=== PATIENT | female | born 1960 | race Caucasian/White ===

== ENCOUNTER 2020-06-13 15:07 | Emergency (ER) | payer OTHER, SELFPAY ==
[2020-06-13 15:11] VITALS: BP 158/88; PULSE 77; RESP 18; TEMP 36; O2SAT 100
--- NOTE | 2020-06-13 16:10 | ED.GENADULT ---
HPI - General Adult General Chief complaint: Wound/Laceration Stated complaint: L 4TH DIGIT LACERATION Time Seen by Provider: 06/13/20 15:16 Source: patient and family Mode of arrival: ambulatory Limitations: no limitations History of Present Illness HPI narrative: Patient is a 60-year-old female who presents with skin avulsion secondary to using a new knife sliced a piece of skin out of the distal phalanx of the left ring finger notes her tetanus is not up-to-date notes constant aching pain worse with touch and activity denies other injuries or complaints presents in no distress has not taken anything for her symptoms Related Data Allergies Allergy/AdvReac Type Severity Reaction Status Date / Time No Known Allergies Allergy Verified 06/13/20 15:20 Review of Systems Review of Systems: All systems reviewed & are unremarkable except as noted in HPI and below PMFSH Social History Social History (Updated 06/13/20 @ 16:14 by Kong Brock PA-C) Smoking status: Never smoker Gender identity (if verbalized by the patient): Female Exam Narrative: Exam Narrative: GENERAL: Well-appearing, well-nourished, and in no acute distress. HEAD: Normocephalic, atraumatic. EYES: PERRLA and EOMI. ENT: Nares clear, no rhinorrhea or epistaxis. Mucous membranes moist. EXTREMITIES: Normal range of motion. No edema. Half centimeter superficial skin avulsion distal phalanx left ring finger SKIN: Warm, dry, no rash. NEURO: No focal deficits. Alert and oriented x3. Neurovascularly intact PSYCH: Normal mood and affect. Course Course Emergency Course: Patient had wound closed in the emergency department hemostasis achieved Vital Signs Vital signs: Vital Signs Temperature 96.8 F L 06/13/20 15:11 Pulse Rate 77 06/13/20 15:11 Respiratory Rate 18 06/13/20 15:11 Blood Pressure 158/88 H 06/13/20 15:11 Pulse Oximetry 100 06/13/20 15:11 Temperature 96.8 F L 06/13/20 15:11 Pulse Rate 77 06/13/20 15:11 Respiratory Rate 18 06/13/20 15:11 Blood Pressure 158/88 H 06/13/20 15:11 Pulse Oximetry 100 06/13/20 15:11 Procedures Other Procedure Procedure 1: Other Procedure: Let and Surgicel placed on the wound with hemostasis achieved pressure dressing placed on top Medical Decision Making MDM Narrative Medical decision making narrative: Patients injury or pain is consistent with musculoskeletal etiology. No signs of neurological or vascular compromise on exam. Compartments and tisues are soft without signs of compartment syndrome. Pain is felt appropriate for further evaluation on an outpatient basis. Hemostasis achieved with pressure dressing Vital Signs Vital Signs: Vital Signs Temperature 96.8 F L 06/13/20 15:11 Pulse Rate 77 06/13/20 15:11 Respiratory Rate 18 06/13/20 15:11 Blood Pressure 158/88 H 06/13/20 15:11 Pulse Oximetry 100 06/13/20 15:11 Temperature 96.8 F L 06/13/20 15:11 Pulse Rate 77 06/13/20 15:11 Respiratory Rate 18 06/13/20 15:11 Blood Pressure 158/88 H 06/13/20 15:11 Pulse Oximetry 100 06/13/20 15:11 Discharge Plan Discharge Clinical Impression: Avulsion of skin Patient Disposition: Home, Self-Care Condition: Stable Instructions: Antibiotic Form, Skin Avulsion (ED) Additional Instructions: Follow up with primary care in the next 7 days for re-evaluation return if symptoms worsen or concerns, any increase in redness swelling pain or fever over 100.5 Clean wound with mild soapy water. Apply antibiotic ointment and clean dressing at least 2 times daily Follow-up/Referrals: Umesh,Neptali Diehl MD [Primary Care Provider] -
[2020-06-13 16:27] VITALS: RESP 16
== END 2020-06-13 16:27 | disposition home or self-care (01) ==
PROVIDERS: Emergency Provider Emergency Medicine; PCP Internal Medicine
DX: S61.205A Unspecified open wound of left ring finger without damage to nail, initial encounter (principal); W26.0XXA Contact with knife, initial encounter
CPT/HCPCS: 12001; 99282

== ENCOUNTER 2022-01-26 04:50 | Emergency (ER) | payer OTHER, SELFPAY ==
[2022-01-26 04:49] VITALS: BP 137/67; PULSE 64; RESP 16; TEMP 36.7; O2SAT 96
--- NOTE | 2022-01-26 05:16 | ED.BACK ---
HPI - Back Pain/Injury General Chief Complaint: Back Pain/Injury Stated Complaint: BACK PAIN RADIATING RT LEG Time Seen by Provider: 01/26/22 04:53 Source: patient History of Present Illness HPI Narrative: Patient presents with right-sided back pain. Patient reports a longstanding history of chronic back pain and sciatica on the right. She has previously seen pain management she has seen spine she has seen physical therapy but discontinued as it was not helping. She is seeing her primary care doctor she has seen a chiropractor. She has previously taken hydrocodone she takes NSAIDs and muscle relaxers and is also currently on Lyrica for her sciatica pain. She was getting rosebushes yesterday standing up and bending over multiple times and frequently. She had increasing back pain on her right which is usual for her. She took her normal medicines. And was getting initially some relief initially Last night and this morning her pain was worse and she attempted and muscle relaxers reports she is in excruciating pain so she came to the ER for further evaluation. EMS gave her morphine in route and she continues to have pain but it is less intense. Her pain is achy shoots down her right leg worse with moving her back or hip. She denies any bowel or bladder incontinence denies any focal numbness or weakness. Related Data Allergies Allergy/AdvReac Type Severity Reaction Status Date / Time No Known Allergies Allergy Verified 01/26/22 05:00 Review of Systems Review of Systems: CONSTITUTIONAL: Denies fever, chills, or sweats. EYES: Denies visual changes, redness, or discharge. ENT: Denies rhinorrhea, congestion, sore throat, or otalgia. CARDIOVASCULAR: Denies chest pain, palpitations, or edema. RESPIRATORY: Denies cough or dyspnea. GASTROINTESTINAL: Denies abdominal pain, nausea, vomiting, or diarrhea. GENITOURINARY: Denies dysuria or hematuria. SKIN: Denies rash or itching. MUSCULOSKELETAL: Denies joint pain, or myalgia. NEUROLOGIC: Denies headache, numbness, dizziness, or weakness. PSYCHIATRIC: Denies anxiety or depression. All systems reviewed & are unremarkable except as noted in HPI and below [facility] Social History Social History Smoking status: Never smoker Gender identity (if verbalized by the patient): Female Exam Narrative: GENERAL: Well-appearing, well-nourished, and in no acute distress. HEAD: Normocephalic, atraumatic. EYES: PERRLA and EOMI. ENT: Nares clear, no rhinorrhea or epistaxis. Mucous membranes moist. NECK: Supple. No masses. No JVD BACK: Mild diffuse right-sided paraspinal pain no step-offs or deformities on the midline. No focal bony tenderness on the head EXTREMITIES: Normal range of motion. No edema. SKIN: Warm, dry, no rash. NEURO: No focal deficits. Alert and oriented x3. PSYCH: Normal mood and affect. Course Vital Signs Vital signs: Vital Signs Temperature 36.7 C 01/26/22 04:49 Pulse Rate 64 01/26/22 04:49 Respiratory Rate 16 01/26/22 04:49 Blood Pressure 137/67 01/26/22 04:49 Pulse Oximetry 96 01/26/22 04:49 Oxygen Delivery Room Air 01/26/22 04:49 Temperature 36.7 C 01/26/22 04:49 Pulse Rate 63 01/26/22 05:57 Respiratory Rate 16 01/26/22 05:57 Blood Pressure 130/75 01/26/22 05:57 Pulse Oximetry 97 01/26/22 05:57 Oxygen Delivery Room Air 01/26/22 04:49 MDM - Back Pain/Injury MDM Narrative Medical decision making narrative: H&P as above, vss, pt looks clinically well, exam without focal neurological deficits or focal bony tenderness, additional labs/img considered. symptomatic relief available as needed, she given Toradol and steroids acute exacerbation of chronic pain with sciatica, dns cauda equina, fracture, major neurovascular compromise. plan to tx/monitor as op w/ pcm f/u findings/plan discussed with pt, pt agree/comfortable with plan, return precautions given. Patient was offered refer
[2022-01-26] MEDS: KETOROLAC 15 MG/ML VIAL (*BKC) IV PUSH (05:21)
[2022-01-26] MEDS: methylPREDNISolone SOD SUCC 125 MG VIAL IV PUSH (05:21)
[2022-01-26 05:57] VITALS: BP 130/75; PULSE 63; RESP 16; O2SAT 97
== END 2022-01-26 05:58 | disposition home or self-care (01) ==
LOC: ANHED 05:32
PROVIDERS: Emergency Provider Emergency Medicine; PCP Internal Medicine
DX: M54.41 Lumbago with sciatica, right side (principal)
CPT/HCPCS: 96374; 96375; 99284; J1885; J2930

== ENCOUNTER 2022-08-03 12:38 | Emergency (ER) | payer OTHER, SELFPAY ==
[2022-08-03 12:44] VITALS: BP 154/91; PULSE 92; RESP 20; TEMP 37.6; O2SAT 97
--- NOTE | 2022-08-03 13:34 | ED.GENADULT ---
HPI - General Adult General Chief complaint: Upper Respiratory Infection Stated complaint: SANTA, cough, fatigued, diarrhea x4 days Time Seen by Provider: 08/03/22 13:02 History of Present Illness HPI narrative: Patient is a 62-year-old female who presents to the ER with nausea/diarrhea. Starting over the last 4 days. Reports she has diarrhea anytime she eats something. She has had 4 loose stools today. No blood in stool. She is without vomiting. Patient reports over the last 2 weeks she is also having cough with runny nose and sore throat. Does associate with fever. That seem to be resolving prior to the GI bug beginning. She reports has been around her granddaughter who has been sick. Patient did not go get tested for flu or COVID during her respiratory illness. Related Data Home Medications Medication Instructions Recorded Confirmed citalopram 10 mg tablet 10 mg PO DAILY 02/09/22 Allergies Allergy/AdvReac Type Severity Reaction Status Date / Time No Known Allergies Allergy Verified 08/03/22 12:39 Review of Systems Review of Systems: All systems reviewed & are unremarkable except as noted in HPI and below Constitutional: Constitutional: Denies chills, Reports fatigue and Denies fever(s) ENT: Denies nasal congestion and Denies sore throat Cardiovascular: Cardiovascular: Denies chest pain Respiratory: Respiratory: Denies cough and Denies dyspnea Gastrointestinal: Gastrointestinal: Denies abdominal pain, Reports diarrhea, Reports nausea and Denies vomiting Genitourinary: Genitourinary: Denies nocturia, Denies dysuria and Denies flank pain PMFSH Past Medical History Medical History (Updated 08/03/22 @ 15:19 by Harinder Toussaint MD) Anxiety Hyperlipidemia Surgical History Surgical History (Updated 02/09/22 @ 09:41 by Isabelle [facility]ru[facility]) History of 1987 History of 1985 History of partial hysterectomy 1993 Status post cervical disc replacement Family History Family History (Updated 02/09/22 @ 09:27 by Isabelle Pruitt CMA) Sibling Alcohol abuse Other Anxiety Asthma Depression Hypertension Social History Social History (Updated 02/09/22 @ 09:32 by Isabelle Pruitt CMA) Smoking status: Former smoker Smoking end date: 01/20/98 Alcohol intake: never Substance use: never Substance use type: does not use Gender identity (if verbalized by the patient): Female Sexual Orientation (if Verbalized by the Patient): Straight or Heterosexual Spiritual care concerns: No Agree to blood products: Yes Exam Narrative: GENERAL: Well-appearing, well-nourished, and in no acute distress. HEAD: Normocephalic, atraumatic. ENT: Mucous membranes moist. CHEST: Clear to auscultation.? No respiratory distress. HEART: Regular rate and rhythm.? Normal peripheral pulses. ABDOMEN: Soft, nontender, nondistended. EXTREMITIES: Normal range of motion.? No edema. SKIN: Warm, dry, no rash. NEURO: Alert and oriented x3. PSYCH: Normal mood and affect. Course Course Emergency Course: Patient mildly anxious and pacing the room. Will be given Ativan. Discussed results and discharge home. Vital Signs Vital signs: Vital Signs Temperature 99.6 F 08/03/22 12:44 Pulse Rate 92 08/03/22 12:44 Respiratory Rate 20 08/03/22 12:44 Blood Pressure 154/91 H 08/03/22 12:44 Pulse Oximetry 97 08/03/22 12:44 Oxygen Delivery Room Air 08/03/22 12:44 Temperature 99.6 F 08/03/22 12:44 Pulse Rate 92 08/03/22 12:44 Respiratory Rate 20 08/03/22 12:44 Blood Pressure 154/91 H 08/03/22 12:44 Pulse Oximetry 97 08/03/22 12:44 Oxygen Delivery Room Air 08/03/22 12:44 Medical Decision Making Vital Signs Vital Signs: Vital Signs Temperature 99.6 F 08/03/22 12:44 Pulse Rate 92 08/03/22 12:44 Respiratory Rate 20 08/03/22 12:44 Blood Pressure 154/91 H 08/03/22 12:44 Pulse Oximetry 97 08/03/22 12:44 Oxygen Delivery Room A
[2022-08-03 13:36] LABS: Influenza A QL RT-PCR Negative (Negative); Influenza B QL RT-PCR Negative (Negative); SARS-CoV-2 RNA PCR Negative
[2022-08-03] MEDS: SODIUM CHLORIDE 0.9% IV 1,000 ML 999 ML IV CONT (13:49)
[2022-08-03] MEDS: ONDANSETRON INJ 4 MG/2 ML VIAL IV PUSH (13:49)
[2022-08-03] MEDS: KETOROLAC 30 MG/ML VIAL (*BKC) IV PUSH (13:59)
[2022-08-03] MEDS: LORazepam INJ (*CRX) 2 MG/ML VIAL 0.5 MG IV PUSH (15:14)
== END 2022-08-03 16:00 | disposition home or self-care (01) ==
PROVIDERS: Emergency Medicine; Emergency Provider Emergency Medicine; PCP Family Medicine
DX: K52.9 Noninfective gastroenteritis and colitis, unspecified (principal); F41.9 Anxiety disorder, unspecified; Z20.822 Contact with and (suspected) exposure to COVID-19
CPT/HCPCS: 87636; 96361; 96374; 96375; 99284; J1885; J2060; J2405; J7030

== ENCOUNTER 2023-05-10 14:17 | Inpatient (IN) | payer MEDICARE, SELFPAY ==
[2023-05-10] VITALS (8 sets, daily range): BP systolic 106–178; BP diastolic 40–76; PULSE 79–88; RESP 12–19; TEMP 37.2–37.3; O2SAT 97–100; BMI 22.8
--- NOTE | ~2023-05-10 | CT_ITS ---
EXAMINATION: CT abdomen pelvis wo con DATE: 05/10/2023 20:32 INDICATION: Abdominal pain TECHNIQUE: Computed tomography (CT) of the abdomen and pelvis was performed without intravenous contr ast (history of contrast allergy). Automated exposure control and iterative reconstruction technique were employed. Exam dose: 220.99 mGy-cm total exam DLP. 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 No pericardial or pleural effusion. The lung bases are clear of infiltrate or consolidation. The liver, gallbladder, bile ducts, spleen, pancreas, pancreatic duct, and adrenal glands and kidneys appear unremarkable on this limited noncontrast examination. No urinary tract calculus or hydrourete ronephrosis is detected. The urinary bladder appears unremarkable. Status post hysterectomy. Normal appendix. There is prominent thickening of the wall of much of the sigmoid colon. There is pericolic fat strand ing along the distal descending and proximal, suggesting diverticulitis; differential diagnosis inclu valdez colon cancer. There are multiple diverticula of the descending colon in particular. There are small bowel air-fluid levels without abnormal dilatation, likely due to mild adynamic ileus . There is no evidence of bowel obstruction, pneumatosis or intraperitoneal free air. There is atherosclerotic calcification of the abdominal aorta but no aneurysm. No intraperitoneal or retroperitoneal or pelvic mass lesion or adenopathy or ascites is detected. There is osteopenia. No suspicious osteolytic or osteoblastic lesions are noted. IMPRESSION: Pericolic fat stranding in the region of the junction of the distal descending and proxi mal sigmoid colon, with adjacent diverticula, suggesting diverticulitis, without evidence of abscess. There is prominent thickening of the wall of much of the sigmoid colon. Consider large bowel workup by colonoscopy or barium enema when practical to exclude sigmoid colon malignancy Status post hysterectomy Normal appendix Reviewed, dictated and finalized at [facility]. Reviewed, dictated and finalized at [facility]. IMPRESSION: Pericolic fat stranding in the region of the junction of the dista l descending and proximal sigmoid colon, with adjacent diverticula, suggesting diverticulitis, without evidence of abscess. There is prominent thickening of t he wall of much of the sigmoid colon. Consider large bowel workup by colonoscop y or barium enema when practical to exclude sigmoid colon malignancy Status post hysterectomy Normal appendix
[2023-05-10 16:34] LABS: Basophils Percent Auto 0.3 % (0.2-1.2); Eosinophils Absolute Auto 0.3 K/mm3 (0-0.3); Eosinophils Percent Auto 2.2 % (0-4.4); Hematocrit 40.2 % (37.0-47.0); Hemoglobin 13.3 g/dL (12.0-15.0); Immature Granulocyte Absolute 0.07 K/mm3 (0.00-0.031); Immature Granulocyte Percent A 0.5 % (0-0.5); Lymphocytes Absolute Auto 1.05 K/mm3 (0.9-3.2); Lymphocytes Percent Auto 7.1 % (18.3-44.2); Mean Corpuscular HGB Conc 33.1 g/dl (32-36); Mean Corpuscular Hemoglobin 30.2 pg (26-34); Mean Corpuscular Volume 91.2 fl (80-100); Mean Platelet Volume 9.7 fl (7.4-10.4); Monocytes Absolute Auto 0.8 K/mm3 (0.1-0.6); Monocytes Percent Auto 5.2 % (2.6-8.5); Neutrophils Absolute Auto 12.6 K/mm3 (1.3-6.7); Neutrophils Percent Auto 84.7 % (45.5-73.1); Platelet Count Result 309 k/mm3 (150-375); Red Blood Count 4.41 M/mm3 (4.2-5.4); Red Cell Distribution Width 12.8 % (11.5-14.5); White Blood Count 14.9 K/mm3 (4.5-10.0)
[2023-05-10 16:44] LABS: Alanine Aminotransferase 22 U/L (6-35); Albumin Level 4.3 g/dL (3.5-5.1); Alkaline Phosphatase 59 U/L (38-126); Anion Gap 10 mmol/L (8-16); Aspartate Amino Transferase 26 U/L (14-36); Bilirubin,Total 1.4 mg/dL (0.2-1.3); Blood Urea Nitrogen 13 mg/dL (7-17); Calcium 8.9 mg/dL (8.4-10.2); Carbon Dioxide 28 mmol/L (22-30); Chloride 99 mmol/L (98-107); Estimated CRCL calculation 55 ml/min; Estimated Glomerular Filt Rate > 60; Glucose 108 mg/dL (65-110); Potassium 3.6 mmol/L (3.4-5.0); Sodium 137 mmol/L (137-145)
[2023-05-10 17:22] LABS: Appearance Urine Cloudy (Clear); Bacteria Urine None Seen /hpf; Bilirubin Urine 2+ (Negative); Blood Urine 3+ (Negative); Color Urine Dark Yellow (Yellow); Glucose Urine UA Negative (Negative); Ketones Urine 3+ mg/dL (Negative); Leukocyte Esterase Ur Negative LEU/UL (Negative); Nitrate Urine Negative (Negative); Protein Urine 2+ mg/dL (Negative); RBC Urine 21-50 /hpf (0-2); Specific Grav Ur 1.027 (1.001-1.035); Squamous Epithelial Cell Urine None seen /hpf (Few); WBC Urine 0-5 /hpf; pH Urine 5.5 (5.0-9.0)
[2023-05-10 17:23] LABS: Add Urine Microscopic? YES
--- NOTE | 2023-05-10 20:02 | ED.GENADULT ---
HPI - General Adult General Chief complaint: Nausea/Vomiting/Diarrhea Stated complaint: DIARRHEA,ABD CRAMPING X3 DAYS Time Seen by Provider: 05/10/23 19:44 History of Present Illness HPI narrative: Patient presents to the emergency department with persistent and worsening lower abdominal pain. She has had diarrhea for the past 3 days that has been excessive. Today started with nausea and vomiting. Denies fevers chills. Denies past surgical abdominal history. She has not been able to eat much since the diarrhea started a couple days ago. She is concerned she is dehydrated. She is also very uncomfortable. She is accompanied by her who contributes details to the history Related Data Home Medications Medication Instructions Recorded Confirmed citalopram 10 mg tablet 20 mg PO DAILY 01/25/23 01/25/23 Allergies Allergy/AdvReac Type Severity Reaction Status Date / Time No Known Allergies Allergy Verified 01/25/23 09:22 Review of Systems Review of Systems: Negative except what is documented in HPI [facility] Past Medical History Medical History Anxiety Hyperlipidemia Insomnia Surgical History Surgical History History of 1987 History of 1985 History of partial hysterectomy 1993 Status post cervical disc replacement Family History Family History Sibling Alcohol abuse Other Anxiety Asthma Depression Hypertension Social History Social History Smoking status: Former smoker Smoking end date: 01/20/98 Alcohol intake: never Substance use: never Substance use type: does not use Lack of Transportation: No Lack of Food: Never True Current Housing: I Have Housing Concerned About Future Housing: No Difficulty Paying Gas/Electric Bills: No Difficulty Paying for Meds: No Currently Unemployed: No Education: Associate Degree Difficulty w/ Childcare or Family Care: No Living arrangements: with family Gender identity (if verbalized by the patient): Female Sexual Orientation (if Verbalized by the Patient): Straight or Heterosexual Spiritual care concerns: No Agree to blood products: Yes Exam Narrative: GENERAL: Well-appearing, well-nourished, and in no acute distress. Appears uncomfortable HEAD: Normocephalic, atraumatic. EYES: PERRLA and EOMI. ENT: Nares clear, no rhinorrhea or epistaxis. Mucous membranes moist. NECK: Supple. CHEST: Clear to auscultation. No respiratory distress. HEART: Regular rate and rhythm. ABDOMEN: Soft, nondistended. Suprapubic tenderness EXTREMITIES: Normal range of motion. No edema. SKIN: Warm, dry, no rash. NEURO: No focal deficits. Alert and oriented x3. PSYCH: Normal mood and affect. Course Course Emergency Course: Differential diagnosis includes but not limited to colitis, urinary tract infection, appendicitis, pancreatitis, small bowel obstruction Telemetry ordered due to getting narcotic pain medication to evaluate for dysrhythmias. Evaluated by myself. Rhythm nsr Rate 90 Vital Signs Vital signs: Vital Signs Temperature 37.3 C 05/10/23 15:05 Pulse Rate 88 05/10/23 15:05 Respiratory Rate 18 05/10/23 15:05 Blood Pressure 121/61 05/10/23 15:05 Pulse Oximetry 99 05/10/23 15:05 Oxygen Delivery Room Air 05/10/23 15:05 Temperature 37.3 C 05/10/23 15:05 Pulse Rate 80 05/10/23 20:16 Respiratory Rate 19 05/10/23 20:16 Blood Pressure 173/64 H 05/10/23 20:16 Pulse Oximetry 100 05/10/23 20:16 Oxygen Delivery Room Air 05/10/23 15:05 Medical Decision Making Vital Signs Vital Signs: Vital Signs Temperature 37.3 C 05/10/23 15:05 Pulse Rate 88 05/10/23 15:05 Respiratory Rate 18 05/10/23 15:05 Blood Pressu
[2023-05-10] MEDS: SODIUM CHLORIDE 0.9% IV 1,000 ML 999 ML IV CONT (20:12)
[2023-05-10] MEDS: MORPHINE SULFATE (*CRX) 2 MG/ML INJ IV PUSH (20:13)
[2023-05-10] MEDS: ONDANSETRON INJ 4 MG/2 ML VIAL IV PUSH (20:13)
[2023-05-10] MEDS: HYDROmorphone HCL INJ (*CRX) 1 MG/ML SYR 0.5 MG IV PUSH (22:05)
[2023-05-10] MEDS: PIPERACILLIN/TAZ 4.5G/NS 100ML 4.5 GM/100 ML BAG IVPB (22:06)
--- NOTE | 2023-05-10 22:44 | PM.IMHP ---
H&P: HPI History of Present Illness Date/Time: 05/10/23 22:44 Chief Complaint: Patient came to the ER for evaluation with complaints of diarrhea and abdominal cramping for 3 days Narrative: She is a very pleasant lady who is complaining of persistent nausea, vomiting, diarrhea, abdominal pain and cramping for the last 3 days which is getting worse. She came to the ER for evaluation and workup was done which showed acute diverticulitis. She was started on IV antibiotics. She has been unable to eat much since her diarrhea started and concerned she might be dehydrated and do not feel safe going home. She was placed in observation for medical management optimization Review of Systems Review of Systems: patient complains of nausea, vomiting, diarrhea, abdominal cramping. She denies any chest pain, palpitations, fever rigor chills. All systems reviewed & are unremarkable except as noted in HPI and below PMFSH Past Medical History Medical History Anxiety Hyperlipidemia Insomnia Surgical History Surgical History History of 1987 History of 1985 History of partial hysterectomy 1993 Status post cervical disc replacement Family History Family History Sibling Alcohol abuse Other Anxiety Asthma Depression Hypertension Social History Social History Smoking status: Never smoker Second hand tobacco smoke exposure: No Smoking end date: 01/20/98 Alcohol intake: never Substance use: current Substance use type: marijuana Lack of Transportation: No Lack of Food: Never True Current Housing: I Have Housing Concerned About Future Housing: No Difficulty Paying Gas/Electric Bills: No Difficulty Paying for Meds: No Currently Unemployed: No Education: Associate Degree Difficulty w/ Childcare or Family Care: No Living arrangements: with family Gender identity (if verbalized by the patient): Female Sexual Orientation (if Verbalized by the Patient): Straight or Heterosexual Spiritual care concerns: No Agree to blood products: Yes Meds Home Medications and Allergies Home Medications Medication Instructions Recorded Confirmed Type rosuvastatin 20 mg tablet 20 mg PO DAILY #90 tabs 03/09/22 05/10/23 Rx citalopram 10 mg tablet 20 mg PO DAILY 01/25/23 05/10/23 History Allergies Allergy/AdvReac Type Severity Reaction Status Date / Time iohexol AdvReac Mild Rash Verified 05/10/23 23:33 [From contrast - CT, X-RAY] Vital Signs Vital Signs - 24 hr 05/10/23 15:05 05/10/23 20:04 05/10/23 20:05 Temperature 37.3 C Pulse Rate 88 84 84 Respiratory Rate 18 17 Blood Pressure 121/61 178/76 H Pulse Oximetry 99 Oxygen Delivery Room Air 05/10/23 20:15 05/10/23 20:16 05/10/23 22:16 Temperature Pulse Rate 83 80 84 Respiratory Rate 12 19 17 Blood Pressure 173/64 H 163/71 H Pulse Oximetry 100 100 Oxygen Delivery Exam Narrative: PHYSICAL EXAMINATION: Vital signs: Please see the chart General physical exam: Patient feels weak and tired, lying in bed in the ER, no acute distress Head/eyes: Atraumatic, EOMI, PERRLA ENT: Moist mucous membranes, nasal passages clear Neck: Supple, full range of motion, trachea midline CVS: S1 + S2 + 0, regular rate and rhythm, no murmurs Respiratory: Bilaterally fair air entry in both lung batres, mild B/L crackles, symmetric chest expansion, no distress Abdomen: Soft, + mild left lower quadrant abdominal tenderness on palpation, bowel sounds +ve, no organomegaly Extremities: No clubbing, no cyanosis, no edema, no calf tenderness Musculoskeletal: Moves all, adequate range of motion, no muscle spasms Skin: Warm, dry, no jaundice, no cyanosis Neurological: Awake, alert, oriented x 3, cranial nerv
--- NOTE | 2023-05-10 23:40 | ADMGEN ---
This patient, Kaylah Villalpando, was admitted to Medical Room 343-01. Patient/family oriented to hospital policies and general routines including ID bracelet, bed and alarms, visiting hours, pain management, procedures, bathroom and other care routines, personal items, smoking policy, room service/diet, and visiting hours. Information on how to activate the Rapid Response Team has been discussed. Patient/Family are encouraged to report perceived risks to care and to ask questions if they do not understand what they are told or what they should do.
[2023-05-11] MEDS: MAG HYDROX/AL HYDROX/SIMETH 30 ML UDC PO (01:06)
[2023-05-11] MEDS: SODIUM CHLORIDE 0.9% IV 1,000 ML 100 ML IV CONT ×2 (01:06→17:16)
[2023-05-11 04:00] VITALS: BP 118/49; PULSE 78; RESP 16; TEMP 36.9; O2SAT 97
[2023-05-11] MEDS: MORPHINE SULFATE (*CRX) 2 MG/ML INJ IV PUSH ×4 (04:15→22:34)
[2023-05-11 05:52] LABS: Basophils Percent Auto 0.2 % (0.2-1.2); Eosinophils Absolute Auto 0.1 K/mm3 (0-0.3); Eosinophils Percent Auto 0.6 % (0-4.4); Hematocrit 35.5 % (37.0-47.0); Hemoglobin 11.8 g/dL (12.0-15.0); Immature Granulocyte Absolute 0.05 K/mm3 (0.00-0.031); Immature Granulocyte Percent A 0.4 % (0-0.5); Lymphocytes Absolute Auto 1.44 K/mm3 (0.9-3.2); Lymphocytes Percent Auto 11.8 % (18.3-44.2); Mean Corpuscular HGB Conc 33.2 g/dl (32-36); Mean Corpuscular Hemoglobin 30.2 pg (26-34); Mean Corpuscular Volume 90.8 fl (80-100); Mean Platelet Volume 10.1 fl (7.4-10.4); Monocytes Absolute Auto 1.2 K/mm3 (0.1-0.6); Monocytes Percent Auto 10.1 % (2.6-8.5); Neutrophils Absolute Auto 9.4 K/mm3 (1.3-6.7); Neutrophils Percent Auto 76.9 % (45.5-73.1); Platelet Count Result 268 k/mm3 (150-375); Red Blood Count 3.91 M/mm3 (4.2-5.4); Red Cell Distribution Width 12.8 % (11.5-14.5); White Blood Count 12.2 K/mm3 (4.5-10.0)
[2023-05-11 06:25] LABS: Anion Gap 5 mmol/L (8-16); Blood Urea Nitrogen 10 mg/dL (7-17); Calcium 7.6 mg/dL (8.4-10.2); Carbon Dioxide 26 mmol/L (22-30); Chloride 105 mmol/L (98-107); Estimated CRCL calculation 63 ml/min; Estimated Glomerular Filt Rate > 60; Glucose 100 mg/dL (65-110); Phosphorus 2.8 mg/dL (2.5-4.5); Potassium 3.4 mmol/L (3.4-5.0); Sodium 136 mmol/L (137-145)
[2023-05-11 08:00] VITALS: PULSE 81; RESP 16; O2SAT 98
[2023-05-11] MEDS: ROSUVASTATIN 10 MG TABLET 20 MG PO (08:25)
[2023-05-11] MEDS: CITALOPRAM HYDROBROMIDE 20 MG TABLET PO (08:25)
[2023-05-11] MEDS: ONDANSETRON INJ 4 MG/2 ML VIAL IV PUSH (09:27)
--- NOTE | 2023-05-11 10:29 | PM.IMPN ---
Progress Note: A&P Assessment and Plan (1) Diverticulitis: Code(s): K57.92 - Diverticulitis of intestine, part unspecified, without perforation or abscess without bleeding Status: Acute Assessment and Plan: CT abdomen shows diverticulitis without abscess. Also prominent thickening of the bowel wall of the sigmoid colon. Recommended colonoscopy in the next 3-4 weeks after resolution of diverticulitis. Concerns for malignancy. -clear liquid diet, advance as tolerated -IVF -Leukocytosis on admission 14.9-->12.2 today -Afebrile thus far. Should she fever obtain blood cultures. -IV antibiotics with cefepime and Flagyl (2) Leukocytosis: Code(s): D72.829 - Elevated white blood cell count, unspecified Status: Acute Assessment and Plan: see above Subjective Date/time seen: 05/11/23 10:29 Interval history: HPI obtained from chart, Chief Complaint: Patient came to the ER for evaluation with complaints of? diarrhea and abdominal cramping for 3 days Narrative: She is a very pleasant lady who is complaining of persistent nausea, vomiting, diarrhea, abdominal pain and cramping for the last 3 days which is getting worse.? She came to the ER for evaluation and workup was done which showed acute diverticulitis.? She was started on IV antibiotics. ? She has been unable to eat much since? her diarrhea started and concerned she might be dehydrated and do not feel safe going home.? She was placed in observation for medical management optimization. Interval history: 05/11-patient appears weak and ill lying in bed. She has been sipping on clear liquids but continues to have severe abdominal pain to her right lower quadrant and right mid quadrant. She winces in pain when I place my stethoscope to listen. She is having nausea but she says that the Zofran is helping control this. Currently receiving IV fluids along with cefepime and Flagyl for diverticulitis. Review of Systems Review of Systems: All systems reviewed & are unremarkable except as noted in HPI and below Exam Narrative: General: ill and weak appearing, well developed, well nourished, appears stated age. HEENT: normocephalic, atraumatic. Mucous membranes moist. EOMI, PERRLA, bilateral sclera anicteric, no conjunctival injection. Neck supple without JVD, lymphadenopathy, or bruit. Respiratory: clear to auscultation bilaterally. No rales/rhonic/wheezes. Cardiovascular: Regular rate and rhythm, normal S1-S2 upon auscultation. No murmurs, rubs, or clicks. PMI is nondisplaced, capillary re-fill less than 3 second. Abdomen: Soft, flat, no pulsatile masses, non-distended and severely tender. No rebound, no guarding. No CVA tenderness, no hepatosplenomegaly. Bowel sounds present to all four quadrants, resonant to percussion. Extremities: No cyanosis, clubbing, or edema present. Pulses are palpable 2/2. Active ROM to all four extremities. Neuro: Alert and orientated x 4. PERRLA. Cranial nerves 2-12 intact without focal deficit. Skin: Warm, dry, and intact, without rash, erythema, or lesion. Lines: PIV Incisions: N/A Psych: pleasant, cooperative, normal speech, normal affect, no hallucinations, no dysarthria Objective Data Vital Signs Vital Signs: Vital Signs - 24 hr 05/10/23 15:05 05/10/23 20:04 05/10/23 20:05 Temperature 99.2 F Pulse Rate 88 84 84 Respiratory Rate 18 17 Blood Pressure 121/61 178/76 H Pulse Oximetry 99 Oxygen Delivery Room Air 05/10/23 20:15 05/10/23 20:16 05/10/23 22:16 Temperature Pulse Rate 83 80 84 Respiratory Rate 12 19 17 Blood Pressure 173/64 H 163/71 H Pulse Oximetry 100 100 Oxygen Delivery 05/10/23 23:05 05/10/23 23:55 05/11/23 04:00 Temperature 99 F 98.4 F Pulse Rate 83 79 78 Respiratory Rate 19 14 16 Blood Pressure 123/51 L 106/40 L 118/49 L Pulse Oximetry 97 99 97 Oxygen Delivery Intake/Output Intake/Output: Intake & Output 05/08/23 05/09/23 05/10/23
--- NOTE | 2023-05-11 10:35 | ECG_ITS ---
Measurements Intervals [place] Rate: 78 P: 83 ID: [id number] QRS: 47 QRSD: 102 T: 72 QT: 382 QTc: 437 Interpretive Statements SINUS RHYTHM NORMAL ECG NO PREVIOUS ECG AVAILABLE FOR COMPARISON Electronically Signed On 05-11-2023 13:46:07 CDT by Dorian Munoz D.O.
[2023-05-11] MEDS: CEFEPIME 2 GM/NS 50 ML 2 GM/50 ML BAG IVPB ×2 (11:22→20:18)
[2023-05-11 12:00] VITALS: BP 121/50; PULSE 81; RESP 16; TEMP 37; O2SAT 98
[2023-05-11] MEDS: metroNIDAZOLE 500 MG/ISO 100ML 500 MG/100 ML BAG 100 MG IVPB ×2 (13:14→18:01)
[2023-05-11] MEDS: ACETAMINOPHEN 325 MG TABLET 650 MG PO (17:21)
[2023-05-11 17:38] LABS: Free T4 Free Thyroxine Reflex 1.24 ng/dL (0.78-2.19)
[2023-05-11 20:02] LABS: Total Triiodothyronine (T3) 1.01 NG/ML (0.97-1.69)
[2023-05-11 21:05] VITALS: BP 129/57; PULSE 74; RESP 14; TEMP 36.1; O2SAT 99
[2023-05-12] MEDS: SODIUM CHLORIDE 0.9% IV 1,000 ML 100 ML IV CONT (03:41)
[2023-05-12] MEDS: metroNIDAZOLE 500 MG/ISO 100ML 500 MG/100 ML BAG 100 MG IVPB ×3 (03:41→17:57)
[2023-05-12 05:54] LABS: Basophils Percent Auto 0.4 % (0.2-1.2); Eosinophils Absolute Auto 0.2 K/mm3 (0-0.3); Eosinophils Percent Auto 1.9 % (0-4.4); Hemoglobin 10.9 g/dL (12.0-15.0); Immature Granulocyte Absolute 0.03 K/mm3 (0.00-0.031); Immature Granulocyte Percent A 0.3 % (0-0.5); Lymphocytes Absolute Auto 1.27 K/mm3 (0.9-3.2); Lymphocytes Percent Auto 14.1 % (18.3-44.2); Mean Corpuscular Volume 90.9 fl (80-100); Mean Platelet Volume 9.7 fl (7.4-10.4); Monocytes Absolute Auto 0.8 K/mm3 (0.1-0.6); Monocytes Percent Auto 8.9 % (2.6-8.5); Neutrophils Absolute Auto 6.7 K/mm3 (1.3-6.7); Neutrophils Percent Auto 74.4 % (45.5-73.1); Platelet Count Result 240 k/mm3 (150-375); Red Blood Count 3.63 M/mm3 (4.2-5.4); Red Cell Distribution Width 12.7 % (11.5-14.5)
[2023-05-12 06:00] VITALS: BP 129/52; PULSE 74; RESP 16; TEMP 36.2; O2SAT 99
[2023-05-12 06:18] LABS: Anion Gap 4 mmol/L (8-16); Blood Urea Nitrogen 4 mg/dL (7-17); Calcium 7.6 mg/dL (8.4-10.2); Carbon Dioxide 26 mmol/L (22-30); Chloride 106 mmol/L (98-107); Estimated CRCL calculation 63 ml/min; Estimated Glomerular Filt Rate > 60; Glucose 92 mg/dL (65-110); Potassium 2.9 mmol/L (3.4-5.0); Sodium 136 mmol/L (137-145)
[2023-05-12 07:44] VITALS: O2SAT 98
[2023-05-12 08:00] VITALS: PULSE 74; RESP 16; O2SAT 98
[2023-05-12] MEDS: CEFEPIME 2 GM/NS 50 ML 2 GM/50 ML BAG IVPB ×2 (08:53→21:52)
[2023-05-12] MEDS: ROSUVASTATIN 10 MG TABLET 20 MG PO (08:54)
[2023-05-12] MEDS: CITALOPRAM HYDROBROMIDE 20 MG TABLET PO (08:54)
[2023-05-12] MEDS: MORPHINE SULFATE (*CRX) 2 MG/ML INJ IV PUSH ×3 (08:57→21:00)
[2023-05-12] MEDS: LOPERAMIDE HCL 2 MG CAPSULE PO (08:57)
--- NOTE | 2023-05-12 09:19 | PM.IMPN ---
Progress Note: A&P Assessment and Plan (1) Diverticulitis: Code(s): K57.92 - Diverticulitis of intestine, part unspecified, without perforation or abscess without bleeding Status: Acute Assessment and Plan: CT abdomen shows diverticulitis without abscess. Also prominent thickening of the bowel wall of the sigmoid colon. Recommended colonoscopy in the next 3-4 weeks after resolution of diverticulitis. Concerns for malignancy. -clear liquid diet, advance as tolerated -IVF -replace electrolytes -Leukocytosis on admission 14.9-->12.2-->9.0 today -Afebrile thus far. Should she fever obtain blood cultures. -IV antibiotics with cefepime and Flagyl (2) Leukocytosis: Code(s): D72.829 - Elevated white blood cell count, unspecified Status: Acute Assessment and Plan: see above (3) TSH elevation: Code(s): R79.89 - Other specified abnormal findings of blood chemistry Status: Acute Assessment and Plan: Subclinical hypothyroidism TSH 8.460, Free T4 1.24, Total T3 1.01. I spoke with the patient about symptoms surrounding hypothyroidism. She does say she has fatigue, weakness, dry skin, and cold intolerance. I discussed starting her on low dose Synthroid but she prefers to wait and discuss with her PCP. Since her T4 and T3 are normal she does not wish to add another medication to her regimen if she can help it. (4) Colon wall thickening: Code(s): K63.9 - Disease of intestine, unspecified Status: Acute Assessment and Plan: See on CT abdomen and pelvis I spoke with Dr Ruelas who recommends colonoscopy in the next 3-4 weeks after infection has cleared. I spoke with the patient regarding this and the need for further investigation. She is agreeable. It has been greater than 10 years since her last colonoscopy. She does say that she had been experiencing unintentional weight loss. Subjective Date/time seen: 05/12/23 09:19 Interval history: HPI obtained from chart, Chief Complaint: Patient came to the ER for evaluation with complaints of? diarrhea and abdominal cramping for 3 days Narrative: She is a very pleasant lady who is complaining of persistent nausea, vomiting, diarrhea, abdominal pain and cramping for the last 3 days which is getting worse.? She came to the ER for evaluation and workup was done which showed acute diverticulitis.? She was started on IV antibiotics. ? She has been unable to eat much since? her diarrhea started and concerned she might be dehydrated and do not feel safe going home.? She was placed in observation for medical management optimization. Interval history: 05/11-patient appears weak and ill lying in bed. She has been sipping on clear liquids but continues to have severe abdominal pain to her right lower quadrant and right mid quadrant. She winces in pain when I place my stethoscope to listen. She is having nausea but she says that the Zofran is helping control this. Currently receiving IV fluids along with cefepime and Flagyl for diverticulitis. 05/12: Symptoms mildly improved. She is having high volume diarrhea. Her white count is improving and she has been afebrile so I am okay to start with TID Imodium. Her K+ was low at 2.9 mmol/L. Replacing with IV K. Complains of abdominal cramping with her diarrhea, will add bentyl as well. Continue with IV antibiotics. Review of Systems Review of Systems: All systems reviewed & are unremarkable except as noted in HPI and below Exam Narrative: General: ill and weak appearing, well developed, well nourished, appears stated age. HEENT: normocephalic, atraumatic. Mucous membranes moist. EOMI, PERRLA, bilateral sclera anicteric, no conjunctival injection. Neck supple without JVD, lymphadenopathy, or bruit. Respiratory: clear to auscultation bilaterally. No rales/rhonic/wheezes. Cardiovascular: Regular rate and rhythm, normal S1-S2 upon auscultation. No murmurs, rubs, or clicks. PMI
[2023-05-12] MEDS: POTASSIUM CHLORIDE INJ 40 MEQ in SODIUM CHLORIDE 0.9% IV 500 ML 130 MEQ IVPB ×2 (11:35→16:15)
[2023-05-12 14:00] VITALS: BP 143/64; PULSE 74; RESP 18; TEMP 36.4; O2SAT 99
[2023-05-12] MEDS: DICYCLOMINE HCL 10 MG CAPSULE 20 MG PO (18:07)
[2023-05-12 20:00] VITALS: PULSE 75; RESP 18; O2SAT 100
[2023-05-12 20:07] VITALS: BP 155/80; PULSE 75; RESP 18; TEMP 37.2; O2SAT 100
[2023-05-12] MEDS: LOPERAMIDE HCL 2 MG CAPSULE 4 MG PO ×2 (20:15→21:56)
[2023-05-12 21:04] LABS: Anion Gap 0 mmol/L (8-16); Blood Urea Nitrogen 3 mg/dL (7-17); Calcium 7.7 mg/dL (8.4-10.2); Carbon Dioxide 31 mmol/L (22-30); Chloride 106 mmol/L (98-107); Estimated CRCL calculation 63 ml/min; Estimated Glomerular Filt Rate > 60; Glucose 121 mg/dL (65-110); Potassium 3.5 mmol/L (3.4-5.0); Sodium 137 mmol/L (137-145)
[2023-05-13] MEDS: MORPHINE SULFATE (*CRX) 2 MG/ML INJ IV PUSH (01:12)
[2023-05-13] MEDS: SODIUM CHLORIDE 0.9% IV 1,000 ML 100 ML IV CONT (02:42)
[2023-05-13] MEDS: metroNIDAZOLE 500 MG/ISO 100ML 500 MG/100 ML BAG 100 MG IVPB ×3 (02:42→18:14)
[2023-05-13 04:47] VITALS: BP 144/63; PULSE 69; RESP 16; TEMP 37.1; O2SAT 98
[2023-05-13 06:14] LABS: Basophils Percent Auto 0.4 % (0.2-1.2); Eosinophils Absolute Auto 0.2 K/mm3 (0-0.3); Eosinophils Percent Auto 2.8 % (0-4.4); Hematocrit 32.3 % (37.0-47.0); Hemoglobin 10.6 g/dL (12.0-15.0); Immature Granulocyte Absolute 0.03 K/mm3 (0.00-0.031); Immature Granulocyte Percent A 0.4 % (0-0.5); Lymphocytes Percent Auto 22.8 % (18.3-44.2); Mean Corpuscular HGB Conc 32.8 g/dl (32-36); Mean Corpuscular Hemoglobin 29.9 pg (26-34); Mean Corpuscular Volume 91.2 fl (80-100); Mean Platelet Volume 9.3 fl (7.4-10.4); Monocytes Absolute Auto 0.6 K/mm3 (0.1-0.6); Monocytes Percent Auto 8.1 % (2.6-8.5); Neutrophils Absolute Auto 4.9 K/mm3 (1.3-6.7); Neutrophils Percent Auto 65.5 % (45.5-73.1); Platelet Count Result 252 k/mm3 (150-375); Red Blood Count 3.54 M/mm3 (4.2-5.4); Red Cell Distribution Width 12.6 % (11.5-14.5); White Blood Count 7.4 K/mm3 (4.5-10.0)
[2023-05-13 06:30] LABS: Anion Gap 2 mmol/L (8-16); Calcium 7.6 mg/dL (8.4-10.2); Carbon Dioxide 30 mmol/L (22-30); Chloride 106 mmol/L (98-107); Estimated CRCL calculation 63 ml/min; Estimated Glomerular Filt Rate > 60; Glucose 103 mg/dL (65-110); Magnesium 1.8 mg/dL (1.6-2.3); Potassium 3.4 mmol/L (3.4-5.0); Sodium 138 mmol/L (137-145)
[2023-05-13 06:32] LABS: Blood Urea Nitrogen < 2 mg/dL (7-17)
[2023-05-13] MEDS: CITALOPRAM HYDROBROMIDE 20 MG TABLET PO (08:32)
[2023-05-13] MEDS: CEFEPIME 2 GM/NS 50 ML 2 GM/50 ML BAG IVPB ×2 (08:32→20:54)
[2023-05-13] MEDS: ROSUVASTATIN 10 MG TABLET 20 MG PO (08:33)
[2023-05-13] MEDS: ONDANSETRON INJ 4 MG/2 ML VIAL IV PUSH (08:33)
[2023-05-13] MEDS: DICYCLOMINE HCL 10 MG CAPSULE 20 MG PO ×3 (08:39→18:22)
--- NOTE | 2023-05-13 09:42 | P.PNIM_ITS ---
Progress Note: A&P Assessment and Plan (1) Diverticulitis: Code(s): K57.92 - Diverticulitis of intestine, part unspecified, without perforation or abscess without bleeding Status: Acute Assessment and Plan: CT abdomen shows diverticulitis without abscess. Also prominent thickening of the bowel wall of the sigmoid colon. Recommended colonoscopy in the next 3-4 weeks after resolution of diverticulitis. Concerns for malignancy. -clear liquid diet, will try advance diet to low fiber for lunch -immodium prn, bentyl prn for cramping -IVF stopped -replace electrolytes -Leukocytosis on admission 14.9-->12.2-->9->7.4 today -Afebrile thus far. Should she fever obtain blood cultures. -IV antibiotics with cefepime and Flagyl (2) Leukocytosis: Code(s): D72.829 - Elevated white blood cell count, unspecified Status: Acute Assessment and Plan: see above (3) TSH elevation: Code(s): R79.89 - Other specified abnormal findings of blood chemistry Status: Acute Assessment and Plan: Subclinical hypothyroidism TSH 8.460, Free T4 1.24, Total T3 1.01. I spoke with the patient about symptoms surrounding hypothyroidism. She does say she has fatigue, weakness, dry skin, and cold intolerance. I discussed starting her on low dose Synthroid but she prefers to wait and discuss with her PCP. Since her T4 and T3 are normal she does not wish to add another medication to her regimen if she can help it. (4) Colon wall thickening: Code(s): K63.9 - Disease of intestine, unspecified Status: Acute Assessment and Plan: See on CT abdomen and pelvis I spoke with Dr Ruelas who recommends colonoscopy in the next 3-4 weeks after infection has cleared. I spoke with the patient regarding this and the need for further investigation. She is agreeable. It has been greater than 10 years since her last colonoscopy. She does say that she had been experiencing unintentional weight loss. Subjective Date/time seen: 05/13/23 09:42 Interval history: HPI obtained from chart, Chief Complaint: Patient came to the ER for evaluation with complaints of? diarrhea and abdominal cramping for 3 days Narrative: She is a very pleasant lady who is complaining of persistent nausea, vomiting, diarrhea, abdominal pain and cramping for the last 3 days which is getting worse.? She came to the ER for evaluation and workup was done which showed acute diverticulitis.? She was started on IV antibiotics. ? She has been unable to eat much since? her diarrhea started and concerned she might be dehydrated and do not feel safe going home.? She was placed in observation for medical management optimization. Interval history: 05/11-patient appears weak and ill lying in bed. She has been sipping on clear liquids but continues to have severe abdominal pain to her right lower quadrant and right mid quadrant. She winces in pain when I place my stethoscope to listen. She is having nausea but she says that the Zofran is helping control this. Currently receiving IV fluids along with cefepime and Flagyl for diverticulitis. 05/12: Symptoms mildly improved. She is having high volume diarrhea. Her white count is improving and she has been afebrile so I am okay to start with TID Imodium. Her K+ was low at 2.9 mmol/L. Replacing with IV K. Complains of abdominal cramping with her diarrhea, will add bentyl as well. Continue with IV antibiotics. 05/13: Kaylah is looking better today. When around she is up sitting on the couch next to the window. She says that her back is hurting some but she thinks it is from the bed.
[2023-05-13] MEDS: LOPERAMIDE HCL 2 MG CAPSULE 4 MG PO (14:27)
[2023-05-13 14:29] VITALS: BP 134/58; PULSE 81; RESP 18; TEMP 36.7; O2SAT 100
[2023-05-13 20:00] VITALS: PULSE 68; RESP 16; O2SAT 98
[2023-05-13 20:12] VITALS: BP 149/63; PULSE 68; RESP 16; TEMP 36.8; O2SAT 98
[2023-05-13] MEDS: ZOLPIDEM TARTRATE (*CRX) 5 MG TABLET PO (20:53)
[2023-05-13 21:30] VITALS: O2SAT 98
[2023-05-14] MEDS: metroNIDAZOLE 500 MG/ISO 100ML 500 MG/100 ML BAG 100 MG IVPB ×2 (03:15→10:57)
[2023-05-14 04:43] VITALS: BP 149/65; PULSE 70; RESP 16; TEMP 37.2; O2SAT 98
[2023-05-14] MEDS: ACETAMINOPHEN 325 MG TABLET 650 MG PO (04:47)
[2023-05-14 05:16] LABS: Anion Gap 3 mmol/L (8-16); Blood Urea Nitrogen 2 mg/dL (7-17); Calcium 8.1 mg/dL (8.4-10.2); Carbon Dioxide 34 mmol/L (22-30); Chloride 101 mmol/L (98-107); Estimated CRCL calculation 74 ml/min; Estimated Glomerular Filt Rate > 60; Glucose 106 mg/dL (65-110); Magnesium 1.8 mg/dL (1.6-2.3); Potassium 3.1 mmol/L (3.4-5.0); Sodium 138 mmol/L (137-145)
[2023-05-14 05:19] LABS: Basophils Percent Auto 0.6 % (0.2-1.2); Eosinophils Absolute Auto 0.2 K/mm3 (0-0.3); Eosinophils Percent Auto 2.4 % (0-4.4); Hematocrit 32.9 % (37.0-47.0); Immature Granulocyte Absolute 0.02 K/mm3 (0.00-0.031); Immature Granulocyte Percent A 0.3 % (0-0.5); Lymphocytes Absolute Auto 1.79 K/mm3 (0.9-3.2); Lymphocytes Percent Auto 26.6 % (18.3-44.2); Mean Corpuscular HGB Conc 33.4 g/dl (32-36); Mean Corpuscular Hemoglobin 29.9 pg (26-34); Mean Corpuscular Volume 89.4 fl (80-100); Mean Platelet Volume 9.8 fl (7.4-10.4); Monocytes Absolute Auto 0.7 K/mm3 (0.1-0.6); Monocytes Percent Auto 9.8 % (2.6-8.5); Neutrophils Absolute Auto 4.1 K/mm3 (1.3-6.7); Neutrophils Percent Auto 60.3 % (45.5-73.1); Platelet Count Result 287 k/mm3 (150-375); Red Blood Count 3.68 M/mm3 (4.2-5.4); Red Cell Distribution Width 12.4 % (11.5-14.5); White Blood Count 6.7 K/mm3 (4.5-10.0)
[2023-05-14] MEDS: CEFEPIME 2 GM/NS 50 ML 2 GM/50 ML BAG IVPB (08:29)
[2023-05-14] MEDS: ROSUVASTATIN 10 MG TABLET 20 MG PO (08:29)
[2023-05-14] MEDS: CITALOPRAM HYDROBROMIDE 20 MG TABLET PO (08:29)
--- NOTE | 2023-05-14 08:36 | PM.IMPN ---
Progress Note: A&P Assessment and Plan (1) Diverticulitis: Code(s): K57.92 - Diverticulitis of intestine, part unspecified, without perforation or abscess without bleeding Status: Acute Assessment and Plan: CT abdomen shows diverticulitis without abscess. Also prominent thickening of the bowel wall of the sigmoid colon. Recommended colonoscopy in the next 3-4 weeks after resolution of diverticulitis. Concerns for malignancy. -clear liquid diet, will try advance diet to low fiber for lunch -immodium prn, bentyl prn for cramping -IVF stopped -replace electrolytes -Leukocytosis on admission 14.9-->12.2-->9->7.4-->6.7 today -Afebrile thus far. Should she fever obtain blood cultures. -IV antibiotics with cefepime and Flagyl (2) Leukocytosis: Code(s): D72.829 - Elevated white blood cell count, unspecified Status: Acute Assessment and Plan: see above (3) TSH elevation: Code(s): R79.89 - Other specified abnormal findings of blood chemistry Status: Acute Assessment and Plan: Subclinical hypothyroidism TSH 8.460, Free T4 1.24, Total T3 1.01. I spoke with the patient about symptoms surrounding hypothyroidism. She does say she has fatigue, weakness, dry skin, and cold intolerance. I discussed starting her on low dose Synthroid but she prefers to wait and discuss with her PCP. Since her T4 and T3 are normal she does not wish to add another medication to her regimen if she can help it. (4) Colon wall thickening: Code(s): K63.9 - Disease of intestine, unspecified Status: Acute Assessment and Plan: See on CT abdomen and pelvis I spoke with Dr Ruelas who recommends colonoscopy in the next 3-4 weeks after infection has cleared. I spoke with the patient regarding this and the need for further investigation. She is agreeable. It has been greater than 10 years since her last colonoscopy. She does say that she had been experiencing unintentional weight loss. Subjective Date/time seen: 05/14/23 08:36 Interval history: HPI obtained from chart, Chief Complaint: Patient came to the ER for evaluation with complaints of? diarrhea and abdominal cramping for 3 days Narrative: She is a very pleasant lady who is complaining of persistent nausea, vomiting, diarrhea, abdominal pain and cramping for the last 3 days which is getting worse.? She came to the ER for evaluation and workup was done which showed acute diverticulitis.? She was started on IV antibiotics. ? She has been unable to eat much since? her diarrhea started and concerned she might be dehydrated and do not feel safe going home.? She was placed in observation for medical management optimization. Interval history: 05/11-patient appears weak and ill lying in bed. She has been sipping on clear liquids but continues to have severe abdominal pain to her right lower quadrant and right mid quadrant. She winces in pain when I place my stethoscope to listen. She is having nausea but she says that the Zofran is helping control this. Currently receiving IV fluids along with cefepime and Flagyl for diverticulitis. 05/12: Symptoms mildly improved. She is having high volume diarrhea. Her white count is improving and she has been afebrile so I am okay to start with TID Imodium. Her K+ was low at 2.9 mmol/L. Replacing with IV K. Complains of abdominal cramping with her diarrhea, will add bentyl as well. Continue with IV antibiotics. 05/13: Kaylah is looking better today. When around she is up sitting on the couch next to the window. She says that her back is hurting some but she thinks it is from the bed. She feels less abdominal cramping today and less abdominal tenderness. She is able to push on her belly without eliciting pain. She still is having loose stools but has improved. Will trial a low-fiber diet today. If she continues to feel better tomorrow and is tolerating a diet then I anticipate transitioning her to
[2023-05-14] MEDS: POTASSIUM CHLORIDE 20 MEQ PACKET (FOR LIQUID) 80 MEQ PO (10:56)
[2023-05-14] MEDS: ONDANSETRON INJ 4 MG/2 ML VIAL IV PUSH (12:18)
--- NOTE | 2023-05-14 12:42 | PM.DS ---
DS: Admitting Diagnosis Discharge Date 05-14 Admitting Diagnosis Abdominal pain, diverticulitis DS: Discharge Diagnosis Discharge Diagnosis (1) Diverticulitis: Code(s): K57.92 - Diverticulitis of intestine, part unspecified, without perforation or abscess without bleeding Status: Acute Assessment and Plan: CT abdomen shows diverticulitis without abscess. Also prominent thickening of the bowel wall of the sigmoid colon. Recommended colonoscopy in the next 3-4 weeks after resolution of diverticulitis. Concerns for malignancy. -clear liquid diet, will try advance diet to low fiber for lunch -immodium prn, bentyl prn for cramping -IVF stopped -replace electrolytes -Leukocytosis on admission 14.9-->12.2-->9->7.4-->6.7 today -Afebrile thus far. Should she fever obtain blood cultures. -IV antibiotics with cefepime and Flagyl (2) Leukocytosis: Code(s): D72.829 - Elevated white blood cell count, unspecified Status: Acute Assessment and Plan: see above (3) TSH elevation: Code(s): R79.89 - Other specified abnormal findings of blood chemistry Status: Acute Assessment and Plan: Subclinical hypothyroidism TSH 8.460, Free T4 1.24, Total T3 1.01. I spoke with the patient about symptoms surrounding hypothyroidism. She does say she has fatigue, weakness, dry skin, and cold intolerance. I discussed starting her on low dose Synthroid but she prefers to wait and discuss with her PCP. Since her T4 and T3 are normal she does not wish to add another medication to her regimen if she can help it. (4) Colon wall thickening: Code(s): K63.9 - Disease of intestine, unspecified Status: Acute Assessment and Plan: See on CT abdomen and pelvis I spoke with Dr Ruelas who recommends colonoscopy in the next 3-4 weeks after infection has cleared. I spoke with the patient regarding this and the need for further investigation. She is agreeable. It has been greater than 10 years since her last colonoscopy. She does say that she had been experiencing unintentional weight loss. DS: Summary Hospital Course Hospital Course: HPI obtained from chart, Chief Complaint: Patient came to the ER for evaluation with complaints of? diarrhea and abdominal cramping for 3 days Narrative: She is a very pleasant lady who is complaining of persistent nausea, vomiting, diarrhea, abdominal pain and cramping for the last 3 days which is getting worse.? She came to the ER for evaluation and workup was done which showed acute diverticulitis.? She was started on IV antibiotics. ? She has been unable to eat much since? her diarrhea started and concerned she might be dehydrated and do not feel safe going home.? She was placed in observation for medical management optimization. Interval history: 05/11-patient appears weak and ill lying in bed.? She has been sipping on clear liquids but continues to have severe abdominal pain to her right lower quadrant and right mid quadrant.? She winces in pain when I place my stethoscope to listen.? She is having nausea but she says that the Zofran is helping control this.? Currently receiving IV fluids along with cefepime and Flagyl for diverticulitis. 05/12: Symptoms mildly improved. She is having high volume diarrhea. Her white count is improving and she has been afebrile so I am okay to start with TID Imodium. Her K+ was low at 2.9 mmol/L. Replacing with IV K. Complains of abdominal cramping with her diarrhea, will add bentyl as well. Continue with IV antibiotics. 05/13:? Kaylah is looking better today.? When around she is up sitting on the couch next to the window.? She says that her back is hurting some but she thinks it is from the bed.? She feels less abdominal cramping today and less abdominal tenderness.? She is able to push on her belly without eliciting pain.? She still is having loose stools but has improved.? Will trial a low-fiber diet today.? If she continues to fee
== END 2023-05-14 14:19 | disposition home or self-care (01) | DRG 392 ==
LOC: ANHED 21:54 → ANH3MED 23:30
PROVIDERS: Emergency Medicine; Admitting Provider Family Medicine; Emergency Provider Emergency Medicine; PCP Physician Assistant Medical; Visit Provider Nurse Practitioner Acute Care
DX: K57.92 Diverticulitis of intestine, part unspecified, without perforation or abscess without bleeding (principal); E03.8 Other specified hypothyroidism; K63.9 Disease of intestine, unspecified; E78.5 Hyperlipidemia, unspecified; F41.9 Anxiety disorder, unspecified; G47.00 Insomnia, unspecified; Z90.710 Acquired absence of both cervix and uterus; Z87.891 Personal history of nicotine dependence
CPT/HCPCS: 36415; 74176; 80048; 80053; 81001; 83735; 84100; 84439; 84443; 84480; 85025; 93005; 96361; 96365; 96366; 96367; 96375; 96376; 99285; A9270; G0378; J0692; J0696; J1170; J1836; J2270; J2405; J2543; J3480; J7030; J7040

== ENCOUNTER 2023-06-08 01:22 | Day surgery (SDC) | payer MEDICARE, SELFPAY ==
[2023-05-27 09:50] VITALS: BMI 21.7
--- NOTE | 2023-06-07 16:40 | PM.HPGS ---
History of Present Illness History of Present Illness Consent: Risks, benefits, and alternatives have been discussed and questions answered. Patient agrees to proceed with procedure. Chief complaint: other specified diseases of anus/rectum, Narrative: Kaylah Villalpando is a 63 year old female Referred for colon cancer screening. Her last colonoscopy which was 11 years ago was unremarkable except for the finding of hemorrhoids. Recent CT scan showed thickening of the wall of most of the sigmoid colon. [facility] Past Medical History Medical History Anxiety Hyperlipidemia Insomnia Surgical History Surgical History History of 1987 History of 1985 History of partial hysterectomy 1993 Status post cervical disc replacement Family History Family History Sibling Alcohol abuse Other Anxiety Asthma Depression Hypertension Social History Social History Smoking status: Current some day smoker Tobacco type: e-cigarettes/vaping Second hand tobacco smoke exposure: No Smoking end date: 01/20/98 Additional smoking assessment comments: uses a vape pen with marijuana for sleep, stopped smoking cigarettes in ' Alcohol intake: never Substance use: current Substance use type: marijuana Last use: 05/26/23 Lack of Transportation: No Lack of Food: Never True Current Housing: I Have Housing Concerned About Future Housing: No Difficulty Paying Gas/Electric Bills: No Difficulty Paying for Meds: No Currently Unemployed: No Education: Associate Degree Difficulty w/ Childcare or Family Care: No Living arrangements: other Additional living arrangements comments: with sp Gender identity (if verbalized by the patient): Female Sexual Orientation (if Verbalized by the Patient): Straight or Heterosexual Spiritual care concerns: No Agree to blood products: Yes Meds Home Medications and Allergies Home Medications Medication Instructions Recorded Confirmed Type rosuvastatin 20 mg tablet 20 mg PO DAILY #90 tabs 03/09/22 05/27/23 Rx citalopram 10 mg tablet 20 mg PO DAILY 01/25/23 05/27/23 History levothyroxine 25 mcg tablet 25 mcg PO DAILY #30 tabs 05/17/23 05/27/23 Rx amitriptyline 10 mg tablet 10 mg PO PRN PRN Insomnia 05/27/23 05/27/23 History Allergies Allergy/AdvReac Type Severity Reaction Status Date / Time iohexol AdvReac Mild Rash Verified 05/27/23 09:48 [From contrast - CT, X-RAY] Assessment and Plan Assessment and plan (1) Colon cancer screening: Code(s): Z12.11 - Encounter for screening for malignant neoplasm of colon Status: Acute Assessment and Plan: Colonoscopy with possible biopsy or polypectomy or cautery or injection of substances.
[2023-06-08 09:09] VITALS: BP 133/79; PULSE 81; RESP 18; TEMP 36.8; O2SAT 100
--- NOTE | 2023-06-08 09:11 | SUR.PREOP ---
0908: DR BRAVO NOTIFIED PT ATE BREAKFAST SAUSAGE 06/07/23 FOR BREAKFAST AND TWO TACOS AROUND 1400 06/07/23. PT THEN BEGAN CLEAR LIQUID DIET AND BOWEL PREP. DR BRAVO TO SEE PT. 0913: DR BRAVO SEEING PT. ORDER RECEIVED TO CANCEL PT PROCEDURE TODAY AND RESCHEDULE, PT AWARE.
== END 2023-06-08 09:21 | disposition home or self-care (01) ==
PROVIDERS: PCP Physician Assistant Medical; Visit Provider Internal Medicine Gastroenterology
PROC: 0DJD8ZZ Inspection of Lower Intestinal Tract, Via Natural or Artificial Opening Endoscopic (ICD-10-PCS; CPT 45378; principal; 2023-06-08 10:30)
DX: Z12.11 Encounter for screening for malignant neoplasm of colon (principal); Z53.09 Procedure and treatment not carried out because of other contraindication
CPT/HCPCS: 99211; G0463

== ENCOUNTER 2023-06-10 00:45 | Day surgery (SDC) | payer MEDICARE, SELFPAY ==
[2023-06-08 10:27] VITALS: BMI 21.7
--- NOTE | 2023-06-09 12:21 | PM.HPGS ---
History of Present Illness History of Present Illness Consent: Risks, benefits, and alternatives have been discussed and questions answered. Patient agrees to proceed with procedure. Chief complaint: other specified diseases of the anus/rectum Narrative: Kaylah Villalpando is a 63 year old female referred for colon cancer screening. Review of Systems Review of Systems: All systems reviewed & are unremarkable except as noted in HPI and below PMFSH Past Medical History Medical History Anxiety Hyperlipidemia Insomnia Surgical History Surgical History History of 1987 History of 1985 History of partial hysterectomy 1993 Status post cervical disc replacement Family History Family History Sibling Alcohol abuse Other Anxiety Asthma Depression Hypertension Social History Social History Smoking status: Current some day smoker Tobacco type: e-cigarettes/vaping Second hand tobacco smoke exposure: No Smoking end date: 01/20/98 Additional smoking assessment comments: uses a vape pen with marijuana for sleep, stopped smoking cigarettes in ' Alcohol intake: never Substance use: current Substance use type: marijuana Last use: 05/26/23 Lack of Transportation: No Lack of Food: Never True Current Housing: I Have Housing Concerned About Future Housing: No Difficulty Paying Gas/Electric Bills: No Difficulty Paying for Meds: No Currently Unemployed: No Education: Associate Degree Difficulty w/ Childcare or Family Care: No Living arrangements: with family Additional living arrangements comments: with sp Gender identity (if verbalized by the patient): Female Sexual Orientation (if Verbalized by the Patient): Straight or Heterosexual Spiritual care concerns: No Agree to blood products: Yes Meds Home Medications and Allergies Home Medications Medication Instructions Recorded Confirmed Type rosuvastatin 20 mg tablet 20 mg PO DAILY #90 tabs 03/09/22 06/08/23 Rx citalopram 10 mg tablet 20 mg PO DAILY 01/25/23 06/08/23 History levothyroxine 25 mcg tablet 25 mcg PO DAILY #30 tabs 05/17/23 06/08/23 Rx amitriptyline 10 mg tablet 10 mg PO PRN PRN Insomnia 05/27/23 06/08/23 History Allergies Allergy/AdvReac Type Severity Reaction Status Date / Time iohexol AdvReac Mild Rash Verified 06/08/23 10:26 [From contrast - CT, X-RAY] Exam Const: General: alert Orientation/consciousness: patient oriented x3 Resp: Auscultation: clear to auscultation bilaterally Cardio: Rhythm: regular rhythm GI: GI Palp: Yes Soft to palpation and No Tenderness to palpation present (GI) Neuro: General: patient oriented x3 Assessment and Plan Assessment and plan (1) Colon cancer screening: Code(s): Z12.11 - Encounter for screening for malignant neoplasm of colon Status: Acute Assessment and Plan: Colonoscopy with possible biopsy or polypectomy or cautery or injection of substances.
[2023-06-10 13:39] VITALS: BP 138/77; PULSE 91; RESP 18; TEMP 37.1; O2SAT 98
[2023-06-10] MEDS: LACTATED RINGERS 1,000 ML 150 ML IV CONT (13:47)
--- NOTE | 2023-06-10 13:55 | WPDANESEPPF ---
Anes - Initial Pre Proc Eval Procedure: Operation Date: 06/10/23 14:30 Proposed Procedures p Colonoscopy - Ramon Lopez MD Date/Time: 06/10/23 13:55 Surgeon: Ramon Lopez MD Pre Op Diagnosis: other specified diseases of the anus/rectum Patient Data Age: 63 Gender: F Height: 1.57 m Weight: 53.1 kg Last Vital Signs Temp 98.8 F 06/10/23 13:39 Pulse 91 06/10/23 13:39 Resp 18 06/10/23 13:39 BP 138/77 06/10/23 13:39 Pulse Ox 98 06/10/23 13:39 O2 Del Method Room Air 06/10/23 13:39 Allergies Allergy/AdvReac Type Severity Reaction Status Date / Time iohexol AdvReac Mild Rash Verified 06/10/23 13:36 [From contrast - CT, X-RAY] Home Medications Medication Instructions Recorded Confirmed Type rosuvastatin 20 mg tablet 20 mg PO DAILY #90 tabs 03/09/22 06/08/23 Rx citalopram 10 mg tablet 20 mg PO DAILY 01/25/23 06/08/23 History levothyroxine 25 mcg tablet 25 mcg PO DAILY #30 tabs 05/17/23 06/08/23 Rx amitriptyline 10 mg tablet 10 mg PO PRN PRN Insomnia 05/27/23 06/08/23 History Patient hx anesthesia problems: none Family hx anesthesia problems: none Results Review: All pre-operative results and documents have been reviewed as part of the pre-operative evaluation. [facility] Past Medical History Medical History Anxiety Hyperlipidemia Insomnia Surgical History Surgical History History of 1987 History of 1985 History of partial hysterectomy 1993 Status post cervical disc replacement Family History Family History Sibling Alcohol abuse Other Anxiety Asthma Depression Hypertension Social History Social History Smoking status: Current some day smoker Tobacco type: e-cigarettes/vaping Second hand tobacco smoke exposure: No Smoking end date: 01/20/98 Additional smoking assessment comments: uses a vape pen with marijuana for sleep, stopped smoking cigarettes in 96' Alcohol intake: never Substance use: current Substance use type: marijuana Last use: 05/26/23 Lack of Transportation: No Lack of Food: Never True Current Housing: I Have Housing Concerned About Future Housing: No Difficulty Paying Gas/Electric Bills: No Difficulty Paying for Meds: No Currently Unemployed: No Education: Associate Degree Difficulty w/ Childcare or Family Care: No Living arrangements: with family Additional living arrangements comments: with sp Gender identity (if verbalized by the patient): Female Sexual Orientation (if Verbalized by the Patient): Straight or Heterosexual Spiritual care concerns: No Agree to blood products: Yes Anes - Eval Final PreProcedure Day of Procedure 06/10/23 13:55 Patient weight: normal Heart: regular rate and rhythm Lungs: clear to auscultation Airway: Mallampati scale class II Neurological: alert and oriented Last oral intake: >/= 8 hours ASA classification: II Emergent: no Anesthetic plan: proceed Anesthesia type and monitoring: general GIVS and standard monitoring Results Review: All pre-operative results and documents have been reviewed as part of the pre-operative evaluation. Informed Consent: The patient's anesthetic plan and its attendant risks and benefits were discussed with the patient/family/POA. Questions were solicited and answers provided to the satisfaction of the patient/family/POA.
[2023-06-10 14:26] VITALS: BP 106/58; PULSE 82; RESP 15; O2SAT 98
[2023-06-10 14:36] VITALS: BP 158/71; PULSE 62; RESP 18; O2SAT 100
[2023-06-10 14:46] VITALS: BP 135/78; PULSE 63; RESP 16; O2SAT 100
== END 2023-06-10 14:58 | disposition home or self-care (01) ==
PROVIDERS: PCP Physician Assistant Medical; Visit Provider Internal Medicine Gastroenterology
PROC: 0DJD8ZZ Inspection of Lower Intestinal Tract, Via Natural or Artificial Opening Endoscopic (ICD-10-PCS; CPT 45378; principal; 2023-06-10 14:30)
DX: K62.1 Rectal polyp (principal); K57.30 Diverticulosis of large intestine without perforation or abscess without bleeding; K64.8 Other hemorrhoids; Z87.19 Personal history of other diseases of the digestive system; E78.5 Hyperlipidemia, unspecified; F41.9 Anxiety disorder, unspecified; F12.90 Cannabis use, unspecified, uncomplicated
CPT/HCPCS: 45380; 88305; J2704; J7120

== ENCOUNTER → 2023-08-18 09:07 | Outpatient (CLI) | payer MEDICARE, SELFPAY ==
--- NOTE | ~2023-08-18 | MR_ITS ---
. EXAMINATION: MR lumbar spine wo con DATE: 08/18/2023 09:46 INDICATION: Low back pain. Sciatica, unspecified side. TECHNIQUE: Magnetic resonance imaging (MRI) of the lumbar spine was performed without intravenous con trast. Sequences included sagittal T2-weighted FSE, sagittal T2-weighted FS FSE, sagittal T1-weighted FSE, and axial T2-weighted FSE. COMPARISON: None FINDINGS: Bone alignment is normal. Vertebral body heights are normal. There is moderately decreased disc height at L1-L2 and mildly decreased disc height at L4-L5. The distal spinal cord signal intensi ty is normal. The conus medullaris is at T12-L1. The following disc levels are specifically discussed : L1-L2: The disc is bulging. There is no facet joint osteoarthritis. There is mild bilateral neural fo raminal stenosis. There is mild central canal stenosis. L2-L3: The disc is bulging. There is no facet joint osteoarthritis. There is mild bilateral neural fo raminal stenosis. There is mild central canal stenosis. L3-L4: The disc is bulging and has an annular fissure. There is mild bilateral facet joint osteoarthr itis. There is mild right and moderate left neural foraminal stenosis. There is mild central canal st enosis. L4-L5: The disc is bulging and has an annular fissure. There is moderate bilateral facet joint osteoa rthritis. There is mild bilateral neural foraminal stenosis. There is mild central canal stenosis. L5-S1: The disc is bulging. There is moderate bilateral facet joint osteoarthritis. There is mild rig ht neural foraminal stenosis. There is mild central canal stenosis. IMPRESSION: 1. Moderate lumbar spondylosis. 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
== END ==
PROVIDERS: PCP Physician Assistant Medical; Visit Provider Physician Assistant Medical
DX: M54.30 Sciatica, unspecified side (principal); M47.896 Other spondylosis, lumbar region
CPT/HCPCS: 72148

== ENCOUNTER 2024-06-16 11:27 | Emergency (ER) | payer MEDICARE, SELFPAY ==
[2024-06-16 11:34] VITALS: BP 133/72; PULSE 80; RESP 16; TEMP 37.1; O2SAT 98
--- NOTE | 2024-06-16 11:42 | ED_ITS ---
HPI - URI/Sore Throat General Chief Complaint: Upper Respiratory Infection Stated Complaint: Cold Symptoms Time Seen by Provider: 06/16/24 11:41 Source: patient, RN notes reviewed and old records reviewed Mode of arrival: ambulatory Limitations: no limitations History of Present Illness HPI Narrative: 64-year-old female to [facility] Care with complaint cough, nasal drainage, postnasal drainage and right ear pain for 2 weeks. Patient states that she amoxicillin from [place] at home and has taken 2 doses since yesterday. Patient denies allergies or pertinent medical history. Patient able to tolerate fluids by mouth. Patient resting comfortably in exam room in no acute distress. Related Data Allergies Allergy/AdvReac Type Severity Reaction Status Date / Time iohexol AdvReac Mild Rash Verified 06/16/24 11:43 [From contrast - CT, X-RAY] Review of Systems Review of Systems: All systems reviewed & are unremarkable except as noted in HPI and below Constitutional: Constitutional: Reports no additional constitutional complaints Eyes: Eyes: Reports no additional eye complaints ENT: Reports as per HPI, Reports otalgia ( Right), Reports nasal discharge and Reports post nasal drip Cardiovascular: Cardiovascular: Reports no additional cardiovascular complaints, Denies chest pain and Denies dyspnea Respiratory: Respiratory: Reports no additional respiratory complaints, Reports cough and Denies dyspnea Musculoskeletal: Musculoskeletal: Reports no additional musculoskeletal complaints Neurologic: Reports system reviewed and no additional complaints, except as documented Psychiatric: Psychiatric: Reports no additional psychiatric complaints PMFSH Past Medical History Medical History Anxiety Hyperlipidemia Insomnia Surgical History Surgical History History of 1987 History of 1985 History of partial hysterectomy 1993 Status post cervical disc replacement Family History Family History Sibling Alcohol abuse Other Anxiety Asthma Depression Hypertension Social History Social History Smoking status: Current some day smoker Tobacco type: e-cigarettes/vaping Second hand tobacco smoke exposure: No Smoking end date: 01/20/98 Additional smoking assessment comments: uses a vape pen with marijuana for sleep, stopped smoking cigarettes in ' Alcohol intake: never Substance use: current Substance use type: marijuana Last use: 05/26/23 Lack of Transportation: No Lack of Food: Never True Current Housing: I Have Housing Concerned About Future Housing: No Difficulty Paying Gas/Electric Bills: No Difficulty Paying for Meds: No Currently Unemployed: No Education: Associate Degree Difficulty w/ Childcare or Family Care: No Living arrangements: with family Additional living arrangements comments: with sp Gender identity (if verbalized by the patient): Female Sexual Orientation (if Verbalized by the Patient): Straight or Heterosexual Spiritual care concerns: No Agree to blood products: Yes Comments At the time of my signature, I reviewed and agree with the nursing past medical, surgical, social, and family history. There is no relevant family history pertinent to the patient complaint. Exam Const: General: cooperative, healthy appearing, comfortable, no acute distress, alert and well nourished Nutritional Appearance: well nourished Orientation/consciousness: patient oriented x3 Limitations: no limitations HENMT: Head: normal to inspection Ears: external ears normal, Abnormal EAC present cerumen impaction on the right and TM abnormal erythematous on the right, with fluid behind the TM on the right and with loss of landmarks on the right Face/Nose/Sinus: Normal external nose present, Normal nares present, normal facial exam, No erythema and No edema Face and sinus: normal facial exam, no erythema and no edema Mouth: Yes Normal oral and palatal mucosa present Throat: postnasal drainage Eyes: General: appearance normal, both eyes and all related structures Neck: Neck: normal visual inspection, full ROM and no meningeal signs Lymphatic: no lymphadenopathy noted and no lymphedema noted Chest: Chest palpation & inspection: normal inspection of the chest Resp: Effort & Inspection: normal respiratory effort and able to speak in complete sentences Auscultation: clear to auscultation bilaterally Cardio: Jugular venous distension: no JVD Rate: regular rate Rhythm: regular rhythm Back/Spine/Pelvis: Cervical Spine: cervical ROM normal Skin: General skin exam: normal color, no rashes or lesions noted and turgor normal Neuro: General: patient oriented x3, gait normal, moves all extremities and no meningeal signs Speech: normal speech Gait exam (Neuro): Normal gait present Extrem: General: normal to inspection, full ROM and capillary refill normal Psych: Appearance: grossly normal and well kempt Course Course Emergency Course: Some parts of this dictation were generated by voice recognition software and may contain typographical and/or grammatical inaccuracies. Level of Care: Express Care Visit Vital Signs Vital signs: Vital Signs Temperature 37.1 C 06/16/24 11:34 Pulse Rate 80 06/16/24 11:34 Respiratory Rate 16 06/16/24 11:34 Blood Pressure 133/72 06/16/24 11:34 Pulse Oximetry 98 06/16/24 11:34 Temperature 37.1 C 06/16/24 11:34 Pulse Rate 80 06/16/24 11:34 Respiratory Rate 16 06/16/24 11:34 Blood Pressure 133/72 06/16/24 11:34 Pulse Oximetry 98 06/16/24 11:34 reviewed Procedures Ear Wax Removal Right Ear: Ear Wax Removal Date: 06/16/24 Results: Re-examined: cerumen removed completely TM Examination: TM(s) erythematous (with fluid; loss of landmarks; dull) Ear Canal Exam: atraumatic Patient Tolerated Procedure: well and no complications Complications: no problems Technique: ear canal curetted MDM - URI/Sore Throat MDM Narrative Medical decision making narrative: 64-year-old female to [facility] with complaint cough, nasal drainage, postnasal drainage and right ear pain for 2 weeks. Patient states that she amoxicillin from [place] at home and has taken 2 doses since yesterday. Patient denies allergies or pertinent medical history. Patient able to tolerate fluids by mouth. Patient resting comfortably in exam room in no acute distress. on exam, right EAC cerumen impaction. Removal successful with lighted curette. Patient tolerated. Post removal, right TM erythematous, dull, loss of landmarks with fluid. Consistent with right otitis media. Patient negative for strep in clinic. Culture sent. Patient is sitting comfortably in exam room nontoxic in appearance. Patient appropriate for outpatient treatment and follow-up. Discharge instructions reviewed with patient, as well as provided in writing per nursing staff. The instructions also include specific and strict return/GO TO THE ER as well as f/u information. All questions have been answered, and the patient deny any further questions with discharge and discharge plan. Some parts of this dictation were generated by voice recognition software and may contain typographical and/or grammatical inaccuracies. Differential Diagnosis Differential diagnosis: Likely upper respiratory infection, croup, otitis media, sinusitis, viral infection, bronchitis, influenza and pharyngitis Lab Data Labs: Lab Results 06/16/24 Range/Units 12:08 POC Grp A Strep Screen Negative (Negative) Discharge Plan Discharge Clinical Impression: Impacted cerumen of right ear, Acute right otitis media Patient Disposition: Home, Self-Care Condition: Stable Instructions: Ear Infection (ED) Additional Instructions: Your rapid strep swab was negative today at [facility]. A throat culture will be sent to the laboratory for further testing. If the test is positive, you will receive a phone call within 48 hours and an appropriate antibiotic will be initiated at that time. -Alternate Tylenol and Motrin per package directions for fever or pain. -Antihistamine medication such as Benadryl at night and Zyrtec/Claritin/Danette during the day can help improve symptoms. -Use Flonase twice a day for 5 days then daily to help reduce the inflammation and dry up your sinuses. -You can also use Sudafed or Mucinex. Be sure to drink plenty of water with these medications at least 8 ounces with every dose and it is important to drink 8 to 10 glasses of water per day. Water is a natural decongestant -Eat and drink things that are easy to swallow, like tea or soup, or popsicles. -Oral rinses such as: Salt water gargles and/or may use topical anesthetic (eg. Chloraseptic spray) or lozenges to relieve dryness or throat pain). -Frequent hand washing or hand extruding machine operator is one of the best ways to prevent spread of infection. -Using a vaporizer or humidifier at night will also help thin secretions and help with coughing up phlegm. -Follow up with primary care provider in 2-3 days if condition is not improving; or seek ER visit if you have trouble breathing, cannot drink enough fluids, have muffled voice, difficulty opening your mouth, or severe swelling. Prescriptions: New amoxicillin 875 mg tablet 875 mg PO Q12H Qty: 20 0RF No Action diazepam 5 mg tablet 5 mg PO DAILY PRN (Reason: anxiety) Qty: 5 0RF levothyroxine 25 mcg tablet 37.5 mcg PO DAILY Qty: 45 3RF celecoxib [Celebrex] 100 mg capsule 100 mg PO BID Qty: 60 1RF rosuvastatin 20 mg tablet 20 mg PO DAILY Qty: 90 2RF Follow-up/Referrals: Salome Abarca MD [Primary Care Provider] -
[2024-06-16 12:14] LABS: EDSTREPNEGPOS1 Negative (Negative)
== END 2024-06-16 12:02 | disposition home or self-care (01) ==
PROVIDERS: Emergency Provider Nurse Practitioner Family; PCP Family Medicine
DX: H66.91 Otitis media, unspecified, right ear (principal); H61.21 Impacted cerumen, right ear; E78.5 Hyperlipidemia, unspecified
CPT/HCPCS: 69210; 87081; 87880; 99213; G0463

== ENCOUNTER 2024-06-18 16:31 | Outpatient (CLI) | payer MEDICARE, SELFPAY ==
--- NOTE | ~2024-06-18 | XR_ITS ---
Right Hand Technique: PA, oblique, and lateral views were obtained. Clinical History: Lesion of ulnar nerve Findings: No acute fracture or dislocation is seen. Osseous alignment is anatomic. There are mild deg enerative changes of the DIP joints in the fingers. Soft tissues are unremarkable. Impression: Mild degenerative changes of the DIP joints in the fingers. Reviewed, dictated and finalized at location . Impression: Mild degenerative changes of the DIP joints in the fingers.
--- NOTE | ~2024-06-18 | XR_ITS ---
Left Hand Technique: PA, oblique, and lateral views were obtained. Clinical History: Lesion of ulnar nerve Findings: No acute fracture or dislocation is seen. Osseous alignment is anatomic. Joint spaces are p reserved. Soft tissues are unremarkable. Impression: Unremarkable left hand. Reviewed, dictated and finalized at location . Impression: Unremarkable left hand.
== END 2024-06-18 16:32 | disposition home or self-care (01) ==
LOC: ANHIMG 16:32
PROVIDERS: PCP Family Medicine; Visit Provider Plastic Surgery
DX: G56.20 Lesion of ulnar nerve, unspecified upper limb (principal)
CPT/HCPCS: 73130

== ENCOUNTER 2024-08-16 09:23 | Outpatient (CLI) | payer MEDICARE, SELFPAY ==
--- NOTE | ~2024-08-16 | MR_ITS ---
EXAMINATION: MR lumbar spine wo con DATE: 08/16/2024 10:17 INDICATION: Low back pain, unspecified. TECHNIQUE: Magnetic resonance imaging (MRI) of the lumbar spine was performed without intravenous con trast. Sequences included sagittal T2-weighted FSE, sagittal T2-weighted FS FSE, sagittal T1-weighted FSE, and axial T2-weighted FSE. COMPARISON: Lumbar spine MRI 08/18/2023 FINDINGS: Alignment is normal. Vertebral body heights are normal. There is moderately decreased disc height at L1-L2. The distal spinal cord signal intensity is normal. The conus medullaris is at T12-L1 . The following disc levels are specifically discussed: L1-L2: The disc is bulging with superimposed right foraminal extrusion. There is mild right facet jimy nt osteoarthritis. There is mild bilateral neural foraminal stenosis. There is mild central canal sandy nosis. L2-L3: The disc is bulging with superimposed right foraminal extrusion. There is no facet joint osteo arthritis. There is mild bilateral neural foraminal stenosis. There is mild central canal stenosis. L3-L4: The disc is bulging and has an annular fissure. There is mild bilateral facet joint osteoarthr itis. There is mild right and moderate left neural foraminal stenosis. There is mild central canal st enosis. L4-L5: The disc is bulging and has an annular fissure. There is moderate bilateral facet joint osteoa rthritis. There is mild bilateral neural foraminal stenosis. There is mild central canal stenosis. L5-S1: The disc is bulging with superimposed right foraminal extrusion. There is severe right and mod erate left facet joint osteoarthritis. There is moderate right and mild left neural foraminal stenosi s. There is mild central canal stenosis. IMPRESSION: 1. Moderate lumbar spondylosis with interval worsening at L5-S1. 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
--- OUTSIDE RECORDS SUMMARY | 2024-08-23 23:50 | XMS_ITS | Continuity of Care Document ---
Author Organization [facility] Address [address] [place] [id number] Encounter [facility] Financial Number [id number] Date(s): 03/17/22 - 03/17/[address] [phone] Discharge Disposition: Home or Self Care Attending Physician: Gustavo Simon PA-C Referring Physician: Gustavo Simon PA-C
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
--- OUTSIDE RECORDS SUMMARY | 2024-08-23 23:51 | XMS_ITS | Encounter Summary ---
Author Organization [facility] Address [address] [place] [address]. [place], [place] [id number] [place] [id number] Care Team Providers Care Humane Officer Name Role Phone Non-Staff, Provider Primary Care Provider Miranda chawla Reason for Visit * Auth/Cert (Routine) Specialty Diagnoses / Procedures Referred By Contac t Referred To Contact Diagnoses SI (sacroiliac) joint inflammation (CMS/HCC) si Procedures INJECTION SI JOINT?? Gisselle Regan MD [facility] [address] [place] [address] Phone: tel: fax: Referral ID Status Reason Start Date Expiration Date Visits Re quested Visits Authorized [id number] 1 1 Encounter Details Date Type Department Care Team (Latest Contact Info) Description 08/29/2023 7:37 AM ASP NET C DEVELOPER - 08/29/2023 8:46 AM [facility] Hospital Encounter [facility] Interventional Pain Management Center [place], [place] [id number] Gisselle Regan MD [facility] [address] [place] [address] [id number] Discharge Disposition: Home or Self Care (Routine [...] Sign Reading Time Taken Comments Blood Pressure 142/80 08/29/2023 8:41 AM ASP NET C DEVELOPER Pulse 69 08/29/2023 8:41 AM ASP NET C DEVELOPER Temperature 36.5 ??C (97.7 ??F) 08/29/2023 7:49 AM CS T Respiratory Rate 18 08/29/2023 8:41 AM ASP NET C DEVELOPER Oxygen Saturation 100% 08/29/2023 8:41 AM ASP NET C DEVELOPER Inhaled Oxygen Concentration - - Weight 58.2 kg (128 lb 6.4 oz) 08/29/2023 7:49 A M ASP NET C DEVELOPER Height 157.5 cm (5' 2 ) 08/29/2023 7:49 AM ASP NET C DEVELOPER Body Mass Index 23.48 08/29/2023 7:49 AM ASP NET C DEVELOPER documented in this encounter Discharge Instructions * Discharge Instructions* Ayleen Garcia RN - 08/29/2023 7:59 AM ASP NET C DEVELOPER You received a Sacroiliac Joint Injection. Insurance guidelines allow these to be done every 3 months. To receive another injection you must report your percentage of relief to us in 10 weeks. Please call [phone] ext [phone] option 4. You may need to leave a message. Please leave the following information. 1. Your name, date of , and date you were here. Please leave a number where we can reach you. 2. Please leave your amount of relief in percentage and for how long it lasted. If your are hurtingplease let us know where the pain is located. 3. Are you taking any medications? 4. Are you doing any physical activity or exercises provided by your Physical Therapist? 5. Did your injection help you to do any activities that were difficult to do prior to your injection? Please know that without this information your next treatment could be delayed. [place]???[facility] Interventional Pain Management Discharge Instructions WHAT TO DO TODAY: Limit your activity today, but bedrest is not required You may resume your normal activity tomorrow as tolerated Do not drive a vehicle or operate hazardous equipment for the first 24 hours after your procedure. You may experience numbness, tingling, and weakness in your extremities for several hours after your injection. Please be careful when walking or standing so you do not fall. You may remove your bandage in the morning and you may shower. WHAT TO EXPECT OVER THE NEXT FEW DAYS TO A WEEK: Any weakness or tingling typically wears off after several hours but you may have some tingling forseveral days after some injections It is normal that once the numbing medicine wears off that you could be sore for several days before you notice relief. Pain should get better day by day. The steroid will start working after 2-3 days and can take up to 2 weeks for it to fully work. Everyone has different response to the injection depending on the amount of inflammation and diagnosis. HOW TO CONTROL YOUR PAIN: Injection site soreness is normal and will subside in a few days. We suggest ice packs to the injection site for 10-20 at a time every 2-3 hours. After 24 hours you may use heat if preferred or you may alternate heat and ice. Your pain may be worse for a couple of days; you may use any medications that you were using beforeyour visit. You may also use Tylenol, Motrin or Aleve if not contraindicated by your Primary Care Physician. If you no longer have any prescribed medicine, please get your refill from the physician who fist prescribed it for you. For patients who had a Radiofrequency Ablation your pain could last for up to 2 weeks. We are an Interventional pain management. We do not prescribe pain medicine. COMMON SIDE EFFECTS OF STEROIDS: You may experience warm, flushing sensation with redness in your face, neck and chest. You may feel anxious, jittery, irritable or have trouble sleeping. You may have increased hunger or menstrual changes (for women). If you are a diabetic you may have increased blood sugars. If you do and are unable to control please call your doctor who manages your diabetes. All side effects are temporary and should subside in approximately a week. WHEN TO CALL THE DOCTOR AND HOW TO REACH US: Call [phone] ext. [phone] for scheduling, insurance questions or speak with a nurse. Our hours are Tuesday- 8:00am-4:00pm Call the number above for any bleeding/drainage/redness/swelling at the injection site, severe pain, persistent chills, fever over 101 or greater, or new or different pain or numbness. If you are unable to reach us call 911 or go to the nearest emergency room. If you have shortness of breath, fast heart rate, throat/tongue swelling call 911 or go to the nearest emergency room. ANY NEW BOWEL OR BLADDER INCONTINENCE ISSUES OR NUMBNESS TO PELVIC REGION PLEASE GO TO THE EMERGENCY ROOM IMMEDIATELY! . NET C DEVELOPER documented in this encounter Medications at Time [...] as of this encounter H&P Notes * Gisselle Regan MD - 08/29/2023 8:35 AM CST HISTORY AND PHYSICAL INTERVAL NOTE: I have reviewed Kaylah Villalpando History & Physical which was performed within the past 30 days. After examining Kaylah Villalpando, no change has occurred in the patient's condition since the H&P was completed. Informed Consent Discussion: Risks, benefits, alternatives as well as the consequences of not performing the surgery/procedure were discussed with the patient and/or family/personal payable representative. Questions were answered and the patient/family/personal payable representative verbalized understanding and desires to proceed. Previous Adverse Experience with Sedation, Analgesia, or Anesthesia? No Risk benefits and alternate treatments were discussed. Signed: GISSELLE REGAN MD 8:35 AM NET C DEVELOPER Source Note - Gisselle Regan MD - 08/25/2023 12:00 PM ASP NET C DEVELOPER Admission Note With PreProc Assess CC: Low back pain HPI: 63-year-old female seen today as a new patient patient is a referral from Dr. Coleen Wood for evaluation of chronic pain. Patient has been seen at other pain clinics most recently she underwent a L4-5 ablation in [address] Washington in [facility]. Prior to that she was seen at [facility] she underwent multiple types of injections 5 [...] include physicaltherapy, Occupational Therapy, cold therapy, surgery, resident care coordinator, cortisone, nerve blocks, TENS unit, trigger point, epidurals patient has tried hydrocodone tramadol muscle relaxants and meloxicam in the past for pain. Patient reports in 2022 she was in [place] had severe pain from her back timing on her right leg and underwent a outpatient surgery by orthopedic doctor when she was in [facility] she has a history of cervical fusion in 2018 and in 2004. 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 MRI lumbar [...] face to face review of medical records. NET C DEVELOPER documented in this encounter OR Notes * Op Note - Gisselle Regan MD - 08/29/2023 8:43 AM CST PROCEDURE: right SACROILIAC JOINT INJECTION UNDER FLUOROSCOPY PREOPERATIVE DIAGNOSIS: SACRAL ILIAC JOINT INFLAMMATION POSTOPERATIVE DIAGNOSIS: SAME PREOP SURGEON: GISSELLE REGAN MD CHIEF COMPLAINT: LOW BACK PAIN RISKS, BENEFITS, ALTERNATE TREATMENTS DISCUSSED. WRITTEN CONSENT OBTAINED. PATIENT TAKEN TO PROCEDURE ROOM PLACED IN PRONE POSITION. PILLOW UNDER ABDOMEN TO REDUCE LUMBAR LORDOSIS.. STERILE PREP AND DRAPE OF LUMBOSACRAL SPINE PERFORMED. ASA STANDARD MONITORS APPLIED. Risks including, but not limited to infection, permanent neurological deficit due to nerve root injury, bleeding, anaphylaxis, flushing, cerebral spinal fluid leak, paralysis, spinal cord injury, thinning of the skin, thinning of the bones, muscle cramping. VERTEBRAL BODIES WERE SQUARED. SKIN AND SUBCUTANEOUS TISSUES ANESTHETIZED WITH 1% LIDOCAINE. OPTIMAL VIEW OF THE right SACROILIAC JOINT WAS OBTAINED. THE POSTERIOR INFERIOR ASPECT OF THE JOINTWAS IDENTIFIED. USING A 22 GAUGE 3.5 INCH SPINAL NEEDLE WITH A BENT TIP WAS USED TO UNDER THE MEDIAL INFERIOR ASPECTS OF THE JOINT. NEEDLE TIP POSITION WAS CONFIRMED IN AP, OBLIQUE AND LATERAL VIEWS. NEGATIVE ASPIRATION PRIOR TO 2 CC OF CONTRAST INJECTED OUTLINING THE APPROPRIATE SACROLIAC JOINT. NEGATIVE ASPIRATION PRIOR TO INJECTING 2 CC OF 0.75% BUPIVACAINE AND 40MG OF KENALOG. NO COMPLICATIONS. POST PROCEDURE: PATIENT TOLERATED PROCEDURE WELL AND OBSERVED PRIOR TO DISCHARGE. DISCHARGED IN STABLE CONDITION WITH APPROPRIATE POST-PROCEDURE INSTRUCTIONS. NET C DEVELOPER documented in this encounter Plan of Treatment Not on file documented as of this encounter Procedures Procedure Name Priority Date/Time Associated Diagnosis Comments INJECTION SI JOINT?? 08/29/2023 8:31 AM ASP NET C DEVELOPER SI (sacroiliac) joint inflammation XR PAIN CLINIC C-ARM Today 08/29/2023 8:29 AM ASP NET C DEVELOPER documented in this encounter Results * XR PAIN CLINIC C-ARM (08/29/2023 8:29 AM ASP NET C DEVELOPER) Narrative Radiology, Technologist - 08/29/2023 8:29 AM ASP NET C DEVELOPER This report does not contain a radiologist's interpretation. Please review associated procedure and/or operative report. Gisselle Regan MD GENERAL IMAGING Final Result documented in this encounter Visit Diagnoses Diagnosis SI (sacroiliac) joint inflammation (CMS/HCC)- Primary Sacroiliitis, not elsewhere classified SI (sacroiliac) joint inflammation (CMS/HCC) Sacroiliitis, not elsewhere classified documented in this encounter Admitting Diagnoses Diagnosis SI (sacroiliac) joint inflammation (CMS/HCC) Sacroiliitis, not elsewhere classified documented in this encounter Administered Medications Inactive Administered Medications - up to 3 most recent administrations Medication Order MAR Action Action Date Dose Rate Site chlorhexidine (PERIDEX) 0.12 % solution 15 mL 15 mL, Mouth/Throat, PRN, Prior to surgery, 1 dose, Starting on Tue08/29/23 at 0747, Until Tue08/29/23 at 1046, Patient to perform oral care first. Swish/Gargle in mouth for 30 seconds, and then discard, prior to going to surgery/ If ventilated use saturated swab to clean oral cavity., Pre-Op diazePAM (VALIUM) 5 MG tablet 1 dose, Starting on Tue08/29/23 at 0748, Until Tue08/29/23 at 0755, Created by cabinet override diazePAM (VALIUM) tablet 10 mg 10 mg, Oral, Once, 1 dose, On Tue08/29/23 at 0815 Given 08/29/2023 7:55 AM ASP NET C DEVELOPER 10 mg diazePAM (VALIUM) tablet 5 mg 5 mg, Oral, Once as needed, Anxiety, 1 dose, Starting on Tue08/29/23 at 0747, Until Tue08/29/23 at 1046, Pre-Op documented in this encounter Active and Recently Administered Medications Times are shown in ASP NET C DEVELOPER. Scheduled Medication Order 08/27/2023 08/28/2023 08/29/2023 diazePAM (VALIUM) tablet 10 mg (COMPLETED) 10 mg, Oral, Once, 1 dose, On Tue08/29/23 at 0815 0755 (Given - Provid er: Ayleen Garcia RN) PRN Medication Order 08/27/2023 08/28/2023 08/29/2023 bupivacaine (PF) (MARCAINE) 0.75 % injection (CANCELED) As needed, Starting on Tue08/29/23 at 0840, Until Tue08/29/23 at 0842, Intra-Op 0840 (Given - Provid er: Gisselle Regan MD) chlorhexidine (PERIDEX) 0.12 % solution 15 mL 15 mL, Mouth/Throat, PRN, Prior to surgery, 1 dose, Starting on Tue08/29/23 at 0747, Until Tue08/29/23 at 1046, Patient to perform oral care first. Swish/Gargle in mouth for 30 seconds, and then discard, prior to going to surgery/ If ventilated use saturated swab to clean oral cavity., Pre-Op diazePAM (VALIUM) tablet 5 mg 5 mg, Oral, Once as needed, Anxiety, 1 dose, Starting on Tue08/29/23 at 0747, Until Tue08/29/23 at 1046, Pre-Op iopamidol (ISOVUE-M 300) 61 % injection (CANCELED) As needed, Starting on Tue08/29/23 at 0840, Until Tue08/29/23 at 0842, Intra-Op 0840 (Given - Provid er: Gisselle Regan MD) lidocaine (PF) (XYLOCAINE) 1 % injection (CANCELED) As needed, Starting on Tue08/29/23 at 0840, Until Tue08/29/23 at 0842, Intra-Op 0840 (Given - Provid er: Gisselle Regan MD) triamcinolone acetonide (KENALOG-40) injection (CANCELED) As needed, Starting on Tue08/29/23 at 0841, Until Tue08/29/23 at 0842, Intra-Op 0841 (Given - Provid er: Gisselle Regan MD) documented in this encounter Care Teams Humane Officer Relationship Specialty Start Date End Date Non-Staff, Provider PCP - General UNKNOWN PHYSICIAN SPECIALTY 08/29/23 documented as of this encounter
--- OUTSIDE RECORDS SUMMARY | 2024-08-23 23:51 | XMS_ITS | Clinical Summary ---
Author Organization [facility] C Address [address] [place] [address] Care Team Providers Care Handbag Stitcher Name Role Phone Neptali Calvo MD Primary Care Provider Allergies No known active allergies Medications citalopram (CeleXA) 10 mg tablet Take 10 mg by mouth daily Active pregabalin (LYRICA) 75 mg capsule Take 75 mg by mouth 2 (two) times a day 12/01/2021 Active Active Problems Problem Noted Date Diagnosed Date Piriformis syndrome, right 02/17/2022 Assessment & Plan (02/17/2022 1:47 PM CDT): Ms. Villalpando has symptoms that are most consistent with piriformis syndrome. We will have her follow up with physiatry for evaluation and treatment of this. I plan to see her back in 4 months for re-evaluation. Status post cervical spinal fusion 05/15/2019 Assessment & Plan (09/20/2019 4:46 PM REGIONAL SALES REPRESENTATIVE): Ms. Villalpando is clinically improved after anterior cervical decompression and fusion. She still has some neck pain but does not have any radicular pain. She seems to solidly fused on dynamic range of motion. We will not set up a scheduled appointment, but I would be happy to see her back at any point on as-needed basis. We will refer her to Dr. Washington for conservative treatment and possible injections of her lumbar spine. Assessment & Plan (05/15/2019 11:37 AM CDT): PLAN: 1. Start physical therapy/aqua therapy/home exercise program 2. After 6 weeks, patient may resume NSAIDs, may increase activity as tolerated. WORK STATUS: 1. Not working FOLLOW UP APPT: With Dr. Robison in 6 weeks/4 months with Flexion/Extension Cervical films. Low back pain, non-specific 05/15/2019 Assessment & Plan (05/15/2019 11:40 AM CDT): Reviewed the above findings along with the MRI lumbar spine dated March 21, [address] Robison. No evidence of any disc herniation, central canal stenosis, foraminal stenosis is noted. Patient has degenerative disc disease. Dr. Robison reports there is no surgical intervention to offer at this time. Would recommend patient to continue with pain management efforts. Radiculopathy, cervical 03/02/2019 Overview (03/02/2019): Added automatically from request for surgery [id number] Cervical disc disorder with radiculopathy of cervical region 11/16/2018 Assessment & Plan (02/27/2019 4:25 PM CDT): Ms. Villalpando his symptoms the correlate the left C for an C5 sensory radiculopathies. She has severe foraminal stenosis at C3-4 and C4-5 on the left. I have offered her anterior cervical decompression and fusion at C3-4 and C4-5. We will perform this at our earliest convenience. We will do a right-sided approach given her prior operation on the right side. She reports that she did have some mild voice changes after the original surgery at C5-6 on the right. Assessment & Plan (11/16/2018 4:38 PM CDT): Ms. Villalpando has cervical radiculopathy without motor weakness. She seems to have pain primarily in the left C5 distribution. This is accentuated by a Spurling maneuver. She also has severe foraminal stenosis at C3-4 on the left. She does have occipital and upper neck pain that is attributable to this. She underwent some type of procedure at the [facility] [place] that was unsuccessful. The current imaging does not show the postop imaging of the cervical spine. She will endeavor to get that to me for review. After reviewing the films we will give her my final recommendations. Given her constellation of symptoms she may benefit from C3-C5 anterior cervical decompression and fusion to decompress the left C4 and C5 nerve roots. Surgical History Surgery Date Site/Laterality Comments PARTIAL HYSTERECTOMY 08/22/1994 - 08/21/1995 Cancer tx CERVICAL FUSION 08/22/2004 - 08/21/2005 C5-6 ACDF(Dr. Lu) SECTION 1985 & 1987 CERVICAL DISC SURGERY 02/19/2018 - 03/21/2018 Posterior cervical surgery - bone spur - [facility] [place] CERVICAL FUSION 03/22/2019 - 04/21/2019 C3-5 ACDF (Ricki) CATARACT EXTRACTION 01/20/2015 FRACTURE SURGERY 01/17/1972 SPINE SURGERY 02/08/2015 Medical History Medical History Date Comments High cholesterol History of ETOH abuse Sober [facility] e 2000 History of cervical cancer 1994 Cervical radiculopathy Anxiety and depression Spinal stenosis Arthritis 08/22/2009 Family History Medical History Relation Name Comments Hypertension Father Hypertension Sister Jenni Valle Relation Name Status Comments Father Sister Jenni Valle Social History Tobacco Use Types Packs/Day Years Used Date Smoking Tobacco: Former Cigarettes 1.5 28.7 0 10/05/1969 - 06/05/1998 Smokeless Tobacco: Never Comments:Uses nicorette gum occasionally Alcohol Use Standard Drinks/Week Comments Not Currently 0 (1 standard drink = 0.6 oz pur e alcohol) Sober since 2000 PHQ-2 Answer Date Recorded PHQ-2 Score 0 04/14/2019 Comments No Sex and Gender Information Value Date Recorded Sex Assigned at Not on file Legal Sex Female 6:31 PM REGIONAL SALES REPRESENTATIVE Gender Identity Not on file Sexual Orientation Not on file 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 Not on file Not on andre e Obstetrics History Last Filed Vital Signs Vital Sign Reading Time Taken Comments Blood Pressure 144/79 05/15/2019 11:01 AM CDT Pulse 74 05/15/2019 11:01 AM CDT Temperature 36.6 ??C (97.9 ??F) 03/31/2019 11:48 AM C DT Respiratory Rate 14 02/16/2022 2:52 PM CDT Oxygen Saturation 97% 03/31/2019 11:48 AM CDT Inhaled Oxygen Concentration - - Weight 61.3 kg (135 lb 3.2 oz) 02/16/2022 2:52 P M CDT Height 157.5 cm (5' 2 ) 02/16/2022 2:52 PM CDT Body Mass Index 24.73 02/16/2022 2:52 PM CDT Plan of Treatment Health Maintenance Due Date Last Done Comments Breast Cancer Screening-Mammogram 1960 Colon Cancer Screening-Colonoscopy 1960 Fall Risk Assessment 1960 Hepatitis C Screening 1960 Osteoporosis Screening-Bone Density Scan 1960 DTaP/Tdap/Td Vaccine (1 - Tdap) 1969 Hepatitis B Screening 02/03/1976 Zoster Vaccine (2 of 3) 12/21/2016 10/26/2016 Depression Screening 11/17/2019 11/16/2018, 11/17/19 19 Pneumococcal vaccine 65+ (2 of 2 - PPSV23 or PCV20) 2023 06/27/2020 Well Visit 65+ 2023 Influenza Vaccine (#1) 2024 0, 06/13/2018, 09/17/2013 Medical Devices Implanted Type Area Customer Engagement Manager Device Identifier Shelf Expiration Date Model / Serial / Lot Cage Foundation 3d Cervical [id number] 7 Deg - Sn/A - [id number] Implanted:Qty: 1 on 03/30/2019 by Alfred Robison MD at [facility] N/A: Spine Cervical Core Link [id number] 11/29/2023 [id number] / N/A / [id number] [employer] 700-025 I Factor Allograft Putty Syringe Graft 2.5cc Bone - Sn/A - [id number] Implanted:Qty: 1 on 03/30/2019 by Alfred Robison MD at [facility] N/A: Spine Cervical [employer] 12/19/2021 700-025 / N/A / [id number] Cage Foundation 3d Cervical [id number] 7 Deg - [id number] Implanted:Qty: 1 on 03/30/2019 by Alfred Robison MD at [facility] N/A: Spine Cervical Core Link [id number] 11/29/2023 [id number] / / [id number] Plate Bone Anodyne L28 Mm Spine Cervical Anterior Level 2 Nonsterile - Sn/A - [id number] Implanted:Qty: 1 on 03/30/2019 by Alfred Robison MD at [facility] N/A: Spine Cervical Core Link [id number] / N/A / Core Link Anodyne 4mm 12mm Variable Angle Self Tap Spine Cervical Screw - Sn/A - [id number] Implanted:Qty: 6 on 03/30/2019 by Alfred Robison MD at [facility] N/A: Spine Cervical Core Link / N/A / Insurance [facility] Advance Directives For more information, please contact: [phone] * Full Code (Latest Code Status on File) Date Activated Date Inactivated Comments 03/30/2019 11:40 AM 03/31/2019 5:53 PM Care Teams Handbag Stitcher Relationship Specialty Start Date End Date Neptali Calvo MD [phone] (work) PCP - General Internal Medicine 09/15/18
--- OUTSIDE RECORDS SUMMARY | 2024-08-23 23:51 | XMS_ITS | Patient Health Record ---
Author Organization [facility] Address [address] [place] [address] [address] [place] [address] Support Name Relationship Address Phone Kaylah Villalpando Guarantor Unknown [phone] Reason For Referral No Information Plan Of Treatment No Information Insurance Providers Payer Name Payer Address Payer Phone Subscriber Number Group Number Insured Name Patient Relationship to Insured Coverage Start Date Coverage End Date All [employer] [address] [address] [place], [place] [id number] Kaylha Antonio Self - patient is the insured 9
--- OUTSIDE RECORDS SUMMARY | 2024-08-23 23:51 | XMS_ITS | Encounter Summary ---
Author Organization [facility] Address [address] [place] [address]. [place], [place] [address] [place] [address] Care Team Providers Care Engineer Third Assistant Name Role Phone Non-Staff, Provider Primary Care Provider Miranda chawla Reason for Visit * Auth/Cert (Routine) Specialty Diagnoses / Procedures Referred By Contac t Referred To Contact Diagnoses SI (sacroiliac) joint inflammation (CMS/HCC) si Procedures INJECTION SI JOINT?? Gisselle Regan MD [facility] [address] [place] [address] Phone: tel: fax: Referral ID Status Reason Start Date Expiration Date Visits Re quested Visits Authorized [id number] 1 1 Encounter Details Date Type Department Care Team (Late st Contact Info) Description 08/29/2023 8:20 AM TELEGRAPH EQUIPMENT MAINTAINER - 08/29/2023 8:40 AM TELEGRAPH EQUIPMENT MAINTAINER Surgery [facility] [place], [place] [phone] Gisselle Regan MD [facility] [address] [place] [place] [phone] INJECTION SI JOINT Surgery Details Date/Time Status Location OR Service Patient Class Case Class Case Type Trauma Case? 08/29/2023 8:20 AM Posted [facility] Pain Mgmt Pain Proc Rm Pain Medicine Short Stay/Outpa tient Surgery No Panel 1 Procedure LRB Anes Op Region Wound Class Comments INJECTION SI JOINT Right Local Clean INJECTION SI JOINT??- RIGHT NO BT MCR SONA 08/25/2023 RG Surgeon Surgeon Role Service Panel Gisselle Regan MD Primary Pain Medicine 1 documented in this encounter Social History Tobacco Use Types Packs/Day Years [...] Sign Reading Time Taken Comments Blood Pressure 138/64 08/29/2023 8:39 AM TELEGRAPH EQUIPMENT MAINTAINER Pulse 66 08/29/2023 8:39 AM TELEGRAPH EQUIPMENT MAINTAINER Temperature 36.5 ??C (97.7 ??F) 08/29/2023 7:49 AM CS T Respiratory Rate 18 08/29/2023 8:39 AM TELEGRAPH EQUIPMENT MAINTAINER Oxygen Saturation 99% 08/29/2023 8:39 AM TELEGRAPH EQUIPMENT MAINTAINER Inhaled Oxygen Concentration - - Weight 58.2 kg (128 lb 6.4 oz) 08/29/2023 7:49 A M TELEGRAPH EQUIPMENT MAINTAINER Height 157.5 cm (5' 2 ) 08/29/2023 7:49 AM TELEGRAPH EQUIPMENT MAINTAINER Body Mass Index 23.48 08/29/2023 7:49 AM TELEGRAPH EQUIPMENT MAINTAINER documented in this encounter Discharge Instructions * Discharge Instructions* Ayleen Garcia, RN - 08/29/2023 7:59 AM TELEGRAPH EQUIPMENT MAINTAINER You received a Sacroiliac Joint Injection. Insurance guidelines allow these to be done every 3 months. To receive another injection you must report your percentage of relief to us in 10 weeks. Please call [phone] ext [phone] option 4. You may need to leave [...] information your next treatment could be delayed. [facility] Interventional Pain Management Discharge Instructions [...] DOCTOR AND HOW TO REACH US: Call [phone] ext. [phone] for scheduling, insurance questions or speak with [...] GO TO THE EMERGENCY ROOM IMMEDIATELY! . GRAPH EQUIPMENT MAINTAINER documented in this encounter Medications at Time [...] the past 30 days. After examining Kaylah Annia Villalpando, no change has occurred in the patient's condition since the H&P was completed. Informed Consent Discussion: Risks, benefits, alternatives as well as the consequences of not performing the surgery/procedure were discussed with the patient and/or family/personal advertising account representative. Questions were answered and the patient/family/personal advertising account representative verbalized understanding and desires to proceed. Previous Adverse Experience with Sedation, Analgesia, or Anesthesia? No Risk benefits and alternate treatments were discussed. Signed: GISSELLE REGAN MD 8:35 AM GRAPH EQUIPMENT MAINTAINER Source Note - Gisselle Regan MD - 08/25/2023 12:00 PM TELEGRAPH EQUIPMENT MAINTAINER Admission Note With PreProc Assess CC: Low back pain HPI: 63-year-old female seen today as a new patient patient is a referral from Dr. Coleen Wood for evaluation of chronic pain. Patient has been seen at other pain clinics most recently she underwent a L4-5 [place] [address] [place] in [place]. Prior to that she was seen at [facility] she underwent multiple types of injections [...] include physicaltherapy, Occupational Therapy, cold therapy, surgery, managed care analyst, cortisone, nerve blocks, TENS unit, trigger point, epidurals patient has tried hydrocodone tramadol muscle relaxants and meloxicam in the past for pain. Patient reports in 2022 she was in [place] had severe pain from her back timing on her right leg and underwent a outpatient surgery by orthopedic doctor when she was in [facility] she has a history of cervical fusion in 2018 and in 2005. 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 MRI lumbar [...] face to face review of medical records. GRAPH EQUIPMENT MAINTAINER documented in this encounter OR Notes * [...] IN STABLE CONDITION WITH APPROPRIATE POST-PROCEDURE INSTRUCTIONS. GRAPH EQUIPMENT MAINTAINER documented in this encounter Plan of Treatment Not on file documented as of this encounter Procedures Procedure Name Priority Date/Time Associated Diagnosis Comments INJECTION SI JOINT?? 08/29/2023 8:31 AM TELEGRAPH EQUIPMENT MAINTAINER SI (sacroiliac) joint inflammation XR PAIN CLINIC C-ARM Today 08/29/2023 8:29 AM TELEGRAPH EQUIPMENT MAINTAINER documented in this encounter Results * XR PAIN CLINIC C-ARM (08/29/2023 8:29 AM TELEGRAPH EQUIPMENT MAINTAINER) Narrative Radiology, Technologist - 08/29/2023 8:29 AM TELEGRAPH EQUIPMENT MAINTAINER This report does not contain a radiologist's interpretation. Please review associated procedure and/or operative report. Gisselle Regan MD GENERAL IMAGING Final Result documented in this encounter Visit Diagnoses Diagnosis SI (sacroiliac) joint inflammation (CMS/HCC)- Primary Sacroiliitis, not elsewhere classified SI (sacroiliac) joint inflammation (CMS/HCC) Sacroiliitis, not elsewhere classified SI (sacroiliac) joint inflammation (CMS/HCC) Sacroiliitis, not elsewhere classified documented in this encounter Admitting Diagnoses Diagnosis SI (sacroiliac) joint inflammation (CMS/HCC) Sacroiliitis, not elsewhere classified documented in this encounter Administered Medications Inactive Administered Medications - up to 3 most recent administrations Medication Order MAR Action Action Date Dose Rate Site bupivacaine (PF) (MARCAINE) 0.75 % injection As needed, Starting on Tue08/29/23 at 0840, Until Tue08/29/23 at 0842, Intra-Op Given 08/29/2023 8:40 AM TELEGRAPH EQUIPMENT MAINTAINER 2 mLs chlorhexidine (PERIDEX) 0.12 % solution 15 mL [...] Tue08/29/23 at 0815 Given 08/29/2023 7:55 AM TELEGRAPH EQUIPMENT MAINTAINER 10 mg diazePAM (VALIUM) tablet 5 mg 5 mg, Oral, Once as needed, Anxiety, 1 dose, Starting on Tue08/29/23 at 0747, Until Tue08/29/23 at 1046, Pre-Op iopamidol (ISOVUE-M 300) 61 % injection As needed, Starting on Tue08/29/23 at 0840, Until Tue08/29/23 at 0842, Intra-Op Given 08/29/2023 8:40 AM TELEGRAPH EQUIPMENT MAINTAINER 5 mLs lidocaine (PF) (XYLOCAINE) 1 % injection As needed, Starting on Tue08/29/23 at 0840, Until Tue08/29/23 at 0842, Intra-Op Given 08/29/2023 8:40 AM TELEGRAPH EQUIPMENT MAINTAINER 2 mLs triamcinolone acetonide (KENALOG-40) injection As needed, Starting on Tue08/29/23 at 0841, Until Tue08/29/23 at 0842, Intra-Op Given 08/29/2023 8:41 AM TELEGRAPH EQUIPMENT MAINTAINER 40 mg documented in this encounter Active and Recently Administered Medications Times are shown in TELEGRAPH EQUIPMENT MAINTAINER. Scheduled Medication Order 08/27/2023 08/28/2023 08/29/2023 diazePAM [...] MD) documented in this encounter Care Teams Engineer Third Assistant Relationship Specialty Start Date End Date Non-Staff, Provider PCP - General UNKNOWN PHYSICIAN SPECIALTY 08/29/23 documented as of this encounter
--- OUTSIDE RECORDS SUMMARY | 2024-08-23 23:51 | XMS_ITS | Clinical Summary ---
Author Organization [facility] Address [address] [place] [address]. [place], [place] [address] [place] [address] Care Team Providers Care Information Clerk Cashier Name Role Phone Non-Staff, Provider Primary Care Provider Shilpavanathalie lable Allergies Active Allergy Reactions Criticality Noted Date Comments Iodine Rash Low 08/25/2023 Medications levothyroxine (SYNTHROID) 25 MCG tablet Take 1.5 tablets (37.5 mcg total) by mouth daily. 08/16/2023 Active rosuvastatin (CRESTOR) 20 MG tablet Take 1 tablet (20 mg total) by mouth daily. 05/16/2023 Active citalopram (CELEXA) 20 MG tablet Take 1 tablet (20 mg total) by mouth daily. 08/17/2023 Active traMADol (ULTRAM) 50 MG tablet Take 1 tablet (50 mg total) by mouth every 6 (six) hours as needed. 05/24/2023 Active ibuprofen (MOTRIN) 800 MG tablet Take 1 tablet (800 mg total) by mouth daily. 05/24/2023 Active Active Problems Problem Noted Date Diagnosed Date SI (sacroiliac) joint inflammation 08/25/2023 Family History Medical History Relation Comments Hypertension Brother Hypertension Sister Relation Status Comments Brother Sister Social History Tobacco Use Types Packs/Day Years [...] on file Sexual Orientation Not on file Last Filed Vital Signs Vital Sign Reading Time Taken Comments Blood Pressure 142/80 08/29/2023 8:41 AM ADMINISTRATIVE SUPPORT TECHNICIAN Pulse 69 08/29/2023 8:41 AM ADMINISTRATIVE SUPPORT TECHNICIAN Temperature 36.5 ??C (97.7 ??F) 08/29/2023 7:49 AM CS T Respiratory Rate 18 08/29/2023 8:41 AM ADMINISTRATIVE SUPPORT TECHNICIAN Oxygen Saturation 100% 08/29/2023 8:41 AM ADMINISTRATIVE SUPPORT TECHNICIAN Inhaled Oxygen Concentration - - Weight 58.2 kg (128 lb 6.4 oz) 08/29/2023 7:49 A M ADMINISTRATIVE SUPPORT TECHNICIAN Height 157.5 cm (5' 2 ) 08/29/2023 7:49 AM ADMINISTRATIVE SUPPORT TECHNICIAN Body Mass Index 23.48 08/29/2023 7:49 AM ADMINISTRATIVE SUPPORT TECHNICIAN Plan of Treatment Health Maintenance Due Date Last Done Comments Colorectal Cancer Screening Colonoscopy (10 Years) 1958 Hepatitis C 02/03/1976 DTaP, Tdap and Td Vaccines (1 - Tdap) 1977 Mammogram Screening 1998 Annual Medicare Wellness Visit 2023 Dexa Scan (General) 2023 Pneumococcal Vaccine: 65+ Years (2 of 2 - PCV) 2023 06/22/2021 COVID-19 Vaccine (3 - season) 2024 08/24/2021, 10/28/2020 Influenza Adult (#1) 2024 06/22/2021, 07/03/2019, 06/13/2018, Additional history exists RSV Immunization or 60+ Years (1 - 1-dose 75+ series) 2033 Zoster Vaccines Completed 01/21/2022, 1108/2020, 10/26/2016 Meningococcal Vaccine Aged Out No wilmer adniel eligible based on patient's age to complete this topic RSV Immunizations Under 20 Months Aged Out No longer eligible based on patient's age to complete this topic Insurance MEDICARE [facility] Care Teams Information Clerk Cashier Relationship Specialty Start Date End Date Non-Staff, Provider PCP - General UNKNOWN PHYSICIAN SPECIALTY 08/29/23
--- OUTSIDE RECORDS SUMMARY | 2024-08-23 23:51 | XMS_ITS | Referral Summary ---
Author Organization [facility] Address [address] [place] [address] Care Team Providers Care Air Crew Supervisor Name Role Phone Neptali Calvo MD Primary [...] 05/15/2019 Assessment & Plan (09/20/2019 4:46 PM MARKET RESEARCH MANAGER): Ms. Villalpando is clinically improved after anterior [...] (03/02/2019): Added automatically from request for surgery [id number] Cervical disc disorder with radiculopathy of cervical [...] underwent some type of procedure at the [facility] [place] that was unsuccessful. The current imaging does not show the postop imaging of the cervical spine. She will endeavor to get that to me for review. After reviewing the films we will give her my final recommendations. Given her constellation of symptoms she may benefit from C3-C5 anterior cervical decompression and fusion to decompress the left C4 and C5 nerve roots. 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 Not on file Not on andre e Last Filed Vital Signs Vital Sign Reading [...] 02/16/2022 2:52 PM CDT Plan of Treatment Not on file Medical Devices Implanted Type Area Executive Meeting Manager Device Identifier Shelf Expiration Date Model / Serial / Lot Cage Foundation 3d Cervical [id number] 7 Deg - Sn/A - [id number] Implanted:Qty: 1 on 03/30/2019 by Alfred Robison MD at [facility] N/A: Spine Cervical Core Link [id number] 11/29/2023 [id number] / N/A / [id number] [employer] 700-025 I Factor Allograft Putty Syringe Graft 2.5cc Bone - Sn/A - [id number] Implanted:Qty: 1 on 03/30/2019 by Alfred Robison MD at [facility] N/A: Spine Cervical [employer] 12/19/2021 700-025 / N/A / [id number] Cage Foundation 3d Cervical [id number] 7 Deg - [id number] Implanted:Qty: 1 on 03/30/2019 by Alfred Robison MD at [facility] N/A: Spine Cervical Core Link [id number] 11/29/2023 [id number] Plate Bone Anodyne L28 Mm Spine Cervical Anterior Level 2 Nonsterile - Sn/A - [id number] Implanted:Qty: 1 on 03/30/2019 by Alfred Robison MD at [facility] N/A: Spine Cervical Core Link / N/A / Core Link Anodyne 4mm 12mm Variable Angle Self Tap Spine Cervical Screw - Sn/A - [id number] Implanted:Qty: 6 on 03/30/2019 by Alfred Robison MD at [facility] N/A: Spine Cervical Core Link / N/A / Insurance [facility] Advance Directives For more information, please contact: [phone] * Full Code (Latest Code Status on File) Date Activated Date Inactivated Comments 03/30/2019 11:40 AM 03/31/2019 5:53 PM Care Teams Air Crew Supervisor Relationship Specialty Start Date End Date Neptali Calvo MD PCP - General Internal Medicine 09/15/18
--- OUTSIDE RECORDS SUMMARY | 2024-08-23 23:51 | XMS_ITS | Encounter Summary ---
Author Organization [facility] Address [address] [place] [address]. [place], [place] [address] [place] [address] Care Team Providers Care Sole Ruffer Name Role Phone Unavailable Primary Care Provider Unavailabl e Encounter Details Date Type Department Care Team (Late st Contact Info) Description 06/19/2001 [place] [address] , Generic Conversion, Social History Tobacco Use Types Packs/Day Years Used Date Smoking Tobacco: Never Assessed Comments Unknown Sex and Gender Information Value Date Recorded Sex Assigned at Not on file Legal Sex Female 6:36 PM CDT Gender Identity Not on file Sexual Orientation Not on file documented as of this encounter Plan of Treatment Not on file documented as of this encounter Visit Diagnoses Not on filedocumented in this encounter
--- OUTSIDE RECORDS SUMMARY | 2024-08-23 23:51 | XMS_ITS | Encounter Summary ---
Author Organization [facility] Address [address] [place] [address]. [place] [address] Care Team Providers Care Gas Analyst Name Role Phone Non-Staff, Provider Primary Care Provider Miranda chawla Encounter Details Date Type Department Care Team (Latest Contact Info) Description 08/29/2023 Travel Social History Tobacco Use Types Packs/Day Years [...] Diagnoses Not on filedocumented in this encounter Care Teams Gas Analyst Relationship Specialty Start Date End Date Non-Staff, Provider PCP - General UNKNOWN PHYSICIAN SPECIALTY 08/29/23 documented as of this encounter
--- OUTSIDE RECORDS SUMMARY | 2024-08-23 23:51 | XMS_ITS | Encounter Summary ---
Author Organization [facility] Address [address] [place] [address]. [place] [address] Care Team Providers Care Customs Officer Name Role Phone None, Provider Primary Care Provider Adamaris cruz Encounter Details Date Type Department Care Team (Latest Contact Info) Description 08/25/2023 Travel Social History Tobacco Use Types Packs/Day [...] on filedocumented in this encounter Care Teams Customs Officer Relationship Specialty Start Date End Date None, Provider, PCP - General UNKNOWN PHYSICIAN SPECIALTY 08/25/23 documented as of this encounter
--- OUTSIDE RECORDS SUMMARY | 2024-08-23 23:51 | XMS_ITS | Encounter Summary ---
Author Organization [facility] Address [address] [place] [address]. [id number] [place] [address] Care Team Providers Care Solo Truck Driver Name Role Phone Unavailable Primary Care Provider Unavailabl e Encounter Details Date Type Department Care Team (Late st Contact Info) Description 06/26/2001 [place] [address] , Generic Conversion, Social History Tobacco Use [...]
--- OUTSIDE RECORDS SUMMARY | 2024-08-23 23:51 | XMS_ITS | Encounter Summary ---
Author Organization 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 Washington they will call patient to [facility] appt. Pt is aware. documented in this encounter Plan of Treatment Not on file documented as of this encounter Visit Diagnoses Diagnosis Piriformis syndrome, right- Primary documented in this encounter Care Teams Computer Assembler Relationship Specialty Start Date End Date Neptali Calvo MD PCP - General Internal Medicine 09/15/18 documented as of this encounter
--- OUTSIDE RECORDS SUMMARY | 2024-08-23 23:52 | XMS_ITS | Encounter Summary ---
Author Organization [facility] Address [address] [facility] [address] [facility] [address] [place] [address] Care Team Providers Care User Support Specialist Name Role Phone Neptali Calvo MD Primary Care Provider Encounter Details Date Type Department Care Team (Late st Contact Info) Description 09/24/2019 Orders Only [facility] [place] [address] [facility] [address] [place] [address] Alfred Robison MD [address] [facility] [address] [place] [address] Low back pain, non-specific (Primary Dx) Social History Tobacco Use Types Packs/Day Years Used Date Smoking Tobacco: Some Days Cigarettes 1.5 30 Started: 03/12/1971; Last attempted to quit: 03/12/2001 Smokeless Tobacco: Never Comments:Uses nicorette gum occasionally Alcohol Use Standard Drinks/Week Comments Not Currently 0 (1 standard drink = 0.6 oz pur e alcohol) Sober since 2000 PHQ-2 Answer Date Recorded PHQ-2 Score 0 04/14/2019 Comments No Sex and Gender Information Value Date Recorded Sex Assigned at Not on file 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 Washington they will call patient to [facility] appt. Pt is aware. RER POULTRY HATCHERY documented in this encounter Plan of Treatment Not on file documented as of this encounter Visit Diagnoses Diagnosis Low back pain, non-specific- Primary documented in this encounter Care Teams User Support Specialist Relationship Specialty Start Date End Date Neptali Calvo MD PCP - General Internal Medicine 09/15/18 documented as of this encounter
--- OUTSIDE RECORDS SUMMARY | 2024-08-23 23:52 | XMS_ITS | Encounter Summary ---
Author Organization [facility] Address [address] [place] [address] Care Team Providers Care Varitypist Name Role Phone Neptali Calvo MD Primary Care Provider Reason for Visit * Diagnostic Imaging (Routine) - Closed Specialty Diagnoses / Procedures Referred By Contac t Referred To Contact Diagnoses Cervical disc disorder with radiculopathy of cervical region Procedures XR Spine Cervical Flexion and Extension 2 or 3 Views Alfred Robison MD Phone: tel: fax: External Order Referral ID Status Reason Start Date Expiration Date Visits Re quested Visits Authorized [id number] Closed 01/09/2019 07/20/2020 1 1 Encounter Details Date Type Department Care Team (Latest Contact Info) Description 05/15/2019 10:28 AM CDT - 05/15/2019 11:59 PM CDT Hospital Encounter [facility] - Imaging [address] [place] [address] Alfred Robison MD [address] [facility] [address] [place] [address] Discharge Disposition: Discharge to home or self care Social History Tobacco Use Types Packs/Day Years Used Date Smoking Tobacco: Former Cigarettes 1.5 30 0 03/12/1971 - 03/12/2001 Smokeless Tobacco: Never Alcohol Use Standard Drinks/Week Comments Not Currently 0 (1 standard drink = 0.6 oz pur e alcohol) Sober since 2000 PHQ-2 Answer Date Recorded PHQ-2 Score 0 04/14/2019 Comments No Sex and Gender Information Value Date Recorded Sex Assigned at Not on file Legal Sex Female 6:31 PM SLIP 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 Gender Identity Not on file Sexual Orientation Not on file 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 Not on file Not on file Not on andre e documented as of this encounter Medications at Time of Discharge citalopram (CeleXA) 10 mg tablet Take 10 mg by mouth daily atorvastatin (LIPITOR) 20 mg tablet Take 20 mg by mouth every morning 2 HYDROcodone-acetami nophen (NORCO) 5-325 mg per tabletIndications:P ain Take 1-2 tablets by mouth every 4 (four) hours as needed for pain (max 6/day) 60 tablet 04/03/2019 2 methylPREDNISolone (MEDROL DOSEPACK) 4 mg DosepackIndications :Cervical disc disorder with radiculopathy of cervical region Take as directed on package 1 packet 04/03/2019 0 tiZANidine (ZANAFLEX) 4 mg tabletIndications:C ervical disc disorder with radiculopathy of cervical region TAKE 1 TABLET BY MOUTH EVERY 8 HOURS NEEDED 90 tablet 04/27/2019 9 zolpidem (AMBIEN) 5 mg tabletIndications:S leep-Onset Insomnia Take 5 mg by mouth nightly as needed for sleep 2 documented as of this encounter Discharge Disposition Disposition Code Departure Means Destination Discharge to home or self care documented in this encounter Plan of Treatment Not on file documented as of this encounter Procedures Procedure Name Priority Date/Time Associated Diagnosis Comments XR SPINE CERVICAL FLEXION AND EXTENSION 2 VIEWS Schedule Routine, Read Routine (OP Routine) 05/15/2019 10:46 AM CDT Cervical disc disorder with radiculopathy of cervical region documented in this encounter Results * XR Spine Cervical Flexion and Extension 2 or 3 Views (05/15/2019 10:46 AM CDT) Anatomical Region Laterality Modality Spine N/A Computed Radiogr aphy 05/15/2019 5:22 PM CDT Impressions 05/15/2019 5:23 PM CDT No evidence of instability. Electronically signed by: Mirella Cannon M.D. Narrative 05/15/2019 5:23 PM CDT Cervical Spine, 05/15/2019 HISTORY: Cervical pain and disc disorder with radiculopathy of cervical region COMPARISON: Intraoperative views 03/30/2019 Cervical spine views (2) are lateral flexion-extension views. Anterior plate, screws and interbody device are present extending from the C5. ??There is been prior bony fusion across the C5-C6 disc space. ??Facet arthropathy is seen at multiple levels. ??There is no sublux comparing flexion to extension views. Procedure Note Mirella Cannon MD - 05/15/2019 Cervical Spine, 05/15/2019 HISTORY: Cervical pain and disc disorder with radiculopathy of cervical region COMPARISON: Intraoperative views 03/30/2019 Cervical spine views (2) are lateral flexion-extension views. Anterior plate, screws and interbody device are present extending from the C5. There is been prior bony fusion across the C5-C6 disc space. Facet arthropathy is seen at multiple levels. There is no sublux comparing flexion to extension views. IMPRESSION: No evidence of instability. Electronically signed by: Mirella Cannon M.D. Alfred Robison MD IMG XR PROCEDURES Final Resul t documented in this encounter Visit Diagnoses Not on filedocumented in this encounter Care Teams Varitypist Relationship Specialty Start Date End Date Neptali Calvo MD PCP - General Internal Medicine 09/15/18 documented as of this encounter
--- OUTSIDE RECORDS SUMMARY | 2024-08-23 23:52 | XMS_ITS | Encounter Summary ---
Author Organization [facility] Address [address] [place] [address] Care Team Providers Care Alloy Weigher Name Role Phone Neptali Calvo MD Primary Care Provider Encounter Details Date Type Department Care Team (Late st Contact Info) Description 03/26/2019 Orders Only [facility] [place] [address] [facility] [address] [place] [address] Deloris Lee, POWER WHEELCHAIR MECHANIC [address] [facility] [address] [place] [address] Cervical disc disorder with radiculopathy (Primary Dx) Social History Tobacco Use Types Packs/Day Years Used Date Smoking Tobacco: Former Cigarettes 1.5 30 0 03/12/1971 - 03/12/2001 Smokeless Tobacco: Never Alcohol Use Standard Drinks/Week Comments Not Currently 0 (1 standard drink = 0.6 oz pur e alcohol) Sober since 2000 Comments Unknown Sex and Gender Information Value Date Recorded Sex Assigned at Not on file 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 Gender Identity Not on file Sexual Orientation Not on file 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 Not on file Not on andre e documented as of this encounter Ordered Prescriptions Prescription Sig Dispense Quantity Refills Last Filled Start Date End Date oxyCODONE-acetamin ophen (PERCOCET) 5-325 mg per tabletIndications: Pain Take 1 tablet by mouth every 4 (four) hours as needed for pain for up to 15 days 90 tablet 04/06/2019 03/31/2019 documented in this encounter Plan of Treatment Not on file documented as of this encounter Visit Diagnoses Diagnosis Cervical disc disorder with radiculopathy- Primary Other and unspecified disc disorder of cervical region documented in this encounter Discontinued Medications Medication Sig Discontinue Reason Start Date End Da te oxyCODONE-acetaminophen (PERCOCET) 5-325 mg per tabletIndications:Pain Take 1 tablet by mouth every 4 (four) hours as needed for pain (max 6/day) for up to 15 days Error 03/26/2019 03/26/2019 documented as of this encounter Care Teams Alloy Weigher Relationship Specialty Start Date End Date Neptali Calvo MD PCP - General Internal Medicine 09/15/18 documented as of this encounter
--- OUTSIDE RECORDS SUMMARY | 2024-08-23 23:52 | XMS_ITS | Encounter Summary ---
Author Organization [facility] Address [address] [facility] [address] [place] [address] Care Team Providers Care Burlap Man Name Role Phone Neptali Calvo MD Primary Care Provider Reason for Referral * Diagnostic Imaging (Routine) - Closed Specialty Diagnoses / Procedures Referred By Contac t Referred To Contact Diagnoses Postlaminectomy syndrome, cervical region Procedures XR Spine Cervical Flexion and Extension 2 or 3 Views Alfred Robison MD Phone: tel: fax: External Order Referral ID Status Reason Start Date Expiration Date Visits Re quested Visits Authorized [id number] Closed 08/21/2019 03/01/2021 1 1 STMAS TREE FARM WORKER Encounter Details Date Type Department Care Team (Late st Contact Info) Description 08/21/2019 Orders Only [facility] [place] [address] [facility] [address] [place] [address] Alfred Robison MD [facility] [facility] [address] [place] [address] Postlaminectomy syndrome, cervical region (Primary Dx) Social History Tobacco Use Types [...] on file Legal 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 Gender Identity Not on file Sexual Orientation Not on file 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 file Not on file Not on andre e documented as of this encounter Plan of Treatment Scheduled Orders Name Type Priority Associated Diagnoses Orde r Schedule XR Spine Cervical Flexion and Extension 2 or 3 Views Imaging Schedule Routine, Read Routine (OP Routine) Postlaminectomy syndrome, cervical region Expected: 08/21/2019, Expires: 08/21/2020 documented as of this encounter Visit Diagnoses Diagnosis Postlaminectomy syndrome, cervical region- Primary documented in this encounter Care Teams Burlap Man Relationship Specialty Start Date End Date Neptali Calvo MD PCP - General Internal Medicine 09/15/18 documented as of this encounter
--- OUTSIDE RECORDS SUMMARY | 2024-08-23 23:52 | XMS_ITS | Encounter Summary ---
Author Organization [facility] Address [address] [facility] [address] [place] [address] Care Team Providers Care Hydraulic Miner Blasting Name Role Phone Neptali Calvo MD Primary Care Provider Reason for Referral * Diagnostic Imaging (Routine) - Closed Specialty Diagnoses / Procedures Referred By Contac t Referred To Contact Procedures XR Spine Cervical 2 or 3 Views [facility] [place] [address] [facility] [address] [place] [id number] Phone: tel: fax: Referral ID Status Reason Start Date Expiration Date Visits Re quested Visits Authorized [id number] Closed 09/10/2019 03/21/2021 1 1 MILL OPERATOR Encounter Details Date Type Department Care Team (Late st Contact Info) Description 09/10/2019 Orders Only [facility] [place] [address] [facility] [address] [place] [address] Gadiel Haley MD [address] [place] [address] Social History Tobacco Use Types Packs/Day Years [...] on file 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 Gender Identity Not on file Sexual Orientation Not on file 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 Not on file Not on andre e documented as of this encounter Plan of Treatment Not on file documented as of this encounter Procedures Procedure Name Priority Date/Time Associated Diagnosis Comments XR SPINE CERVICAL 2 OR 3 VIEWS Schedule Routine, Read Routine (OP Routine) 08/27/2019 documented in this encounter Results * XR Spine Cervical 2 or 3 Views (08/27/2019) Anatomical Region Laterality Modality Spine N/A Radiographic Marcelina ging us Historical Provider MD MANCIA XR PROCEDURES Final R esult documented in this encounter Visit Diagnoses Not on filedocumented in this encounter Care Teams Hydraulic Miner Blasting Relationship Specialty Start Date End Date Neptali Calvo MD PCP - General Internal Medicine 09/15/18 documented as of this encounter
--- OUTSIDE RECORDS SUMMARY | 2024-08-23 23:52 | XMS_ITS | Encounter Summary ---
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
--- OUTSIDE RECORDS SUMMARY | 2024-08-23 23:52 | XMS_ITS | Encounter Summary ---
Author Organization [facility] Address [address] [facility] [address] [place] [address] Care Team Providers Care Tool Maker Bench Name Role Phone Neptali Calvo MD Primary Care Provider Encounter Details Date Type Department Care Team (Late st Contact Info) Description 04/03/2019 Orders Only [facility] [place] [address] [facility] [address] [place] [address] Deloris Lee, SAP ARIBA CONSULTANT [address] [facility] [address] [place] [address] Cervical disc disorder with radiculopathy of cervical region (Primary Dx) Social History Tobacco Use Types Packs/Day Years Used Date Smoking Tobacco: Former Cigarettes 1.5 30 0 03/12/1971 - 03/12/2001 Smokeless Tobacco: Never Alcohol Use Standard Drinks/Week Comments Not Currently 0 (1 standard drink = 0.6 oz pur e alcohol) Sober since 2000 Comments No Sex and Gender Information Value Date Recorded Sex Assigned at Not on file 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 Gender Identity Not on file Sexual Orientation Not on file 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 Not on file Not on andre e documented as of this encounter Ordered Prescriptions Prescription Sig Dispense Quantity Refills Last Filled Start Date End Date HYDROcodone-acetami nophen (NORCO) 5-325 mg per tabletIndications:P ain Take 1-2 tablets by mouth every 4 (four) hours as needed for pain (max 6/day) 60 tablet 04/03/2019 2 methylPREDNISolone (MEDROL DOSEPACK) 4 mg DosepackIndications :Cervical disc disorder with radiculopathy of cervical region Take as directed on package 1 packet 04/03/2019 0 documented in this encounter Progress Notes * Deloris Lee NP - 04/03/2019 2:55 PM CDT Patient calls states that she is having some issues with swallowing having to take relief small bites. She reports that her neck feels swollen. She has ongoing neck pain and shoulder pain that radiates into the arm which is alleviated with the use of hydrocodone and a half a tablet of Zanaflex but is not long lasting. We will call in the Medrol Dosepak to her [facility] pharmacy to be used as directed and will mail a refill script to her home address. Patient is currently taking hydrocodone 5-6 tablets per day. documented in this encounter Plan of Treatment Not on file documented as of this encounter Visit Diagnoses Diagnosis Cervical disc disorder with radiculopathy of cervical region- Primary documented in this encounter Discontinued Medications Medication Sig Discontinue Reason Start Date End Da te HYDROcodone-acetaminophe n (NORCO) 5-325 mg per tabletIndications:Pain Take 0.5 tablets by mouth as needed Duplicate order 04/03/2019 HYDROcodone-acetaminophe n (NORCO) 5-325 mg per tabletIndications:Pain Take 1-2 tablets by mouth every 4 (four) hours as needed for pain Reorder 03/31/2019 04/03/2019 documented as of this encounter Care Teams Tool Maker Bench Relationship Specialty Start Date End Date Neptali Calvo MD PCP - General Internal Medicine 09/15/18 documented as of this encounter
--- OUTSIDE RECORDS SUMMARY | 2024-08-23 23:52 | XMS_ITS | Encounter Summary ---
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 [employer] Gender Identity Not on file Sexual Orientation Not on file Occupation Industry Job Start Date Job End 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[employer] Not on file Not on file Not on andre e documented as of this encounter Last Filed Vital Signs Vital Sign Reading Time Taken Comments Blood Pressure 166/67 03/31/2019 11:48 AM CDT Pulse 68 03/31/2019 11:48 AM CDT Temperature 36.6 ??C (97.9 ??F) 03/31/2019 11:48 AM C DT Respiratory Rate 12 03/31/2019 11:48 AM CDT Oxygen Saturation 97% 03/31/2019 11:48 AM CDT Inhaled Oxygen Concentration - - Weight 57.8 kg (127 lb 6.8 oz) 03/30/2019 6:31 A M CDT Height - - Body Mass Index 23.31 03/12/2019 12:16 PM CDT documented in this encounter Discharge Diagnoses Diagnosis Radiculopathy of cervical region - RADICULOPATHY, CERVICAL REGION Hyperlipidemia - HYPERLIPIDEMIA, UNSPECIFIED Other and unspecified hyperlipidemia Pure hypercholesterolemia - PURE HYPERCHOLESTEROLEMIA, UNSPECIFIED Anxiety disorder - ANXIETY DISORDER, UNSPECIFIED Anxiety state, unspecified Major depressive disorder, single episode - MAJOR DEPRESSIVE DISORDER, SINGLE EPISODE, UNSPECIFIED Major depressive disorder, single episode, unspecified Arthrodesis status - ARTHRODESIS STATUS Other long term care pharmacist (current) drug therapy - OTHER SENIOR LIVING (CURRENT) DRUG THERAPY Personal history of nicotine dependence - PERSONAL HISTORY OF NICOTINE DEPENDENCE Personal history of malignant neoplasm of cervix uteri - PERSONAL HISTORY OF MALIGNANT NEOPLASM OF CERVIX UTERI documented in this encounter Discharge Summaries * Alfred Robison MD - 03/31/2019 12:54 PM CDT Inpatient Discharge Summary BRIEF OVERVIEW Admitting Provider: Alfred Robison MD Discharge Provider: Alfred Robison MD Primary Care Physician at Discharge: Neptali Calvo MD [phone] Admission Date: 03/30/2019 Discharge Date: 03/31/2019 Admission Location: [facility] Primary Discharge Diagnosis: Cervical radiculopathy Secondary Discharge Diagnosis: Radiculopathy, cervical DETAILS OF HOSPITAL STAY Presenting Problem/History of Present Illness: Left neck pain unresponsive to conservative tx. Hospital Course: The patient was admitted to the hospital and underwent anterior cervical decompression and fusion per separate dictated operative note without complication. By post-operative day #1, she was eating, ambulating and voiding well and was discharged home in stable condition with a plan for staple removal in 7 to 10 days. Active Issues Requiring Follow-up: Test Results Pending at Discharge: Operative Procedures Performed: Procedure(s): C3-5 Anterior Cervical Discectomy and Fusion Other Procedures: Pertinent Test Results: Discharge Details Physical Exam at Discharge: Discharge Condition: good Pulse: 68 Resp: 12 BP: 166/67 Temp: 36.6 ??C (97.9 ??F) Weight: 57.8 kg (127 lb 6.8 oz) Pertinent Exam Findings at Discharge: full strength. No swelling of neck. Discharge Disposition: Final discharge disposition not confirmed Code Status at Discharge: full Discharge Instructions: Discharge Medications: Current Medications TAKE these medications atorvastatin 20 mg tablet Commonly known as: LIPITOR Take 20 mg by mouth every morning citalopram 10 mg tablet Commonly known as: CeleXA Take 10 mg by mouth daily * HYDROcodone-acetaminophen 5-325 mg per tablet Commonly known as: NORCO Take 0.5 tablets by mouth as needed * HYDROcodone-acetaminophen 5-325 mg per tablet Commonly known as: NORCO Take 1-2 tablets by mouth every 4 (four) hours as needed for pain tiZANidine 4 mg tablet Commonly known as: ZANAFLEX Take 1 tablet (4 mg total) by mouth every 8 (eight) hours as needed for muscle spasms zolpidem 5 mg tablet Commonly known as: AMBIEN Take 5 mg by mouth nightly as needed for sleep * This list has 2 medication(s) that are the same as other medications prescribed for you. Read the directions carefully, and ask your doctor or other care provider to review them with you. Outpatient Follow-Up: Future Appointments Date Time Provider Department Center 05/15/2019 11:30 AM Deloris Lee NP [id number] Decent documented in this encounter Discharge Instructions * Attachments The following attachments cannot be sent through Care Everywhere. * ANTERIOR CERVICAL DISCECTOMY (DISCHARGE CARE) ([facility]) documented in this encounter Medications at Time of Discharge citalopram (CeleXA) 10 mg tablet Take 10 mg by mouth daily atorvastatin (LIPITOR) 20 mg tablet Take 20 mg by mouth every morning 02/16/2022 HYDROcodone-aceta minophen (NORCO) 5-325 mg per tabletIndications :Pain Take 0.5 tablets by mouth as needed 04/03/2019 HYDROcodone-aceta minophen (NORCO) 5-325 mg per tabletIndications :Pain Take 1-2 tablets by mouth every 4 (four) hours as needed for pain 56 tablet 03/31/2019 04/03/2019 tiZANidine (ZANAFLEX) 4 mg tabletIndications :Muscle Spasm Take 1 tablet (4 mg total) by mouth every 8 (eight) hours as needed for muscle spasms 90 tablet 03/30/2019 04/27/2019 zolpidem (AMBIEN) 5 mg tabletIndications :Sleep-Onset Insomnia Take 5 mg by mouth nightly as needed for sleep 02/16/2022 documented as of this encounter Ordered Prescriptions Prescription Sig Dispense Quantity Refills Last Filled Start Date End Date HYDROcodone-acetam inophen (NORCO) 5-325 mg per tabletIndications: Pain Take 1-2 tablets by mouth every 4 (four) hours as needed for pain 56 tablet 03/31/2019 9 documented in this encounter Discharge Disposition Disposition Code Departure Means Destination Discharge to home or self care documented in this encounter Progress Notes * Shirley Neumann OT - 03/31/2019 1:26 PM CDT Occupational Therapy Evaluation 03/31/19 0855 General Chart Reviewed Yes Session Type Evaluation OT Received On 03/31/19 Additional Pertinent History Kaylah is a 59 year old female admitted 03/30 for an elective C3-[address] Robison. 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 [place] Fall within the last 6 months No Grooming Grooming: Where assessed Standing at sink Grooming: Level of assistance Set up Grooming: Assistance with (cues for body positioning and cervical precautions) Bathing Bathing: Level of assistance (recommending shower chair to pt at this time) Bathing: Assistance with (Reviewed bathing safety with precautions) UE Dressing UE Dressing: Level of assistance Supervision UE Dressing: Assistance with Maintaining precautions;Safety LE Dressing LE Dressing: Level of assistance Set up LE Dressing: Assistance with Maintains precautions;Safety Toileting Toileting: Level of assistance (Cues to maintain precautions during aashish care) Toilet Transfers Toilet Transfers Comments Independent with toilet transfers Tub Transfers Tub Transfers Comments Demonstrated good understanding of safety with tub transfer independently Pain Assessment Pain Assessment 0-10 Pain Score 4 Pain Type Surgical pain Pain Location Neck Clinical Progression Gradually improving Pain Interventions (RN provided medication) Activity Tolerance Activity Tolerance Comments Good activity tolerance throughout entire therapy session Cognition Orientation Oriented X4 (person, place, time, situation) Compliance/Behavior Easy to engage Bed Mobility 1 Bed Mobility Comments 1 up in chair for therapy session Transfer 1 Trials/Comments 1 Cues for precautions but no physical asisstance required. Other Comments Comments Patient engaged in education on item retrieval and home scenarios to be conscious of maintaining precautions. Handout provided and reviewed for increased carryover of information presented. Left pt sitting in recliner needs met and in reach. Assessment Prognosis Good Barriers to Discharge None Plan Plan Discharge Recommendation/Plan OT Recommendation Home with family;Home with intermittent assist OT Frequency One-time visit (Discharge from this service) OT Equipment Recommended (shower chair, upper inspector) Progress Progressing toward goals OT Evaluation Complete Yes (if last note, consider discharge ) Education: Patient has been educated on the role of OT, safety and precautions. Education completedvia verbal instruction and return demonstration. Patient verbalized understanding, demonstrated understanding and needs ongoing reinforcement * Alfred Robison MD - 03/31/2019 12:49 PM CDT Assessment/Plan Assessment: Post-op: 1 day. Condition: In stable condition. Plan: Discharge home. Encourage ambulation. Continue wound care as written. Regular diet. Doing well. Severe left neck pain gone. Subjective Subjective: Diet: Adequate intake. Activity level: Returning to normal. Pain control: Well controlled. Temp: [36.6 ??C (97.8 ??F)-36.7 ??C (98.1 ??F)] 36.6 ??C (97.9 ??F) Pulse: [63-72] 68 Resp: [12-16] 12 BP: (145-171)/(56-74) 166/67 I/O last 3 completed shifts: In: 1999 [I.V.:1999] Out: 3000 [Urine:3000] I/O this shift: In: - Out: 700 [Urine:700] Objective Objective: Vital signs (most recent): Blood pressure 166/67, pulse 68, temperature 36.6 ??C (97.9 ??F), temperature source Oral, resp. rate 12, weight 57.8 kg (127 lb 6.8 oz), SpO2 97 %. General appearance: Comfortable, well-appearing, in no acute distress and not in pain. Lungs: Normal effort. Abdomen: Abdomen is soft. Wound: Clean. There is no drainage. Neurological: The patient is alert and oriented to person, place and time. Normal strength. Principal Problem: Radiculopathy, cervical * Essence Broussard DPT - 03/31/2019 7:58 AM CDT Physical Therapy 03/31/19 0758 PT Last Visit Session Type Treatment PT Received On 03/31/19 Subjective Agreeable to Therapy Subjective Comment pt up in chair upon arrival, reports pain as 1/10, agreeable to PT, RN okayed PT Family/Caregiver Present No Precautions Precautions Cervical spine;Fall risk (soft collar) Pain Assessment Pain Assessment 0-10 Pain Score 1 Pain Location Neck Clinical Progression Gradually worsening (4/10 with mobility) Pain Interventions RN Notified Cognition Orientation Oriented X4 (person, place, time, situation) Bed Mobility 1 Bed Mobility From 1 Supine Bed Mobility Type 1 To and from Bed Mobility to 1 Edge of bed Level of Assistance 1 (SBA) Bed Mobility Comments 1 cues for log roll technique Transfer 1 Transfer From 1 Sit Transfer Type 1 To and from Transfer to 1 Stand Transfer Device 1 No device Transfer Level of Assistance 1 (SBA) Trials/Comments 1 cues for cervical spine precautions, performed toilet transfer and car transfer also with SBA with minimal sequencing cues Ambulation 1 Gait: Requires verbal cues to 1 Improve upright posture;Increase step length;Pace activity Ambulation Comments 1 pt ambulates 350 feet x2 without device with SBA, reminders to avoid cervicalrotation when scanning environment Stairs Stairs Yes Stair Comments pt initially practiced four steps with HELENA handrails then practiced with R ascendingrail for 4 stairs and L ascending rail for four steps, cues for foot clearance and spine precautions Stairs Number of Stairs 1 4x3 Assistance 1 Standby assist Other Comments Other PT Comments pt education on how to properly place cervical soft collar prior to mobility Assessment Potential/Prognosis Good Problem List Decreased strength;Decreased range of motion;Decreased endurance;Impaired balance;Decreased mobility;Pain Barriers to Discharge None Plan Plan Continue with current plan;If this is the last note, consider this the discharge summary Recommendation/Plan PT Recommendation/Plan Home with family Education: Patient has been educated on the role of PT, safety , precautions, mobility training andstairs. Education completed via explanation, teach back and demonstration. Patient verbalized understanding, demonstrated understanding and needs ongoing reinforcement. Multi-Disciplinary Problems (from Physical Therapy) Active Problems Problem: PT [facility] Start Date: 03/30/19 Goal Start Date End Date [facility] 1 03/30/19 -- Goal Details: Pt will perform all bed mobility independently, including log roll technique, to maintain cervical precautions and to return home safely. Goal Start Date End Date [facility] 2 03/30/19 -- Goal Details: Pt will perform sit to stand from various surface heights independently in order to progress toward PLOF and return home safely. Goal Start Date End Date [facility] 3 03/30/19 -- Goal Details: Pt will ambulate >150' independently in order to progress toward PLOF and return home safely. Goal Start Date End Date [facility] 4 03/30/19 -- Goal Details: Pt will negotiate 2 stairs with no hand railing and 8 stairs with 1 hand railing withmodified independence in order to progress toward PLOF and return home safely. Goal Start Date End Date [facility] 5 03/30/19 -- Goal Details: Pt will perform vehicle transfer independently in order to progress toward PLOF and return home safely. Goal Start Date End Date [facility] 1 03/30/19 -- Goal Details: Pt will successfully recall 3/3 cervical precautions and don/doff soft cervical collar independently in order to return home safely. * Harinder Evans DPT - 03/30/2019 3:44 PM CDT Physical Therapy Evaluation 03/30/19 1404 General Session Type Evaluation PT Received On 03/30/19 Subjective Agreeable to Therapy Additional Pertinent History Kaylah is a 59 year old female admitted 03/30 for an elective C3-[address] Robison. Family/Caregiver Present Yes (patient's daughters) Physical Therapy-Patient Goal return home at PLOF Precautions Precautions Cervical spine;Fall risk Neck Brace in place Yes (soft collar on patient upon my arrival) Home Living Type of Home House Home Layout One level;Work/family area in basement;Stairs with rails (bedroom in basement) # of Steps-Railed 16 (8+8 with one hand railing) Home Access Stairs to enter without rails Entrance Stairs-Rails None Entrance Stairs-Number of Steps 2 Home Mobility Equipment None Additional Comments patient denies using any DME ATTORNEY GENERAL Prior Function Level of Nova Independent with ADLs;Independent functional transfers;Independent with ambulation Lives With Spouse Driving Yes ADL Assistance Independent Instrumental ADL (IADL) Assistance 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 [place] Fall within the last 6 months No Pain Assessment Pain Assessment 0-10 Pain Score 3 Pain Location Back (Cervical) Pain Orientation Anterior Clinical Progression Gradually worsening (5/10) Pain Interventions Repositioned Cognition Arousal/Alertness Lethargic Orientation Oriented to person;Oriented to situation Following Commands Follows all commands and directions without difficulty Compliance/Behavior Easy to engage Sensation Light Touch WFL (present and equal in C6-C8 dermatomes bilaterally) Numbness/Tingling No (patient denies) Bed Mobility 1 Bed Mobility Comments 1 Patient is found in a recliner upon my arrival; bed mobility not assessed at this evaluation. Transfer 1 Trials/Comments 1 Patient performs sit to stand from a recliner with arms requiring minimum assistance with no device. She requires minimum-CGA to maintain balance once standing. Ambulation 1 Ambulation Comments 1 Patient ambulates x150' with no device, requiring minimum assistance. She demonstrates a wide base of support, minimal heel strike bilaterally, and lateral lean with weight bearing. She reports increasing fatigue throughout bout of ambulation. RLE Assessment RLE Assessment WFL (observed with functional mobility) LLE Assessment LLE Assessment WFL (observed with functional mobility) Other Comments Other PT Comments Kaylah is a 59 year old female admitted 03/30 for an elective C3-5 ACDF. She requires grossly minimum assistance for functional transfers with no device and ambulation x150' with nodevice. She is fairly lethargic throughout the evaluation, lidocaine drip is running. She reports increasing fatigue with ambulation, deferring any further activity. She plans to discharge home tomorrow with her family. Assessment Potential/Prognosis Good Problem List Decreased strength;Decreased endurance;Impaired balance;Decreased mobility Plan Plan Plan of care initiated;If this is the last note, consider this the discharge summary Recommendation/Plan PT Recommendation/Plan Home with family PT Frequency Twice a day Treatment/Interventions Functional transfer training;LE Strengthening/ROM;Patient/family training;Equipment eval/education;Balance Training;Bed mobility;Gait training PT Equipment Recommended None PT Evaluation Complete Yes Multi-Disciplinary Problems (from Physical Therapy) Active Problems Problem: PT [facility] Start Date: 03/30/19 Goal Start Date End Date [facility] 1 03/30/19 -- Goal Details: Pt will perform all bed mobility independently, including log roll technique, to maintain cervical precautions and to return home safely. Goal Start Date End Date [facility] 2 03/30/19 -- Goal Details: Pt will perform sit to stand from various surface heights independently in order to progress toward PLOF and return home safely. Goal Start Date End Date [facility] 3 03/30/19 -- Goal Details: Pt will ambulate >150' independently in order to progress toward PLOF and return home safely. Goal Start Date End Date [facility] 4 03/30/19 -- Goal Details: Pt will negotiate 2 stairs with no hand railing and 8 stairs with 1 hand railing withmodified independence in order to progress toward PLOF and return home safely. Goal Start Date End Date [facility] 5 03/30/19 -- Goal Details: Pt will perform vehicle transfer independently in order to progress toward PLOF and return home safely. Goal Start Date End Date [facility] 1 03/30/19 -- Goal Details: Pt will successfully recall 3/3 cervical precautions and don/doff soft cervical collar independently in order to return home safely. Education: Patient and family has been educated on the role of PT, safety , precautions and mobility training. Education completed via explanation, teach back and demonstration. Patient and family verbalized understanding and demonstrated understanding documented in this encounter H&P Notes * Manfred Hyatt MD - 03/30/2019 7:38 AM CDT I have reviewed the H&P, examined the patient, and endorse the findings as written. Plan of Care : Based on the above findings, I consider Kaylah Villalpando to be an acceptable riskfor : Procedure(s): C3-5 Anterior Cervical Discectomy and Fusion Source Note - Maximo Coleman MD - 03/12/2019 12:27 PM CDT Anesthesia Evaluation Kaylah Villalpando is a 59 y.o. female with a history of left-sided neck and arm pain. S/p prior C5-[address] Lu. Presents today for preop evaluation prior to C3-5 Anterior Cervical Discectomy and Fusion by Alfred Robison MD 03/30/19 Pre-Op Diagnosis Codes: * Radiculopathy, cervical [M54.12] HISTORY Past Medical History Information obtained from: patient and chart. Neurological + Psychiatric history - anxiety and depression Cardiovascular + Hyperlipidemia Respiratory Respiratory system: negative Hepatic / Heme Hepatic/Heme system: negative Gastrointestinal GI system: negative Renal / Renal/ system: negative Musculoskeletal/Pain Comments: Spinal stenosis Endocrine / Other + Cancer history- in remission. Cancer type: Cervical cancer s/p partial hysterectomy. Functional Capacity Functional capacity: 6-10 METs Review of Systems Pertinent negatives: productive cough; wheezing; SOB; recent cold/flu; fever; numbness/tingling; dentures/partials and chipped/loose teeth Past Medical History: Diagnosis Date ??? Anxiety and depression ??? Cervical radiculopathy ??? High cholesterol ??? History of cervical cancer 1994 ??? History of ETOH abuse Sober since 2000 ??? Spinal stenosis Past Surgical History: Procedure Laterality Date ??? CERVICAL DISC SURGERY 02/2018 Posterior cervical surgery - bone spur - [facility] ??? CERVICAL FUSION 2004 C5-6 ACDF(Dr. Lu) ? ? SECTION 1985 & 1987 ??? PARTIAL HYSTERECTOMY 1995 Cancer tx No Known Allergies Current Outpatient Medications: ??? atorvastatin (LIPITOR) 20 mg tablet ??? citalopram (CeleXA) 10 mg tablet ??? diazePAM (VALIUM) 5 mg tablet ??? HYDROcodone-acetaminophen (NORCO) 5-325 mg per tablet ??? naproxen sodium 220 mg capsule ??? zolpidem (AMBIEN) 5 mg tablet Social History Tobacco Use Smoking Status Former Smoker ??? Packs/day: 1.50 ??? Years: 30.00 ??? Pack years: 45.00 ??? Last attempt to quit: 03/12/2001 ??? Years since quittin.0 Smokeless Tobacco Never Used Substance and Sexual Activity Alcohol Use Not Currently Comment: Sober since 2000 Substance and Sexual Activity Drug Use Never Family History Problem Relation Age of Onset ??? Hypertension Father PAT Physical Exam Airway Exam: Mallampati: II Cervical ROM: FROM TM distance: 3 Jaw ROM: full Cardiovascular Exam: Rate: regular Rhythm: regular Negative for Murmur Negative for peripheral edema Pulmonary Exam: LCTA, bilat Wheezing negative EENT Exam: trachea midline (No audible carotid bruit) Dental Exam: Appears intact Skin Exam: Skin is warm and dry. Abdominal exam: Abdomen is soft. Bowel sounds are present. Current state: Patient's current state is cooperative. Additional comments: Motor exam: 5/5 bilateral upper extremities Sensation intact bilaterally 59 y.o. female with no clinical risk factors per ACC/AHA guidelines and moderate functional capacity for intermediate risk procedure. Patient declined offer of second provider presence during PE. Pre- op instructions reviewed and printed copy given to patient. Labs ordered per anesthesia guidelines. SEC evaluation complete. Vitals: 03/12/19 1216 BP: 145/50 Pulse: 65 SpO2: 100% Vitamin D: 38 Type and Screen: A Positive Michaelle Negative Hgb A1C: 03/12/2019: 5.3 % CBC RBC: 03/12/2019: 4.32 M/cumm RDW: No results found for requested labs within last 720 hours. MCHC: 03/12/2019: 32.7 g/dL MCH: 03/12/2019: 30.8 pg MCV: 03/12/2019: 94.2 fL Hct: 03/12/2019: 40.7 % Hgb: 03/12/2019: 13.3 g/dL WBC: 03/12/2019: 8.5 K/cumm MPV: 03/12/2019: 10.3 fL Platelets: 03/12/2019: 336 K/cumm RDW CV: 03/12/2019: 12.6 % RDW Sd: 03/12/2019: 43.7 fL STOP-Bang Total Score: 1 Barrera Activity Status Index Score: 37.4 DOS Physical Exam Medical history, medications, and allergies reviewed. Attestation: With today's edits, I endorse the findings of the anesthesia pre-evaluation assessment dated: 03/30/2019. Airway Exam: Mallampati: II Cervical ROM: FROM TM distance: >4 Jaw ROM: full Cardiovascular Exam: Rate: regular Rhythm: regular Pulmonary Exam: LCTA, bilat Dental Exam: Otherwise appears intact Anesthesia Plan ASA 2 My patient is approved for the Anesthesia Controlled Medication protocol when under care of a [employer] DIRECTOR Planned anesthesia: General Team communication plan: oral ET tube Induction: Induction: intravenous. Postoperative Plan: Postoperative administration opioids intended. No postoperative mechanical ventilation intended. Patient's planned disposition post procedure is Floor. Informed Consent: Discussed plan with AERONAUTICS COMMISSION DIRECTOR. Anesthesia plan and risks discussed with patient. Consent and Attending signature: I and/or my designee have discussed the anesthesia plan, benefits, possible alternatives, parental presence at time of induction (if indicated), and clinically relevant risks that may include dental injury, unintentional awareness, and/or other complications. The patient and/or parent/legal guardian understand, and agree to proceed. All questions answered. * Alfred Robison MD - 03/30/2019 7:38 AM CDT I have reviewed the H&P, examined the patient, and endorse the findings as written. Plan of Care : Based on the above findings, I consider Kaylah Villalpando to be an acceptable riskfor : Procedure(s): C3-5 Anterior Cervical Discectomy and Fusion Source Note - Maximo Coleman MD - 03/12/2019 12:27 PM CDT Anesthesia Evaluation Kaylah Villalpando is a 59 y.o. female with a history of left-sided neck and arm pain. S/p prior C5-[address] Lu. Presents today for preop evaluation prior to C3-5 Anterior Cervical Discectomy and Fusion by Alfred Robison MD 03/30/19 Pre-Op Diagnosis Codes: * Radiculopathy, cervical [M54.12] HISTORY Past Medical History Information obtained from: patient and chart. Neurological + Psychiatric history - anxiety and depression Cardiovascular + Hyperlipidemia Respiratory Respiratory system: negative Hepatic / Heme Hepatic/Heme system: negative Gastrointestinal GI system: negative Renal / Renal/ system: negative Musculoskeletal/Pain Comments: Spinal stenosis Endocrine / Other + Cancer history- in remission. Cancer type: Cervical cancer s/p partial hysterectomy. Functional Capacity Functional capacity: 6-10 METs Review of Systems Pertinent negatives: productive cough; wheezing; SOB; recent cold/flu; fever; numbness/tingling; dentures/partials and chipped/loose teeth Past Medical History: Diagnosis Date ??? Anxiety and depression ??? Cervical radiculopathy ??? High cholesterol ??? History of cervical cancer 1994 ??? History of ETOH abuse Sober since 2000 ??? Spinal stenosis Past Surgical History: Procedure Laterality Date ??? CERVICAL DISC SURGERY 02/2018 Posterior cervical surgery - bone spur - [facility] ??? CERVICAL FUSION 2004 C5-6 ACDF(Dr. Lu) ? ? SECTION 1985 & 1987 ??? PARTIAL HYSTERECTOMY 1995 Cancer tx No Known Allergies Current Outpatient Medications: ??? atorvastatin (LIPITOR) 20 mg tablet ??? citalopram (CeleXA) 10 mg tablet ??? diazePAM (VALIUM) 5 mg tablet ??? HYDROcodone-acetaminophen (NORCO) 5-325 mg per tablet ??? naproxen sodium 220 mg capsule ??? zolpidem (AMBIEN) 5 mg tablet Social History Tobacco Use Smoking Status Former Smoker ??? Packs/day: 1.50 ??? Years: 30.00 ??? Pack years: 45.00 ??? Last attempt to quit: 03/12/2001 ??? Years since quittin.0 Smokeless Tobacco Never Used Substance and Sexual Activity Alcohol Use Not Currently Comment: Sober since 2000 Substance and Sexual Activity Drug Use Never Family History Problem Relation Age of Onset ??? Hypertension Father PAT Physical Exam Airway Exam: Mallampati: II Cervical ROM: FROM TM distance: 3 Jaw ROM: full Cardiovascular Exam: Rate: regular Rhythm: regular Negative for Murmur Negative for peripheral edema Pulmonary Exam: LCTA, bilat Wheezing negative EENT Exam: trachea midline (No audible carotid bruit) Dental Exam: Appears intact Skin Exam: Skin is warm and dry. Abdominal exam: Abdomen is soft. Bowel sounds are present. Current state: Patient's current state is cooperative. Additional comments: Motor exam: 5/5 bilateral upper extremities Sensation intact bilaterally 59 y.o. female with no clinical risk factors per ACC/AHA guidelines and moderate functional capacity for intermediate risk procedure. Patient declined offer of second provider presence during PE. Pre- op instructions reviewed and printed copy given to patient. Labs ordered per anesthesia guidelines. SEC evaluation complete. Vitals: 03/12/19 1216 BP: 145/50 Pulse: 65 SpO2: 100% Vitamin D: 38 Type and Screen: A Positive Michaelle Negative Hgb A1C: 03/12/2019: 5.3 % CBC RBC: 03/12/2019: 4.32 M/cumm RDW: No results found for requested labs within last 720 hours. MCHC: 03/12/2019: 32.7 g/dL MCH: 03/12/2019: 30.8 pg MCV: 03/12/2019: 94.2 fL Hct: 03/12/2019: 40.7 % Hgb: 03/12/2019: 13.3 g/dL WBC: 03/12/2019: 8.5 K/cumm MPV: 03/12/2019: 10.3 fL Platelets: 03/12/2019: 336 K/cumm RDW CV: 03/12/2019: 12.6 % RDW Sd: 03/12/2019: 43.7 fL STOP-Bang Total Score: 1 Barrera Activity Status Index Score: 37.4 DOS Physical Exam Medical history, medications, and allergies reviewed. Attestation: With today's edits, I endorse the findings of the anesthesia pre-evaluation assessment dated: 03/30/2019. Airway Exam: Mallampati: II Cervical ROM: FROM TM distance: >4 Jaw ROM: full Cardiovascular Exam: Rate: regular Rhythm: regular Pulmonary Exam: LCTA, bilat Dental Exam: Otherwise appears intact Anesthesia Plan ASA 2 My patient is approved for the Anesthesia Controlled Medication protocol when under care of a AERONAUTICS COMMISSION DIRECTOR Planned anesthesia: General Team communication plan: oral ET tube Induction: Induction: intravenous. Postoperative Plan: Postoperative administration opioids intended. No postoperative mechanical ventilation intended. Patient's planned disposition post procedure is Floor. Informed Consent: Discussed plan with AERONAUTICS COMMISSION DIRECTOR. Anesthesia plan and risks discussed with patient. Consent and Attending signature: I and/or my designee have discussed the anesthesia plan, benefits, possible alternatives, parental presence at time of induction (if indicated), and clinically relevant risks that may include dental injury, unintentional awareness, and/or other complications. The patient and/or parent/legal guardian understand, and agree to proceed. All questions answered. documented in this encounter Miscellaneous Notes * Plan of Care - Le Li RN - 03/31/2019 3:27 AM CDT Problem: Health Behavior: Goal: Understanding of discharge needs will improve Outcome: Progressing Goals: Pain management vss Summary: Pt resting in bed. Pain managed. VSS. RN continue to monitor. * Op Note - Manfred Hyatt MD - 03/30/2019 8:14 AM CDT Images from the original note were not included. ?? Date of Surgery: 03/30/2019 Patient: Kaylah Villalpando Attending Surgeon: Alfred Robison MD, FAANS Office: [facility] Operative Report ?? Admission Type: Outpatient in a bed ?? Surgeon: MD Alfred Patricia MD, FAAAPRIL ?? Preoperative Diagnosis: 1. Cervical radiculopathy. 2. Cervicalgia (neck pain.) 3. S/p uninstrumented C56 ACDF. Postoperative Diagnosis: 1. Cervical radiculopathy. 2. Cervicalgia (neck pain.) 3. S/p uninstrumented C56 ACDF. ?? Name of Procedure: 1. Anterior arthrodesis C3 to C4 and C4 to C5, Dr. Robison. 2. Anterior cervical instrumentation (Corelink??? Anodyne??) C3 to C5, Dr. Robison. 3. Placement of 8mm Corelink??? 3D Foundationl?? lordotic machined interbody device at C34, Dr. Robison. 4. Placement of 8mm Corelink??? 3D Foundation?? lordotic machined interbody device at C45, Dr. Robison. 5. Complete complex discectomy at C3-4 and C4-5, Dr. Hyatt. 6. Partial vertebrectomy of C4, Dr. Hyatt. 7. Use of local morselized autograft, Dr. Robison. 8. Use of I-Factor bone social science teacher, Dr. Robison. 9. Use of operative microscope for microdissection, Dr. Hyatt. ?? Anesthesia: General Endotracheal Anesthesia Estimated Blood Loss: No blood loss documented. Intraoperative Fluids: See anesthesia note Specimens: None Blood/Blood Products Transfused: None Complications: None Condition on Discharge from the operating room was: Stable ?? Operative Findings: Severe foraminal stenosis at C3 to C4 and C4 to C5 on the left. ?? Indications: Ms. Villalpando is a 59 y.o. female with the above noted diagnosis unresponsive to conservative treatment. After careful review of the history, physical exam and radiographic findings, we felt that the she would benefit from anterior cervical decompression and fusion. Risks, alternatives and benefits of the procedure including, but not limited to, bleeding, infection, coma, , heart attack, stroke, paralysis, loss of vision, CSF leak, spinal instability requiring future operations, failure to relieve symptoms, bowel and bladder dysfunction, sexual dysfunction, difficulty swallowing and damage to the recurrent laryngeal nerve causing vocal cord paralysis and/or hoarseness of voice were discussed with the patient. She understands and wishes to proceed. ?? Procedure: After identifying, marking and examining Ms. Villalpando, she was brought to the operating room on an OR gurney and placed onto a Skytron bed with a horseshoe heading and priming tool setter. Sequential Compression Devices were placed on the lower legs for DVT prophylaxis. The patient was intubated by anesthesia and general endotracheal anesthesia was induced. A roll was placed vertically between the shoulders. All surfaces were padded and straps were used to secure the patient. The shoulders were taped down. Intraoperative xray was used for localization and to assess the placement of instrumentation through the case. An external metal marker and fluoroscopy were used to plan the optimal incision in the neck. A suitable crease in the left side of the neck was chosen. Neuromonitoring including SSEP, EMG, MEP and TOF with two-way communication with neurology was used throughout the case and did not change from baseline. ? The anterior neck was prepped and draped in the usual fashion. After a time-out was completed, the skin was infiltrated with half percent marcaine with epinephrine. A #10 blade was used to make a curvilinear incision on the left sided of the neck. Bleeding throughout the case was controlled with bipolar and monopolar electrocautery. A sharp dissection was carried down to the platysma. The tissue above and below the platysma was undermined and the platysma was divided in a longitudinal fashion. A sharp dissection was carried down to the prevertebral fascia. This was reflected laterally off of the interspaces at C3-4 and C4-5. Shadowline retractors were placed to retract the paraspinal muscles. At this point the operative microscope was brought into the field and used form microdissection up until closing. ?? Attention was turned to the C3-4 level. Butner posts were used for distraction. Anterior osteophytes were drilled off and a complete discectomy was performed with curettes, pituitary rongeurs, and punches. A high speed yoon drill was used to drill off anterior and posterior osteophytes and to drillthe endplates to gently bleeding bone. I drilled off greater than 50% of the vertical height of C3 as a partial vertebrectomy. The removed bone was captured in a bone-trap for later use as morselizedautograft. The posterior longitudinal ligament was removed and the vertebral bodies were underminedto remove posterior osteophytes. Bilateral foraminotomies were performed. After decompression, the neural foramen and central canal were widely decompressed. I placed trials to determine the ideal interbody spacer size. An 8mm lordotic Corelink??? 3D Foundation?? interbody device was packed with I-Factor and morselized autograft was packed into the lateral surfaces. It was impacted into the interspace. ?? Attention was turned to the C4-5 level. Butner posts were used for distraction. Anterior osteophytes were drilled off and a complete discectomy was performed with curettes, pituitary rongeurs, and punches. A high speed yoon drill was used to drill off anterior and posterior osteophytes and to drillthe endplates to gently bleeding bone. This morselized autograft was captured in a bone trap. The posterior longitudinal ligament was removed and the vertebral bodies were undermined with punches. Bilateral foraminotomies were performed. After decompression, the central canal and neural foramen were widely decompressed. Trials were used to find the ideal interbody spacer size. An 8mm lordotic Core link??? 3D Foundation?? interbody device was packed with I-Factor and the lateral surfaces were packed with morselized autograft. It was impacted into the C4-5 interspace. ?? A 28mm plate was then sized and placed. Garde Manger holes were drilled with a high speed yoon drill and two 12mm screws were placed at each level and final tightened. The hardware was seen to be in good position by lateral fluoroscopy. The wound was copiously irrigated with antibiotic containing solutionand all bleeding was stopped with bipolar electrocautery. ?? The wound was then closed in layers. Dermabond was used to seal the skin. The patient tolerated theprocedure well without complication and was discharged in stable condition to the Post Anesthesia Care Unit with an unchanged neurological exam. * Op Note - Alfred Robison MD - 03/30/2019 7:30 AM CDT Images from the original note were not included. Date of Surgery: 03/30/2019 Patient: Kaylah Villalpando Attending Surgeon: Alfred Robison MD, FAAAPRIL Office: Neurosurgical Spine Operative Report Admission Type: Outpatient in a bed Surgeon: Alfred Robison MD, FAAAPRIL Hyatt MD Preoperative Diagnosis: 1. Cervical radiculopathy. 2. Cervicalgia (neck pain.) 3. S/p uninstrumented C56 ACDF. Postoperative Diagnosis: 1. Cervical radiculopathy. 2. Cervicalgia (neck pain.) 3. S/p uninstrumented C56 ACDF. Name of Procedure: 1. Anterior arthrodesis C3 to C4 and C4 to C5, Dr. Robison. 2. Anterior cervical instrumentation (Corelink??? Anodyne??) C3 to C5, Dr. Robison. 3. Placement of 8mm Corelink??? 3D Foundationl?? lordotic machined interbody device at C34, Dr. Robison. 4. Placement of 8mm Corelink??? 3D Foundation?? lordotic machined interbody device at C45, Dr. Robison. 5. Complete complex discectomy at C3-4 and C4-5, Dr. Hyatt. 6. Partial vertebrectomy of C4, Dr. Hyatt. 7. Use of local morselized autograft, Dr. Robison. 8. Use of I-Factor bone social science teacher, Dr. Robison. 9. Use of operative microscope for microdissection, Dr. Hyatt. Anesthesia: General Endotracheal Anesthesia Estimated Blood Loss: No blood loss documented. Intraoperative Fluids: See anesthesia note Specimens: None Blood/Blood Products Transfused: None Complications: None Condition on Discharge from the operating room was: Stable Operative Findings: Severe foraminal stenosis at C3 to C4 and C4 to C5 on the left. Indications: Ms. Villalpando is a 59 y.o. female with the above noted diagnosis unresponsive to conservative treatment. After careful review of the history, physical exam and radiographic findings, we felt that the she would benefit from anterior cervical decompression and fusion. Risks, alternatives and benefits of the procedure including, but not limited to, bleeding, infection, coma, , heart attack, stroke, paralysis, loss of vision, CSF leak, spinal instability requiring future operations, failure to relieve symptoms, bowel and bladder dysfunction, sexual dysfunction, difficulty swallowing and damage to the recurrent laryngeal nerve causing vocal cord paralysis and/or hoarseness of voice were discussed with the patient. She understands and wishes to proceed. Procedure: After identifying, marking and examining Ms. Villalpando, she was brought to the operating room on an OR gurney and placed onto a Skytron bed with a horseshoe heading and priming tool setter. Sequential Compression Devices were placed on the lower legs for DVT prophylaxis. The patient was intubated by anesthesia and general endotracheal anesthesia was induced. A roll was placed vertically between the shoulders. All surfaces were padded and straps were used to secure the patient. The shoulders were taped down. Intraoperative xray was used for localization and to assess the placement of instrumentation through the case. An external metal marker and fluoroscopy were used to plan the optimal incision in the neck. A suitable crease in the left side of the neck was chosen. Neuromonitoring including SSEP, EMG, MEP and TOF with two-way communication with neurology was used throughout the case and did not change from baseline. The anterior neck was prepped and draped in the usual fashion. After a time-out was completed, the skin was infiltrated with half percent marcaine with epinephrine. A #10 blade was used to make a curvilinear incision on the left sided of the neck. Bleeding throughout the case was controlled with bipolar and monopolar electrocautery. A sharp dissection was carried down to the platysma. The tissue above and below the platysma was undermined and the platysma was divided in a longitudinal fashion. A sharp dissection was carried down to the prevertebral fascia. This was reflected laterally off of the interspaces at C3-4 and C4-5. Shadowline retractors were placed to retract the paraspinal muscles. At this point the operative microscope was brought into the field and used form microdissection up until closing. Attention was turned to the C3-4 level. Butner posts were used for distraction. Anterior osteophytes were drilled off and a complete discectomy was performed with curettes, pituitary rongeurs, and punches by Dr. Hyatt. A high speed yoon drill was used to drill off anterior and posterior osteophytes and to drill the endplates to gently bleeding bone. The removed bone was captured in a bone-trap for later use as morselized autograft. The vertebral bodies were undermined to remove posterior osteophytes. Bilateral foraminotomies were performed. After decompression, the neural foramen and centralcanal were widely decompressed. I placed trials to determine the ideal interbody spacer size. An 8mm lordotic Corelink??? 3D Foundation?? interbody device was packed with I-Factor and morselized autograft was packed into the lateral surfaces. It was impacted into the interspace. Attention was turned to the C4-5 level. Butner posts were used for distraction. Anterior osteophytes were drilled off and a complete discectomy was performed with curettes, pituitary rongeurs, and punches. A high speed yoon drill was used to drill off anterior and posterior osteophytes and to drillthe endplates to gently bleeding bone. He drilled off greater than 50% of the vertical height of C4as a partial vertebrectomy. This morselized autograft was captured in a bone trap. The vertebral bodies were undermined with punches. Bilateral foraminotomies were performed. After decompression, thecentral canal and neural foramen were widely decompressed. Trials were used to find the ideal interbody spacer size. An 8mm lordotic Corelink??? 3D Foundation?? interbody device was packed with I-Factor and the lateral surfaces were packed with morselized autograft. It was impacted into the C4-5 interspace. A 28mm plate was then sized and placed. Garde Manger holes were drilled with a rubin speed yoon drill and two 14mm screws were placed at each level and final tightened. The hardware was seen to be in good position by lateral fluoroscopy. The wound was copiously irrigated with antibiotic containing solution and all bleeding was stopped with bipolar electrocautery. The wound was then closed in layers. Dermabond was used to seal the skin. The patient tolerated theprocedure well without complication and was discharged in stable condition to the Post Anesthesia Care Unit with an unchanged neurological exam. IAlfred MD, and Dr. Hyatt were present throughout and performed the entire procedure. Alfred Robison MD Date: 03/30/2019 Time: 7:40 AM documented in this encounter Plan of Treatment Not on file documented as of this encounter Procedures Procedure Name Priority Date/Time Associated Diagnosis Comments XR SPINE CERVICAL 1 VIEW IP Routine 03/30/2019 9:09 AM CDT FL FLUOROSCOPY < 1 HOUR IP Routine 03/30/2019 9:09 AM CDT FUSION CERVICAL ANTERIOR DISCECTOMY - 2 LEVELS 03/30/2019 7:44 AM CDT Radiculopathy, cervical B CHECK SAMPLE STAT 03/30/2019 6:57 AM CDT documented in this encounter Results * FL Fluoroscopy < 1 Hour (03/30/2019 9:09 AM CDT) Narrative JERILYN_ALEX - 03/30/2019 9:09 AM CDT The images from this study are not interpreted by Radiology. ??Please refer to the physician's procedure / OR operative note. Alfred Robison MD IMG FLUOROSCOPY PROCEDURES Fi nal Result [facility] * XR Spine Cervical 1 View (03/30/2019 9:09 AM CDT) Anatomical Region Laterality Modality Spine N/A Computed Radiogr aphy 03/30/2019 12:0 4 PM CDT Impressions 03/30/2019 12:06 PM CDT Intraoperative evaluation of the cervical spine. Electronically signed by: Amy Gann M.D. Narrative 03/30/2019 12:06 PM CDT Examination: Cervical spine single view. HISTORY: Cervical spine surgery. FINDINGS: Single fluoroscopic view of the cervical spine in lateral orientation is interpreted without prior for comparison. There is anterior discectomy and fusion C3-C5. There is also unchanged instrumented fusion at C5-C6. Nasogastric tube and endotracheal tube are present within the pharynx. Procedure Note Amy Gann MD PhD - 03/30/2019 Examination: Cervical spine single view. HISTORY: Cervical spine surgery. FINDINGS: Single fluoroscopic view of the cervical spine in lateral orientation is interpreted without prior for comparison. There is anterior discectomy and fusion C3-C5. There is also unchanged instrumented fusion at C5-C6. Nasogastric tube and endotracheal tube are present within the pharynx. IMPRESSION: Intraoperative evaluation of the cervical spine. Electronically signed by: Amy Gann M.D. Alfred Robison MD IMG XR PROCEDURES Final Resul t * Check Sample (03/30/2019 6:57 AM CDT) ABO Rh A Positive [facility] OTHER 03/30/2019 6:57 AM CDT 03/30/2019 7:18 AM CDT us Mirella Reynoso NP LAB BLOOD ORDERABLES Fin al Result [facility] [address] Department [place] [address] documented in this encounter Visit Diagnoses Diagnosis Radiculopathy, cervical- Primary Brachial neuritis or radiculitis nos documented in this encounter Admitting Diagnoses Diagnosis Radiculopathy, cervical Brachial neuritis or radiculitis nos documented in this encounter Administered Medications Inactive Administered Medications - up to 3 most recent administrations Medication Order MAR Action Action Date Dose Rate Site acetaminophen (TYLENOL) tablet 1,000 mg 1,000 mg, oral, Once, On Tue03/30/19 at 0645, For 1 dose, Pre-Op, Indications: Pre-Emptive AnalgesiaIndications:Pre-Emptive Analgesia Given 03/30/2019 6:43 AM CDT 1,000 mg acetaminophen (TYLENOL) tablet 1,000 mg 1,000 mg, oral, Every 6 hours scheduled, First dose on Tue03/30/19 at 1500, Indications: PainIndications:Pain Given 03/31/2019 8:56 AM CDT 1,000 mg Given 03/30/2019 9:21 PM CDT 1,000 mg Given 03/30/2019 2:49 PM CDT 1,000 mg atorvastatin (LIPITOR) tablet 20 mg 20 mg, oral, Every morning, First dose on Tue03/30/19 at 1215 Given 03/31/2019 8:54 AM CDT 20 mg ceFAZolin (ANCEF) 1 gram/10 mL in sterile water (premix) 1,000 mg 1,000 mg, intravenous, at 200 mL/hr, Administer over 3 Minutes, Every 8 hours, First dose on Tue03/30/19 at 1600, For 2 doses, Starting 8 hours after last aashish-operative dose., Indications: Prophylaxis, SurgicalIndications:Prophylaxis, Surgical New Bag 03/31/2019 1:00 AM CDT 1,000 mg 200 mL/hr New Bag 03/30/2019 4:39 PM CDT 1,000 mg 200 mL/hr citalopram (CeleXA) tablet 10 mg 10 mg, oral, Daily, First dose on Tue03/31/19 at 0900 Given 03/31/2019 8:54 AM CDT 10 mg dimenhyDRINATE (DRAMAMINE) tablet 25 mg 25 mg, oral, Once, On Tue03/30/19 at 0645, For 1 dose, Pre-Op, Indications: Prevention of Nausea and VomitingIndications:Prevention of Nausea and Vomiting Given 03/30/2019 6:44 AM CDT 25 mg fentaNYL (SUBLIMAZE) 50 mcg/mL preservative free injection - ADS Override Pull Starting on Tue03/30/19 at 0932, For 1 dose, Created by cabinet override fentaNYL (SUBLIMAZE) preservative free injection 25 mcg 25 mcg, intravenous, Every 5 min PRN, uncontrolled pain on PACU admission, Starting on Tue03/30/19 at 0934, For 4 doses, Phase I, Maximum dosage of fentanyl of 100 mcg for arrival to PACU, then proceed to PACU 1st line analgesic., Indications: PainIndications:Pain Given 03/30/2019 9:51 AM CDT 25 mcg Given 03/30/2019 9:41 AM CDT 25 mcg Given 03/30/2019 9:34 AM CDT 25 mcg gabapentin (NEURONTIN) capsule 300 mg 300 mg, oral, Once, On Tue03/30/19 at 0645, For 1 dose, Pre-Op, Indications: Pre-Emptive AnalgesiaIndications:Pre-Emptive Analgesia Given 03/30/2019 6:44 AM CDT 3 00 mg Lactated Ringer's (LR) infusion 30 mL/hr, intravenous, Continuous, Starting on Tue03/30/19 at 0645 New Bag 03/30/2019 8:28 AM CDT Rate/Dose Change 03/30/2019 7:40 AM CDT 1000 mL /hr New Bag 03/30/2019 6:43 AM CDT 30 mL/hr 30 mL/hr lidocaine in dextrose 5% 2 g/250 mL (8 mg/mL) infusion (premix) 1.5 mg/kg/hr ? 50.1 kg [place] weight (9.3938 mL/hr, rounded to 9.39 mL/hr), 8 mg/mL, intravenous, Continuous, Starting on Tue03/30/19 at 1015, Until 03/31/19 at 1748, Phase I, Indications: Pain, Call MD for symptoms of toxicity (ringing in ears, metallic taste, somnolence, numb lips). Discontinue after the first bag is empty Intra op rate is 2 mgs/kg/hr, RoutineIndications:Pain New Bag 03/30/2019 12:34 PM CDT 1.5 mg/kg/hr 9.39 mL/hr LORazepam (ATIVAN) 2 mg/mL injection - ADS Override Pull Starting on Tue03/30/19 at 0956, For 1 dose, Created by cabinet override For IV administration, dilute with equal volume of 0.9% sodium chloride. Do not exceed a rate of 2 mg/minute LORazepam (ATIVAN) injection 0.5 mg 0.5 mg, intravenous, Once, On Tue03/30/19 at 1030, For 1 dose, Phase I, For IV administration, dilute with equal volume of 0.9% sodium chloride. Do not exceed a rate of 2 mg/minute Given 03/30/2019 10:00 AM CDT 0.5 mg ondansetron (ZOFRAN) injection 4 mg 4 mg, intravenous, Administer over 2 Minutes, Every 6 hours PRN, nausea, vomiting, if not tolerating PO, Starting on Tue03/30/19 at 1139, Indications: Nausea and VomitingIndications:Nausea and Vomiting ondansetron ODT (ZOFRAN-ODT) disintegrating tablet 4 mg 4 mg, oral, Every 6 hours PRN, nausea, vomiting, Starting on Tue03/30/19 at 1139, Indications: Nausea and VomitingIndications:Nausea and Vomiting oxyCODONE (ROXICODONE) tablet 10 mg 10 mg, oral, Every 4 hours PRN, 2nd line for pain, Give for pain scale 6/10 to 10/10, Starting on Tue03/30/19 at 1139, Indications: PainIndications:Pain Given 03/31/2019 10:30 AM CDT 10 mg Given 03/31/2019 5:59 AM CDT 10 mg Given 03/31/2019 1:36 AM CDT 10 mg senna-docusate (PERICOLACE) 8.6-50 mg per tablet 1 tablet 1 tablet, oral, 2 times daily, First dose on Tue03/30/19 at 1215, Indications: constipationIndications:constipation Given 03/31/2019 8:54 AM CDT 1 table t Given 03/30/2019 9:21 PM CDT 1 tablet sodium chloride 0.9% flush 0.5-20 mL 0.5-20 mL, intra-catheter, Every 8 hours scheduled, First dose on Tue03/30/19 at 1400, Flush volume based on line type and size. , Indications: FlushingIndications:Flushing Given 03/31/2019 4:59 AM CDT 10 mL sodium chloride 0.9% with potassium chloride 20 mEq/L infusion (premix) 75 mL/hr, intravenous, Continuous, Starting on Tue03/30/19 at 1215, Discontinue when tolerating PO (500 mL in 8 hours). New Bag 03/30/2019 12:33 PM CDT 75 mL/hr 75 mL/hr tiZANidine (ZANAFLEX) tablet 4 mg 4 mg, oral, Every 8 hours PRN, muscle spasms, Starting on Tue03/30/19 at 1139, Administer on an empty stomach Given 03/31/2019 1:37 PM CDT 4 mg documented in this encounter Discontinued Medications Medication Sig Discontinue Reason Start Date End Da te diazePAM (VALIUM) 5 mg tablet Take 1-2 tablets prior to MRI as needed for anxiety. May repeat x1 if needed. Therapy completed 03/16/2019 03/30/2019 naproxen sodium 220 mg capsule Take 2 tablets by mouth 2 (two) times a day Stop Taking at Discharge 03/31/2019 oxyCODONE-acetaminophe n (PERCOCET) 5-325 mg per tabletIndications:Pain Take 1-2 tablets by mouth every 4 (four) hours as needed for pain (max 8/day) for up to 7 days Stop Taking at Discharge 03/30/2019 03/31/2019 oxyCODONE-acetaminophe n (PERCOCET) 5-325 mg per tabletIndications:Pain Take 1 tablet by mouth every 4 (four) hours as needed for pain for up to 15 days Stop Taking at Discharge 04/06/2019 03/31/2019 documented as of this encounter Active and Recently Administered Medications Times are shown in CDT. Scheduled Medication Order 03/29/2019 03/30/2019 03/31/2019 acetaminophen (TYLENOL) tablet 1,000 mg (COMPLETED) 1,000 mg, oral, Once, On Tue03/30/19 at 0645, For 1 dose, Pre-Op, Indications: Pre-Emptive Analgesia 0643 (Given - Provider: Ray Damico, IVANNA) acetaminophen (TYLENOL) tablet 1,000 mg 1,000 mg, oral, Every 6 hours scheduled, First dose on Tue03/30/19 at 1500, Indications: Pain 1449 (Given - Provider: Adore Callaway RN)2121 (Given - Provider: Le Li, IVANNA) 0408 (Not Given - Provider: Le Li RN - Reason: Other)0856 (Given - Provider: Jannette Michaels RN) atorvastatin (LIPITOR) tablet 20 mg 20 mg, oral, Every morning, First dose on Tue03/30/19 at 1215 1219 (Not Given - Provider: Cata Melo RN - Reason: Other) 0854 (Given - Provider: Jannette Michaels RN) ceFAZolin (ANCEF) 1 gram/10 mL in sterile water (premix) 1,000 mg (COMPLETED) 1,000 mg, intravenous, at 200 mL/hr, Administer over 3 Minutes, Every 8 hours, First dose on Tue03/30/19 at 1600, For 2 doses, Starting 8 hours after last aashish-operative dose., Indications: Prophylaxis, Surgical 1639 (New Bag - Provider: Adore Callaway RN) 0100 (New Bag - Provider: Le Li RN) ceFAZolin (ANCEF) 2,000 mg/20 mL in sterile water (premix) 2,000 mg (COMPLETED) 2,000 mg, intravenous, at 400 mL/hr, Administer over 3 Minutes, Once, On Tue03/30/19 at 0645, For 1 dose, Pre-Op, Administer within 60 minutes of incision., Indications: Prophylaxis, Surgical 0752 (Given - Provider: Emilie Rodriguez CRNA) citalopram (CeleXA) tablet 10 mg 10 mg, oral, Daily, First dose on Tue03/31/19 at 0900 0854 (Given - Provid er: Jannette Michaels RN) dimenhyDRINATE (DRAMAMINE) tablet 25 mg (COMPLETED) 25 mg, oral, Once, On Tue03/30/19 at 0645, For 1 dose, Pre-Op, Indications: Prevention of Nausea and Vomiting 0644 (Given - Provider: Ray Damico, RN) gabapentin (NEURONTIN) capsule 300 mg (COMPLETED) 300 mg, oral, Once, On Tue03/30/19 at 0645, For 1 dose, Pre-Op, Indications: Pre-Emptive Analgesia 0644 (Given - Provider: Ray Damico, RN) LORazepam (ATIVAN) injection 0.5 mg (COMPLETED) 0.5 mg, intravenous, Once, On Tue03/30/19 at 1030, For 1 dose, Phase I, For IV administration, dilute with equal volume of 0.9% sodium chloride. Do not exceed a rate of 2 mg/minute 1000 (Given - Provider: Anais Giraldo RN) senna-docusate (PERICOLACE) 8.6-50 mg per tablet 1 tablet 1 tablet, oral, 2 times daily, First dose on Tue03/30/19 at 1215, Indications: constipation 1628 (Not Given - Provider: Adore Callaway RN - Reason: Other - Comment: postop)2120 (Given - Provider: Le Li RN) 0854 (Given - Provider: Jannette Michaels RN) sodium chloride 0.9% flush 0.5-20 mL 0.5-20 mL, intra-catheter, Every 8 hours scheduled, First dose on Tue03/30/19 at 1400, Flush volume based on line type and size. , Indications: Flushing 1627 (Not Given - Provider: Adore Callaway RN - Reason: IV Infusing)2121 (Not Given - Provider: Le Li RN - Reason: IV Infusing) 0459 (Given - Provider: eL Li RN) Continuous Medication Order 03/29/2019 03/30/2019 03/31/2019 Lactated Ringer's (LR) infusion 30 mL/hr, intravenous, Continuous, Starting on Tue03/30/19 at 0645 0643 (New Bag - Provider: Rayted Damico RN)0740 (Rate/Dose Change - Provider: Emilie Rodriguez CRNA)0828 (New Bag - Provider: Emilie Rodriguez CRNA)0928 (Anesthesia Volume Adjustment - Provider: Emilie Rodriguez CRNA) lidocaine in dextrose 5% 2 g/250 mL (8 mg/mL) infusion (premix) (CANCELED) 1.5 mg/kg/hr ? 50.1 kg [place] weight (9.3938 mL/hr, rounded to 9.39 mL/hr), 8 mg/mL, intravenous, Continuous, Starting on Tue03/30/19 at 0745, Until Tue03/30/19 at 0934, Indications: Pain, Call MD for symptoms of toxicity (ringing in ears, metallic taste, somnolence, numb lips). Discontinue after the first bag is empty Intra op rate is 2 mgs/kg/hr, Routine 0758 (New Bag - Provider: Emilie Rodriguez CRNA)0907 (Rate/Dose Change - Provider: Emilie Rodriguez CRNA) lidocaine in dextrose 5% 2 g/250 mL (8 mg/mL) infusion (premix) 1.5 mg/kg/hr ? 50.1 kg [place] weight (9.3938 mL/hr, rounded to 9.39 mL/hr), 8 mg/mL, intravenous, Continuous, Starting on Tue03/30/19 at 1015, Until Tue03/31/19 at 1748, Phase I, Indications: Pain, Call MD for symptoms of toxicity (ringing in ears, metallic taste, somnolence, numb lips). Discontinue after the first bag is empty Intra op rate is 2 mgs/kg/hr, Routine 0927 (Continued from OR - Provider: Anais Giraldo RN)1234 (New Bag - Provider: Cata Melo, IVANNA) 0730 (Stopped - Provider: Jannette Michaels RN) sodium chloride 0.9% with potassium chloride 20 mEq/L infusion (premix) 75 mL/hr, intravenous, Continuous, Starting on Tue03/30/19 at 1215, Discontinue when tolerating PO (500 mL in 8 hours). 1233 (New Bag - Provider: Cata Melo RN) PRN Medication Order 03/29/2019 03/30/2019 03/31/2019 bacitracin 50,000 Units in sodium chloride 0.9% 800 mL solution (CANCELED) As needed, Starting on Tue03/30/19 at 0813, Intra-Op 0813 (Given - Provider: Alfred Robison MD - Comment: PRN on sterile field) bisacodyl (DULCOLAX) suppository 10 mg 10 mg, rectal, Daily PRN, constipation, If no results 24 hours after polyethylene glycol (MIRALAX). May give bisacodyl tablet if tolerating PO., Starting on Tue03/30/19 at 1139, Indications: constipation bisacodyl EC (DULCOLAX EC) tablet 10 mg 10 mg, oral, Daily PRN, constipation, If no results 24 hours after polyethylene glycol (MIRALAX). May give bisacodyl supp if not tolerating PO), Starting on Tue03/30/19 at 1139, Do not crush, chew, cut, dissolve, open or otherwise manipulate tablet/capsule., Indications: constipation bupivacaine-EPINEPHrine (MARCAINE with EPI) 0.5 %-1:200,000 preservative free injection (CANCELED) As needed, Starting on Tue03/30/19 at 0813, Intra-Op 0813 (Given - Provider: Alfred Robison MD - Comment: local injection) fentaNYL (SUBLIMAZE) preservative free injection 25 mcg (CANCELED) 25 mcg, intravenous, Every 5 min PRN, uncontrolled pain on PACU admission, Starting on Tue03/30/19 at 0934, For 4 doses, Phase I, Maximum dosage of fentanyl of 100 mcg for arrival to PACU, then proceed to PACU 1st line analgesic., Indications: Pain 0934 (Given - Provider: Anais Giraldo RN)0941 (Given - Provider: Anais Giraldo RN)0951 (Given - Provider: Anais Giraldo RN) HYDROmorphone (DILAUDID) injection 0.5 mg 0.5 mg, intravenous, Administer over 2 Minutes, Every 3 hours PRN, 2nd line for pain, Starting on Tue03/30/19 at 1139, Indications: Pain ondansetron (ZOFRAN) injection 4 mg(Linked Group 1) 4 mg, intravenous, Administer over 2 Minutes, Every 6 hours PRN, nausea, vomiting, if not tolerating PO, Starting on Tue03/30/19 at 1139, Indications: Nausea and Vomiting ondansetron ODT (ZOFRAN-ODT) disintegrating tablet 4 mg(Linked Group 1) 4 mg, oral, Every 6 hours PRN, nausea, vomiting, Starting on Tue03/30/19 at 1139, Indications: Nausea and Vomiting oxyCODONE (ROXICODONE) tablet 10 mg 10 mg, oral, Every 4 hours PRN, 2nd line for pain, Give for pain scale 6/10 to 10/10, Starting on Tue03/30/19 at 1139, Indications: Pain 1232 (Given - Provider: Cata Melo RN)1646 (Given - Provider: Adore Callaway RN)2121 (Given - Provider: Le Li RN) 0136 (Given - Provider: Le Li RN)0559 (Given - Provider: Le iL RN)1030 (Given - Provider: Jannette Michaels RN) oxyCODONE (ROXICODONE) tablet 5 mg 5 mg, oral, Every 4 hours PRN, 1st line for pain, Give for pain scale 1/10 to 5/10, Starting on Tue03/30/19 at 1139, Indications: Pain polyethylene glycol (MIRALAX) packet 17 g 17 g, oral, Daily PRN, constipation, Starting on Tue03/30/19 at 1139, Indications: constipation sodium chloride 0.9 % irrigation (CANCELED) As needed, Starting on Tue03/30/19 at 0813, Intra-Op 0813 (Given - Provider: Alfred Robison MD - Comment: PRN on sterile field) sodium chloride 0.9% flush 0.5-20 mL 0.5-20 mL, intra-catheter, As needed, line care, Starting on Tue03/30/19 at 1139, Flush volume based on line type and size. Flush before and after each use. , Indications: Flushing tiZANidine (ZANAFLEX) tablet 4 mg 4 mg, oral, Every 8 hours PRN, muscle spasms, Starting on Tue03/30/19 at 1139, Administer on an empty stomach 1337 (Given - Provid er: Jannette Michaels RN) zolpidem (AMBIEN) tablet 5 mg 5 mg, oral, Nightly PRN, sleep, Starting on Tue03/30/19 at 1139, Indications: Sleep-Onset Insomnia Linked Groups Order Group 1: ondansetron ODT (ZOFRAN-ODT) disintegrating tablet 4 mgJump to med 4 mg, oral, Every 6 hours PRN, nausea, vomiting, Starting on Tue03/30/19 at 1139, Indications: Nausea and Vomiting Or ondansetron (ZOFRAN) injection 4 mgJump to med 4 mg, intravenous, Administer over 2 Minutes, Every 6 hours PRN, nausea, vomiting, if not tolerating PO, Starting on Tue03/30/19 at 1139, Indications: Nausea and Vomiting documented in this encounter Orders Medications Ordered That Rex ht Not Have Been Administered Count Last Ordered Date First Ordered Date albuterol (PROVENTIL,VENTOLI N) 2.5 mg /3 mL (0.083 %) nebulizer solution 2.5 mg 1 03/30/2019 bacitracin 50,000 Units in s odium chloride 0.9% 800 mL solution 1 03/30/2019 bisacodyl (DULCOLAX) suppository 10 mg 1 bisacodyl EC (DULCOLAX EC) tablet 10 mg 1 0 03/30/2019 bupivacaine-EPINEPHrine (MAR LINDA with EPI) 0.5 %-1:200,000 preservative free injection 1 03/30/2019 ceFAZolin (ANCEF) 2,000 mg/2 0 mL in sterile water (premix) 2,000 mg 1 03/30/2019 dextrose (D10W) 10% bolus 250 mL 1 03/30/20 19 diphenhydrAMINE (BENADRYL) i njection 12.5 mg 1 03/30/2019 haloperidol (HALDOL) injection 1 mg 1 03/30 hydrALAZINE (APRESOLINE) injection 5 mg 1 0 03/30/2019 HYDROmorphone (DILAUDID) injection 0.4 mg 1 03/30/2019 HYDROmorphone (DILAUDID) injection 0.5 mg 1 03/30/2019 insulin lispro (HumaLOG) inj ection 1-5 Units 1 03/30/2019 labetalol (NORMODYNE,TRANDAT E) injection 5 mg 1 03/30/2019 lidocaine in dextrose 5% 2 g /250 mL (8 mg/mL) infusion (premix) 1 03/30/2019 lidocaine PF (XYLOCAINE) 10 mg/mL (1 %) preservative free injection 2-10 mg 1 03/30/2019 LORazepam (ATIVAN) injection 0.5 mg 1 03/30 meperidine (DEMEROL) preserv ative free injection 12.5 mg 1 03/30/2019 naloxone (NARCAN) 0.4 mg/mL injection 0.04-0.4 mg 1 03/30/2019 ondansetron (ZOFRAN) injection 4 mg 2 03/30 ondansetron ODT (ZOFRAN-ODT) disintegrating tablet 4 mg 1 03/30/2019 oxyCODONE (ROXICODONE) tablet 5 mg 2 2018 polyethylene glycol (MIRALAX) packet 17 g 1 03/30/2019 racepinephrine (ASTHMANEFRIN ) 2.25 % nebulizer solution 0.5 mL 1 03/30/2019 sodium chloride 0.9 % irrigation 1 03/30/20 19 sodium chloride 0.9% flush 0.5-20 mL 2 04/2019 zolpidem (AMBIEN) tablet 5 mg 1 03/30/2019 CORE MEASURES Count Last Ordered Date First Ord ered Date REASON FOR NO VTE PROPHYLAXI S - HOSPITAL ADMISSION - MEDICATIONS 1 03/30/2019 documented in this encounter Care Teams Brake Drum Lathe Operator Relationship Specialty Start Date End Date Neptali Calvo MD PCP - General Internal Medicine 09/15/18 documented as of this encounter
--- OUTSIDE RECORDS SUMMARY | 2024-08-23 23:52 | XMS_ITS | Encounter Summary ---
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
--- OUTSIDE RECORDS SUMMARY | 2024-08-23 23:52 | XMS_ITS | Encounter Summary ---
Author Organization [facility] Address [address] [place] [address] Care Team Providers Care Distribution Tech Name Role Phone Neptali Calvo MD Primary Care Provider Encounter Details Date Type Department Care Team (Late st Contact Info) Description 05/15/2019 11:30 AM CDT Office Visit [facility] [address] [place] [address] Deloris Lee, DETAIL SERGEANT [address] [place], [place] [id number] Status post cervical spinal fusion (Primary Dx); Low back pain, non-specific Social History Tobacco Use Types Packs/Day Years [...] on file 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 Gender Identity Not on file Sexual Orientation Not on file 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 POSTOP NOTE Kaylah Villalpando 05/15/2019 REASON FOR VISIT: 6 week follow-up following C3-5 anterior cervical diskectomy fusion performed on March 30, 2019 for cervical radiculopathy and cervicalgia by Dr. Robison HISTORY OF PRESENT ILLNESS: Ms. Villalpando is doing fairly well at this time. She reports left upper trap tightness especially with forward flexion of her head. She reports occasional frontal headaches. She denies any weakness or radicular pain of her upper extremities. Patient denies any bowel bladder issues. She denies use of pain medication nor any muscle relaxants for her cervical spine but she does take hydrocodone 5-325 half a tablet twice a week for her lumbar spine. Patient also would like to discuss her chronic low back pain. Patient reports she has had low back pain for a number of years and the pain we occurs intermittently. She reports right low back pain without radicular pain of her lower extremities. She describes pain as a deep achy sensation. It is inc reasingly difficult with sitting to standing position prolonged sitting and laying down. Patient reports she has had a series of injections and physical therapy with [facility]. BP 144/79 Pulse 74 Wt 58 kg (127 lb 12.8 oz) BMI 23.37 kg/m?? Outpatient Encounter Medications as of 05/15/2019 Medication Sig Dispense Refill ??? atorvastatin (LIPITOR) 20 mg tablet Take 20 mg by mouth every morning ??? citalopram (CeleXA) 10 mg tablet Take 10 mg by mouth daily ??? HYDROcodone-acetaminophen (NORCO) 5-325 mg per tablet Take 1-2 tablets by mouth every 4 (four) hours as needed for pain (max 6/day) 60 tablet 0 ??? methylPREDNISolone (MEDROL DOSEPACK) 4 mg Dosepack Take as directed on package (Patient not taking: Reported on 05/15/2019) 1 packet 0 ??? tiZANidine (ZANAFLEX) 4 mg tablet TAKE 1 TABLET BY MOUTH EVERY 8 HOURS NEEDED (Patient not taking: Reported on 05/15/2019) 90 tablet 0 ??? zolpidem (AMBIEN) 5 mg tablet Take 5 mg by mouth nightly as needed for sleep No facility-administered encounter medications on file as of 05/15/2019. Physical Exam Constitutional: She is oriented to person, place, and time. She appears well- developed and well-nourished. No distress. HENT: Head: Normocephalic and atraumatic. Neck: No tracheal deviation present. Cardiovascular: Normal rate. Pulmonary/Chest: Effort normal. No stridor. No respiratory distress. She has no wheezes. Abdominal: Soft. She exhibits no distension. Neurological: She is alert and oriented to person, place, and time. She has normal strength. No cranial nerve deficit or sensory deficit. Coordination and gait normal. GCS eye subscore is 4. GCS verbal subscore is 5. GCS motor subscore is 6. Range of motion cervical spine is reduced with [id number] rotation and with hyperextension. Messaging Architect are strong and equal bilateral Patient is able to stand on her toes, heel, tandem walk without issues Dorsiflexion and plantar flexion is 5/5 bilateral Lumbar range of motion is reduced with hyperextension which reproduces the patient's low back pain Skin: Skin is warm, dry and intact. Cervical incision is healed. Appropriate skin care was reviewed with the patient. Psychiatric: She has a normal mood and affect. Her speech is normal and behavior is normal. Judgment and thought content normal. Cognition and memory are normal. FILM REVIEW: Cervical AP lateral films show instrumentation is intact and alignment is maintained VITAMIN D RESULTS/RECOMMENDATIONS: Vitamin-D level prior to surgery was 38 Diagnoses and all orders for this visit: Status post cervical spinal fusion (Primary) Assessment & Plan: PLAN: 1. Start physical therapy/aqua therapy/home exercise program 2. After 6 weeks, patient may resume NSAIDs, may increase activity as tolerated. WORK STATUS: 1. Not working FOLLOW UP APPT: With Dr. Robison in 6 weeks/4 months with Flexion/Extension Cervical films. Orders: - XR Spine Cervical Complete 4 Or 5 View; Future Low back pain, non-specific Assessment & Plan: Reviewed the above findings along with the MRI lumbar spine dated March 21, [address] Robison. No evidence of any disc herniation, central canal stenosis, foraminal stenosis is noted. Patient has degenerative disc disease. Dr. Robison reports there is no surgical intervention to offer at this time. Would recommend patient to continue with pain management efforts. MRI CD of the cervical and lumbar spine was returned to the patient. This note has been transcribed by voice recognition software and not thoroughly reviewed; it is subject to operations manager assistant variance. documented in this encounter Miscellaneous Notes * Assessment & Plan Note - Deloris Lee NP - 05/15/2019 11:38 AM CDT Associated Problem(s): Low back pain, non-specific Reviewed the above findings along with the MRI lumbar spine dated March 21, [address] Robison. No evidence of any disc herniation, central canal stenosis, foraminal stenosis is noted. Patient has degenerative disc disease. Dr. Robison reports there is no surgical intervention to offer at this time. Would recommend patient to continue with pain management efforts. * Assessment & Plan Note - Deloris Lee NP - 05/15/2019 11:36 AM CDT Associated Problem(s): Status post cervical spinal fusion PLAN: 1. Start physical therapy/aqua therapy/home exercise program 2. After 6 weeks, patient may resume NSAIDs, may increase activity as tolerated. WORK STATUS: 1. Not working FOLLOW UP APPT: With Dr. Robison in 6 weeks/4 months with Flexion/Extension Cervical films. documented in this encounter Plan of Treatment Not on file documented as of this encounter Visit Diagnoses Diagnosis Status post cervical spinal fusion- Primary Arthrodesis status Low back pain, non-specific documented in this encounter Care Teams Distribution Tech Relationship Specialty Start Date End Date Neptali Calvo MD PCP - General Internal Medicine 09/15/18 documented as of this encounter
--- OUTSIDE RECORDS SUMMARY | 2024-08-23 23:52 | XMS_ITS | Encounter Summary ---
Author Organization [facility] Facility Care Team Providers Care Ep Tech Name Role Phone Neptali Calvo MD Primary Care Provider Encounter Details Date Type Department Care Team (Latest Contact Info) Description 03/30/2019 Travel Social History Tobacco Use Types Packs/Day Years Used Date Smoking Tobacco: Former Cigarettes 1.5 30 0 03/12/1971 - 03/12/2001 Smokeless Tobacco: Never Alcohol Use Standard Drinks/Week Comments Not Currently 0 (1 standard drink = 0.6 oz pur e alcohol) Sober since 2000 Comments No Sex and Gender Information Value Date Recorded Sex Assigned at Not on file 

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
--- OUTSIDE RECORDS SUMMARY | 2024-08-23 23:52 | XMS_ITS | Encounter Summary ---
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); Cervical disc disorder with radiculopathy of cervical region Social History Tobacco Use Types Packs/Day Years Used Date Smoking Tobacco: Former Cigarettes 1.5 30 0 03/12/1971 - 03/12/2001 Smokeless Tobacco: Never Alcohol Use Standard Drinks/Week Comments Not Currently 0 (1 standard drink = 0.6 oz pur e alcohol) Sober since 2000 Comments Unknown Sex and Gender Information Value Date Recorded Sex Assigned at Not on file Legal Sex Female 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 Patient is scheduled to have an C3-5 anterior cervical diskectomy and fusion with Dr. Alfred Robison on March 30, 2019. Diagnosis/code: M54.12 cervical radiculopathy. Patient aware to arrive at 11 a.m at [facility] for surgery at 1 pm. We reviewed surgery using a brochures and spinal models. We reviewed pre and postop care, hospitalization, follow-up appointment, meds, bone growth stimulator, soft cervical collar, activity restrictions and serial x-rays. Patient to see [facility] today for preop testing and medical clearance. Patient has been instructed to hold anti-inflammatories including aspirin therapy 7 days pr ior to surgery. Patient is a nonsmoker. Patient does well with the use of [place] 5-325 and baclofen.Patient plans to be off work starting the day of surgery. 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 Patient has surgical folder and Antibacterial wipes per [facility]. MRI CD is in the nurse's office. We discussed discussed risks, alternatives and benefits to surgery with risks including, but not limited to, bleeding, infection, coma, , heart attack, stroke, paralysis, loss of vision, CSF leak, spinal instability requiring future operations, failure to relieve symptoms, bowel bladder, dysfunction and sexual dysfunction. Patient verbalizes understanding and voices no other concerns or questions at this time. documented in this encounter Plan of Treatment Not on file documented as of this encounter Visit Diagnoses Diagnosis Intervertebral disc disorder with radiculopathy of lumbar region- Primary Cervical disc disorder with radiculopathy of cervical region documented in this encounter Care Teams Hat Block Bench Hand Relationship Specialty Start Date End Date Neptali Calvo MD PCP - General Internal Medicine 09/15/18 documented as of this encounter
--- OUTSIDE RECORDS SUMMARY | 2024-08-23 23:52 | XMS_ITS | Encounter Summary ---
Author Organization [facility] Address [address] [place] [address] Care Team Providers Care Briquetter Operator Name Role Phone Neptali Calvo MD Primary Care Provider Reason for Visit * Reason Comments Pain Encounter Details Date Type Department Care Team (Late st Contact Info) Description 02/16/2022 2:30 PM CDT Office Visit [facility] [place] [address] [place] [address] Alfred Robison MD [address] [facility] [facility] [place] [address] Piriformis syndrome, right (Primary Dx) [...] on file Legal Sex Female 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 Gender Identity Not on file Sexual Orientation Not on file 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 Not on file Not on andre e documented as of this encounter Last Filed Vital Signs Vital Sign Reading Time Taken Comments Blood Pressure - - Pulse - - Temperature - - Respiratory Rate 14 02/16/2022 2:52 PM CDT Oxygen Saturation - - Inhaled Oxygen Concentration - - Weight 61.3 kg (135 lb 3.2 oz) 02/16/2022 2:52 P M CDT Height 157.5 cm (5' 2 ) 02/16/2022 2:52 PM CDT Body Mass Index 24.73 02/16/2022 2:52 PM CDT documented in this encounter Progress Notes * Liya Yuan RN - 02/16/2022 2:30 PM CDT RN PROGRESS NOTE - FOLLOW UP Previously seen in Aug 2019 for cervical fusion surgery follow up Released to PRN status Continued lumbar issues at that time - referred to physiatry (Dr. Washington) for evaluation for injections Here today for lumbar pain issues Xrays completed at outside facility Treatment with [facility] mgmt last year ?? Ongoing back and right leg pain issues ?? Has had pain management since that timeframe as well as PT ?? Treatment was mostly focused on SI joint along with XIMENA's ?? C/o constant pain to mid/right low back area ?? Pain radiates around right hip and down anterior right thigh ?? Anterior right thigh pain constant - can present in groin or down in medial thigh or outer thighor middle of thigh ?? Difficulty walking distances or sitting for extended timeframe due to increased right leg pain ?? Changes positions frequently ?? Pain does not extend down past the knee ?? Denies numb/ting ?? Feels she may be starting to walk with a limp on the right - kind of swinging the right leg ?? Denies new onset b/b issues - some difficulty emptying bladder completely at times ?? Unsure if Lyrica helping or not ?? January 26 - pt went to ER via ambulance due to severe right leg cramping and pain and inability to move ?? Xrays completed * Alfred Robison MD - 02/16/2022 2:30 PM CDT Images from the original note were not included. Follow-up Office Visit: Ms. Villalpando returns for re-evaluation. She was previously seen in August 2019 for follow-up regarding surgical fusion. She reports that she has had continued lumbar issuessince that time and had been referred to Dr. Washington for evaluation/injections. She reports ongoingback and right leg issues. She has undergone pain management as well as physical therapy. They primarily focused on the SI joint and epidural steroid injections. She complains of right groin pain with pain extending into the anterior lateral, anterior and anterior medial thigh. She denies any left lower extremity symptoms. She reports that the symptoms are worse with prolonged sitting or walking.She reports that she is unable to sleep on her right side. The pain does not extend past the knee. She changes positions frequently. She denies any numbness or tingling. She feels that she is limping. She denies any new onset bowel or bladder dysfunction. She went to the ER in January 26 due to severe right leg cramping and inability to move the leg. Physical Examination: On examination, she has grossly normal muscle bulk, tone and strength throughout. She can walk on tiptoes heels. She has a negative IGNACIA sign bilaterally. She does have a positive piriformis stretch on the right which reproduces her symptoms. Review of X-rays: Outside hospital flexion-extension lumbar spine films showed no abnormal movementon dynamic range of motion. Diagnoses and all orders for this visit: Piriformis syndrome, right (Primary) Assessment & Plan: Ms. Villalpando has symptoms that are most consistent with piriformis syndrome. We will have her follow up with physiatry for evaluation and treatment of this. I plan to see her back in 4 months for re-evaluation. This document was created using speech voice recognition software and has not been thoroughly reviewed. Grammatical errors, random word insertions, pronoun errors and incomplete sentences are an occasional consequence of this system due to software limitations, ambient noise and hardware issues. Any formal questions or concerns about content, text or information contained within the body of this dictation should be directly addressed to the provider's office for clarification. Alfred Robison MD, [facility] Neu[facility] documented in this encounter Miscellaneous Notes * Assessment & Plan Note - Alfred Robison MD - 02/17/2022 1:46 PM CDT Associated Problem(s): Piriformis syndrome, right Ms. Villalpando has symptoms that are most consistent with piriformis syndrome. We will have her follow up with physiatry for evaluation and treatment of this. I plan to see her back in 4 months for re-evaluation. documented in this encounter Plan of Treatment Not on file documented as of this encounter Visit Diagnoses Diagnosis Piriformis syndrome, right- Primary documented in this encounter Discontinued Medications Medication Sig Discontinue Reason Start Date End Da te atorvastatin (LIPITOR) 20 mg tablet Take 20 mg by mouth every morning 02/16/2022 HYDROcodone-acetaminophen (NORCO) 5-325 mg per tabletIndications:Pain Take 1-2 tablets by mouth every 4 (four) hours as needed for pain (max 6/day) 04/03/2019 02/16/2022 tiZANidine (ZANAFLEX) 4 mg tabletIndications:Cervica l disc disorder with radiculopathy of cervical region TAKE 1 TABLET BY MOUTH EVERY 8 HOURS NEEDED 06/14/2019 02/16/2022 zolpidem (AMBIEN) 5 mg tabletIndications:Sleep-O nset Insomnia Take 5 mg by mouth nightly as needed for sleep 02/16/2022 documented as of this encounter Historical Medications * This list may reflect changes made after this encounter. pregabalin (LYRICA) 75 mg capsule Take 75 mg by mouth 2 (two) times a day 12/01/2021 added in this encounter Care Teams Briquetter Operator Relationship Specialty Start Date End Date Neptali Calvo MD PCP - General Internal Medicine 09/15/18 documented as of this encounter
--- OUTSIDE RECORDS SUMMARY | 2024-08-23 23:52 | XMS_ITS | Encounter Summary ---
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 Gender Identity Not on file Sexual Orientation Not on file 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 Not on file Not on andre e documented as of this encounter Ordered Prescriptions Prescription Sig Dispense Quantity Refills Last Filled Start Date End Date tiZANidine (ZANAFLEX) 4 mg tabletIndications: Muscle Spasm Take 1 tablet (4 mg total) by mouth every 8 (eight) hours as needed for muscle spasms 90 tablet 03/30/2019 9 oxyCODONE-acetamin ophen (PERCOCET) 5-325 mg per tabletIndications: Pain Take 1 tablet by mouth every 4 (four) hours as needed for pain (max 6/day) for up to 15 days 90 tablet 03/26/2019 9 oxyCODONE-acetamin ophen (PERCOCET) 5-325 mg per tabletIndications: Pain Take 1-2 tablets by mouth every 4 (four) hours as needed for pain (max 8/day) for up to 7 days 56 tablet 03/30/2019 9 documented in this encounter Progress Notes * Deloris Lee NP - 03/26/2019 2:26 PM CDT Postop script for surgery on 03/30/2019 at [facility] documented in this encounter Plan of Treatment Not on file documented as of this encounter Visit Diagnoses Diagnosis Cervical disc disorder with radiculopathy of cervical region- Primary documented in this encounter Care Teams Hip Hop Performers Relationship Specialty Start Date End Date Neptali Calvo MD PCP - General Internal Medicine 09/15/18 documented as of this encounter
--- OUTSIDE RECORDS SUMMARY | 2024-08-23 23:52 | XMS_ITS | Encounter Summary ---
Author Organization [facility] Healthcare Address [address] [place] [address] Care Team Providers Care Assistant Baseball Coach Name Role Phone Neptali Calvo MD Primary Care Provider Encounter Details Date Type Department Care Team (Late st Contact Info) Description 03/30/2019 7:40 AM CDT Anesthesia Event [facility] Operating Room [address] [place] [id number] Maximo Coleman MD [address] [facility] [place] [address] Mirella Reynoso NP [facility] [address] [place] [address] Anesthesia Record Procedure Summary Procedure Name Responsible Anesthesiologist Anesthesia Start Time Anesthesia Stop Time C3-5 Anterior Cervical Discectomy and Fusion (Neck) Maximo Coleman MD 03/30/19 0740 03/30/19 0928 Events Date Time Event Comment 03/30/2019 0702 0740 An Start 0744 In Room 0744 An Start Data 0747 Start Supplemental O2 0750 An Induction The patient was reevaluated immediately before moderate or deep sedation use and before anesthesia induction. 0752 An Intubation 0802 Anesthesia Ready 0813 Proc Start 0814 Incision Start 0906 Proc Fin 0922 An Extubation 0923 an stop data 0924 Out of Room 0928 Handoff to RN I completed my handoff to the receiving nurse during which we: 1. Patient identified 2. Responsible provider identified 3. Pertinent medical history reviewed 4. Procedure type and surgical course discussed 5. Intraoperative anesthetic management and any significant issues discussed 6. Expectations and concerns for postop period discussed 7. Questions solicited from receiving nurse 8. Patient disposition at the time of handoff: PACU 927 An Stop 1117 Release from care Meds Name Total midazolam 1 mg fentaNYL 50 mcg lidocaine (CARDIAC) syringe 2 % 4 mL propofol 150 mg propofol 352.58 mg succinylcholine 80 mg phenylephrine syringe 100 mcg/ml 600 mcg glycopyrrolate 0.3 mg ondansetron 4 mg dexamethasone 4 mg/ml 10 mg lidocaine in dextrose 5% 2 g/250 mL (8 m g/mL) infusion (premix) 141.53 mg ceFAZolin (ANCEF) 2,000 mg/20 mL in ster ile water (premix) 2,000 mg 2,000 mg Lactated Ringer's (LR) infusion 1,500 mL * Agents Name O2 Air Sevoflurane Inspired Sevoflurane * Blood No blood administrations on file. Lines, Drains, and Airways Type Details Placement Removal Peripheral IV Placement Date: 03/30/19; Placement Time: 619; Catheter Size: 18 G; Orientation: Left; Location: Wrist; Site Prep: Chlorhexidine; Inserted by: Margaux; Insertion Attempts: 1; Patient Tolerance: Tolerated well 03/30/19619 by Ray Damico RN ETT Placement Date: 03/30/19; Placement Time: 811 (created via procedure documentation); Mask Ventilation: 1; Technique: Direct laryngoscopy; Type: ETT - single; Single Lumen Tube Size: 7 mm; Cuffed: Yes; Laryngoscope: Florin; Blade Size: 3; Location: Oral; Grade View: Grade I; Insertion Attempts: 1; Placement Verification: Auscultation, Capnometry; Removal Date: 03/30/19; Removal Time: 92103/30/19811 by Emilie Rodriguez CRNA 03/30/19921 by Emilie Rodriguez CRNA RETIRED Surgical Site 03/30/19; 822; Ne ck; 07/24/24 (Retired LDA, Removed/Completed by [facility] with LDA Utility); 1213 (Retired LDA, Removed/Completed by [facility] with LDA Utility) 03/30/19822 by Jeronimo Arriola RN 07/24/24 1213 by Discharge Provider, Automatic documented in this encounter Social History Tobacco [...] on file Legal Sex Female 6:31 PM CAFE AIDE Gender Identity Not on file Sexual Orientation Not on file 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 on file Not on file Not on andre e documented as of this encounter OR Notes * Anesthesia Postprocedure Evaluation - Maximo Coleman MD - 03/30/2019 11:17 AM CDT Patient: Kaylah Villalpando Procedure Summary Date: 03/30/19 Room / Location: [facility] OPERATING ROOM 05 / [facility] OPERATING [facility]OM Anesthesia Start: 739 Anesthesia Stop: 927 Procedure: C3-5 Anterior Cervical Discectomy and Fusion (N/A Neck) Diagnosis: Radiculopathy, cervical (Radiculopathy, cervical [M54.12]) Surgeon: Alfred Robison MD Responsible Provider: Maximo Coleman MD Anesthesia Type: general ASA Status: 2 Anesthesia Type: general Last vitals BP 162/80 Pulse 87 Temp 36.7 ??C (98.1 ??F) (Temporal) Resp 18 SpO2 99% Anesthesia Post Evaluation Patient location during evaluation: PACU Patient participation: complete - patient participated Level of consciousness: follows simple commands and fully awake Pain management: adequate Airway patency: adequate Anesthetic complications: no Cardiovascular status: acceptable and hemodynamically stable Respiratory status: acceptable Hydration status: acceptable Pt is: normothermic Nausea/Vomiting status: none * Anesthesia Procedure Notes - Emilie Rodriguez CRNA - 03/30/2019 8:11 AM CDTAssociated Order(s): Airway Airway Patient location: OR Urgency: elective Indications for airway management: anesthesia Difficult airway: no Staff: Placed by: AUTOMATIC CLIPPER: Emilie Rodriguez CRNA Emergent airway documentation: Risks and benefits discussed: yes Consent obtained: yes Consent given by: patient Airway prep: Preoxygenated: yes Patient position: sniffing Mask difficulty assessment: 1 - vent by mask Sedation level during airway: GA Final airway details: Final airway type: endotracheal airway Tube type: ETT ETT size: 7.0 mm Cuffed: yes Technique used for successful ETT placement: direct laryngoscopy Devices/Methods used in placement: intubating stylet Insertion site: oral Blade type: Florin Blade size: 3 Cormack-Lehane (direct): grade I - full view of glottis Cuff volume: 8 mL Cuff inflated with: air Placement verified by: auscultation and CO2 detection Airway secured with: silk tape Number of attempts: 1 * Anesthesia Preprocedure Evaluation - Maximo Coleman MD - 03/12/2019 12:27 [...] surgery - bone spur - [facility] ??? CERVICAL FUSION 2005 C5-6 ACDF(Dr. Lu) ? ? SECTION 1985 & 1987 ??? PARTIAL HYSTERECTOMY 1994 Cancer tx No Known Allergies Current Outpatient [...] Medication protocol when under care of a AUTOMATIC CLIPPER Planned anesthesia: General Team communication plan: oral ET tube Induction: Induction: intravenous. Postoperative Plan: Postoperative administration opioids intended. No postoperative mechanical ventilation intended. Patient's planned disposition post procedure is Floor. Informed Consent: Discussed plan with AUTOMATIC CLIPPER. Anesthesia plan and risks discussed with patient. Consent and Attending signature: I and/or my designee have discussed the anesthesia plan, benefits, possible alternatives, parental presence at time of induction (if indicated), and clinically relevant risks that may include dental injury, unintentional awareness, and/or other complications. The patient and/or parent/legal guardian understand, and agree to proceed. All questions answered. documented in this encounter Plan of Treatment Not on file documented as of this encounter Procedures Procedure Name Priority Date/Time Associated Diagnosis Comments ND AN PROCEDURE PLACEHOLDER Routine 03/30/2019 8:11 AM CDT Procedure Note - Emilie Rodriguez CRNA - 03/30/2019 8:11 AM CDTThis note is in progress. Airway Patient location: OR Urgency: elective Indications for airway management: anesthesia Difficult airway: no Staff: Placed by: AUTOMATIC CLIPPER: Emilie Rodriguez CRNA Emergent airway documentation: Risks and benefits discussed: yes Consent obtained: yes Consent given by: patient Airway prep: Preoxygenated: yes Patient position: sniffing Mask difficulty assessment: 1 - vent by mask Sedation level during airway: GA Final airway details: Final airway type: endotracheal airway Tube type: ETT ETT size: 7.0 mm Cuffed: yes Technique used for successful ETT placement: direct laryngoscopy Devices/Methods used in placement: intubating stylet Insertion site: oral Blade type: Florin Blade size: 3 Cormack-Lehane (direct): grade I - full view of glottis Cuff volume: 8 mL Cuff inflated with: air Placement verified by: auscultation and CO2 detection Airway secured with: silk tape Number of attempts: 1 ND AN ELECTIVE ENDOTRACHEAL AIRWAY Routine 03/30/2019 8:11 AM CDT Procedure Note - Emilie Rodriguez CRNA - 03/30/2019 8:11 AM CDTThis note is in progress. Airway Patient location: OR Urgency: elective Indications for airway management: anesthesia Difficult airway: no Staff: Placed by: AUTOMATIC CLIPPER: Emilie Rodriguez CRNA Emergent airway documentation: Risks and benefits discussed: yes Consent obtained: yes Consent given by: patient Airway prep: Preoxygenated: yes Patient position: sniffing Mask difficulty assessment: 1 - vent by mask Sedation level during airway: GA Final airway details: Final airway type: endotracheal airway Tube type: ETT ETT size: 7.0 mm Cuffed: yes Technique used for successful ETT placement: direct laryngoscopy Devices/Methods used in placement: intubating stylet Insertion site: oral Blade type: Florin Blade size: 3 Cormack-Lehane (direct): grade I - full view of glottis Cuff volume: 8 mL Cuff inflated with: air Placement verified by: auscultation and CO2 detection Airway secured with: silk tape Number of attempts: 1 documented in this encounter Visit Diagnoses Not on filedocumented in this encounter Administered Medications Inactive Administered Medications - up to 3 most recent administrations Medication Order MAR Action Action Date Dose Rate Site ceFAZolin (ANCEF) 2,000 mg/20 mL in sterile water (premix) 2,000 mg 2,000 mg, intravenous, at 400 mL/hr, Administer over 3 Minutes, Once, On Tue03/30/19 at 0645, For 1 dose, Pre-Op, Administer within 60 minutes of incision., Indications: Prophylaxis, SurgicalIndications:Prophylaxis, Surgical Given 03/30/2019 7:52 AM CDT 2,000 mg dexamethasone (DECADRON) 4 mg/mL injection intravenous, Administer over 2 Minutes, As needed, Starting on Tue03/30/19 at 0802, Anesthesia Intra-op Given 03/30/2019 8:02 AM CDT 10 mg fentaNYL (SUBLIMAZE) preservative free injection intravenous, As needed, Starting on Tue03/30/19 at 0747, Anesthesia Intra-op Given 03/30/2019 7:47 AM CDT 50 mcg glycopyrrolate (ROBINUL) injection intravenous, Administer over 1 Minutes, As needed, Starting on Tue03/30/19 at 0805, Anesthesia Intra-op Given 03/30/2019 8:37 AM CDT 0.1 mg Given 03/30/2019 8:10 AM CDT 0.1 mg Given 03/30/2019 8:05 AM CDT 0.1 mg Lactated Ringer's (LR) infusion 30 mL/hr, intravenous, Continuous, Starting on Tue03/30/19 at 0645 New Bag 03/30/2019 8:28 AM CDT Rate/Dose Change 03/30/2019 7:40 AM CDT 1000 mL /hr New Bag 03/30/2019 6:43 AM CDT 30 mL/hr 30 mL/hr lidocaine (cardiac) (XYLOCAINE) preservative free injection intravenous, As needed, Starting on Tue03/30/19 at 0750, Anesthesia Intra-op, Indications: Ventricular ArrhythmiasIndications:Reji tricular Arrhythmias Given 03/30/2019 7:50 AM CDT 4 mL lidocaine in dextrose 5% 2 g/250 mL (8 mg/mL) infusion (premix) 1.5 mg/kg/hr ? 50.1 kg Alpha weight (9.3938 mL/hr, rounded to 9.39 mL/hr), 8 mg/mL, intravenous, Continuous, Starting on Tue03/30/19 at 0745, Until Tue03/30/19 at 0934, Indications: Pain, Call MD for symptoms of toxicity (ringing in ears, metallic taste, somnolence, numb lips). Discontinue after the first bag is empty Intra op rate is 2 mgs/kg/hr, RoutineIndications:Pain Rate/Dose Change 03/30/2019 9:07 AM CDT 1.5 mg/kg/hr 9.39 mL/hr New Bag 03/30/2019 7:58 AM CDT 2 mg/kg/hr 12.53 mL/hr midazolam (VERSED) preservative free injection intravenous, Administer over 2 Minutes, As needed, Starting on Tue03/30/19 at 0740, Anesthesia Intra-op Given 03/30/2019 7:40 AM CDT 1 mg ondansetron (ZOFRAN) injection intravenous, Administer over 2 Minutes, As needed, Starting on Tue03/30/19 at 0819, Anesthesia Intra-op Given 03/30/2019 8:19 AM CDT 4 mg phenylephrine (MANDY-SYNEPHRINE) 1 mg/10 mL (100 mcg/mL) in sodium chloride 0.9% (premix) intravenous, As needed, Starting on Tue03/30/19 at 0810, Anesthesia Intra-op Given 03/30/2019 9:00 AM CDT 100 mcg Given 03/30/2019 8:48 AM CDT 100 mcg Given 03/30/2019 8:37 AM CDT 100 mcg propofol (DIPRIVAN) IV Continuous PRN, Starting on Tue03/30/19 at 0756, Anesthesia Intra-op Rate/Dose Change 03/30/2019 8:30 AM CDT 75 mcg/kg/min 26.01 mL/hr New Bag 03/30/2019 7:56 AM CDT 100 mcg/kg/min 34.68 mL/ hr propofol (DIPRIVAN) IV intravenous, As needed, Starting on Tue03/30/19 at 0750, Anesthesia Intra-op Given 03/30/2019 7:50 AM CDT 150 mg succinylcholine (ANECTINE) injection intravenous, As needed, Starting on Tue03/30/19 at 0750, Anesthesia Intra-op Given 03/30/2019 7:50 AM CDT 80 mg documented in this encounter Orders Procedures Count Last Ordered Date First Orde red Date Airway 1 03/30/2019 documented in this encounter Care Teams Assistant Baseball Coach Relationship Specialty Start Date End Date Neptali Calvo MD PCP - General Internal Medicine 09/15/18 documented as of this encounter
--- OUTSIDE RECORDS SUMMARY | 2024-08-23 23:52 | XMS_ITS | Encounter Summary ---
Author Organization [facility] Facility Care Team Providers Care Correctional Therapy Teacher Name Role Phone Neptali Calvo MD Primary Care Provider Encounter Details Date Type Department Care Team (Latest Contact Info) Description 03/12/2019 Travel Social History Tobacco Use Types Packs/Day Years Used Date Smoking Tobacco: Former Cigarettes 1.5 30 0 03/12/1971 - 03/12/2001 Smokeless Tobacco: Never Alcohol Use Standard Drinks/Week Comments Not Currently 0 (1 standard drink = 0.6 oz pur e alcohol) Sober since 2000 Comments Unknown Sex and Gender Information Value Date Recorded Sex Assigned at Not on file Legal Sex Female 6:31 PM MANDREL PRESS HAND Gender Identity Not on file Sexual Orientation Not on file 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
--- OUTSIDE RECORDS SUMMARY | 2024-08-23 23:52 | XMS_ITS | Encounter Summary ---
Author Organization [facility] Medical Group Address [address] [place] [address] Care Team Providers Care Sewing Room Supervisor Name Role Phone Neptali Calvo MD Primary Care Provider Reason for Visit * Reason Comments Spinal Surgery S/P C3-5 ACDF - 2018 Encounter Details Date Type Department Care Team (Late st Contact Info) Description 08/29/2019 11:30 AM CITIZENSHIP TEACHER Office Visit [facility] [place] [address] [facility] [address] [place] [address] Alfred Robison MD [address] [facility] [address] [place] [address] Status post cervical spinal fusion (Primary Dx) Social History Tobacco Use Types [...] on file Legal Sex Female 6:31 PM CITIZENSHIP TEACHER Gender Identity Not on file Sexual Orientation Not on file 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 Not on file Not on andre e documented as of this encounter Last Filed Vital Signs Vital Sign Reading Time Taken Comments Blood Pressure - - Pulse - - Temperature - - Respiratory Rate 12 08/29/2019 11:5 6 AM CITIZENSHIP TEACHER Oxygen Saturation - - Inhaled Oxygen Concentration - - Weight 55.7 kg (122 lb 12.8 oz) 020 11:56 AM CITIZENSHIP TEACHER Height 157.5 cm (5' 2 ) 08/29/2019 11:5 6 AM CITIZENSHIP TEACHER Body Mass Index 22.46 08/29/2019 11:56 AM CITIZENSHIP TEACHER documented in this encounter Progress Notes * Liya Yuan RN - 08/29/2019 11:30 AM CST RN PROGRESS NOTE - FOLLOW UP S/P C3-5 ACDF - 03/30/2019 ?? Patient states neck is doing fairly well ?? C/o constant soreness to bilateral shoulders - posterior muscle areas ?? Aching down the arms at times - no radicular pains like preop ?? Difficulty with any activity (ie. Computer work) due to shoulder discomforts ?? C/o headaches still - not long lasting however Still dealing with lumbar pain issues Does not want to return to pain mgmt she was seeing in past - she will look into alternative options for this ZENSHIP TEACHER * Alfred Robison MD - 08/29/2019 11:30 AM CST Images from the original note were not included. Follow-up Office Visit: Ms. Villalpando is status post C3-5 ACDF on 03/30/2019. She has a prior C5-6ACDF. She reports that her neck is doing fairly well. She still gets soreness to her bilateral shoulders and posterior neck. She gets some aching down the arms at times but no radicular pains like preop. She has difficulty with activity due to shoulder discomfort. She still gets some headaches but they do not last as long. She continues to have lumbar problems and wishes to be evaluated by physiatry. Physical Examination: On examination, her wound is well-healed. She has grossly normal muscle bulk,tone and strength throughout. She has normal gait. Review of X-rays: Flexion-extension cervical spine films show interbody devices at C3-4 and C4-5 with anterior cervical plating good alignment. There is a prior fusion at C5-6. She seems to have a solid fusion from C3 to the C6 on dynamic range of motion. Diagnoses and all orders for this visit: Status post cervical spinal fusion (Primary) Assessment & Plan: Ms. Villalpando is clinically improved after anterior cervical decompression and fusion. She still has some neck pain but does not have any radicular pain. She seems to solidly fused on dynamic range of motion. We will not set up a scheduled appointment, but I would be happy to see her back at any point on as- needed basis. We will refer her to Dr. Washington for conservative treatment and possible injections of her lumbar spine. Dictated using computer magnet maker and not thoroughly reviewed. May be subject to magnet maker variance. Alfred Robison MD, [facility] Neurological Surgery ZENSHIP TEACHER documented in this encounter Miscellaneous Notes * Assessment & Plan Note - Alfred Robison MD - 09/20/2019 4:45 PM CITIZENSHIP TEACHER Associated Problem(s): Status post cervical spinal fusion Ms. Villalpando is clinically improved after anterior cervical decompression and fusion. She still has some neck pain but does not have any radicular pain. She seems to solidly fused on dynamic range of motion. We will not set up a scheduled appointment, but I would be happy to see her back at any point on as- needed basis. We will refer her to Dr. Washington for conservative treatment and possible injections of her lumbar spine. ZENSHIP TEACHER documented in this encounter Plan of Treatment Not on file documented as of this encounter Visit Diagnoses Diagnosis Status post cervical spinal fusion- Primary Arthrodesis status documented in this encounter Discontinued Medications Medication Sig Discontinue Reason Start Date End Da te methylPREDNISolone (MEDROL DOSEPACK) 4 mg DosepackIndications:Cervi ellen disc disorder with radiculopathy of cervical region Take as directed on package 04/03/2019 08/29/2019 documented as of this encounter Care Teams Sewing Room Supervisor Relationship Specialty Start Date End Date Neptali Calvo MD PCP - General Internal Medicine 09/15/18 documented as of this encounter
--- OUTSIDE RECORDS SUMMARY | 2024-08-23 23:52 | XMS_ITS | Encounter Summary ---
Author Organization [facility] Medical Group Address [address] [place] [address] Care Team Providers Care Electric Blasting Cap Assembler Name Role Phone Neptali Calvo MD Primary Care Provider Reason for Visit * Reason Onset Date Comments Neck pain/difficulty swallowing 04/10/2019 Encounter Details Date Type Department Care Team (Late st Contact Info) Description 04/10/2019 Telephone [facility] [place] [address] [place] [phone] Liya Yuan, RN Neck pain/difficulty swallowing Social History Tobacco Use Types Packs/Day Years Used Date Smoking Tobacco: Former Cigarettes 1.5 30 0 03/12/1971 - 03/12/2001 Smokeless Tobacco: Never Alcohol Use Standard Drinks/Week Comments Not Currently 0 (1 standard drink = 0.6 oz pur e alcohol) Sober since 2000 Comments No Sex and Gender Information Value Date Recorded Sex Assigned at Not on file Legal Sex Female 6:31 PM GAMEPLAY ENGINEER Gender Identity Not on file Sexual Orientation Not on file 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 Pt did not feel any relief with medrol chandana - still only able to tolerate very small bites after chewing a lot. Denies breathing difficulty however notices she is snoring which is new. Discussed options of wait and see if it improves any over next week, could try another medrol chandana or could refer to ENT. Pt wanting to wait and see if it settles on its own. Pt also having increased neck and shoulder pain upon waking in am that is severe. States she has been sleeping in recliner since surgery and wearing neck brace. States ok thru the night but when she wakes up has severe pain to posterior neck and tops of shoulders along with slight arm pain at times. Discussed could be related to positioning and not letting her head rest when keeping it more upright. She is taking zanaflex hs. Recommended she continue with muscle relaxer and to try and sleep in her bed to help with positioning better - reiterated she can sleep on her side or back as long as neck not crooked significantly. Pt verbalized understanding and will call back if no improvement. documented in this encounter Plan of Treatment Not on file documented as of this encounter Visit Diagnoses Not on filedocumented in this encounter Care Teams Electric Blasting Cap Assembler Relationship Specialty Start Date End Date Neptali Calvo MD PCP - General Internal Medicine 09/15/18 documented as of this encounter
--- OUTSIDE RECORDS SUMMARY | 2024-08-23 23:52 | XMS_ITS | Encounter Summary ---
Author Organization [facility] Medical Group Address [address] [place] [address] Care Team Providers Care Youth Development Specialist Name Role Phone Neptali Calvo MD Primary Care Provider Encounter Details Date Type Department Care Team (Late st Contact Info) Description 01/26/2022 Orders Only [facility] [place] [address] [place] [address] Alfred Robison MD [address] [facility] [address] [place], [place] [id number] Low back pain, non-specific (Primary Dx) Social [...] on file Legal Sex Female 6:31 PM BUSINESS CONTROL SPECIALIST Gender Identity Not on file Sexual Orientation Not on file 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
--- OUTSIDE RECORDS SUMMARY | 2024-08-23 23:52 | XMS_ITS | Encounter Summary ---
Author Organization [facility] Healthcare Address [address] [place] [address] Care Team Providers Care Bench Worker Hollow Handle Name Role Phone Neptali Calvo MD Primary Care Provider Encounter Details Date Type Department Care Team (Late st Contact Info) Description 03/30/2019 7:30 AM CDT - 03/30/2019 10:00 AM CDT Surgery [facility] Operating Room [address] [place] [address] Alfred Robison MD [address] [facility] [address] [place], [place] [id number] C3-5 Anterior Cervical Discectomy and Fusion Surgery Details Date/Time Status Location OR Service Patient Class Case Class Case Type Trauma Case? 03/30/2019 7:30 AM Posted [facility] OPERATING ROOM OR Orthopaedic Spine Outpatient in Bed Elective Panel 1 Procedure LRB Anes Op Region Wound Class Comments C3-5 Anterior Cervical Discectomy and Fusion N/A General Neck Class I - Clean Corelink Anodyne, 3D Foundation, I-Factor, Bone Trap, SSEP, (KB) Rep. 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 Not on file Not on andre e documented as of this encounter Last Filed Vital Signs Vital Sign Reading Time Taken Comments Blood Pressure 163/91 03/30/2019 10:00 AM CDT Pulse 75 03/30/2019 10:00 AM CDT Temperature 36.2 ??C (97.2 ??F) 03/30/2019 9:26 AM CD T Respiratory Rate 21 03/30/2019 10:00 AM CDT Oxygen Saturation 100% 03/30/2019 10:00 AM CDT Inhaled Oxygen Concentration - - Weight 57.8 kg (127 lb 6.8 oz) 03/30/2019 6:31 A M CDT Height - - Body Mass Index 23.31 03/12/2019 12:16 PM CDT documented in this encounter Discharge Summaries * Alfred Robison MD - 03/31/2019 12:54 PM CDT Inpatient Discharge Summary BRIEF OVERVIEW Admitting Provider: Alfred Robison MD Discharge Provider: Alfred Robison MD Primary Care Physician at Discharge: Neptali Calvo MD [phone] Admission Date: 03/30/2019 Discharge Date: 03/31/2019 Admission Location: [facility] Primary Discharge Diagnosis: Cervical radiculopathy Secondary [...] Center 05/15/2019 11:30 AM Deloris Lee NP [id number] PSA Decent documented in this encounter Discharge Instructions * Attachments The following attachments cannot be sent through Care Everywhere. 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 Goal Start Date End Date [facility] 2 03/30/19 -- Goal Details: Pt will perform sit to stand from various surface heights independently in order to progress toward PLOF and return home safely. Goal Start Date End Date [facility] 3 03/30/19 -- Goal Details: Pt will ambulate >150' independently in order to progress toward PLOF and return home safely. Goal Start Date End Date [facility] 4 03/30/19 -- Goal Details: Pt will negotiate 2 stairs with no hand railing and 8 stairs with 1 hand railing withmodified independence in order to progress toward PLOF and return home safely. Goal Start Date End Date [facility] 5 03/30/19 -- Goal Details: Pt will perform vehicle transfer independently in order to progress toward PLOF and return home safely. Goal Start Date End Date [facility] 1 03/30/19 -- Goal Details: Pt will successfully recall 3/3 cervical precautions and don/doff soft cervical collar independently in order to return home safely. 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 Goal Start Date End Date [facility] 2 03/30/19 -- Goal Details: Pt will perform sit to stand from various surface heights independently in order to progress toward PLOF and return home safely. Goal Start Date End Date [facility] 3 03/30/19 -- Goal Details: Pt will ambulate >150' independently in order to progress toward PLOF and return home safely. Goal Start Date End Date [facility] 4 03/30/19 -- Goal Details: Pt will negotiate 2 stairs with no hand railing and 8 stairs with 1 hand railing withmodified independence in order to progress toward PLOF and return home safely. Goal Start Date End Date [facility] 5 03/30/19 -- Goal Details: Pt will perform vehicle transfer independently in order to progress toward PLOF and return home safely. Goal Start Date End Date [facility] 1 03/30/19 -- Goal Details: Pt will [...] surgery - bone spur - Laser Spine [place] ??? CERVICAL FUSION 2004 C5-6 ACDF(Dr. Lu) [...] Medication protocol when under care of a FIRER BOILER Planned anesthesia: General Team communication plan: oral ET tube Induction: Induction: intravenous. Postoperative Plan: Postoperative administration opioids intended. No postoperative mechanical ventilation intended. Patient's planned disposition post procedure is Floor. Informed Consent: Discussed plan with FIRER BOILER. Anesthesia plan and risks discussed with patient. [...] surgery - bone spur - Laser Spine [place] ??? CERVICAL FUSION 2004 C5-6 ACDF(Dr. Lu) [...] Medication protocol when under care of a FIRER BOILER Planned anesthesia: General Team communication plan: oral ET tube Induction: Induction: intravenous. Postoperative Plan: Postoperative administration opioids intended. No postoperative mechanical ventilation intended. Patient's planned disposition post procedure is Floor. Informed Consent: Discussed plan with FIRER BOILER. Anesthesia plan and risks discussed with patient. [...] Dr. Robison. 8. Use of I-Factor bone motor and chassis inspector, Dr. Robison. 9. Use of operative microscope [...] onto a Skytron bed with a horseshoe control clerk head. Sequential Compression Devices were placed on the [...] Attention was turned to the C3-4 level. Timbo posts were used for distraction. Anterior osteophytes [...] Attention was turned to the C4-5 level. Timbo posts were used for distraction. Anterior osteophytes [...] 28mm plate was then sized and placed. Civil Engineering Drafter holes were drilled with a high speed [...] Kaylah Villalpando Attending Surgeon: Alfred Robison MD, RIP Office: Neurosurgical Spine Operative Report Admission Type: Outpatient in a bed Surgeon: Alfred Robison MD, RIP Hyatt MD Preoperative Diagnosis: 1. Cervical radiculopathy. [...] Dr. Robison. 8. Use of I-Factor bone motor and chassis inspector, Dr. Robison. 9. Use of operative microscope [...] onto a Skytron bed with a horseshoe control clerk head. Sequential Compression Devices were placed on the [...] Attention was turned to the C3-4 level. Timbo posts were used for distraction. Anterior osteophytes [...] Attention was turned to the C4-5 level. Timbo posts were used for distraction. Anterior osteophytes [...] 28mm plate was then sized and placed. Civil Engineering Drafter holes were drilled with a rubin speed [...] 1 Hour (03/30/2019 9:09 AM CDT) Narrative [email or web address]_MB - 03/30/2019 9:09 AM CDT The images from this study are not interpreted by Radiology. ??Please refer to the physician's procedure / OR operative note. Alfred Robison MD IMG FLUOROSCOPY PROCEDURES Fi nal Result RAD_PACS_[facility] * XR Spine Cervical 1 View [...] * Check Sample (03/30/2019 6:57 AM CDT) Pathologist [facility] ABO Rh A [facility] HC[facility] OTHER 03/30/2019 6:57 AM CDT 03/30/2019 7:18 AM CDT us Mirella Reynoso NP LAB BLOOD ORDERABLES Fin al Result [facility] [address] Department [place] [address] documented in this encounter Visit Diagnoses Diagnosis Radiculopathy, cervical- Primary Brachial neuritis or radiculitis nos Radiculopathy, cervical Brachial neuritis or radiculitis nos [...] Given 03/31/2019 8:54 AM CDT 20 mg bacitracin 50,000 Units in sodium chloride 0.9% 800 mL solution As needed, Starting on Tue03/30/19 at 0813, Intra-Op Given 03/30/2019 8:13 AM CDT 800 mL Surgical Site bupivacaine-EPINEPHrine (MARCAINE with EPI) 0.5 %-1:200,000 preservative free injection As needed, Starting on Tue03/30/19 at 0813, Intra-Op Given 03/30/2019 8:13 AM CDT 9 mL Surgical Site ceFAZolin (ANCEF) 1 gram/10 mL in sterile water (premix) 1,000 mg 1,000 mg, intravenous, at 200 mL/hr, Administer over 3 Minutes, Every 8 hours, First dose on Tue03/30/19 at 1600, For 2 doses, Starting 8 hours after last aashish-operative dose., Indications: Prophylaxis, SurgicalIndications:Prophyl axis, Surgical New Bag 03/31/2019 1:00 AM CDT [...] infusion (premix) 1.5 mg/kg/hr ? 50.1 kg [place] weight (9.3938 mL/hr, rounded to 9.39 mL/hr), [...] 9:21 PM CDT 1 tablet sodium chloride 0.9 % irrigation As needed, Starting on Tue03/30/19 at 0813, Intra-Op Given 03/30/2019 8:13 AM CDT 200 mL Surgical Site sodium chloride 0.9% flush 0.5-20 mL 0.5-20 mL, intra-catheter, Every 8 hours scheduled, First dose on Tue03/30/19 at 1400, Flush volume based on line type and size. , Indications: FlushingIndications:Flushin g Given 03/31/2019 4:59 AM CDT 10 mL [...] Pre-Emptive Analgesia 0643 (Given - Provider: Ray Damico RN) acetaminophen (TYLENOL) tablet 1,000 mg 1,000 mg, oral, Every 6 hours scheduled, First dose on Tue03/30/19 at 1500, Indications: Pain 1449 (Given - Provider: Adore Callaway RN)2121 (Given - Provider: Le Li RN) 0408 (Not Given - Provider: Le Li RN - Reason: Other)0856 (Given - Provider: Jannette Michaels RN) atorvastatin (LIPITOR) tablet 20 mg 20 mg, oral, Every morning, First dose on Tue03/30/19 at 1215 1219 (Not Given - Provider: Cata Melo RN - Reason: Other) 0854 (Given - Provider: Jannette Michaels, IVANNA) ceFAZolin (ANCEF) 1 gram/10 mL in sterile water (premix) 1,000 mg (COMPLETED) 1,000 mg, intravenous, at 200 mL/hr, Administer over 3 Minutes, Every 8 hours, First dose on Tue03/30/19 at 1600, For 2 doses, Starting 8 hours after last aashish-operative dose., Indications: Prophylaxis, Surgical 1639 (New Bag - Provider: Adore Callaway RN) 0100 (New Bag - Provider: Le Li, IVANNA) ceFAZolin (ANCEF) 2,000 mg/20 mL in sterile [...] and Vomiting 0644 (Given - Provider: Ray Damico RN) gabapentin (NEURONTIN) capsule 300 mg (COMPLETED) 300 mg, oral, Once, On Tue03/30/19 at 0645, For 1 dose, Pre-Op, Indications: Pre-Emptive Analgesia 0644 (Given - Provider: Ray Damico RN) LORazepam (ATIVAN) injection 0.5 mg (COMPLETED) [...] Callaway RN - Reason: Other - Comment: postop)2121 (Given - Provider: Le Li RN) 0854 (Given - Provider: Jannette Michaels RN) sodium chloride 0.9% flush 0.5-20 mL 0.5-20 mL, intra-catheter, Every 8 hours scheduled, First dose on Tue03/30/19 at 1400, Flush volume based on line type and size. , Indications: Flushing 1627 (Not Given - Provider: Adore Callaway RN - Reason: IV Infusing)2122 (Not Given - Provider: Le Li RN - Reason: IV Infusing) 0459 (Given - Provider: Le Li, RN) Continuous Medication Order 03/29/2019 03/30/2019 03/31/2019 Lactated Ringer's (LR) infusion 30 mL/hr, intravenous, Continuous, Starting on Tue03/30/19 at 0645 0643 (New Bag - Provider: Ray Damico RN)0740 (Rate/Dose Change - Provider: Emilie Rodriguez CRNA)0828 (New Bag - Provider: Emilie Rodriguez CRNA)0928 (Anesthesia Volume Adjustment - Provider: Emilie Rodriguez CRNA) lidocaine in dextrose 5% 2 g/250 mL (8 mg/mL) infusion (premix) (CANCELED) 1.5 mg/kg/hr ? 50.1 kg [place] weight (9.3938 mL/hr, rounded to 9.39 mL/hr), [...] infusion (premix) 1.5 mg/kg/hr ? 50.1 kg [place] weight (9.3938 mL/hr, rounded to 9.39 mL/hr), 8 mg/mL, intravenous, Continuous, Starting on Tue03/30/19 at 1015, Until Tue03/31/19 at 1748, Phase I, Indications: Pain, Call MD for symptoms of toxicity (ringing in ears, metallic taste, somnolence, numb lips). Discontinue after the first bag is empty Intra op rate is 2 mgs/kg/hr, Routine 0927 (Continued from OR - Provider: Anais Giraldo, RN)1234 (New Bag - Provider: Cata Melo, RN) 0730 (Stopped - Provider: Jannette Michaels, IVANNA) sodium chloride 0.9% with potassium chloride 20 mEq/L infusion (premix) 75 mL/hr, intravenous, Continuous, Starting on Tue03/30/19 at 1215, Discontinue when tolerating PO (500 mL in 8 hours). 1233 (New Bag - Provider: Cata Melo, IVANNA) PRN Medication Order 03/29/2019 03/30/2019 03/31/2019 bacitracin [...] Le Li RN)0559 (Given - Provider: Le Li RN)1030 (Given - Provider: Jannette Michaels RN) [...] %) nebulizer solution 2.5 mg 1 03/30/2019 bisacodyl (DULCOLAX) suppository 10 mg 1 bisacodyl EC (DULCOLAX EC) tablet 10 mg 1 0 03/30/2019 ceFAZolin (ANCEF) 2,000 mg/2 0 mL [...] solution 0.5 mL 1 03/30/2019 sodium chloride 0.9% flush 0.5-20 mL 2 04/2019 zolpidem (AMBIEN) tablet 5 mg 1 03/30/2019 CORE MEASURES Count Last Ordered Date First Ord ered Date REASON FOR NO VTE PROPHYLAXI S - HOSPITAL ADMISSION - MEDICATIONS 1 03/30/2019 documented in this encounter Care Teams Bench Worker Hollow Handle Relationship Specialty Start Date End Date Neptali Calvo MD PCP - General Internal Medicine 09/15/18 documented as of this encounter
--- OUTSIDE RECORDS SUMMARY | 2024-08-23 23:52 | XMS_ITS | Encounter Summary ---
Author Organization [facility] Medical Group Address [address] [place] [address] Care Team Providers Care Brim Pouncer Name Role Phone Neptali Calvo MD Primary Care Provider Reason for Visit * Reason Onset Date Comments Pre-Medication for MRI 03/16/2019 Encounter Details Date Type Department Care Team (Late st Contact Info) Description 03/16/2019 Telephone [facility] [place] [address], [place] [address] Liya Yuan, RN Pre-Medication for MRI Social History Tobacco Use Types Packs/Day Years Used Date Smoking Tobacco: Former Cigarettes 1.5 30 0 03/12/1971 - 03/12/2001 Smokeless Tobacco: Never Alcohol Use Standard Drinks/Week Comments Not Currently 0 (1 standard drink = 0.6 oz pur e alcohol) Sober since 2000 Comments Unknown Sex and Gender Information Value Date Recorded Sex Assigned at Not on file Legal Sex Female 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 May repeat x1 if needed. 4 tablet 03/16/2019 9 documented in this encounter Miscellaneous Notes * Telephone Encounter - Liya Yuan RN - 03/16/2019 11:32 AM CDT Patient calls requesting pre-medication for upcoming MRI due to claustrophobia. States she typically uses valium prior to these testings. We will send rx for Valium to her [facility] - rx phoned in [facility]. documented in this encounter Plan of Treatment Not on file documented as of this encounter Visit Diagnoses Not on filedocumented in this encounter Discontinued Medications Medication Sig Discontinue Reason Start Date End Da te diazePAM (VALIUM) 5 mg tablet Take 5 mg by mouth 2 (two) times a day as needed for anxiety (premedicate for MRIs) Reorder 03/16/2019 documented as of this encounter Care Teams Brim Pouncer Relationship Specialty Start Date End Date Neptali Calvo MD PCP - General Internal Medicine 09/15/18 documented as of this encounter
--- OUTSIDE RECORDS SUMMARY | 2024-08-23 23:52 | XMS_ITS | Encounter Summary ---
Author Organization [facility] Medical Group Address [address] [place] [address] Care Team Providers Care Tail Dogger Name Role Phone Neptali Calvo MD Primary Care Provider Encounter Details Date Type Department Care Team (Late st Contact Info) Description 03/14/2019 Documentation [facility] [address] [place] [address] Alfred Robison MD [address] [facility] [address] [place], [place] [id number] Social History Tobacco Use Types Packs/Day Years Used Date Smoking Tobacco: Former Cigarettes 1.5 30 0 03/12/1971 - 03/12/2001 Smokeless Tobacco: Never Alcohol Use Standard Drinks/Week Comments Not Currently 0 (1 standard drink = 0.6 oz pur e alcohol) Sober since 2000 Comments Unknown Sex and Gender Information Value Date Recorded Sex Assigned at Not on file Legal Sex Female 6:31 PM DIRECTOR TRANSPORTATION Gender Identity Not on file Sexual Orientation Not on file 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 Sanchez w/[facility] patient is authorized for MRI-Lumbar auth #[id number] (exp 03/14/19 to 04/28/19). [facility] [place] [place] h-[phone] e-[phone], [facility] documented in this encounter Plan of Treatment Not on file documented as of this encounter Visit Diagnoses Not on filedocumented in this encounter Care Teams Tail Dogger Relationship Specialty Start Date End Date Neptali Calvo MD PCP - General Internal Medicine 09/15/18 documented as of this encounter
--- OUTSIDE RECORDS SUMMARY | 2024-08-23 23:53 | XMS_ITS | Encounter Summary ---
Author Organization [facility] Medical Group Address [address] [place] [address] Care Team Providers Care Aircraft Loadmaster Superintendent Name Role Phone Neptali Calvo MD Primary Care Provider Reason for Visit * Reason Comments Pain Encounter Details Date Type Department Care Team (Latest Contact Info) Description 02/27/2019 2:30 PM CDT Office Visit [facility] [place] [address] [place] [address] Alfred Robison MD [address] [facility] [address] [place] [address] Cervical disc disorder with radiculopathy of cervical region (Primary Dx) Social History Tobacco Use Types Packs/Day Years Used Date Smoking Tobacco: Never Alcohol Use Standard Drinks/Week Comments Not Currently 0 (1 standard drink = 0.6 oz pur e alcohol) Sober since 2000 Comments Unknown Sex and Gender Information Value Date Recorded Sex Assigned at Not on file Legal Sex Female 6:31 PM SODA MAKER Gender Identity Not on file Sexual Orientation Not on file 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 Patient here for further eval and to review MRI & CT results (unable to obtain myelogram) & to discuss surgery recommendations ?? MRI Review: I reviewed the MRI of the cervical spine. This shows a disc osteophyte complex at C6-7 with the prior fusion C5-6. There does not seem to be canal or foraminal stenosis at C4-5 were C5-6. There is mild canal stenosis at C6-7 and no significant foraminal stenosis at C6-7. There is foraminal stenosis at C3-4 on the left. There is no significant canal stenosis. The MRI does not definitely correlate with her clinical examination. As such I would recommend a CT myelogram of the cervical spine and flexion-extension cervical spine films to look for any instability. ?? CT Review: Reviewed CT of the cervical spine. This shows severe foraminal stenosis at C3-4 and C4-5 on the left. There is severe facet arthropathy and evidence of a tiny laminotomy at C3-4 on theleft. Recommend C3-C5 anterior cervical decompression and fusion. ?? History C5-6 ACDF [place] [address] Lu & posterior cervical procedure at [facility] [place] - January 2018 ?? Continued neck pain with radicular left arm pain ?? Possible left arm weakness at times - difficulty lifting heavier objects ?? Stabbing pain at times to deltoid area - pinpoint area ?? Ongoing limitation with neck ROM * Alfred Robison MD - 02/27/2019 2:30 PM CDT Images from the original note were not included. Follow-up Office Visit: Ms. Villalpando returns to discuss surgical options. Her is present as well. She continues to have left-sided neck and arm pain. She underwent previous un instrumented fusion at C5-[address] Lu. This was from a right-sided approach. Physical Examination: On examination, she has grossly normal muscle bulk, tone and strength throughout her upper extremities. Review of X-rays: CT of the cervical spine shows severe foraminal stenosis at C3-4 C4-5 on the left. Diagnoses and all orders for this visit: Cervical disc disorder with radiculopathy of cervical region (Primary) Assessment & Plan: Ms. Villalpando his symptoms the correlate the [...] original surgery at C5-6 on the right. Dictated using computer claim approver and not thoroughly reviewed. May be subject to claim approver variance. Alfred Robison MD, [facility] Neurological Surgery documented in this encounter Miscellaneous Notes * Assessment & Plan Note - Alfred Robison MD - 02/27/2019 4:24 PM CDT Associated Problem(s): Cervical disc disorder with radiculopathy of cervical region Ms. Villalpando his symptoms the correlate the [...] original surgery at C5-6 on the right. documented in this encounter Plan of Treatment Not on file documented as of this encounter Visit Diagnoses Diagnosis Cervical disc disorder with radiculopathy of cervical region- Primary documented in this encounter Care Teams Aircraft Loadmaster Superintendent Relationship Specialty Start Date End Date Neptali Calvo MD PCP - General Internal Medicine 09/15/18 documented as of this encounter
--- OUTSIDE RECORDS SUMMARY | 2024-08-23 23:53 | XMS_ITS | Encounter Summary ---
Author Organization [facility] Facility Care Team Providers Care Cloth Examiner Name Role Phone Neptali Calvo MD Primary Care Provider Encounter Details Date Type Department Care Team (Latest Contact Info) Description 11/16/2018 Travel Social History Tobacco Use Types Packs/Day Years Used Date Smoking Tobacco: Never Alcohol Use Standard Drinks/Week Comments Not Currently 0 (1 standard drink = 0.6 oz pur e alcohol) Sober since 2000 Comments Unknown Sex and Gender Information Value Date Recorded Sex Assigned at Not on file Legal Sex Female 6:31 PM PUTTIER Gender Identity Not on file Sexual Orientation Not on file 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
--- OUTSIDE RECORDS SUMMARY | 2024-08-23 23:53 | XMS_ITS | Encounter Summary ---
Author Organization [facility] Medical [facility] Address [address] [place] [address] Care Team Providers Care Field Auditor Name Role Phone Neptali Calvo MD Primary Care Provider Encounter Details Date Type Department Care Team (Late st Contact Info) Description 01/02/2019 Documentation [facility] [place] [address] [place] [address] Alfred Robison MD [address] 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 documented in this encounter Plan of Treatment Not on file documented as of this encounter Visit Diagnoses Not on filedocumented in this encounter Care Teams Field Auditor Relationship Specialty Start Date End Date Neptali Calvo MD PCP - General Internal Medicine 09/15/18 documented as of this encounter
--- OUTSIDE RECORDS SUMMARY | 2024-08-23 23:53 | XMS_ITS | Encounter Summary ---
Author Organization [facility] Medical [facility] Address [address] [place] [address] Care Team Providers Care Steam Station Supervisor Name Role Phone Neptali Calvo MD Primary Care Provider Encounter Details Date Type Department Care Team (Late st Contact Info) Description 12/11/2018 Orders Only [facility] [place] [address] [facility] [address] [place] [address] Alfred Robison MD [address] [facility] [address] [place] [address] Radiculopathy, cervical (Primary Dx) Social History Tobacco Use Types Packs/Day Years Used Date Smoking Tobacco: Never Alcohol Use Standard Drinks/Week Comments Not Currently 0 (1 standard drink = 0.6 oz pur e alcohol) Sober since 2000 Comments Unknown Sex and Gender Information Value Date Recorded Sex Assigned at Not on file 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 documented in this encounter Plan of Treatment Not on file documented as of this encounter Visit Diagnoses Diagnosis Radiculopathy, cervical- Primary Brachial neuritis or radiculitis nos documented in this encounter Care Teams Steam Station Supervisor Relationship Specialty Start Date End Date Neptali Calvo MD PCP - General Internal Medicine 09/15/18 documented as of this encounter
--- OUTSIDE RECORDS SUMMARY | 2024-08-23 23:53 | XMS_ITS | Encounter Summary ---
Author Organization [facility] Medical Group Address [address] [place] [address] Care Team Providers Care Power House Control Room Operator Name Role Phone Neptali Calvo MD Primary Care Provider Encounter Details Date Type Department Care Team (Late st Contact Info) Description 01/09/2019 Telephone [facility] [place] [address] [facility] [address] [place] [address] Deloris Lee NP [address] [facility] [facility] [address] [place], [place] [id number] Social History Tobacco Use Types Packs/Day Years Used Date Smoking Tobacco: Never Alcohol Use Standard Drinks/Week Comments Not Currently 0 (1 standard drink = 0.6 oz pur e alcohol) Sober since 2000 Comments Unknown Sex and Gender Information Value Date Recorded Sex Assigned at Not on file 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 Will plan on CT cervical without contrast at [facility] along with Cervical Flex/Ext Xrays. Will fax orders and have the facility call patient with an appt. Made appt to see [facility] on February 27, [address] and MRI/Xrays and discuss surgery. ----- Message from Alfred Robison MD sent at 01/09/2019 9:28 AM CDT ----- Lets get plain CT of cervical spine for now. Bring patient back to office for me to reexamine with her MRI and CT available. If no signs of C7 radic, then may benefit from C3 to C5 ACDF. ----- Message ----- From: Deloris Lee NP Sent: 01/08/2019 9:20 AM To: Alfred Robison MD Patient was recommended to have CT cervical myelogram, but she cannot tolerate being off her Citalopram for 5 days for myelogram per [facility] protocol. She questions if there is another study you could order such as CT cervical with contrast instead? Along with Flex/Extension Cervical xrays. documented in this encounter Plan of Treatment Not on file documented as of this encounter Visit Diagnoses Not on filedocumented in this encounter Care Teams Power House Control Room Operator Relationship Specialty Start Date End Date Neptali Calvo MD PCP - General Internal Medicine 09/15/18 documented as of this encounter
--- OUTSIDE RECORDS SUMMARY | 2024-08-23 23:53 | XMS_ITS | Encounter Summary ---
Author Organization [facility] Medical Group Address [address] [place] [address] Care Team Providers Care Loin Trimmer Name Role Phone Neptali Calvo MD Primary Care Provider Encounter Details Date Type Department Care Team (Late st Contact Info) Description 01/02/2019 Documentation [facility] [place] [address] [facility] [address] [place] [address] Alfred Robison MD [address] [facility] [address] [place], [place] [id number] Social History Tobacco Use Types Packs/Day Years Used Date Smoking Tobacco: Never Alcohol Use Standard Drinks/Week Comments Not Currently 0 (1 standard drink = 0.6 oz pur e alcohol) Sober since 2000 Comments Unknown Sex and Gender Information Value Date Recorded Sex Assigned at Not on file 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 documented in this encounter Plan of Treatment Not on file documented as of this encounter Visit Diagnoses Not on filedocumented in this encounter Care Teams Loin Trimmer Relationship Specialty Start Date End Date Neptali Calvo MD PCP - General Internal Medicine 09/15/18 documented as of this encounter
--- OUTSIDE RECORDS SUMMARY | 2024-08-23 23:53 | XMS_ITS | Encounter Summary ---
Author Organization [facility] Medical Group Address [address] [address] Care Team Providers Care Sprayer Hand Name Role Phone Neptali Calvo MD [...] Expiration Date Visits Re quested Visits Authorized [id number] Closed 01/09/2019 07/20/2020 1 1 * Diagnostic Imaging (Routine) - Closed Specialty Diagnoses / Procedures Referred By Contac t Referred To Contact Diagnoses Cervical disc disorder with radiculopathy of cervical region Procedures CT Cervical Spine WO Contrast Alfred Robison MD Phone: tel: fax: External Order Referral ID Status Reason Start Date Expiration Date Visits Re quested Visits Authorized [id number] Closed 01/09/2019 07/20/2020 1 1 Encounter Details Date Type Department Care Team (Late st Contact Info) Description 01/09/2019 Orders Only [facility] [place] 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 Gender Identity Not on file Sexual Orientation Not on file 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 Not on file Not on andre e documented as of this encounter Plan of Treatment Scheduled Orders Name Type Priority Associated Diagnoses Orde r Schedule CT Cervical Spine WO Contrast Imaging Schedule Routine, Read Routine (OP Routine) Cervical disc disorder with radiculopathy of cervical region Expected: 01/09/2019, Expires: 01/10/2020 documented as of this encounter Procedures Procedure [...] t documented in this encounter Visit Diagnoses Diagnosis Cervical disc disorder with radiculopathy of cervical region- Primary documented in this encounter Care Teams Sprayer Hand Relationship Specialty Start Date End Date Neptali Calvo MD PCP - General Internal Medicine 09/15/18 documented as of this encounter
--- OUTSIDE RECORDS SUMMARY | 2024-08-23 23:53 | XMS_ITS | Encounter Summary ---
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
--- OUTSIDE RECORDS SUMMARY | 2024-08-23 23:53 | XMS_ITS | Encounter Summary ---
Author Organization [facility] Medical [facility] Address [address] [place] [address] Care Team Providers Care Cutter And Presser Name Role Phone Neptali Calvo MD Primary Care Provider Reason for Visit * Reason Onset Date Comments CT Results 01/19/2019 Encounter Details Date Type Department Care Team (Late st Contact Info) Description 01/19/2019 Telephone [facility] [place] [address] [place] [address] Results Social History Tobacco Use Types Packs/Day Years Used Date Smoking Tobacco: Never Alcohol Use Standard Drinks/Week Comments Not Currently 0 (1 standard drink = 0.6 oz pur e alcohol) Sober since 2000 Comments Unknown Sex and Gender Information Value Date Recorded Sex Assigned at Not on file 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 verbalized understanding. She will be further evaluated for surgery planning at already scheduled appt on 02/27/19. ----- Message from Alfred Robison MD sent at 01/18/2019 3:44 PM CDT ----- Regarding: FW: Results Available for Review Reviewed CT of the cervical spine. This shows severe foraminal stenosis at C3-4 and C4-5 on the left. There is severe facet arthropathy and evidence of a tiny laminotomy at C3-4 on the left. Recommend C3-C5 anterior cervical decompression and fusion. ----- Message ----- From: Liya Yuan Sent: 01/18/2019 9:21 AM To: Alfred Robison MD Subject: Results Available for Review Cervical CT available for review from [facility]. Please review and provide further recommendations. Thank you. documented in this encounter Plan of Treatment Not on file documented as of this encounter Visit Diagnoses Not on filedocumented in this encounter Care Teams Cutter And Presser Relationship Specialty Start Date End Date Neptali Calvo MD PCP - General Internal Medicine 09/15/18 documented as of this encounter
--- OUTSIDE RECORDS SUMMARY | 2024-08-23 23:53 | XMS_ITS | Encounter Summary ---
Author Organization [facility] Medical [facility] Address [address] [place] [address] Care Team Providers Care Concrete Mixer Operator Helper Name Role Phone Neptali Calvo MD Primary Care Provider Encounter Details Date Type Department Care Team (Late st Contact Info) Description 03/05/2019 Telephone [facility] [place] [address] [place] [address] Deloris Lee NP [address] [facility] [address] [place], [place] [id number] Social History Tobacco Use Types Packs/Day Years Used Date Smoking Tobacco: Never Alcohol Use Standard Drinks/Week Comments Not Currently 0 (1 standard drink = 0.6 oz pur e alcohol) Sober since 2000 Comments Unknown Sex and Gender Information Value Date Recorded Sex Assigned at Not on file Legal Sex Female 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 To [facility] for C3-5 anterior cervical diskectomy and fusion with Dr. Robison. Patient to return to the office on March 12 at 11:45 a.m. for office teaching followed by pre testing at 12:15 p.m. Surgery fold her will be mailed to the patient. MRI CD here in the nurse's office. Orders placed in epic/DVT form. Patient will also be seen at 11:15 a.m. For evaluation of her lumbar spine by nurse practitioner. documented in this encounter Plan of Treatment Not on file documented as of this encounter Visit Diagnoses Not on filedocumented in this encounter Care Teams Concrete Mixer Operator Helper Relationship Specialty Start Date End Date Neptali Calvo MD PCP - General Internal Medicine 09/15/18 documented as of this encounter"
--- OUTSIDE RECORDS SUMMARY | 2024-08-23 23:53 | XMS_ITS | Encounter Summary ---
Author Organization [facility] Medical [facility] Address [address] [place] [address] Care Team Providers Care Corrugator Machine Operator Name Role Phone Neptali Calvo MD Primary Care Provider Encounter Details Date Type Department Care Team (Late st Contact Info) Description 12/11/2018 Telephone [facility] [place] [address] [facility] [address] [place] [address] Deloris Lee NP [address] [facility] [address] [place], [place] [id number] Social History Tobacco Use Types Packs/Day Years Used Date Smoking Tobacco: Never Alcohol Use Standard Drinks/Week Comments Not Currently 0 (1 standard drink = 0.6 oz pur e alcohol) Sober since 2000 Comments Unknown Sex and Gender Information Value Date Recorded Sex Assigned at Not on file 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 * Telephone Encounter - Deloris Lee NP - 12/11/2018 8:57 AM CDT Called patient with the below results and recommendations. Patient would like to proceed with CT cervical myelogram with flexion and extension cervical spine films. I will have [facility] schedule this with the patient. ----- Message from Alfred Robison MD sent at 12/07/2018 5:44 PM CDT ----- Regarding: FW: Results Available for Review I reviewed the MRI of the cervical spine. This shows a disc osteophyte complex at C6-7 with the prior fusion C5-6. There does not seem to be canal or foraminal stenosis at C4-5 were C5-6. There is mild canal stenosis at C6-7 and no significant foraminal stenosis at C6-7. There is foraminal stenosisat C3-4 on the left. There is no significant canal stenosis. The MRI does not definitely correlate with her clinical examination. As such I would recommend a CT myelogram of the cervical spine and flexion-extension cervical spine films to look for any instability. ----- Message ----- From: Liya Yuan Sent: 12/06/2018 3:51 PM To: Alfred Robison MD Subject: Results Available for Review Cervical MRI & CD available for review. We were unable to obtain any images from [facility] [place]. Please provide further recommendations and plan of care for the patient. Thank you. documented in this encounter Plan of Treatment Not on file documented as of this encounter Visit Diagnoses Not on filedocumented in this encounter Care Teams Corrugator Machine Operator Relationship Specialty Start Date End Date Neptali Calov MD PCP - General Internal Medicine 09/15/18 documented as of this encounter
--- OUTSIDE RECORDS SUMMARY | 2024-08-23 23:53 | XMS_ITS | Encounter Summary ---
Author Organization [facility] Medical Group Address [address] [place] [address] Care Team Providers Care Ship Scraper Name Role Phone Neptali Calvo MD Primary Care Provider Encounter Details Date Type Department Care Team (Late st Contact Info) Description 11/28/2018 Orders Only [facility] [place] [address] [facility] [address] [place] [address] Alfred Robison MD [address] [facility] [address] [place] [address] Spinal stenosis in cervical region (Primary Dx) Social History Tobacco Use Types Packs/Day Years Used Date Smoking Tobacco: Never Alcohol Use Standard Drinks/Week Comments Not Currently 0 (1 standard drink = 0.6 oz pur e alcohol) Sober since 2000 Comments Unknown Sex and Gender Information Value Date Recorded Sex Assigned at Not on file 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 Per Dr. Robiosn order a new MRI-cervical. Called Edwina for auth #[id number] for Cervical MRI without cotrast. [facility] appt. Pt is aware. documented in this encounter Plan of Treatment Not on file documented as of this encounter Visit Diagnoses Diagnosis Spinal stenosis in cervical region- Primary documented in this encounter Care Teams Ship Scraper Relationship Specialty Start Date End Date Neptali Calvo MD PCP - General Internal Medicine 09/15/18 documented as of this encounter
--- OUTSIDE RECORDS SUMMARY | 2024-08-23 23:53 | XMS_ITS | Encounter Summary ---
Author Organization [facility] Medical [facility] Address [address] [facility] [address] [place] [address] Care Team Providers Care Injection Molding Supervisor Name Role Phone Neptali Calvo MD Primary Care Provider Reason for Referral * Diagnostic Imaging (Routine) - Closed Specialty Diagnoses / Procedures Referred By Contac t Referred To Contact Radiology Procedures MRI Cervical Spine WO Contrast [facility] [place] [address] [facility] [address] [place] [phone] Phone: tel: fax: Referral ID Status Reason Start Date Expiration Date Visits Re quested Visits Authorized [id number] Closed 11/20/2018 05/31/2020 1 1 Encounter Details Date Type Department Care Team (Late st Contact Info) Description 11/20/2018 Orders Only [facility] [place] [address] [facility] [address] [place] [address] Gadiel Haley MD [address] [place], [place] [id number] Social History Tobacco Use Types Packs/Day Years Used Date Smoking Tobacco: Never Alcohol Use Standard Drinks/Week Comments Not Currently 0 (1 standard drink = 0.6 oz pur e alcohol) Sober since 2000 Comments Unknown Sex and Gender Information Value Date Recorded Sex Assigned at Not on file Legal Sex Female 6:31 PM CUT TO 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 Gender Identity Not on file Sexual Orientation Not on file 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 Not on file Not on andre e documented as of this encounter Plan of Treatment Not on file documented as of this encounter Procedures Procedure Name Priority Date/Time Associated Diagnosis Comments MRI CERVICAL SPINE WO CONTRAST Schedule Routine, Read Routine (OP Routine) 12/22/2017 documented in this encounter Results * MRI Cervical Spine WO Contrast (12/22/2017) Anatomical Region Laterality Modality Spine N/A Magnetic Resonan ce Historical Provider MD MANCIA MRI PROCEDURES Final Result documented in this encounter Visit Diagnoses Not on filedocumented in this encounter Care Teams Injection Molding Supervisor Relationship Specialty Start Date End Date Neptali Calvo MD PCP - General Internal Medicine 09/15/18 documented as of this encounter
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
--- OUTSIDE RECORDS SUMMARY | 2024-08-23 23:53 | XMS_ITS | Encounter Summary ---
Author Organization [facility] Address [address] [place] [address] Care Team Providers Care Truant Officer Name Role Phone Neptali Calvo MD Primary Care Provider Encounter Details Date Type Department Care Team (Late st Contact Info) Description 03/05/2019 Orders Only [facility] [address] [place] [address] Deloris Lee, DISABILITY CASE MANAGER [address] [place] [address] Cervical disc disorder with radiculopathy of cervical region (Primary Dx) Social History Tobacco Use Types Packs/Day Years Used Date Smoking Tobacco: Never Alcohol Use Standard Drinks/Week Comments Not Currently 0 (1 standard drink = 0.6 oz pur e alcohol) Sober since 2000 Comments Unknown Sex and Gender Information Value Date Recorded Sex Assigned at Not on file Legal Sex 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 Gender Identity Not on file Sexual Orientation Not on file 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
--- OUTSIDE RECORDS SUMMARY | 2024-08-23 23:54 | XMS_ITS | Continuity of Care Document ---
Author Organization [facility] Address [address] [place] [address] Phone Care Team Providers Care Sole Inker Name Role Phone Neptali Felix MD, FACS Unavailable Unavailab le Allergies, Adverse Reactions, Alerts Substance Reaction Status Criticality No Known Allergies Active No Inform ation Medications Medication Instructions Dosage Effective Dates (start - stop) Status Comments LidaFlex 4 % topical patch - Active ibuprofen 600 mg tablet take 1 tablet by oral route 3 times every day with food 600 MG - Active citalopram 20 mg tablet take 1 tablet by oral route every day 20 MG - Active rosuvastatin 20 mg tablet take 1 tablet by oral route every day 20 MG - Active levothyroxine 25 mcg capsule take 1 capsule by oral route every day 25 MCG - Active multivitamin tablet take 1 tablet by ora l route every day with food - Active Advance Directives Directive Yes / No Effective Date File Name No Information Encounters Encounter Description Practice Location Reason(s) For Visit Diagnoses Date Provider Providers Copied on Encounter [facility], [address] [place], [place], [id number], [place] tel:[phone] [address] [place] No Information Isidro Gunderson. [address] [facility] [place], [address], [place], [place], [id number], [place]. tel:[phone] Referring Provider: Aldo Broussard OD, [address] [place] [address], [address]. tel:[phone] Family History Family Member Type Diagnosis Age At Onset No Information Payers Payer name Insurance type Covered constitution party ID Authoriza tikira(s) No Information Social History Type Description Quantity Date Captured Comments Alcohol Use Details No Caffeine Use Details Tobacco Use Status Ex-cigarette smoker 024 Smoking Status Former smoker Smoking Tobacco Use Details Cigarette: Age Started: 11, Age Stopped: 38, Years Used 25 Cigarette: No Details Available Sex Female Chief Complaint And Reason For Visit No Information Reason For Referral Reason For Referral No Information Plan Of Treatment Date Type Action Status Goal Tobacco cessation counseling completed Appointment Kaylah Villalpando [facility] History Of Present Illness Encounter Date Complaint History Of Prese nt Illness No Information Functional Status Date Functional Assessmen t No Information Instructions Date Instruction Additional Infor mation No Information Assessments Type Assessment Date No Information Patient Care Teams Name Effective Dates (start - stop) Status Members No Information
== END 2024-08-16 09:24 | disposition home or self-care (01) ==
PROVIDERS: PCP Family Medicine; Visit Provider Student in an Organized Health Care Education/Training Program
DX: M47.816 Spondylosis without myelopathy or radiculopathy, lumbar region (principal); M47.817 Spondylosis without myelopathy or radiculopathy, lumbosacral region; R29.898 Other symptoms and signs involving the musculoskeletal system
CPT/HCPCS: 72148

== ENCOUNTER 2024-08-20 08:22 | Outpatient (CLI) | payer MEDICARE, SELFPAY ==
--- NOTE | 2024-08-20 11:15 | NEURO_ITS ---
Impression: # Complains of pain in wrist/elbow. Not diabetic. ? # Normal Nerve Conduction Study; No Carpal Tunnel Syndrome or ulnar neuropathy. ? # Normal needle/EMG exam. ? # Clinical correlation recommended. Nerve Conduction Studies Anti Sensory Summary Table ?Stim Site NR Peak (ms) P-T Amp (?V) Site1 Site2 Delta-P (ms) Dist (cm) Deny (m/s) Left Median Anti Sensory (2-3nd Digit) Wrist ? 3.6 65.7 Wrist 2-3nd Digit 3.6 14.0 39 Wrist ? 3.5 71.5 Wrist 2-3nd Digit 3.6 14.0 39 Right Median Anti Sensory (2-3nd Digit) Wrist ? 3.2 30.1 Wrist 2-3nd Digit 3.2 14.0 44 Wrist ? 3.3 56.0 Wrist 2-3nd Digit 3.2 14.0 44 Left Radial Anti Sensory (Base 1st Digit) Wrist ? 1.8 37.1 Wrist Base 1st Digit 1.8 0.0 Right Radial Anti Sensory (Base 1st Digit) Wrist ? 1.9 15.0 Wrist Base 1st Digit 1.9 0.0 Left Ulnar Anti Sensory (5th Digit) Wrist ? 2.6 56.4 Wrist 5th Digit 2.6 14.0 54 Right Ulnar Anti Sensory (5th Digit) Wrist ? 2.3 56.2 Wrist 5th Digit 2.3 14.0 61 Motor Summary Table ?Stim Site NR Onset (ms) O-P Amp (mV) Site1 Site2 Delta-0 (ms) Dist (cm) Deny (m/s) Left Median Motor (Abd Poll Brev) Wrist ? 3.1 1.3 Elbow Wrist 6.7 26.0 39 Elbow ? 9.8 1.6 Left Median Motor Run #2 (Abd Poll Brev) Wrist ? 3.3 2.0 Elbow Wrist 4.9 28.0 57 Elbow ? 8.2 2.0 Right Median Motor (Abd Poll Brev) Wrist ? 3.0 6.7 Elbow Wrist 4.8 27.0 56 Elbow ? 7.8 5.0 Left Ulnar Motor (Abd Dig Minimi) Wrist ? 2.2 6.5 A Elbow Wrist 4.9 29.0 59 A Elbow ? 7.1 4.8 Right Ulnar Motor (Abd Dig Minimi) Wrist ? 2.5 4.7 A Elbow Wrist 4.8 28.0 58 A Elbow ? 7.3 4.3 F Wave Studies ?NR F-Lat (ms) L-R F-Lat (ms) Left Median (Mrkrs) (Abd Poll Brev) ? 27.94 0.36 Right Median (Mrkrs) (Abd Poll Brev) ? 27.58 0.36 Left Ulnar (Mrkrs) (Abd Dig Min) ? 26.59 0.05 Right Ulnar (Mrkrs) (Abd Dig Min) ? 26.64 0.05 EMG ?Side Muscle Nerve Root Ins Act Fibs Amp Dur Recrt Comment Right 1stDorInt Ulnar C8-T1 Nml Nml Nml Nml Nml Right Ext Indicis Radial (Post Int) C7-8 Nml Nml Nml Nml Nml Right Ext Digitorum Radial (Post Int) C7-8 Nml Nml Nml Nml Nml Right BrachioRad Radial C5-6 Nml Nml Nml Nml Nml Right PronatorTeres Median C6-7 Nml Nml Nml Nml Nml Right Abd Poll Brev Median C8-T1 Nml Nml Nml Nml Nml Right ABD Dig Min Ulnar C8-T1 Nml Nml Nml Nml Nml Left 1stDorInt Ulnar C8-T1 Nml Nml Nml Nml Nml Left Ext Indicis Radial (Post Int) C7-8 Nml Nml Nml Nml Nml Left Ext Digitorum Radial (Post Int) C7-8 Nml Nml Nml Nml Nml Left BrachioRad Radial C5-6 Nml Nml Nml Nml Nml Left PronatorTeres Median C6-7 Nml Nml Nml Nml Nml Left Abd Poll Brev Median C8-T1 Nml Nml Nml Nml Nml Left ABD Dig Min Ulnar C8-T1 Nml Nml Nml Nml Nml MTDD
--- OUTSIDE RECORDS SUMMARY | 2024-08-27 13:18 | XMS_ITS | Encounter Summary ---
Author Organization [facility] Address [address] [place] [address]. [place], [place] [address] [place] [address] Care Team Providers Care Statistical Modeler Name Role Phone Unavailable Primary Care Provider Unavailabl e Encounter Details Date Type Department Care Team (Late st Contact Info) Description 06/26/2001 [place] [address] , Generic Conversion, Social History Tobacco Use [...]
--- OUTSIDE RECORDS SUMMARY | 2024-08-27 13:18 | XMS_ITS | Encounter Summary ---
Author Organization [facility] Address [address] [place] [address]. [place] [address] Care Team Providers Care Electrical Maintenance Mechanic Name Role Phone None, Provider MD Primary Care Provider Unavaila ble Reason for Referral * Surgical (Routine) - Closed Specialty Diagnoses / Procedures Referred By Contac t Referred To Contact Diagnoses SI (sacroiliac) joint inflammation (CMS/HCC) Procedures Case request operating room: INJECTION SI JOINT Anjelica Regan MD [address] [facility] [address] [place] [address] Phone: tel: fax: Referral ID Status Reason Start Date Expiration Date Visits Re quested Visits Authorized [id number] Closed 08/25/2023 08/25/2024 1 1 RIAL ENGINEER Reason for Visit * Consultation/Treatment (Routine) - Closed Specialty Diagnoses / Procedures Referred By Contact Referred To Contact PAIN MANAGEMENT / [facility] Diagnoses Low back pain Salome Abarca MD [address] [place] [address] Phone: tel: fax: Kacie Osei APNP Phone: tel: fax: Referral ID Status Reason Start Date Expiration Date Visits Requested Visits Authorized [id number] Closed Pain Management 08/12/2023 08/12/2024 10 10 Encounter Details Date Type Department Care Team (Latest Contact Info) Description 08/25/2023 11:24 AM MATERIAL ENGINEER - 08/25/2023 11:59 PM MATERIAL ENGINEER Hospital Encounter [facility] [place] [address] [id number] Anjelica Regan MD [address] [facility] [address] [place] [address] Discharge Disposition: Home or Self Care (Routine [...] Comments Blood Pressure 148/73 08/25/2023 12:08 PM MATERIAL ENGINEER Pulse 75 08/25/2023 11:58 AM MATERIAL ENGINEER Temperature 36.8 ??C (98.2 ??F) 08/25/2023 11:58 AM C Respiratory Rate 16 08/25/2023 11:58 AM MATERIAL ENGINEER Oxygen Saturation - - Inhaled Oxygen Concentration - - Weight 58.2 kg (128 lb 6.4 oz) 08/25/2023 11:58 AM MATERIAL ENGINEER Height 157.5 cm (5' 2 ) 08/25/2023 11:58 AM MATERIAL ENGINEER Body Mass Index 23.48 08/25/2023 11:58 AM MATERIAL ENGINEER documented in this encounter Medications at Time [...] ablation in [address] [place] in [facility]. Prior to that she was seen at [facility] she underwent multiple types of injections 5 [...] include physicaltherapy, Occupational Therapy, cold therapy, surgery, healthcare business analyst, cortisone, nerve blocks, TENS unit, trigger point, epidurals patient has tried hydrocodone tramadol muscle relaxants and meloxicam in the past for pain. Patient reports in 2022 she was in [place] had severe pain from her back timing on her right leg and underwent a outpatient surgery by orthopedic doctor when she was in [facility] she has a history of cervical fusion in 2018 and in 2004. 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 MRI lumbar [...] face to face review of medical records. RIAL ENGINEER documented in this encounter Plan of Treatment Not on file documented as of this encounter Visit Diagnoses Diagnosis SI (sacroiliac) joint inflammation (CMS/HCC)- Primary Sacroiliitis, not elsewhere classified documented in this encounter Care Teams Electrical Maintenance Mechanic Relationship Specialty Start Date End Date None, Provider, PCP - General UNKNOWN PHYSICIAN SPECIALTY 08/25/23 documented as of this encounter
--- OUTSIDE RECORDS SUMMARY | 2024-08-27 13:18 | XMS_ITS | Clinical Summary ---
Author Organization [facility] Address [address] [place] [address]. [place], [place] [address] [place] [address] Care Team Providers Care Creosoting Engineer Name Role Phone Non-Staff, Provider Primary Care [...] Comments Blood Pressure 142/80 08/29/2023 8:41 AM DIRECTOR OF VIDEO ANALYTICS Pulse 69 08/29/2023 8:41 AM DIRECTOR OF VIDEO ANALYTICS Temperature 36.5 ??C (97.7 ??F) 08/29/2023 7:49 AM CS T Respiratory Rate 18 08/29/2023 8:41 AM DIRECTOR OF VIDEO ANALYTICS Oxygen Saturation 100% 08/29/2023 8:41 AM DIRECTOR OF VIDEO ANALYTICS Inhaled Oxygen Concentration - - Weight 58.2 kg (128 lb 6.4 oz) 08/29/2023 7:49 A M DIRECTOR OF VIDEO ANALYTICS Height 157.5 cm (5' 2 ) 08/29/2023 7:49 AM DIRECTOR OF VIDEO ANALYTICS Body Mass Index 23.48 08/29/2023 7:49 AM DIRECTOR OF VIDEO ANALYTICS Plan of Treatment Health Maintenance Due Date [...] 10/26/2016 Meningococcal Vaccine Aged Out No wilmer daniel eligible based on patient's age to complete this topic RSV Immunizations Under 20 Months Aged Out No longer eligible based on patient's age to complete this topic Insurance MEDICARE [facility] Care Teams Creosoting Engineer Relationship Specialty Start Date End Date Non-Staff, Provider PCP - General UNKNOWN PHYSICIAN SPECIALTY 08/29/23
--- OUTSIDE RECORDS SUMMARY | 2024-08-27 13:18 | XMS_ITS | Encounter Summary ---
Author Organization [facility] Address [address] [place] [address]. [place], [place] [address] [place] [address] Care Team Providers Care Grease Press Helper Name Role Phone Unavailable Primary Care Provider Unavailabl e Encounter Details Date Type Department Care Team (Late st Contact Info) Description 06/19/2001 [place] [address] , Generic Conversion, Social History Tobacco Use [...]
--- OUTSIDE RECORDS SUMMARY | 2024-08-27 13:18 | XMS_ITS | Encounter Summary ---
Author Organization [facility] Address [address] [place] [address]. [place], [place] [id number] [place] [address] Care Team Providers Care Guest Experience Captain Name Role Phone Non-Staff, Provider Primary Care Provider Miranda chawla Reason for Visit * Auth/Cert (Routine) Specialty Diagnoses / Procedures Referred By Contac t Referred To Contact Diagnoses SI (sacroiliac) joint inflammation (CMS/HCC) si Procedures INJECTION SI JOINT?? Gisselle Regan MD Three [facility] [place] [facility] [address] [place] [address] Phone: tel: fax: Referral ID Status Reason Start Date Expiration Date Visits Re quested Visits Authorized [id number] 1 1 Encounter Details Date Type Department Care Team (Latest Contact Info) Description 08/29/2023 7:37 AM SOFTWARE TESTER - 08/29/2023 8:46 AM [facility] Encounter [facility] Interventional Pain Management [place], [place] [address] [id number] Gisselle Regan MD Three [facility] [place] [facility] [address] [place] [address] [phone] Discharge Disposition: Home or Self Care (Routine [...] Comments Blood Pressure 142/80 08/29/2023 8:41 AM SOFTWARE TESTER Pulse 69 08/29/2023 8:41 AM SOFTWARE TESTER Temperature 36.5 ??C (97.7 ??F) 08/29/2023 7:49 AM CS T Respiratory Rate 18 08/29/2023 8:41 AM SOFTWARE TESTER Oxygen Saturation 100% 08/29/2023 8:41 AM SOFTWARE TESTER Inhaled Oxygen Concentration - - Weight 58.2 kg (128 lb 6.4 oz) 08/29/2023 7:49 A M SOFTWARE TESTER Height 157.5 cm (5' 2 ) 08/29/2023 7:49 AM SOFTWARE TESTER Body Mass Index 23.48 08/29/2023 7:49 AM SOFTWARE TESTER documented in this encounter Discharge Instructions * Discharge Instructions* Ayleen Garcia RN - 08/29/2023 7:59 AM SOFTWARE TESTER You received a Sacroiliac Joint Injection. Insurance guidelines allow these to be done every 3 months. To receive another injection you must report your percentage of relief to us in 10 weeks. Please call [phone] ext [phone] option 4. You may need [...] information your next treatment could be delayed. [place] Interventional Pain Management Discharge Instructions WHAT [...] DOCTOR AND HOW TO REACH US: Call [phone] ext. [phone] for scheduling, insurance questions or speak with [...] GO TO THE EMERGENCY ROOM IMMEDIATELY! . WARE TESTER documented in this encounter Medications at Time [...] were discussed with the patient and/or family/personal aircraft sales representative. Questions were answered and the patient/family/personal aircraft sales representative verbalized understanding and desires to proceed. Previous Adverse Experience with Sedation, Analgesia, or Anesthesia? No Risk benefits and alternate treatments were discussed. Signed: GISSELLE REGAN MD 8:35 AM WARE TESTER Source Note - Gisselle Regan MD - 08/25/2023 12:00 PM SOFTWARE TESTER Admission Note With PreProc Assess CC: Low back pain HPI: 63-year-old female seen today as a new patient patient is a referral from Dr. Coleen Wood for evaluation of chronic pain. Patient has been seen at other pain clinics most recently she underwent a L4-5 ablation [address] Washington in [facility]. Prior to that she was seen at [facility] she underwent multiple types of [...] include physicaltherapy, Occupational Therapy, cold therapy, surgery, certified social workers in health care, cortisone, nerve blocks, TENS unit, trigger point, epidurals patient has tried hydrocodone tramadol muscle relaxants and meloxicam in the past for pain. Patient reports in 2022 she was in [place] had severe pain from her back timing on her right leg and underwent a outpatient surgery by orthopedic doctor when she was in [facility] she has a history of cervical fusion in 2018 and in 2004. 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 MRI lumbar [...] face to face review of medical records. WARE TESTER documented in this encounter OR Notes * [...] IN STABLE CONDITION WITH APPROPRIATE POST-PROCEDURE INSTRUCTIONS. WARE TESTER documented in this encounter Plan of Treatment Not on file documented as of this encounter Procedures Procedure Name Priority Date/Time Associated Diagnosis Comments INJECTION SI JOINT?? 08/29/2023 8:31 AM SOFTWARE TESTER SI (sacroiliac) joint inflammation XR PAIN CLINIC C-ARM Today 08/29/2023 8:29 AM SOFTWARE TESTER documented in this encounter Results * XR PAIN CLINIC C-ARM (08/29/2023 8:29 AM SOFTWARE TESTER) Narrative Radiology, Technologist - 08/29/2023 8:29 AM SOFTWARE TESTER This report does not contain a radiologist's [...] Tue08/29/23 at 0815 Given 08/29/2023 7:55 AM SOFTWARE TESTER 10 mg diazePAM (VALIUM) tablet 5 mg 5 mg, Oral, Once as needed, Anxiety, 1 dose, Starting on Tue08/29/23 at 0747, Until Tue08/29/23 at 1046, Pre-Op documented in this encounter Active and Recently Administered Medications Times are shown in SOFTWARE TESTER. Scheduled Medication Order 08/27/2023 08/28/2023 08/29/2023 diazePAM [...] MD) documented in this encounter Care Teams Guest Experience Captain Relationship Specialty Start Date End Date Non-Staff, Provider PCP - General UNKNOWN PHYSICIAN SPECIALTY 08/29/23 documented as of this encounter
--- OUTSIDE RECORDS SUMMARY | 2024-08-27 13:18 | XMS_ITS | Encounter Summary ---
Author Organization [facility] Address [address] [place] [address]. [place] [address] Care Team Providers Care Chief Diversity Officer Name Role Phone None, Provider Primary [...] on filedocumented in this encounter Care Teams Chief Diversity Officer Relationship Specialty Start Date End Date None, Provider, PCP - General UNKNOWN PHYSICIAN SPECIALTY 08/25/23 documented as of this encounter
--- OUTSIDE RECORDS SUMMARY | 2024-08-27 13:18 | XMS_ITS | Encounter Summary ---
Author Organization [facility] Address [address] [place] [address]. [place] [address] Care Team Providers Care Risk Professional Name Role Phone Non-Staff, Provider Primary Care [...] on filedocumented in this encounter Care Teams Risk Professional Relationship Specialty Start Date End Date Non-Staff, Provider PCP - General UNKNOWN PHYSICIAN SPECIALTY 08/29/23 documented as of this encounter
--- OUTSIDE RECORDS SUMMARY | 2024-08-27 13:18 | XMS_ITS | Patient Health Record ---
Author Organization [facility] Program Director/[facility] Address [address] [place] [address] [address] [place] [address] Support Name Relationship Address Phone Kaylah Villalpando Guarantor Unknown [phone] Reason For Referral No Information Plan Of Treatment No Information Insurance Providers Payer Name Payer Address Payer Phone Subscriber Number Group Number Insured Name Patient Relationship to Insured Coverage Start Date Coverage End Date All [employer] [address] [address] [place], [place] [id number] Kaylah Antonio Self - patient is the insured 9
--- OUTSIDE RECORDS SUMMARY | 2024-08-27 13:18 | XMS_ITS | Encounter Summary ---
Author Organization [facility] Address [address] [place] [address]. [place], [place] [id number] [place] [address] Care Team Providers Care Artificial Breeding Technician Name Role Phone Non-Staff, Provider Primary Care Provider Miranda chawla Reason for Visit * Auth/Cert (Routine) Specialty Diagnoses / Procedures Referred By Contac t Referred To Contact Diagnoses SI (sacroiliac) joint inflammation (CMS/HCC) si Procedures INJECTION SI JOINT?? Gisselle Regan MD [place] [facility] [address] [place] [address] Phone: tel: fax: Referral ID Status Reason Start Date Expiration Date Visits Re quested Visits Authorized [id number] 1 1 Encounter Details Date Type Department Care Team (Late st Contact Info) Description 08/29/2023 8:20 AM BUSINESS AGENT - 08/29/2023 8:40 AM BUSINESS AGENT Surgery [facility] Interventional Pain Management Center [place], [place] [address] [id number] Gisselle Regan MD Three [facility] [address] [place] [id number] INJECTION SI JOINT Surgery Details Date/Time Status [...] Comments Blood Pressure 138/64 08/29/2023 8:39 AM BUSINESS AGENT Pulse 66 08/29/2023 8:39 AM BUSINESS AGENT Temperature 36.5 ??C (97.7 ??F) 08/29/2023 7:49 AM CS T Respiratory Rate 18 08/29/2023 8:39 AM BUSINESS AGENT Oxygen Saturation 99% 08/29/2023 8:39 AM BUSINESS AGENT Inhaled Oxygen Concentration - - Weight 58.2 kg (128 lb 6.4 oz) 08/29/2023 7:49 A M BUSINESS AGENT Height 157.5 cm (5' 2 ) 08/29/2023 7:49 AM BUSINESS AGENT Body Mass Index 23.48 08/29/2023 7:49 AM BUSINESS AGENT documented in this encounter Discharge Instructions * Discharge Instructions* Ayleen Garcia, RN - 08/29/2023 7:59 AM BUSINESS AGENT You received a Sacroiliac Joint Injection. Insurance guidelines allow these to be done every 3 months. To receive another injection you must report your percentage of relief to us in 10 weeks. Please call [phone] ext [phone] option 4. You may need to leave [...] information your next treatment could be delayed. [place] Interventional Pain Management Discharge Instructions WHAT TO [...] DOCTOR AND HOW TO REACH US: Call [phone] ext. [phone] for scheduling, insurance questions or speak with [...] GO TO THE EMERGENCY ROOM IMMEDIATELY! . NESS AGENT documented in this encounter Medications at Time [...] were discussed with the patient and/or family/personal scheduling representative. Questions were answered and the patient/family/personal scheduling representative verbalized understanding and desires to proceed. Previous Adverse Experience with Sedation, Analgesia, or Anesthesia? No Risk benefits and alternate treatments were discussed. Signed: GISSELLE REGAN MD 8:35 AM NESS AGENT Source Note - Gisselle Regan MD - 08/25/2023 12:00 PM BUSINESS AGENT Admission Note With PreProc Assess CC: Low back pain HPI: 63-year-old female seen today as a new patient patient is a referral from Dr. Coleen Wood for evaluation of chronic pain. Patient has been seen at other pain clinics most recently she underwent a L4-5 ablation in [address] Washington in [facility]. Prior to that she was seen at [facility] she underwent multiple types of injections 5 [...] include physicaltherapy, Occupational Therapy, cold therapy, surgery, career orientation teacher, cortisone, nerve blocks, TENS unit, trigger point, epidurals patient has tried hydrocodone tramadol muscle relaxants and meloxicam in the past for pain. Patient reports in 2022 she was in [place] had severe pain from her back timing on her right leg and underwent a outpatient surgery by orthopedic doctor when she was in [facility] she has a history of cervical fusion in 2018 and in 2005. 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 MRI lumbar [...] face to face review of medical records. NESS AGENT documented in this encounter OR Notes * [...] IN STABLE CONDITION WITH APPROPRIATE POST-PROCEDURE INSTRUCTIONS. NESS AGENT documented in this encounter Plan of Treatment Not on file documented as of this encounter Procedures Procedure Name Priority Date/Time Associated Diagnosis Comments INJECTION SI JOINT?? 08/29/2023 8:31 AM BUSINESS AGENT SI (sacroiliac) joint inflammation XR PAIN CLINIC C-ARM Today 08/29/2023 8:29 AM BUSINESS AGENT documented in this encounter Results * XR PAIN CLINIC C-ARM (08/29/2023 8:29 AM BUSINESS AGENT) Narrative Radiology, Technologist - 08/29/2023 8:29 AM BUSINESS AGENT This report does not contain a radiologist's [...] at 0842, Intra-Op Given 08/29/2023 8:40 AM BUSINESS AGENT 2 mLs chlorhexidine (PERIDEX) 0.12 % solution [...] Tue08/29/23 at 0815 Given 08/29/2023 7:55 AM BUSINESS AGENT 10 mg diazePAM (VALIUM) tablet 5 mg 5 mg, Oral, Once as needed, Anxiety, 1 dose, Starting on Tue08/29/23 at 0747, Until Tue08/29/23 at 1046, Pre-Op iopamidol (ISOVUE-M 300) 61 % injection As needed, Starting on Tue08/29/23 at 0840, Until Tue08/29/23 at 0842, Intra-Op Given 08/29/2023 8:40 AM BUSINESS AGENT 5 mLs lidocaine (PF) (XYLOCAINE) 1 % injection As needed, Starting on Tue08/29/23 at 0840, Until Tue08/29/23 at 0842, Intra-Op Given 08/29/2023 8:40 AM BUSINESS AGENT 2 mLs triamcinolone acetonide (KENALOG-40) injection As needed, Starting on Tue08/29/23 at 0841, Until Tue08/29/23 at 0842, Intra-Op Given 08/29/2023 8:41 AM BUSINESS AGENT 40 mg documented in this encounter Active and Recently Administered Medications Times are shown in BUSINESS AGENT. Scheduled Medication Order 08/27/2023 08/28/2023 08/29/2023 diazePAM [...] MD) documented in this encounter Care Teams Artificial Breeding Technician Relationship Specialty Start Date End Date Non-Staff, Provider PCP - General UNKNOWN PHYSICIAN SPECIALTY 08/29/23 documented as of this encounter
--- OUTSIDE RECORDS SUMMARY | 2024-08-27 13:19 | XMS_ITS | Encounter Summary ---
Author Organization 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
--- OUTSIDE RECORDS SUMMARY | 2024-08-27 13:19 | XMS_ITS | Encounter Summary ---
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
--- OUTSIDE RECORDS SUMMARY | 2024-08-27 13:19 | XMS_ITS | Clinical Summary ---
Author Organization [facility] Address [address] [place] [address] Care Team Providers Care Storage Administrator Name Role Phone Neptali Calvo MD Primary [...] 05/15/2019 Assessment & Plan (09/20/2019 4:46 PM OXYGEN EQUIPMENT PREPARER): Ms. 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 The current imaging does [...] surgery - bone spur - [facility] CERVICAL FUSION 03/22/2019 - 04/21/2019 C3-5 ACDF (Ricki) CATARACT EXTRACTION 01/20/2015 FRACTURE SURGERY 01/17/1972 SPINE SURGERY 02/08/2015 Medical History Medical History Date Comments High cholesterol History of ETOH abuse Sober 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 Not on file Not [...] 06/13/2018, 09/17/2013 Medical Devices Implanted Type Area Motor And Chassis Inspector Device Identifier Shelf Expiration Date Model / Serial / Lot [employer] 3d Cervical [id number] 7 Deg - Sn/A - [id number] Implanted:Qty: 1 on 03/30/2019 by Alfred Robison MD at [facility] N/A: Spine Cervical Core Link [id number] 11/29/2023 [id number] / N/A / [id number] [employer] 700-025 I Factor Allograft Putty Syringe Graft 2.5cc Bone - Sn/A - [id number] Implanted:Qty: 1 on 03/30/2019 by Alfred Robison MD at [facility] N/A: Spine Cervical [employer] 12/19/2021 700-025 / N/A / [id number] [employer] 3d Cervical [id number] 7 Deg - [id number] Implanted:Qty: 1 on 03/30/2019 by Alfred Robison MD at [facility] N/A: Spine Cervical Core Link [id number] 11/29/2023 [id number] 08 / / [id number] Plate Bone Anodyne L28 Mm Spine Cervical Anterior Level 2 Nonsterile - Sn/A - [id number] Implanted:Qty: 1 on 03/30/2019 by Alfred Robison MD at [facility] N/A: Spine Cervical Core Link [id number] / N/A / Core Link Anodyne 4mm 12mm Variable Angle Self Tap Spine Cervical Screw - Sn/A - [id number] Implanted:Qty: 6 on 03/30/2019 by Alfred Robison MD at [facility] N/A: Spine Cervical Core Link / N/A / Insurance [facility] HMO/PPO Address: [address] [phone] Advance Directives For more information, please contact: [phone] * Full Code (Latest Code Status on File) Date Activated Date Inactivated Comments 03/30/2019 11:40 AM 03/31/2019 5:53 PM Care Teams Storage Administrator Relationship Specialty Start Date End Date Neptali Calvo MD [phone] (work) PCP - General Internal Medicine 09/15/18
--- OUTSIDE RECORDS SUMMARY | 2024-08-27 13:19 | XMS_ITS | Encounter Summary ---
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 WEB CRAWLER Gender Identity Not on file Sexual Orientation Not on file 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 Not on file Not [...] unspecified Arthrodesis status - ARTHRODESIS STATUS 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 Goal Start Date End Date [facility] 2 03/30/19 -- Goal Details: Pt will perform sit to stand from various surface heights independently in order to progress toward PLOF and return home safely. Goal Start Date End Date [facility] 3 03/30/19 -- Goal Details: Pt will ambulate >150' independently in order to progress toward PLOF and return home safely. Goal Start Date End Date [facility] 4 03/30/19 -- Goal Details: Pt will negotiate 2 stairs with no hand railing and 8 stairs with 1 hand railing withmodified independence in order to progress toward PLOF and return home safely. Goal Start Date End Date [facility] 5 03/30/19 -- Goal Details: Pt will perform vehicle transfer independently in order to progress toward PLOF and return home safely. Goal Start Date End Date [facility] 1 03/30/19 -- Goal Details: Pt will successfully recall 3/3 cervical precautions and don/doff soft cervical collar independently in order to return home safely. 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 Goal Start Date End Date [facility] 2 03/30/19 -- Goal Details: Pt will perform sit to stand from various surface heights independently in order to progress toward PLOF and return home safely. Goal Start Date End Date [facility] 3 03/30/19 -- Goal Details: Pt will ambulate >150' independently in order to progress toward PLOF and return home safely. Goal Start Date End Date [facility] 4 03/30/19 -- Goal Details: Pt will negotiate 2 stairs with no hand railing and 8 stairs with 1 hand railing withmodified independence in order to progress toward PLOF and return home safely. Goal Start Date End Date [facility] 5 03/30/19 -- Goal Details: Pt will perform vehicle transfer independently in order to progress toward PLOF and return home safely. Goal Start Date End Date [facility] 1 03/30/19 -- Goal Details: [...] surgery - bone spur - [facility] [place] ??? CERVICAL FUSION 2004 C5-6 ACDF(Dr. Lu) [...] Medication protocol when under care of a BLOCK SETTER GYPSUM Planned anesthesia: General Team communication plan: oral ET tube Induction: Induction: intravenous. Postoperative Plan: Postoperative administration opioids intended. No postoperative mechanical ventilation intended. Patient's planned disposition post procedure is Floor. Informed Consent: Discussed plan with BLOCK SETTER GYPSUM. Anesthesia plan and risks discussed with patient. [...] surgery - bone spur - [facility] [place] ??? CERVICAL FUSION 2004 C5-6 ACDF(Dr. Lu) [...] Medication protocol when under care of a BLOCK SETTER GYPSUM Planned anesthesia: General Team communication plan: oral ET tube Induction: Induction: intravenous. Postoperative Plan: Postoperative administration opioids intended. No postoperative mechanical ventilation intended. Patient's planned disposition post procedure is Floor. Informed Consent: Discussed plan with BLOCK SETTER GYPSUM. Anesthesia plan and risks discussed with patient. [...] Dr. Robison. 8. Use of I-Factor bone sword swallower, Dr. Robison. 9. Use of operative microscope [...] onto a Skytron bed with a horseshoe screwhead stoner and polisher. Sequential Compression Devices were placed on the [...] Attention was turned to the C3-4 level. Hilliard posts were used for distraction. Anterior osteophytes [...] Attention was turned to the C4-5 level. Hilliard posts were used for distraction. Anterior osteophytes [...] 28mm plate was then sized and placed. Commercial Fisherman holes were drilled with a high speed [...] a bed Surgeon: Alfred Robison MD, FAAAPRIL yHatt MD Preoperative Diagnosis: 1. Cervical radiculopathy. 2. [...] Dr. Robison. 8. Use of I-Factor bone sword swallower, Dr. Robison. 9. Use of operative microscope [...] onto a Skytron bed with a horseshoe screwhead stoner and polisher. Sequential Compression Devices were placed on the [...] Attention was turned to the C3-4 level. Hilliard posts were used for distraction. Anterior osteophytes [...] Attention was turned to the C4-5 level. Hilliard posts were used for distraction. Anterior osteophytes [...] 28mm plate was then sized and placed. Commercial Fisherman holes were drilled with a rubin speed [...] IMG FLUOROSCOPY PROCEDURES Fi nal Result [facility] * XR Spine Cervical 1 View (03/30/2019 [...] 6:57 AM CDT) ABO Rh A Positive [facility] HCLL OTHER 03/30/2019 6:57 AM CDT 03/30/2019 7:18 AM CDT us Mirella Reynoso NP LAB BLOOD ORDERABLES Fin al Result [facility] [address] Department [place] [address] documented in this encounter Visit Diagnoses Diagnosis [...] infusion (premix) 1.5 mg/kg/hr ? 50.1 kg Blanch weight (9.3938 mL/hr, rounded to 9.39 mL/hr), [...] IV Infusing) 0459 (Given - Provider: Le Li RN) Continuous Medication Order 03/29/2019 03/30/2019 [...] (premix) (CANCELED) 1.5 mg/kg/hr ? 50.1 kg Blanch weight (9.3938 mL/hr, rounded to 9.39 mL/hr), [...] infusion (premix) 1.5 mg/kg/hr ? 50.1 kg Blanch weight (9.3938 mL/hr, rounded to 9.39 mL/hr), [...] 03/30/2019 documented in this encounter Care Teams Photolith Operator Relationship Specialty Start Date End Date Neptali Calvo MD PCP - General Internal Medicine 09/15/18 documented as of this encounter
--- OUTSIDE RECORDS SUMMARY | 2024-08-27 13:19 | XMS_ITS | Encounter Summary ---
Author Organization [facility] Medical Group Address [address] [place] [address] Care Team Providers Care Senior Technical Specialist Name Role Phone Neptali Calvo MD Primary Care Provider Encounter Details Date Type Department Care Team (Late st Contact Info) Description 02/17/2022 Orders Only [facility] [place] [address] [place] [address] Alfred Robison MD [address] 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 Washington they will call [facility] to [facility] appt. Pt is aware. documented in this encounter Plan of Treatment Not on file documented as of this encounter Visit Diagnoses Diagnosis Piriformis syndrome, right- Primary documented in this encounter Care Teams Senior Technical Specialist Relationship Specialty Start Date End Date Neptali Calvo MD PCP - General Internal Medicine 09/15/18 documented as of this encounter
--- OUTSIDE RECORDS SUMMARY | 2024-08-27 13:19 | XMS_ITS | Encounter Summary ---
Author Organization [facility] Medical Group Address [address] [place] [address] Care Team Providers Care Aviation Technician Aircraft Name Role Phone Neptali Calvo MD Primary Care Provider Reason for Visit * Reason Onset Date Comments Pre-Medication for MRI 03/16/2019 Encounter Details Date Type Department Care Team (Late st Contact Info) Description 03/16/2019 Telephone [facility] [place] [address] [facility] [address], [place] [address] Liya Yuan, RN Pre-Medication for [...] on file Legal Sex Female 6:31 PM RAMP LEAD Gender Identity Not on file Sexual Orientation Not on file 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 documented in this encounter Plan of Treatment [...] documented as of this encounter Care Teams Aviation Technician Aircraft Relationship Specialty Start Date End Date Neptali Calvo MD PCP - General Internal Medicine 09/15/18 documented as of this encounter
--- OUTSIDE RECORDS SUMMARY | 2024-08-27 13:19 | XMS_ITS | Encounter Summary ---
Author Organization [facility] Medical Group Address [address] [place] [address] Care Team Providers Care Registrar College Or University Name Role Phone Neptali Calvo MD Primary Care Provider Reason for Visit * Reason Onset Date Comments Neck pain/difficulty swallowing 04/10/2019 Encounter Details Date Type Department Care Team (Late st Contact Info) Description 04/10/2019 Telephone [facility] [place] [address] [facility] [address] [place] [address] Liya Yuan, RN Neck pain/difficulty swallowing [...] on file Legal Sex Female 6:31 PM CEMENT RAILROAD CAR 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
--- OUTSIDE RECORDS SUMMARY | 2024-08-27 13:19 | XMS_ITS | Encounter Summary ---
Author Organization [facility] Medical Group Address [address] [place] [address] Care Team Providers Care Hand Trucker Name Role Phone Neptali Calvo MD Primary Care Provider Encounter Details Date Type Department Care Team (Late st Contact Info) Description 04/03/2019 Orders Only [facility] [place] [address] [facility] [address] [place] [address] Deloris Lee, MEDICAL ASSOCIATE [address] [facility] [address] [place] [address] Cervical disc disorder with radiculopathy of cervical [...] on file Legal Sex Female 6:31 PM 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
--- OUTSIDE RECORDS SUMMARY | 2024-08-27 13:19 | XMS_ITS | Encounter Summary ---
Author Organization [facility] Healthcare Address [address] [place] [address] Care Team Providers Care Flower Planter Name Role Phone Neptali Calvo MD Primary [...] Expiration Date Visits Re quested Visits Authorized [id number] Closed 01/09/2019 07/20/2020 1 1 Encounter Details Date Type Department Care Team (Latest Contact Info) Description 05/15/2019 10:28 AM CDT - 05/15/2019 11:59 PM CDT Hospital Encounter [facility] [address] [place] [address] Alfred Robison MD [address] [facility] [address] [place] [address] Discharge Disposition: Discharge to home or self [...] on file Legal Sex Female 6:31 PM CLAMMER Gender Identity Not on file Sexual Orientation Not on file 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
--- OUTSIDE RECORDS SUMMARY | 2024-08-27 13:19 | XMS_ITS | Continuity of Care Document ---
Author Organization [facility] Address [address] [facility] [address] [place] [address] Phone Care Team Providers Care Industrial Relations Specialist Name Role Phone Neptali Felix MD, FACS [...] Diagnoses Date Provider Providers Copied on Encounter [facility], [address] [employer] [address], [place], [place], [id number], [place] tel:[phone] [place] No Information Isidro Gunderson. [address] [employer] [facility], [address], [place], [place], [id number], [place]. tel:[phone] Referring Provider: Aldo Broussard OD, [address] [place] [address], [address]. tel:[phone] Family History Family Member Type Diagnosis Age At Onset No Information Payers Payer name Insurance type Covered republican ID Authoriza tikira(s) No Information Social History [...]
--- OUTSIDE RECORDS SUMMARY | 2024-08-27 13:19 | XMS_ITS | Encounter Summary ---
Author Organization [facility] Medical Group Address [address] [place] [address] Care Team Providers Care Outside Sales Name Role Phone Neptali Calvo MD Primary Care Provider Reason for Visit * Reason Comments Pain Encounter Details Date Type Department Care Team (Late st Contact Info) Description 02/16/2022 2:30 PM CDT Office Visit [facility] [place] [address] [facility] [address] [place] [address] Alfred Robison MD [address] [facility] [address] [place] [address] Piriformis syndrome, right (Primary Dx) [...] file Legal Sex Female 6:31 PM DIRECTOR OF ENVIRONMENTAL SERVICES Gender Identity Not on file Sexual Orientation Not on file 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 Alfred Robison MD, [facility] Neu[facility] documented in this encounter Miscellaneous [...] 12/01/2021 added in this encounter Care Teams Outside Sales Relationship Specialty Start Date End Date Neptali Calvo MD PCP - General Internal Medicine 09/15/18 documented as of this encounter
--- OUTSIDE RECORDS SUMMARY | 2024-08-27 13:19 | XMS_ITS | Encounter Summary ---
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 Washington they will call patient to [facility] appt. Pt is aware. [employer]ONDENCE SCHOOL TEACHER documented in this encounter Plan of Treatment Not on file documented as of this encounter Visit Diagnoses Diagnosis Low back pain, non-specific- Primary documented in this encounter Care Teams Jitterbug Operator Relationship Specialty Start Date End Date Neptali Calvo MD PCP - General Internal Medicine 09/15/18 documented as of this encounter
--- OUTSIDE RECORDS SUMMARY | 2024-08-27 13:19 | XMS_ITS | Encounter Summary ---
Author Organization [facility] Medical Group Address [address] [place] [address] Care Team Providers Care Fruit Grader Name Role Phone Neptali Calvo MD Primary Care Provider Encounter Details Date Type Department Care Team (Late st Contact Info) Description 01/26/2022 Orders Only [facility] [place] [address] [facility] [address] [place] [address] Alfred Robison MD [address] [facility] [address] [place], [place] [id number] Low back pain, non-specific (Primary Dx) Social [...] on file Legal Sex Female 6:31 PM FIRE 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
--- OUTSIDE RECORDS SUMMARY | 2024-08-27 13:19 | XMS_ITS | Encounter Summary ---
Author Organization [facility] Medical Group Address [address] [place] [address] Care Team Providers Care Boilermaker Central Steam Plant Name Role Phone Neptali Calvo MD Primary [...] Expiration Date Visits Re quested Visits Authorized [id number] Closed 08/21/2019 03/01/2021 1 1 ACE LOGGING SYSTEMS LOGGER Encounter Details Date Type Department Care Team (Late st Contact Info) Description 08/21/2019 Orders Only [facility] [place] [address] [facility] [address] [place] [address] Alfred Robison MD [facility] [facility] [address] [place] [address] Postlaminectomy syndrome, cervical region (Primary [...] on file Legal Sex Female 6:31 PM SURFACE LOGGING SYSTEMS LOGGER Gender Identity Not on file Sexual Orientation Not on file 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
--- OUTSIDE RECORDS SUMMARY | 2024-08-27 13:19 | XMS_ITS | Encounter Summary ---
Author Organization [facility] Medical Group Address [address] [place] [address] Care Team Providers Care Dairy Chemist Name Role Phone Neptali Calvo MD Primary Care Provider Encounter Details Date Type Department Care Team (Late st Contact Info) Description 05/15/2019 11:30 AM CDT Office Visit [facility] [place] [address] [facility] [address] [place] [address] Deloris Lee, TELEPHONE LINEWORKER [address] [facility] [address] [place], [place] [id number] Status post cervical spinal fusion (Primary Dx); [...] on file Legal Sex Female 6:31 PM MIXER HELPER Gender Identity Not on file Sexual Orientation Not on file 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 Semiconductor Development Technician are strong and equal bilateral Patient is [...] not thoroughly reviewed; it is subject to sandfill operator variance. documented in this encounter Miscellaneous Notes [...] non-specific documented in this encounter Care Teams Dairy Chemist Relationship Specialty Start Date End Date Neptali Calvo MD PCP - General Internal Medicine 09/15/18 documented as of this encounter
--- OUTSIDE RECORDS SUMMARY | 2024-08-27 13:19 | XMS_ITS | Referral Summary ---
Author Organization [facility] C Address [address] [place] [address] Care Team Providers Care Rn Neurology Name Role Phone Neptail Calvo MD Primary Care Provider Allergies No [...] 05/15/2019 Assessment & Plan (09/20/2019 4:46 PM LOAN ANALYST): Ms. Villalpando is clinically improved after anterior [...] (03/02/2019): Added automatically from request for surgery [id number] Cervical disc disorder with radiculopathy of cervical [...] underwent some type of procedure at the [facility] [place] that was unsuccessful. 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 Not on [...] on file Medical Devices Implanted Type Area Hand Ii Thermal Cutter Device Identifier Shelf Expiration Date Model / Serial / Lot [employer] 3d Cervical [id number] 7 Deg - Sn/A - [id number] Implanted:Qty: 1 on 03/30/2019 by Alfred Robison MD at [facility] N/A: Spine Cervical Core Link [id number] 11/29/2023 [id number] / N/A / [id number] [employer] 700-025 I Factor Allograft Putty Syringe Graft 2.5cc Bone - Sn/A - [id number] Implanted:Qty: 1 on 03/30/2019 by Alfred Robison MD at [facility] N/A: Spine Cervical [employer] 12/19/2021 700-025 / N/A / [id number] Cage [employer] 3d Cervical [id number] 7 Deg - [id number] Implanted:Qty: 1 on 03/30/2019 by Alfred Robison MD at [facility] N/A: Spine Cervical Core Link [id number] 11/29/2023 [id number] Plate Bone Anodyne L28 Mm Spine Cervical Anterior Level 2 Nonsterile - Sn/A - [id number] Implanted:Qty: 1 on 03/30/2019 by Alfred Robison MD at [facility] N/A: Spine Cervical Core Link / N/A / Core Link Anodyne 4mm 12mm Variable Angle Self Tap Spine Cervical Screw - Sn/A - [id number] Implanted:Qty: 6 on 03/30/2019 by Alfred Robison MD at [facility] N/A: Spine Cervical Core Link / N/A / Insurance [facility] Advance Directives For more information, please contact: [phone] * Full Code (Latest Code Status on File) Date Activated Date Inactivated Comments 03/30/2019 11:40 AM 03/31/2019 5:53 PM Care Teams Rn Neurology Relationship Specialty Start Date End Date Neptali Calvo MD PCP - General Internal Medicine 09/15/18
--- OUTSIDE RECORDS SUMMARY | 2024-08-27 13:19 | XMS_ITS | Encounter Summary ---
Author Organization [facility] Medical Group Address [address] [place] [address] Care Team Providers Care Algorithm Developer Name Role Phone Neptali Calvo MD Primary Care Provider Encounter Details Date Type Department Care Team (Late st Contact Info) Description 03/26/2019 Orders Only [facility] [place] [address] [place] [address] Deloris Lee, DIRECTOR OF COMMUNICATIONS [address] [facility] [address] [place] [address] Cervical disc disorder with radiculopathy of cervical [...] on file Legal Sex Female 6:31 PM ELEVATOR PILOT Gender Identity Not on file Sexual Orientation Not on file 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
--- OUTSIDE RECORDS SUMMARY | 2024-08-27 13:19 | XMS_ITS | Encounter Summary ---
Author Organization 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
--- OUTSIDE RECORDS SUMMARY | 2024-08-27 13:19 | XMS_ITS | Encounter Summary ---
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
--- OUTSIDE RECORDS SUMMARY | 2024-08-27 13:19 | XMS_ITS | Encounter Summary ---
Author Organization [facility] Healthcare Address [address] [place] [address] Care Team Providers Care Engine Monitor Name Role Phone Neptali Calvo MD Primary Care Provider Encounter Details Date Type Department Care Team (Late st Contact Info) Description 03/30/2019 7:40 AM CDT Anesthesia Event [facility] Operating Room [address] [place] [id number] Maximo Coleman MD [address] [facility] [place] [address] Mirella Reynoso NP [facility] [address] [address] [place] [address] Anesthesia Record Procedure Summary Procedure Name Responsible [...] Ne ck; 07/24/24 (Retired LDA, Removed/Completed by [facility] with LDA Utility); 1213 (Retired LDA, Removed/Completed by [facility] with LDA Utility) 03/30/19822 by Jeronimo [...] file Legal Sex Female 6:31 PM DIRECTOR PEDIATRIC Gender Identity Not on file Sexual Orientation Not on file 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 CERVICAL FUSION 2005 C5-6 ACDF(Dr. Lu) [...] Medication protocol when under care of a MACHINE TOOL REBUILDER Planned anesthesia: General Team communication plan: oral ET tube Induction: Induction: intravenous. Postoperative Plan: Postoperative administration opioids intended. No postoperative mechanical ventilation intended. Patient's planned disposition post procedure is Floor. Informed Consent: Discussed plan with MACHINE TOOL REBUILDER. Anesthesia plan and risks discussed with patient. [...] Procedure Name Priority Date/Time Associated Diagnosis Comments MA AN PROCEDURE PLACEHOLDER Routine 03/30/2019 8:11 AM CDT Procedure Note - Emilie Rodriguez CRNA - 03/30/2019 8:11 AM CDTThis note is in progress. Airway Patient location: OR Urgency: elective Indications for airway management: anesthesia Difficult airway: no Staff: Placed by: MACHINE TOOL REBUILDER: Emilie Rodriguez CRNA Emergent airway documentation: Risks [...] with: silk tape Number of attempts: 1 MA AN ELECTIVE ENDOTRACHEAL AIRWAY Routine 03/30/2019 8:11 AM CDT Procedure Note - Emilie Rodriguez CRNA - 03/30/2019 8:11 AM CDTThis note is in progress. Airway Patient location: OR Urgency: elective Indications for airway management: anesthesia Difficult airway: no Staff: Placed by: MACHINE TOOL REBUILDER: Emilie Rodriguez CRNA Emergent airway documentation: Risks [...] infusion (premix) 1.5 mg/kg/hr ? 50.1 kg [place] weight (9.3938 mL/hr, rounded to 9.39 mL/hr), [...] 03/30/2019 documented in this encounter Care Teams Engine Monitor Relationship Specialty Start Date End Date Neptali Calvo MD PCP - General Internal Medicine 09/15/18 documented as of this encounter
--- OUTSIDE RECORDS SUMMARY | 2024-08-27 13:19 | XMS_ITS | Encounter Summary ---
Author Organization [facility] Medical Group Address [address] [place] [address] Care Team Providers Care Enforcement Officer Name Role Phone Neptali Calvo MD Primary Care Provider Encounter Details Date Type Department Care Team (Late st Contact Info) Description 03/14/2019 Documentation [facility] [place] [address] [place] [address] Alfred Robison MD [address] [facility] [address] [place], [place] [id number] Social History Tobacco Use Types Packs/Day Years Used Date Smoking Tobacco: Former Cigarettes 1.5 30 0 03/12/1971 - 03/12/2001 Smokeless Tobacco: Never Alcohol Use Standard Drinks/Week Comments Not Currently 0 (1 standard drink = 0.6 oz pur e alcohol) Sober since 2000 Comments Unknown Sex and Gender Information Value Date Recorded Sex Assigned at Not on file Legal Sex Female 6:31 PM HOOKER MACHINE TENDER Gender Identity Not on file Sexual Orientation Not on file 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 Sanchez w/[facility] patient is authorized for MRI-Lumbar auth #[id number] (exp 03/14/19 to 04/28/19). Script and auth [facility] [phone] o-[phone], they will call patient to critical access hospital appt. documented in this encounter Plan of Treatment Not on file documented as of this encounter Visit Diagnoses Not on filedocumented in this encounter Care Teams Enforcement Officer Relationship Specialty Start Date End Date Neptali Calvo MD PCP - General Internal Medicine 09/15/18 documented as of this encounter
--- OUTSIDE RECORDS SUMMARY | 2024-08-27 13:19 | XMS_ITS | Encounter Summary ---
Author Organization [facility] Medical Group Address [address] [place] [address] Care Team Providers Care Manager Educational Name Role Phone Neptali Calvo MD Primary Care Provider Encounter Details Date Type Department Care Team (Late st Contact Info) Description 03/26/2019 Orders Only [facility] [place] [address] [place] [address] Deloris Lee, TRACK SUPERVISOR [address] [facility] [address] [place] [address] Cervical disc disorder with radiculopathy (Primary Dx) [...] on file Legal Sex Female 6:31 PM RUBBER TIRE AND TUBES SUPERVISOR Gender Identity Not on file Sexual Orientation Not on file 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
--- OUTSIDE RECORDS SUMMARY | 2024-08-27 13:19 | XMS_ITS | Encounter Summary ---
Author Organization [facility] Healthcare Address [address] [place] [address] Care Team Providers Care Sba Business Development Officer Name Role Phone Npetali Calvo MD Primary Care Provider Encounter Details Date Type Department Care Team (Late st Contact Info) Description 03/30/2019 7:30 AM CDT - 03/30/2019 10:00 AM CDT Surgery [facility] Operating Room [address] [place] [address] Alfred Robison MD [address] [facility] [place], [place] [id number] C3-5 Anterior Cervical Discectomy and Fusion Surgery Details Date/Time Status Location OR Service Patient Class Case Class Case Type Trauma Case? 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 Goal Start Date End Date [facility] 2 03/30/19 -- Goal Details: Pt will perform sit to stand from various surface heights independently in order to progress toward PLOF and return home safely. Goal Start Date End Date [facility] 3 03/30/19 -- Goal Details: Pt will ambulate >150' independently in order to progress toward PLOF and return home safely. Goal Start Date End Date [facility] 4 03/30/19 -- Goal Details: Pt will negotiate 2 stairs with no hand railing and 8 stairs with 1 hand railing withmodified independence in order to progress toward PLOF and return home safely. Goal Start Date End Date [facility] 5 03/30/19 -- Goal Details: Pt will perform vehicle transfer independently in order to progress toward PLOF and return home safely. Goal Start Date End Date [facility] 1 03/30/19 -- Goal Details: Pt will successfully recall 3/3 cervical precautions and don/doff soft cervical collar independently in order to return home safely. 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 Goal Start Date End Date [facility] 2 03/30/19 -- Goal Details: Pt will perform sit to stand from various surface heights independently in order to progress toward PLOF and return home safely. Goal Start Date End Date [facility] 3 03/30/19 -- Goal Details: Pt will ambulate >150' independently in order to progress toward PLOF and return home safely. Goal Start Date End Date [facility] 4 03/30/19 -- Goal Details: Pt will negotiate 2 stairs with no hand railing and 8 stairs with 1 hand railing withmodified independence in order to progress toward PLOF and return home safely. Goal Start Date End Date [facility] 5 03/30/19 -- Goal Details: Pt will perform vehicle transfer independently in order to progress toward PLOF and return home safely. Goal Start Date End Date [facility] 1 03/30/19 -- Goal Details: [...] surgery - bone spur - [facility] Spine [place] ??? CERVICAL FUSION 2004 C5-6 ACDF(Dr. Lu) [...] Medication protocol when under care of a PRODUCT MANAGER E COMMERCE Planned anesthesia: General Team communication plan: oral ET tube Induction: Induction: intravenous. Postoperative Plan: Postoperative administration opioids intended. No postoperative mechanical ventilation intended. Patient's planned disposition post procedure is Floor. Informed Consent: Discussed plan with PRODUCT MANAGER E COMMERCE. Anesthesia plan and risks discussed with patient. [...] surgery - bone spur - [facility] Spine [place] ??? CERVICAL FUSION 2004 C5-6 ACDF(Dr. Lu) [...] Medication protocol when under care of a PRODUCT MANAGER E COMMERCE Planned anesthesia: General Team communication plan: oral ET tube Induction: Induction: intravenous. Postoperative Plan: Postoperative administration opioids intended. No postoperative mechanical ventilation intended. Patient's planned disposition post procedure is Floor. Informed Consent: Discussed plan with PRODUCT MANAGER E COMMERCE. Anesthesia plan and risks discussed with patient. [...] Dr. Robison. 8. Use of I-Factor bone paving bed maker, Dr. Robisno. 9. Use of operative microscope for microdissection, [...] onto a Skytron bed with a horseshoe head sugar reprocess operator. Sequential Compression Devices were placed on the [...] Attention was turned to the C3-4 level. Iselin posts were used for distraction. Anterior osteophytes [...] Attention was turned to the C4-5 level. Iselin posts were used for distraction. Anterior osteophytes [...] 28mm plate was then sized and placed. Financial Aid Manager holes were drilled with a high speed [...] Dr. Robison. 8. Use of I-Factor bone paving bed maker, Dr. Robison. 9. Use of operative microscope [...] onto a Skytron bed with a horseshoe head sugar reprocess operator. Sequential Compression Devices were placed on the [...] Attention was turned to the C3-4 level. Iselin posts were used for distraction. Anterior osteophytes [...] Attention was turned to the C4-5 level. Iselin posts were used for distraction. Anterior osteophytes [...] 28mm plate was then sized and placed. Financial Aid Manager holes were drilled with a rubin speed [...] MD IMG FLUOROSCOPY PROCEDURES Fi nal Result RAD_PACS_[facility] * XR Spine Cervical 1 [...] Check Sample (03/30/2019 6:57 AM CDT) Pathologist [facility] ABO Rh A Positive [facility] HCLL OTHER 03/30/2019 6:57 AM CDT 03/30/2019 7:18 AM CDT us Mirella Reynoso NP LAB BLOOD ORDERABLES Fin al Result [facility] [address] Department [place] [address] documented in this encounter Visit Diagnoses Diagnosis [...] infusion (premix) 1.5 mg/kg/hr ? 50.1 kg [place] weight (9.3938 mL/hr, rounded to 9.39 mL/hr), [...] (premix) (CANCELED) 1.5 mg/kg/hr ? 50.1 kg [place] weight (9.3938 mL/hr, rounded to 9.39 mL/hr), [...] infusion (premix) 1.5 mg/kg/hr ? 50.1 kg [place] weight (9.3938 mL/hr, rounded to 9.39 mL/hr), [...] 03/30/2019 documented in this encounter Care Teams Sba Business Development Officer Relationship Specialty Start Date End Date Neptali Calvo MD PCP - General Internal Medicine 09/15/18 documented as of this encounter
--- OUTSIDE RECORDS SUMMARY | 2024-08-27 13:19 | XMS_ITS | Encounter Summary ---
Author Organization [facility] Medical Group Address [address] [place] [address] Care Team Providers Care Lunch Counter Manager Name Role Phone Neptali Calvo MD Primary Care Provider Reason for Referral * Diagnostic Imaging (Routine) - Closed Specialty Diagnoses / Procedures Referred By Contac t Referred To Contact Procedures XR Spine Cervical 2 or 3 Views [facility] [place] [address] [place] [phone] Phone: tel: fax: Referral ID Status Reason Start Date Expiration Date Visits Re quested Visits Authorized [id number] Closed 09/10/2019 03/21/2021 1 1 ATION SAFETY OFFICER Encounter Details Date Type Department Care Team (Late st Contact Info) Description 09/10/2019 Orders Only [facility] [place] [address] [place] [address] Gadiel Haley MD [address] [place] [address] Social History Tobacco Use Types Packs/Day [...] on file Legal Sex Female 6:31 PM RADIATION SAFETY OFFICER Gender Identity Not on file Sexual Orientation Not on file 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
--- OUTSIDE RECORDS SUMMARY | 2024-08-27 13:19 | XMS_ITS | Encounter Summary ---
Author Organization [facility] Address [address] [place] [address] Care Team Providers Care Philanthropy Officer Name Role Phone Neptali Calvo MD Primary Care Provider Reason for Visit * Reason Comments Spinal Surgery S/P C3-5 ACDF - 2018 Encounter Details Date Type Department Care Team (Late st Contact Info) Description 08/29/2019 11:30 AM IT MANAGER Office Visit [facility] [place] [address] [facility] [address] [place] [address] Alfred Robison MD [address] [facility] [facility] [address] [place] [address] Status post cervical spinal fusion [...] on file Legal Sex Female 6:31 PM IT MANAGER Gender Identity Not on file Sexual Orientation Not on file 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 Not on file Not on andre e documented as of this encounter Last Filed Vital Signs Vital Sign Reading Time Taken Comments Blood Pressure - - Pulse - - Temperature - - Respiratory Rate 12 08/29/2019 11:5 6 AM IT MANAGER Oxygen Saturation - - Inhaled Oxygen Concentration - - Weight 55.7 kg (122 lb 12.8 oz) 020 11:56 AM IT MANAGER Height 157.5 cm (5' 2 ) 08/29/2019 11:5 6 AM IT MANAGER Body Mass Index 22.46 08/29/2019 11:56 AM IT MANAGER documented in this encounter Progress Notes * [...] will look into alternative options for this MANAGER * Alfred Robison MD - 08/29/2019 11:30 [...] of her lumbar spine. Dictated using computer sleeping car porter and not thoroughly reviewed. May be subject to sleeping car porter variance. Alfred Robison MD, [facility] Neurological Surgery MANAGER documented in this encounter Miscellaneous Notes * Assessment & Plan Note - Alfred Robison MD - 09/20/2019 4:45 PM IT MANAGER Associated Problem(s): Status post cervical spinal fusion [...] and possible injections of her lumbar spine. MANAGER documented in this encounter Plan of Treatment [...] documented as of this encounter Care Teams Philanthropy Officer Relationship Specialty Start Date End Date Neptali Calvo MD PCP - General Internal Medicine 09/15/18 documented as of this encounter
--- OUTSIDE RECORDS SUMMARY | 2024-08-27 13:20 | XMS_ITS | Encounter Summary ---
Author Organization [facility] Address [address] [place] [address] Care Team Providers Care Cable Television Line Technician Name Role Phone Neptali Calvo MD Primary Care Provider Encounter Details Date Type Department Care Team (Late st Contact Info) Description 11/28/2018 Orders Only [facility] [place] [address] [place] [address] Alfred Robison MD [address] [facility] [address] [place] [address] Spinal stenosis in cervical region (Primary Dx) Social History Tobacco Use Types Packs/Day Years Used Date Smoking Tobacco: Never Alcohol Use Standard Drinks/Week Comments Not Currently 0 (1 standard drink = 0.6 oz pur e alcohol) Sober since 2000 Comments Unknown Sex and Gender Information Value Date Recorded Sex Assigned at Not on file Legal Sex Female 6:31 PM OVERHEAD CRANE TECHNICIAN Gender Identity Not on file Sexual Orientation Not on file 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 Per Dr. Robison order a new MRI-cervical. Called Edwina for auth #[id number] for Cervical MRI without cotrast. Script faxed to [facility] Pt is aware. documented in this encounter Plan of Treatment Not on file documented as of this encounter Visit Diagnoses Diagnosis Spinal stenosis in cervical region- Primary documented in this encounter Care Teams Cable Television Line Technician Relationship Specialty Start Date End Date Neptali Calvo MD PCP - General Internal Medicine 09/15/18 documented as of this encounter
--- OUTSIDE RECORDS SUMMARY | 2024-08-27 13:20 | XMS_ITS | Encounter Summary ---
Author Organization 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
--- OUTSIDE RECORDS SUMMARY | 2024-08-27 13:20 | XMS_ITS | Encounter Summary ---
Author Organization [facility] Address [address] [place] [address] Care Team Providers Care V/Stol Landing Signal Officer Name Role Phone Neptali Calvo MD Primary Care Provider Encounter Details Date Type Department Care Team (Late st Contact Info) Description 12/11/2018 Telephone [facility] [place] [address] [facility] [address] [place] [address] Deloris Lee NP [address] [facility] [address] [place], [place] [id number] Social History Tobacco Use Types Packs/Day Years Used Date Smoking Tobacco: Never Alcohol Use Standard Drinks/Week Comments Not Currently 0 (1 standard drink = 0.6 oz pur e alcohol) Sober since 2000 Comments Unknown Sex and Gender Information Value Date Recorded Sex Assigned at Not on file Legal Sex Female 6:31 PM MEAT INSPECTOR Gender Identity Not on file Sexual Orientation Not on file 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 * [...] were unable to obtain any images from [facility] [place]. Please provide further recommendations and plan of care for the patient. Thank you. documented in this encounter Plan of Treatment Not on file documented as of this encounter Visit Diagnoses Not on filedocumented in this encounter Care Teams V/Stol Landing Signal Officer Relationship Specialty Start Date End Date Neptali Calvo MD PCP - General Internal Medicine 09/15/18 documented as of this encounter
--- OUTSIDE RECORDS SUMMARY | 2024-08-27 13:20 | XMS_ITS | Encounter Summary ---
Author Organization [facility] Address [address] [place] [address] Care Team Providers Care Briquetter Operator Name Role Phone Neptali Calvo MD Primary Care Provider Encounter Details Date Type Department Care Team (Late st Contact Info) Description 03/05/2019 Orders Only [facility] [place] [address] [place] [address] Deloris Lee, HIDE HOUSE SUPERVISOR [address] [facility] [address] [place] [address] Cervical disc disorder with radiculopathy of cervical region (Primary Dx) Social History Tobacco Use Types Packs/Day Years Used Date Smoking Tobacco: Never Alcohol Use Standard Drinks/Week Comments Not Currently 0 (1 standard drink = 0.6 oz pur e alcohol) Sober since 2000 Comments Unknown Sex and Gender Information Value Date Recorded Sex Assigned at Not on file Legal Sex Female 6:31 PM TECHNICAL CLERK Gender Identity Not on file Sexual Orientation Not on file 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
--- OUTSIDE RECORDS SUMMARY | 2024-08-27 13:20 | XMS_ITS | Encounter Summary ---
Author Organization [facility] Address [address] [place] [address] Care Team Providers Care Busboy Name Role Phone Neptali Calvo MD Primary Care Provider Encounter Details Date Type Department Care Team (Late st Contact Info) Description 01/02/2019 Documentation [facility] [place] [address] [facility] [address] [facility] [address] [place] [address] Alfred Robison MD [address] [facility] [address] [place], [place] [id number] Social History Tobacco Use Types Packs/Day Years Used Date Smoking Tobacco: Never Alcohol Use Standard Drinks/Week Comments Not Currently 0 (1 standard drink = 0.6 oz pur e alcohol) Sober since 2000 Comments Unknown Sex and Gender Information Value Date Recorded Sex Assigned at Not on file Legal Sex Female 6:31 PM WIRE STEWARD Gender Identity Not on file Sexual Orientation Not on file 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 documented in this encounter Plan of Treatment Not on file documented as of this encounter Visit Diagnoses Not on filedocumented in this encounter Care Teams Busboy Relationship Specialty Start Date End Date Neptali Calvo MD PCP - General Internal Medicine 09/15/18 documented as of this encounter
--- OUTSIDE RECORDS SUMMARY | 2024-08-27 13:20 | XMS_ITS | Encounter Summary ---
Author Organization [facility] Address [address] [place] [address] Care Team Providers Care Rnfa Name Role Phone Neptali Calvo MD Primary Care Provider Encounter Details Date Type Department Care Team (Late st Contact Info) Description 01/02/2019 Documentation [facility] [place] [address] [facility] [address] [place] [address] Alfred Robison MD [address] [facility] [address] [place], [place] [id number] Social History Tobacco Use Types Packs/Day Years Used Date Smoking Tobacco: Never Alcohol Use Standard Drinks/Week Comments Not Currently 0 (1 standard drink = 0.6 oz pur e alcohol) Sober since 2000 Comments Unknown Sex and Gender Information Value Date Recorded Sex Assigned at Not on file Legal Sex Female 6:31 PM ETHNOARCHAEOLOGIST Gender Identity Not on file Sexual Orientation Not on file 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 documented in this encounter Plan of Treatment Not on file documented as of this encounter Visit Diagnoses Not on filedocumented in this encounter Care Teams Rnfa Relationship Specialty Start Date End Date Neptali Calvo MD PCP - General Internal Medicine 09/15/18 documented as of this encounter
--- OUTSIDE RECORDS SUMMARY | 2024-08-27 13:20 | XMS_ITS | Encounter Summary ---
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
--- OUTSIDE RECORDS SUMMARY | 2024-08-27 13:20 | XMS_ITS | Encounter Summary ---
Author Organization [facility] Address [address] [place] [address] Care Team Providers Care Lockstitch Waistline Joiner Name Role Phone Neptali Calvo MD Primary Care Provider Reason for Visit * Reason Comments Pain Encounter Details Date Type Department Care Team (Latest Contact Info) Description 02/27/2019 2:30 PM CDT Office Visit [facility] [place] [address] [facility] [address] [facility] [address] [place] [address] Alfred Robison MD [address] [facility] [address] [place] [address] Cervical disc disorder with radiculopathy [...] on file Legal Sex Female 6:31 PM PROTOTYPE ENGINEER MANAGER Gender Identity Not on file Sexual Orientation Not on file 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 Lu & posterior cervical procedure at [facility] [place] - January 2018 ?? Continued neck pain [...] C5-6 on the right. Dictated using computer oracle solutions architect and not thoroughly reviewed. May be subject to oracle solutions architect variance. Aflred Robison MD, [facility] Neurological Surgery documented in this encounter Miscellaneous [...] Primary documented in this encounter Care Teams Lockstitch Waistline Joiner Relationship Specialty Start Date End Date Neptali Calvo MD PCP - General Internal Medicine 09/15/18 documented as of this encounter
--- OUTSIDE RECORDS SUMMARY | 2024-08-27 13:20 | XMS_ITS | Encounter Summary ---
Author Organization [facility] Address [address] [place] [address] Care Team Providers Care Outside Machinist Apprentice Name Role Phone Neptali Calvo MD Primary Care Provider Reason for Visit * Reason Onset Date Comments CT Results 01/19/2019 Encounter Details Date Type Department Care Team (Late st Contact Info) Description 01/19/2019 Telephone [facility] [place] [address] [facility] [address] [place] [address] Results Social History Tobacco Use Types Packs/Day Years Used Date Smoking Tobacco: Never Alcohol Use Standard Drinks/Week Comments Not Currently 0 (1 standard drink = 0.6 oz pur e alcohol) Sober since 2000 Comments Unknown Sex and Gender Information Value Date Recorded Sex Assigned at Not on file Legal Sex Female 6:31 PM VEHICLE ASSEMBLY INSPECTOR Gender Identity Not on file Sexual Orientation Not on file 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 Please review and provide further recommendations. Thank you. documented in this encounter Plan of Treatment Not on file documented as of this encounter Visit Diagnoses Not on filedocumented in this encounter Care Teams Outside Machinist Apprentice Relationship Specialty Start Date End Date Neptali Calvo MD PCP - General Internal Medicine 09/15/18 documented as of this encounter
--- OUTSIDE RECORDS SUMMARY | 2024-08-27 13:20 | XMS_ITS | Encounter Summary ---
Author Organization [facility] Address [address] [place] [address] Care Team Providers Care Pricing Director Name Role Phone Neptali Calvo MD Primary Care Provider Encounter Details Date Type Department Care Team (Late st Contact Info) Description 12/11/2018 Orders Only [facility] [place] [address] [place] [address] Alfred Robison MD [address] [facility] [address] [place] [address] Radiculopathy, cervical (Primary Dx) Social History Tobacco Use Types Packs/Day Years Used Date Smoking Tobacco: Never Alcohol Use Standard Drinks/Week Comments Not Currently 0 (1 standard drink = 0.6 oz pur e alcohol) Sober since 2000 Comments Unknown Sex and Gender Information Value Date Recorded Sex Assigned at Not on file Legal Sex Female 6:31 PM CHEMICAL LIBRARIAN Gender Identity Not on file Sexual Orientation Not on file 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 documented in this encounter Plan of Treatment Not on file documented as of this encounter Visit Diagnoses Diagnosis Radiculopathy, cervical- Primary Brachial neuritis or radiculitis nos documented in this encounter Care Teams Pricing Director Relationship Specialty Start Date End Date Neptali Calvo MD PCP - General Internal Medicine 09/15/18 documented as of this encounter
--- OUTSIDE RECORDS SUMMARY | 2024-08-27 13:20 | XMS_ITS | Encounter Summary ---
Author Organization [facility] Address [address] [facility] [address] [facility] [address] [place] [address] Care Team Providers Care Radio Station Audio Engineer Name Role Phone Neptali Calvo MD Primary Care Provider Reason for Referral * Diagnostic Imaging (Routine) - Closed Specialty Diagnoses / Procedures Referred By Contac t Referred To Contact Radiology Procedures MRI Cervical Spine WO Contrast [facility] [place] [address] [facility] [address] [place] [address] Phone: tel: fax: Referral ID Status Reason Start Date Expiration Date Visits Re quested Visits Authorized [id number] Closed 11/20/2018 05/31/2020 1 1 Encounter Details Date Type Department Care Team (Late st Contact Info) Description 11/20/2018 Orders Only [facility] [place] [address] [facility] [address] [place] [address] Gadiel Haley MD [address] [place], [place] [id number] Social History Tobacco Use Types Packs/Day Years Used Date Smoking Tobacco: Never Alcohol Use Standard Drinks/Week Comments Not Currently 0 (1 standard drink = 0.6 oz pur e alcohol) Sober since 2000 Comments Unknown Sex and Gender Information Value Date Recorded Sex Assigned at Not on file Legal Sex Female 6:31 PM CUSTOMER SERVICE 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
--- OUTSIDE RECORDS SUMMARY | 2024-08-27 13:20 | XMS_ITS | Encounter Summary ---
Author Organization [facility] Address [address] [place] [address] Care Team Providers Care Carbon Coating Machine Operator Name Role Phone Neptali Calvo MD Primary Care Provider Encounter Details Date Type Department Care Team (Late st Contact Info) Description 01/09/2019 Telephone [facility] [place] [address] [place] [address] Deloris Lee NP [address] [facility] [address] [place], [place] [id number] Social History Tobacco Use Types Packs/Day Years Used Date Smoking Tobacco: Never Alcohol Use Standard Drinks/Week Comments Not Currently 0 (1 standard drink = 0.6 oz pur e alcohol) Sober since 2000 Comments Unknown Sex and Gender Information Value Date Recorded Sex Assigned at Not on file Legal Sex Female 6:31 PM TAPE KELLER OPERATOR Gender Identity Not on file Sexual Orientation Not on file 

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
--- OUTSIDE RECORDS SUMMARY | 2024-08-27 13:20 | XMS_ITS | Encounter Summary ---
Author Organization [facility] Address [address] [place] [address] Care Team Providers Care Resistance Welding Machine Operator Name Role Phone Neptali Calvo MD Primary Care Provider Encounter Details Date Type Department Care Team (Late st Contact Info) Description 03/05/2019 Telephone [facility] [place] [address] [place] [address] Deloris Lee NP [address] [facility] [address] [place], [place] [id number] Social History Tobacco Use Types Packs/Day Years Used Date Smoking Tobacco: Never Alcohol Use Standard Drinks/Week Comments Not Currently 0 (1 standard drink = 0.6 oz pur e alcohol) Sober since 2000 Comments Unknown Sex and Gender Information Value Date Recorded Sex Assigned at Not on file Legal Sex Female 6:31 PM JEWEL FLAT SURFACER Gender Identity Not on file Sexual Orientation Not on file 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 To [facility] for C3-5 anterior cervical diskectomy and fusion [...] on filedocumented in this encounter Care Teams Resistance Welding Machine Operator Relationship Specialty Start Date End Date Neptali Calvo MD PCP - General Internal Medicine 09/15/18 documented as of this encounter
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
--- OUTSIDE RECORDS SUMMARY | 2024-08-27 13:20 | XMS_ITS | Encounter Summary ---
Author Organization [facility] Address [address] [place] [address] Care Team Providers Care Pick Up Worker Name Role Phone Neptali Calvo MD Primary [...] Expiration Date Visits Re quested Visits Authorized [id number] Closed 01/09/2019 07/20/2020 1 1 * Diagnostic Imaging (Routine) - Closed Specialty Diagnoses / Procedures Referred By Contac t Referred To Contact Diagnoses Cervical disc disorder with radiculopathy of cervical region Procedures CT Cervical Spine WO Contrast Alfred Robison MD Phone: tel: fax: External Order Referral ID Status Reason Start Date Expiration Date Visits Re quested Visits Authorized [id number] Closed 01/09/2019 07/20/2020 1 1 Encounter Details Date Type Department Care Team (Late st Contact Info) Description 01/09/2019 Orders Only [facility] [place] [address] [facility] [address] [id number] Deloris Lee NP [address] [place] [address] Cervical disc disorder with radiculopathy of cervical region (Primary Dx) Social History Tobacco Use Types Packs/Day Years Used Date Smoking Tobacco: Never Alcohol Use Standard Drinks/Week Comments Not Currently 0 (1 standard drink = 0.6 oz pur e alcohol) Sober since 2000 Comments Unknown Sex and Gender Information Value Date Recorded Sex Assigned at Not on file Legal Sex Female 6:31 PM OUTPATIENT RECEPTIONIST Gender Identity Not on file Sexual Orientation Not on file 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
--- OUTSIDE RECORDS SUMMARY | 2024-08-27 13:20 | XMS_ITS | Encounter Summary ---
Author Organization [facility] Address [address] [place] [address] Care Team Providers Care Reamer Hand Name Role Phone Neptali Calvo MD Primary Care Provider Encounter Details Date Type Department Care Team (Latest Contact Info) Description 03/12/2019 11:45 AM CDT Office Visit [facility] [place] [address] [facility] [address] [place] [address] Deloris Lee, WALTER [address] [facility] [address] [place], [place] [id number] Intervertebral disc disorder with radiculopathy of lumbar [...] file Legal Sex Female 6:31 PM DIRECTOR GROUP SALES Gender Identity Not on file Sexual Orientation Not on file 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 We reviewed [...] Patient does well with the use of [place] 5-325 and baclofen.Patient plans to be off [...] region documented in this encounter Care Teams Reamer Hand Relationship Specialty Start Date End Date Neptali Calvo MD PCP - General Internal Medicine 09/15/18 documented as of this encounter
--- OUTSIDE RECORDS SUMMARY | 2024-08-27 13:21 | XMS_ITS | Encounter Summary ---
Author Organization [facility] Address [address] [place] [address] Care Team Providers Care Forest Fire Management Officer Name Role Phone Mars Roberts MD Primary Care Provider [phone] Encounter Details Date Type Department Care Team (Late st Contact Info) Description 04/03/2021 Abstract [facility] [address] [address] Provider, Abstract NO ADDRESS ON FILE Social History Tobacco Use Types Packs/Day Years Used Date Smoking Tobacco: Never Assessed Sex and Gender Information Value Date Recorded Sex Assigned at Not on file Gender Identity Not on file Sexual Orientation Not on file Job Start Date Occupation Industry Not on file Not on file Not on file documented as of this encounter Plan of Treatment Not on file documented as of this encounter Visit Diagnoses Not on filedocumented in this encounter Care Teams Forest Fire Management Officer Relationship Specialty Start Date End Date Mars Roberts MD [address] [place] [phone] PCP - General 02/15/06 documented as of this encounter
--- OUTSIDE RECORDS SUMMARY | 2024-08-27 13:21 | XMS_ITS | Encounter Summary ---
Author Organization [facility] Address [address] Attn: Epic Prelude ADT [place] [address] Care Team Providers Care Industrial Automation Specialist Name Role Phone Mars Roberts MD Primary Care Provider [phone] Encounter Details Date Type Department Care Team (Latest Contact Info) Description 04/30/2021 Travel Social History Tobacco Use Types Packs/Day Years Used Date Smoking Tobacco: Former Cigarettes 1998 Sex and Gender Information Value Date Recorded Sex Assigned at Not on file Gender Identity Not on file Sexual Orientation Not on file Job Start Date Occupation Industry Not on file Not on file Not on file COVID-19 Exposure Response Date Recorded In the last month, have you been in contact with someone who was confirmed or suspected to have Coronavirus / COVID-19? No / Unsure 04/30/2021 12:53 PM CDT documented as of this encounter Plan of Treatment Not on file documented as of this encounter Visit Diagnoses Not on filedocumented in this encounter Care Teams Industrial Automation Specialist Relationship Specialty Start Date End Date Mars Roberts MD [facility] [place] [address] PCP - General 02/15/06 documented as of this encounter
--- OUTSIDE RECORDS SUMMARY | 2024-08-27 13:21 | XMS_ITS | Encounter Summary ---
Author Organization [facility] Address [address] [place] [address] Care Team Providers Care Database Design Analyst Name Role Phone Mars Roberts MD Primary Care Provider [phone] Reason for Referral * Eval and Treat (Routine) - Closed Specialty Diagnoses / Procedures Referred By Contac t Referred To Contact Diagnoses Inflammation of right [place]ro[place] [id number] [address] Referral ID Status Reason Start Date Expiration Date Visits Re quested Visits Authorized [id number] Closed 04/30/2021 04/30/2022 6 6 Reason for Visit * Reason Comments LOW BACK PAIN Encounter Details Date Type Department Care Team (Late st Contact Info) Description 04/30/2021 1:30 PM CDT Office Visit [facility] [address] [address] [place] [id number] [facility] [address] [place] [address] Inflammation of right sacroiliac joint (Primary Dx); Other spondylosis with radiculopathy, lumbar region Social History Tobacco Use Types Packs/Day [...] PM CDT documented as of this encounter Last Filed Vital Signs Vital Sign Reading Time Taken Comments Blood Pressure 140/80 04/30/2021 1:13 PM CDT Pulse - - Temperature - - Respiratory Rate - - Oxygen Saturation - - Inhaled Oxygen Concentration - - Weight 64.6 kg (142 lb 6.4 oz) 04/30/2021 1:13 P M CDT Height 157.5 cm (5' 2 ) 04/30/2021 1:13 PM CDT Body Mass Index 26.05 04/30/2021 1:13 PM CDT documented in this encounter Progress Notes * Pollo Baltazar MD - 04/30/2021 1:41 PM CDT I had the pleasure of seeing Kaylah today at my Neurosurgery Office at [facility]. Kaylah is a 61 y.o. female who comes to my office today with complaints of low back pain and right buttock pain andright inguinal pain that is been ongoing now for approximately 9 months. On average the pain is a 5out of 10. It can be up to an 8 out of 10 at times. It is mostly leg pain and buttock pain but the back pain is approximately 40%. It is associated with numbness. It does give her difficulty with ambulation. She has had a cervical surgery but no lumbar surgery. The pain is worse with laying on her side or with being in 1 position over a period of time. No loss of function has been noted. She has tried injections in her lower lumbar area as well as physical therapy and career guidance counselor without relief.. No past medical history on file. No past surgical history on file. Social History Socioeconomic History ??? Marital status: Spouse name: Not on file ??? Number of children: Not on file ??? Years of education: Not on file ??? Highest education level: Not on file Occupational History ??? Not on file Tobacco Use ??? Smoking status: Former Smoker Years: 25.00 Quit date: 1998 Years since quittin.7 Substance and Sexual Activity ??? Alcohol use: Not on file ??? Drug use: Not on file ??? Sexual activity: Not on file Other Topics Concern ??? Not on file Social History Narrative ??? Not on file Social Determinants of Health Financial Resource Strain: ??? Difficulty of Paying Living Expenses: Food Insecurity: ??? Worried About Running Out of Food in the Last Year: ??? Ran Out of Food in the Last Year: Transportation Needs: ??? Lack of Transportation (Medical): ??? Lack of Transportation (Non-Medical): Physical Activity: ??? Days of Exercise per Week: ??? Minutes of Exercise per Session: Stress: ??? Feeling of Stress : Social Connections: ??? Frequency of Communication with Friends and Family: ??? Frequency of Social Gatherings with Friends and Family: ??? Attends [employer] Services: ??? Active Member of Clubs or Organizations: ??? Attends Club or Organization Meetings: ??? Marital Status: Intimate Partner Violence: ??? Fear of Current or Ex-Partner: ??? Emotionally Abused: ??? Physically Abused: ??? Sexually Abused: No family history on file. Current Outpatient Medications on File Prior to Visit Medication Sig Dispense Refill ??? simvastatin (ZOCOR) 20 mg tablet Take 20 mg by mouth daily with supper. ??? meloxicam (MOBIC) 15 mg tablet Take 15 mg by mouth daily. ??? citalopram (CeleXA) 10 mg tablet Take 10 mg by mouth daily. No current facility-administered medications on file prior to visit. No Known Allergies Review of Systems Physical Exam Constitutional: Appearance: She is well-developed. HENT: Head: Normocephalic and atraumatic. Eyes: Conjunctiva/sclera: Conjunctivae normal. Pupils: Pupils are equal, round, and reactive to light. Pulmonary: Effort: Pulmonary effort is normal. Abdominal: Palpations: Abdomen is soft. Musculoskeletal: General: Tenderness present. Normal range of motion. Cervical back: Neck supple. Comments: Tenderness over the right SI joint is noted. Chava test however is negative. Thigh thrusttest is negative. Distraction test is negative. Skin: General: Skin is warm and dry. Neurological: General: No focal deficit present. Mental Status: She is alert and oriented to person, place, and time. Cranial Nerves: No cranial nerve deficit. Sensory: No sensory deficit. Coordination: Coordination normal. Deep Tendon Reflexes: Reflexes normal. Comments: Strength 5 out of 5 throughout. Straight leg raising test is negative. Psychiatric: Behavior: Behavior normal. Thought Content: Thought content normal. Diagnostic Data: The patient has an MRI of the lumbar spine actually looks quite good. There is a slight disc bulge at both L3-4 and L4-5 but nothing of significance.. ASSESSMENT: Encounter Diagnoses Name Primary? Inflammation of right sacroiliac joint Yes ??? Other spondylosis with radiculopathy, lumbar region PLAN: Normal BMI Range: 18 & older: > or = 18.5 and < 25 Body mass index is 26.05 kg/m??. BMI within normal limits No orders of the defined types were placed in this encounter. TOBACCO COUNSELING She is not a tobacco user. Assessment and Plan: My assessment at this point is that Kaylah is suffering from possible SI jointsyndrome versus a lumbar spondylosis with radiculitis. Being that she did not respond to injectionsat the lumbar spine level we are going to try a right SI joint injection and also directed the physical therapy toward the SI joint. We will get x-rays of the lumbar spine and the right hip to be complete. We will see her back in 3 months but would be happy to see her sooner if need be. No surgery is recommended. We spent approximately 30 minutes in total care of this patient.. documented in this encounter Miscellaneous Notes * Patient Instructions - Pollo Baltazar MD - 04/30/2021 1:39 PM CDT Images from the original note were not included. Sacroiliac Joint Pain: Care Instructions Your Care Instructions The sacroiliac joints connect the spine and each side of the pelvis. These joints bear the weight and stress of your torso. This makes them easy to injure. Injury or overuse of these joints may causelow back pain. Stress on these joints can cause joint pain. Sacroiliac joint pain is more common in women. Certain kinds of arthritis also may cause this type of joint pain. Home treatment may help you feel better. So can avoiding activities that stress your back. Your doctor also may recommend physical therapy. This may include doing exercises and stretches to help withpain. You may also learn to use good posture. Follow-up care is a vargas part of your treatment and safety. Be sure to make and go to all appointments, and call your doctor if you are having problems. It's also a good idea to know your test resultsand keep a list of the medicines you take. How can you care for yourself at home? ?? Ask your doctor about light exercises that may help your back pain. Try to do light activity throughout the day. But make sure to take rests as needed. Find a comfortable position for rest, but don't stay in one position for too long. Avoid activities that cause pain. ?? To apply heat, put a warm water bottle, a heating pad set on low, or a warm cloth on your back. Do not go to sleep with a heating pad on your skin. ?? Put ice or a cold pack on your back for 10 to 20 minutes at a time. Put a thin cloth between theice and your skin. ?? If the doctor gave you a prescription medicine for pain, take it as prescribed. ?? If you are not taking a prescription pain medicine, ask your doctor if you can take an qxhk-beo-wxpxjvn pain medicine, such as acetaminophen (Tylenol), ibuprofen (Advil, Motrin), or naproxen (Aleve). Read and follow all instructions on the label. Take pain medicines exactly as directed. ?? Do not take two or more pain medicines at the same time unless the doctor told you to. Many painmedicines have acetaminophen, which is Tylenol. Too much acetaminophen (Tylenol) can be harmful. ?? To prevent future back pain, do exercises to stretch and strengthen your back and stomach. Learnhow to use good posture, safe lifting techniques, and proper body mechanics. When should you call for help? Call 911 anytime you think you may need emergency care. For example, call if: ? You are unable to move a leg at all. Call your doctor now or seek immediate medical care if: ? You have new or worse symptoms in your legs or buttocks. Symptoms may include: ? Numbness or tingling. ? Weakness. ? Pain. ? You lose bladder or bowel control. Watch closely for changes in your health, and be sure to contact your doctor if: ? You are not getting better as expected. Where can you learn more? Go to https://www.[employer].net/patiented Enter Y571 in the search box to learn more about Sacroiliac Joint Pain: Care Instructions. Current as of: July 07, 2020?Content Version: 12.8 ?? [employer]. Care instructions adapted under license by your healthcare professional. If you have questions about a medical condition or this instruction, always ask your healthcare professional. These instructions may not represent the values of this healthcare organization. [employer] disclaims any warranty or liability for your use of this information. Sacroiliac Pain: Exercises Introduction Here are some examples of exercises for you to try. The exercises may be suggested for a condition or for rehabilitation. Start each exercise slowly. Ease off the exercises if you start to have pain. You will be told when to start these exercises and which ones will work best for you. How to do the exercises Dqqn-xf-fmjpu stretch 1. Do not do the hjrq-xn-jnqvs exercise if it causes or increases back or leg pain. 2. Lie on your back with your knees bent and your feet flat on the floor. You can put a small pillow under your head and neck if it is more comfortable. 3. Grasp your hands under one knee and bring the knee to your chest, keeping the other foot flat onthe floor. 4. Keep your lower back pressed to the floor. Hold for at least 15 to 30 seconds. 5. Relax and lower the knee to the starting position. Repeat with the other leg. 6. Repeat 2 to 4 times with each leg. 7. To get more stretch, keep your other leg flat on the floor while pulling your knee to your chest. Bridging 1. Lie on your back with both knees bent. Your knees should be bent about 90 degrees. 2. Tighten your belly muscles by pulling in your belly button toward your spine. Then push your feet into the floor, squeeze your buttocks, and lift your hips off the floor until your shoulders, hips, and knees are all in a straight line. 3. Hold for about 6 seconds as you continue to breathe normally, and then slowly lower your hips back down to the floor and rest for up to 10 seconds. 4. Repeat 8 to 12 times. Hip extension 1. Get down on your hands and knees on the floor. 2. Keeping your back and neck straight, lift one leg straight out behind you. When you lift your leg, keep your hips level. Don't let your back twist, and don't let your hip drop toward the floor. 3. Hold for 6 seconds. Repeat 8 to 12 times with each leg. 4. If you feel steady and strong when you do this exercise, you can make it more difficult. To do this, when you lift your leg, also lift the opposite arm straight out in front of you. For example, lift the left leg and the right arm at the same time. (This is sometimes called the bird dog exercise. ) Hold for 6 seconds, and repeat 8 to 12 times on each side. Clamshell 1. Lie on your side with a pillow under your head. Keep your feet and knees together and your kneesbent. 2. Raise your top knee, but keep your feet together. Do not let your hips roll back. Your legs should open up like a clamshell. 3. Hold for 6 seconds. 4. Slowly lower your knee back down. Rest for 10 seconds. 5. Repeat 8 to 12 times. 6. Switch to your other side and repeat steps 1 through 5. Hamstring wall stretch 1. Lie on your back in a doorway, with one leg through the open door. 2. Slide your affected leg up the wall to straighten your knee. You should feel a gentle stretch down the back of your leg. 3. Hold the stretch for at least 1 minute to begin. Then try to lengthen the time you hold the stretch to as long as 6 minutes. 4. Switch legs, and repeat steps 1 through 3. 5. Repeat 2 to 4 times. 6. If you do not have a place to do this exercise in a doorway, there is another way to do it: 7. Lie on your back, and bend one knee. 8. Loop a towel under the ball and toes of that foot, and hold the ends of the towel in your hands. 9. Straighten your knee, and slowly pull back on the towel. You should feel a gentle stretch down the back of your leg. 10. Switch legs, and repeat steps 1 through 3. 11. Repeat 2 to 4 times. 1. Do not arch your back. 2. Do not bend either knee. 3. Keep one heel touching the floor and the other heel touching the wall. Do not point your toes. Lower abdominal strengthening 1. Lie on your back with your knees bent and your feet flat on the floor. 2. Tighten your belly muscles by pulling your belly button in toward your spine. 3. Lift one foot off the floor and bring your knee toward your chest, so that your knee is straightabove your hip and your leg is bent like the letter L. 4. Lift the other knee up to the same position. 5. Lower one leg at a time to the starting position. 6. Keep alternating legs until you have lifted each leg 8 to 12 times. 7. Be sure to keep your belly muscles tight and your back still as you are moving your legs. Be sure to breathe normally. Piriformis stretch 1. Lie on your back with your legs straight. 2. Lift your affected leg, and bend your knee. With your opposite hand, reach across your body, andthen gently pull your knee toward your opposite shoulder. 3. Hold the stretch for 15 to 30 seconds. 4. Switch legs and repeat steps 1 through 3. 5. Repeat 2 to 4 times. Follow-up care is a vargas part of your treatment and safety. Be sure to make and go to all appointments, and call your doctor if you are having problems. It's also a good idea to know your test resultsand keep a list of the medicines you take. Where can you learn more? Go to https://www.[employer].net/patiented Enter T635 in the search box to learn more about Sacroiliac Pain: Exercises. Current as of: July 07, 2020?Content Version: 12.8 ?? [employer]. Care instructions adapted under license by your healthcare professional. If you have questions about a medical condition or this instruction, always ask your healthcare professional. These instructions may not represent the values of this healthcare organization. [employer] disclaims any warranty or liability for your use of this information. Sacroiliac Pain: Exercises Introduction Here are some examples of exercises for you to try. The exercises may be suggested for a condition or for rehabilitation. Start each exercise slowly. Ease off the exercises if you start to have pain. You will be told when to start these exercises and which ones will work best for you. How to do the exercises Pkle-nh-pspsf stretch 8. Do not do the mslc-po-rkxrf exercise if it causes or increases back or leg pain. 9. Lie on your back with your knees bent and your feet flat on the floor. You can put a small pillow under your head and neck if it is more comfortable. 10. Grasp your hands under one knee and bring the knee to your chest, keeping the other foot flat on the floor. 11. Keep your lower back pressed to the floor. Hold for at least 15 to 30 seconds. 12. Relax and lower the knee to the starting position. Repeat with the other leg. 13. Repeat 2 to 4 times with each leg. 14. To get more stretch, keep your other leg flat on the floor while pulling your knee to your chest. Bridging 5. Lie on your back with both knees bent. Your knees should be bent about 90 degrees. 6. Tighten your belly muscles by pulling in your belly button toward your spine. Then push your feet into the floor, squeeze your buttocks, and lift your hips off the floor until your shoulders, hips, and knees are all in a straight line. 7. Hold for about 6 seconds as you continue to breathe normally, and then slowly lower your hips back down to the floor and rest for up to 10 seconds. 8. Repeat 8 to 12 times. Hip extension 5. Get down on your hands and knees on the floor. 6. Keeping your back and neck straight, lift one leg straight out behind you. When you lift your leg, keep your hips level. Don't let your back twist, and don't let your hip drop toward the floor. 7. Hold for 6 seconds. Repeat 8 to 12 times with each leg. 8. If you feel steady and strong when you do this exercise, you can make it more difficult. To do this, when you lift your leg, also lift the opposite arm straight out in front of you. For example, lift the left leg and the right arm at the same time. (This is sometimes called the bird dog exercise. ) Hold for 6 seconds, and repeat 8 to 12 times on each side. Clamshell 7. Lie on your side with a pillow under your head. Keep your feet and knees together and your kneesbent. 8. Raise your top knee, but keep your feet together. Do not let your hips roll back. Your legs should open up like a clamshell. 9. Hold for 6 seconds. 10. Slowly lower your knee back down. Rest for 10 seconds. 11. Repeat 8 to 12 times. 12. Switch to your other side and repeat steps 1 through 5. Hamstring wall stretch 12. Lie on your back in a doorway, with one leg through the open door. 13. Slide your affected leg up the wall to straighten your knee. You should feel a gentle stretch down the back of your leg. 14. Hold the stretch for at least 1 minute to begin. Then try to lengthen the time you hold the stretch to as long as 6 minutes. 15. Switch legs, and repeat steps 1 through 3. 16. Repeat 2 to 4 times. 17. If you do not have a place to do this exercise in a doorway, there is another way to do it: 18. Lie on your back, and bend one knee. 19. Loop a towel under the ball and toes of that foot, and hold the ends of the towel in your hands. 20. Straighten your knee, and slowly pull back on the towel. You should feel a gentle stretch down the back of your leg. 21. Switch legs, and repeat steps 1 through 3. 22. Repeat 2 to 4 times. 4. Do not arch your back. 5. Do not bend either knee. 6. Keep one heel touching the floor and the other heel touching the wall. Do not point your toes. Lower abdominal strengthening 8. Lie on your back with your knees bent and your feet flat on the floor. 9. Tighten your belly muscles by pulling your belly button in toward your spine. 10. Lift one foot off the floor and bring your knee toward your chest, so that your knee is straight above your hip and your leg is bent like the letter L. 11. Lift the other knee up to the same position. 12. Lower one leg at a time to the starting position. 13. Keep alternating legs until you have lifted each leg 8 to 12 times. 14. Be sure to keep your belly muscles tight and your back still as you are moving your legs. Be sure to breathe normally. Piriformis stretch 6. Lie on your back with your legs straight. 7. Lift your affected leg, and bend your knee. With your opposite hand, reach across your body, andthen gently pull your knee toward your opposite shoulder. 8. Hold the stretch for 15 to 30 seconds. 9. Switch legs and repeat steps 1 through 3. 10. Repeat 2 to 4 times. Follow-up care is a vargas part of your treatment and safety. Be sure to make and go to all appointments, and call your doctor if you are having problems. It's also a good idea to know your test resultsand keep a list of the medicines you take. Where can you learn more? Go to https://www.[employer].net/patiented Enter T635 in the search box to learn more about Sacroiliac Pain: Exercises. Current as of: July 07, 2020?Content Version: 12.8 ?? [id number] [employer]. Care instructions adapted under license by your healthcare professional. If you have questions about a medical condition or this instruction, always ask your healthcare professional. These instructions may not represent the values of this healthcare organization. [employer] disclaims any warranty or liability for your use of this information. documented in this encounter Plan of Treatment Scheduled Referrals Name Type Priority Associated Diagnoses Orde r Schedule AMB REFERRAL TO PHYSICAL THERAPY Outpatient Referral Routine Inflammation of right sacroiliac joint Ordered: 04/30/2021 documented as of this encounter Results * XR LUMBAR SPINE 4+ VW (04/30/2021 2:50 PM CDT) Anatomical Region Laterality Modality Spine Computed Radiogr aphy 04/30/2021 2:51 PM CDT Impressions 04/30/2021 3:42 PM CDT IMPRESSION: 1. Mild lower lumbar spondylosis. 2. No subluxation or change in alignment with flexion or extension. DICTATION LOCATION: Location [address] [place] [address] 04/30/2021 3:42 PM CDT XR LUMBAR SPINE 4+ VW DATE: 04/30/2021 2:50 PM HISTORY: Lumbar spondylosis with radiculopathy. FINDINGS: The vertebral body heights are normal. There is no significant intervertebral disc space narrowing. Mild facet arthropathy is present. No subluxation is present or change in alignment with flexion or extension. Calcifications are present. Procedure Note Dale Remy MD - 04/30/2021 [...] change in alignment with flexion or extension. DICTATION LOCATION: [address] Pollo Baltazar MD DIAGNOSTIC IMAGING O RDERABLES documented in this encounter Visit Diagnoses Diagnosis Inflammation of right sacroiliac joint- Primary Other spondylosis with radiculopathy, lumbar region Other spondylosis with radiculopathy, lumbar region documented in this encounter Care Teams Database Design Analyst Relationship Specialty Start Date End Date Mars Roberts MD [address] [place] [address] PCP - General 02/15/06 documented as of this encounter
--- OUTSIDE RECORDS SUMMARY | 2024-08-27 13:21 | XMS_ITS | Encounter Summary ---
Author Organization [facility] Address [address] [place] [address] Care Team Providers Care Hypoid Gear Generator Name Role Phone Mars Roberts MD Primary Care Provider [phone] Reason for Visit * Reason Onset Date Comments Needs Appointment 04/09/2021 Encounter Details Date Type Department Care Team (Late st Contact Info) Description 04/09/2021 Telephone [facility] [address] [address] [place] [address] [facility] [address] [place] [address] Needs Appointment Social History Tobacco Use Types Packs/Day Years Used Date Smoking Tobacco: Never Assessed Sex and Gender Information Value Date Recorded Sex Assigned at Not on file Gender Identity Not on file Sexual Orientation Not on file Job Start Date Occupation Industry Not on file Not on file Not on file documented as of this encounter Miscellaneous Notes * Telephone Encounter - Naomi Steel RN - 04/09/2021 10:37 AM CDT ----- Message from Pollo Baltazar MD sent at 04/06/2021 9:49 AM CDT ----- No films again- please ask Level 4 visit Called patient to schedule an appointment. Number provided has been disconnected. documented in this encounter Plan of Treatment Not on file documented as of this encounter Visit Diagnoses Not on filedocumented in this encounter Care Teams Hypoid Gear Generator Relationship Specialty Start Date End Date Mras Roberts MD [address] [place] [id number] PCP - General 02/15/06 documented as of this encounter
--- OUTSIDE RECORDS SUMMARY | 2024-08-27 13:21 | XMS_ITS | Clinical Summary ---
Author Organization [employer] [facility] Address [address] [place] [address] Care Team Providers Care Color Stripper Name Role Phone Mars Roberts MD Primary Care Provider [phone] Allergies No known active allergies Medications Medication Sig Dispensed Refills Start Date End Date Status simvastatin (ZOCOR) 20 mg tablet Take 20 mg by mouth daily with supper. Active meloxicam (MOBIC) 15 mg tablet Take 15 mg by mouth daily. 12/04/2020 Active citalopram (CeleXA) 10 mg tablet Take 10 mg by mouth daily. Active Active Problems Problem Noted Date Diagnosed Date Inflammation of right sacroiliac joint Other spondylosis with radiculopathy, lumbar reg ion 04/30/2021 Social History Tobacco Use Types Packs/Day Years Used Date Smoking Tobacco: Former Cigarettes 1 4 - 1998 Sex and Gender Information Value Date Recorded Sex Assigned at Not on file Gender Identity Not on file Sexual Orientation Not on file Job Start Date Occupation Industry Not on file Not on file Not on file Last Filed Vital Signs [...] Mass Index 26.05 04/30/2021 1:13 PM CDT Plan of Treatment Health Maintenance Due Date Last Done Comments DTAP/TDAP/TD VACCINES (1 - Tdap) 1977 BREAST CANCER SCREENING 1998 COLORECTAL SCREENING 2003 Colorectal Cancer Screening 2003 FIT-DNA Q 3 years 2003 FIT/FOBT Q 1 year 2003 Flex Sig/CT Colonography Q 5 years 2003 ZOSTER VACCINE (1 of 2) 02/03/2008 OSTEOPOROSIS SCREENING 2023 PNEUMOCOCCAL VACCINE 65+ YEA RS (2 of 2 - PPSV23 or PCV20) 2023 06/27/2020 INFLUENZA VACCINE (#1) 2024 06/27/2020, 2017 RSV VACCINE (60+ or ) (1 - 1-dose 75+ series) 2033 Care Teams Color Stripper Relationship Specialty Start Date End Date Mars Roberts MD [address] [place] [phone] PCP - General 02/15/06
--- OUTSIDE RECORDS SUMMARY | 2024-08-27 13:21 | XMS_ITS | Encounter Summary ---
Author Organization [facility] Address [address] [place] [address] Care Team Providers Care Tanning Solution Maker Name Role Phone Mars Roberts MD Primary Care Provider Encounter Details Date Type Department Care Team (Latest Contact Info) Description 04/30/2021 2:09 PM CDT - 04/30/2021 11:59 PM CDT Hospital Encounter [facility] Imaging Services [facility] [address] [place] [address] [place] [address] [facility] [address] [place] [address] Discharge Disposition: Home or Self Care Social History Tobacco Use Types Packs/Day Years [...] PM CDT documented as of this encounter Medications at Time of Discharge Medication Sig Dispensed Refills Start Date End Date simvastatin (ZOCOR) 20 mg tablet Take 20 mg by mouth daily with supper. meloxicam (MOBIC) 15 mg tablet Take 15 mg by mouth daily. 12/04/2020 citalopram (CeleXA) 10 mg tablet Take 10 mg by mouth daily. documented as of this encounter Plan of Treatment Not on file documented as of this encounter Procedures Procedure Name Priority Date/Time Associated Diagnosis Comments XR LUMBAR SPINE 4+ VW Routine 04/30/2021 2:50 PM CDT Other spondylosis with radiculopathy, lumbar region documented in this encounter Results * XR LUMBAR SPINE 4+ VW (04/30/2021 2:50 PM CDT) Anatomical Region Laterality Modality Spine Computed Radiogr aphy 04/30/2021 2:51 PM CDT Impressions 04/30/2021 3:42 PM CDT IMPRESSION: 1. Mild lower lumbar spondylosis. 2. No subluxation or change in alignment with flexion or extension. DICTATION LOCATION: [address] Narrative 04/30/2021 3:42 PM CDT XR LUMBAR SPINE [...] with flexion or extension. DICTATION LOCATION: Location [address] [place] [address] Pollo Baltazar MD DIAGNOSTIC IMAGING O RDERABLES documented in this encounter Visit Diagnoses Diagnosis Other spondylosis with radiculopathy, lumbar region documented in this encounter Care Teams Tanning Solution Maker Relationship Specialty Start Date End Date Mars Roberts MD [address] [place] [phone] PCP - General 02/15/06 documented as of this encounter
--- OUTSIDE RECORDS SUMMARY | 2024-08-27 13:21 | XMS_ITS | Encounter Summary ---
Author Organization [facility] Address [address] [place] [address] Care Team Providers Care Metal Cnc Operator Name Role Phone Mars Roberts MD Primary Care Provider Encounter Details Date Type Department Care Team (Late st Contact Info) Description 05/01/2021 Abstract [facility] SPINE AND PAIN MANAGEMENT [address] [address] [place] [address] [facility] [address] [place], [place] [id number] Social History Tobacco Use Types Packs/Day Years [...] on filedocumented in this encounter Care Teams Metal Cnc Operator Relationship Specialty Start Date End Date Mars Roberts MD [address] [place] [phone] PCP - General 02/15/06 documented as of this encounter
--- OUTSIDE RECORDS SUMMARY | 2024-08-27 13:21 | XMS_ITS | Encounter Summary ---
Author Organization [facility] Address [address] [place] [address] Care Team Providers Care Quill Worker Name Role Phone Mars Roberts MD Primary Care Provider [phone] Reason for Referral * MRI (Routine) - Closed Specialty Diagnoses / Procedures Referred By Contac t Referred To Contact Diagnoses Chronic pain syndrome Procedures [place] [address] [phone] Referral ID Status Reason Start Date Expiration Date Visits Re quested Visits Authorized [id number] Closed 04/30/2021 05/31/2022 1 1 Encounter Details Date Type Department Care Team (Late st Contact Info) Description 04/30/2021 Orders Only [facility] SPINE [facility] PAIN MANAGEMENT [address] [address] [place] [address] [facility] [address] [place] [address] Chronic pain syndrome (Primary Dx) Social History Tobacco Use Types [...] on file documented as of this encounter Results * MRI PRIOR STUDY (12/11/2020 12:00 AM CDT) Narrative 04/30/2021 1:00 PM CDT This exam was auto finalized to allow images to be scanned to PACS. Pollo Baltazar MD MR ORDERABLES documented in this encounter Visit Diagnoses Diagnosis Chronic pain syndrome Chronic pain syndrome- Primary documented in this encounter Care Teams Quill Worker Relationship Specialty Start Date End Date Mars Roberts MD [address] [place] [phone] PCP - General 02/15/06 documented as of this encounter
--- OUTSIDE RECORDS SUMMARY | 2024-08-27 13:21 | XMS_ITS | Encounter Summary ---
Author Organization [employer] Address [address] [place] [address] Care Team Providers Care Food Cooking Machine Operator Name Role Phone Mars Roberts MD Primary Care Provider Encounter Details Date Type Department Care Team (Latest Contact Info) Description 02/15/2006 Outpatient Historical [facility] Kb Mcnair MD Ariel Lu MD NO ADDRESS ON FILE Degeneration of Cervical Intervertebral Disc (Primary Dx) Social History Tobacco Use Types [...] as of this encounter Visit Diagnoses Diagnosis Degeneration of cervical intervertebral disc- Primary documented in this encounter Care Teams Food Cooking Machine Operator Relationship Specialty Start Date End Date Mars Roberts MD [address] [place] [phone] PCP - General 02/15/06 documented as of this encounter
--- OUTSIDE RECORDS SUMMARY | 2024-08-27 13:21 | XMS_ITS | Encounter Summary ---
Author Organization [facility] Address [address] [facility] Attn: Epic Prelude ADT DAISY MARTINEZ [address] Care Team Providers Care Filament Wound Parts Fabricator Name Role Phone Mars Roberts MD Primary Care Provider [phone] Encounter Details Date Type Department Care Team (Latest Contact Info) Description 04/10/2021 Travel Social History Tobacco Use Types Packs/Day [...] or suspected to have Coronavirus / COVID-19? Yes 04/10/2021 9:02 AM CDT documented as of this encounter Plan of Treatment Not on file documented as of this encounter Visit Diagnoses Not on filedocumented in this encounter Care Teams Filament Wound Parts Fabricator Relationship Specialty Start Date End Date Mars Roberts MD [address] [place] [phone] PCP - General 02/15/06 documented as of this encounter
--- OUTSIDE RECORDS SUMMARY | 2024-08-27 13:21 | XMS_ITS | Encounter Summary ---
Author Organization [facility] Address [address] [place] [address] Care Team Providers Care Online Editor Name Role Phone Mars Roberts MD Primary Care Provider [phone] Reason for Visit * MRI (Routine) - Closed Specialty Diagnoses / Procedures Referred By Contac t Referred To Contact Diagnoses Chronic pain syndrome Procedures [place] [address] [address] Referral ID Status Reason Start Date Expiration Date Visits Re quested Visits Authorized [id number] Closed 04/30/2021 05/31/2022 1 1 Encounter Details Date Type Department Care Team (Latest Contact Info) Description 12/11/2020 - 12/11/2020 11:59 PM CDT Hospital Encounter [facility] Imaging Services [facility] [id number] [place] [address] [place] [address] [facility] [address] [place] [address] Discharge Disposition: Home or Self Care Social History Tobacco Use Types Packs/Day Years Used Date Smoking Tobacco: Never Assessed Sex and Gender Information Value Date Recorded Sex Assigned at Not on file Gender Identity Not on file Sexual Orientation Not on file Job Start Date Occupation Industry Not on file Not on file Not on file documented as of this encounter Medications at Time of Discharge Medication Sig Dispensed Refills Start Date End Date meloxicam (MOBIC) 15 mg tablet Take 15 mg by mouth daily. 12/04/2020 documented as of this encounter Plan of Treatment Not on file documented as of this encounter Procedures Procedure Name Priority Date/Time Associated Diagnosis Comments MRI PRIOR STUDY Routine 12/11/2020 12:00 AM CDT Chronic pain syndrome documented in this encounter Results * MRI PRIOR STUDY (12/11/2020 12:00 AM CDT) Narrative 04/30/2021 1:00 PM CDT This exam was auto finalized to allow images to be scanned to PACS. Pollo Baltazar MD MR ORDERABLES documented in this encounter Visit Diagnoses Diagnosis Chronic pain syndrome documented in this encounter Care Teams Online Editor Relationship Specialty Start Date End Date Mars Roberts MD [address] [place] [phone] PCP - General 02/15/06 documented as of this encounter
--- OUTSIDE RECORDS SUMMARY | 2024-08-27 13:21 | XMS_ITS | Encounter Summary ---
Author Organization [facility] Address [address] [place] [address] Care Team Providers Care Client Experience Specialist Name Role Phone Mars Roberts MD Primary Care Provider [phone] Encounter Details Date Type Department Care Team (Latest Contact Info) Description 04/30/2021 2:08 PM CDT - 04/30/2021 11:59 PM CDT Hospital Encounter [facility] Imaging Services [facility] [address] [place] [address] [place] [address] [facility] [address] [place] [address] Discharge Disposition: Home or Self [...] Name Priority Date/Time Associated Diagnosis Comments XR HIP 2 OR 3 VIEWS RT Routine 04/30/2021 2:50 PM CDT Inflammation of right sacroiliac joint documented in this encounter Results * XR HIP 2 OR 3 VIEWS RT (04/30/2021 2:50 PM CDT) Anatomical Region Laterality Modality Lower Extremity Right Computed Radiogr aphy 04/30/2021 2:50 PM CDT Impressions 04/30/2021 3:01 PM CDT IMPRESSION: Negative. DICTATION LOCATION: [address] Narrative 04/30/2021 3:01 PM CDT XR HIP 2 OR 3 VIEWS RT DATE: 04/30/2021 HISTORY:Hip pain FINDINGS: Two views of the right hip. There is excellent alignment and no joint space narrowing, fracture or other defect. Sacroiliac joint has a normal appearance. Procedure Note Brandan Hernandez MD - 04/30/2021 XR HIP 2 OR 3 VIEWS RT DATE: 04/30/2021 HISTORY:Hip pain FINDINGS: Two views of the right hip. There is excellent alignment and no joint space narrowing, fracture or other defect. Sacroiliac joint has a normal appearance. IMPRESSION: Negative. DICTATION LOCATION: [address] Pollo Baltazar MD DIAGNOSTIC IMAGING O RDERABLES documented in this encounter Visit Diagnoses Diagnosis Inflammation of right sacroiliac joint documented in this encounter Care Teams Client Experience Specialist Relationship Specialty Start Date End Date Mars Roberts MD [address] [place] [phone] PCP - General 02/15/06 documented as of this encounter
--- OUTSIDE RECORDS SUMMARY | 2024-08-27 13:21 | XMS_ITS | Encounter Summary ---
Author Organization [facility] Address [address] [place] [address] Care Team Providers Care Director Electronics Name Role Phone Mars Roberts MD Primary Care Provider [phone] Encounter Details Date Type Department Care Team (Late st Contact Info) Description 04/30/2021 Abstract [facility] SPINE AND PAIN MANAGEMENT [address] [address] [place] [address] [facility] [address] [place], [place] [id number] Social History Tobacco Use Types Packs/Day Years [...] on filedocumented in this encounter Care Teams Director Electronics Relationship Specialty Start Date End Date Mars Roberts MD [address] [place] [phone] PCP - General 02/15/06 documented as of this encounter
== END 2024-08-20 08:23 | disposition home or self-care (01) ==
LOC: ANHNEURO 08:24
PROVIDERS: PCP Family Medicine; Visit Provider Plastic Surgery
DX: G56.20 Lesion of ulnar nerve, unspecified upper limb (principal)
CPT/HCPCS: 95886; 95911

== ENCOUNTER 2024-10-02 09:55 | Emergency (ER) | payer MEDICARE, SELFPAY ==
--- NOTE | ~2024-10-02 | XR_ITS ---
EXAMINATION: XR chest 2V DATE: 10/02/2024 10:16 INDICATION: Cough and fever. TECHNIQUE: Frontal and lateral views of the chest were obtained. COMPARISON: CT abdomen and pelvis 05/10/2023 FINDINGS: There is no pneumonia, pleural effusion, or pneumothorax. The heart size is normal. IMPRESSION: 1. No acute cardiopulmonary disease. Reviewed, dictated and finalized at location A. [employer]
--- NOTE | 2024-10-02 09:59 | ED.URI ---
HPI - URI/Sore Throat General Chief Complaint: Upper Respiratory Infection Stated Complaint: Flu Symptoms Source: patient and RN notes reviewed Mode of arrival: ambulatory Limitations: no limitations History of Present Illness HPI Narrative: Patient is a 64-year-old female who presents to [facility] with multiple complaints. Patient reports body aches and headache for the last couple days. She also endorses nasal congestion and drainage. States that she has a frequent nonproductive cough that is occasionally productive with castro sputum. She states that she has been experiencing chest tightness that radiates in to her back with the cough. She denies difficulty breathing or chest pain at this time. Reports low-grade fevers and chills. Patient states her grandchildren have been sick with similar symptoms. Related Data Home Medications ?Medication ?Instructions ?Recorded ?Confirmed ?Last Taken ?Type citalopram 20 mg tablet 20 mg PO DAILY 10/02/24 10/02/24 Unknown History Allergies Allergy/AdvReac Type Severity Reaction Status Date / Time iohexol (From contrast - CT, AdvReac Mild Rash Verified 10/02/24 10:03 X-RAY) Review of Systems Review of Systems: CONSTITUTIONAL: reports fever and chills. EYES: Denies visual changes, redness, or discharge. ENT: Denies otalgia and sore throat. Reports nasal congestion and drainage. CARDIOVASCULAR: Denies chest pain, palpitations, or edema. RESPIRATORY: Reports cough but denies dyspnea. GASTROINTESTINAL: Denies abdominal pain, nausea, vomiting, or diarrhea. GENITOURINARY: Denies dysuria or hematuria. SKIN: Denies rash or itching. MUSCULOSKELETAL: Denies back pain, joint pain. Reports body aches. NEUROLOGIC: Reports headache but denies numbness or weakness. Pertinent positives per HPI. [facility] Past Medical History Medical History Insomnia Hyperlipidemia Anxiety Surgical History Surgical History Status post cervical disc replacement History of partial hysterectomy 1993 History of 1985 History of 1987 Family History Family History Sibling Alcohol abuse Other Anxiety Asthma Depression Hypertension Social History Social History (Reviewed 10/02/24 @ 09:59 by TOOTIE Millan Smoking status: Current some day smoker Tobacco type: e-cigarettes/vaping Second hand tobacco smoke exposure: No Smoking end date: 01/20/98 Additional smoking assessment comments: uses a vape pen with marijuana for sleep, stopped smoking cigarettes in ' Alcohol intake: never Substance use: current Substance use type: marijuana Last use: 05/26/23 Lack of Transportation: No Lack of Food: Never True Current Housing: I Have Housing Concerned About Future Housing: No Difficulty Paying Gas/Electric Bills: No Difficulty Paying for Meds: No Currently Unemployed: No Education: Associate Degree Difficulty w/ Childcare or Family Care: No Living arrangements: with family Additional living arrangements comments: with sp Gender identity (if verbalized by the patient): Female Sexual Orientation (if Verbalized by the Patient): Straight or Heterosexual Spiritual care concerns: No Agree to blood products: Yes Comments At the time of my signature, I reviewed and agree with the nursing past medical, surgical, social, and family history. There is no relevant family history pertinent to the patient complaint. Exam Narrative: GENERAL: This is a well-nourished, well-developed patient, in no apparent distress. HEAD: normocephalic, atraumatic. EYES: Sclera clear/white. Vision is grossly intact. EARS: External ears normal. Hearing grossly intact. NOSE: External nose normal with no obvious nasal discharge, nares without redness, no rhinorrhea. THROAT: Mucous membranes moist, posterior pharynx clear. NECK: Neck supple, non-tender without lymphadenopathy, masses or thyromegaly. CARDIOVASCULAR: Regular rate and rhythm without murmurs, gallops, or rubs. RESPIRATORY: Clear to auscultation. Breath sounds equal bilaterally. No wheezes, rales, or rhonchi. GASTROINTESTINAL: Abdomen soft, non-tender, nondistended. Bowel sounds are active. No hepato-splenomegaly, or palpable masses. No guarding. SKIN: warm, intact with no suspicious lesions or rash, good texture and turgor. NEURO: awake, alert, and oriented to person, place and time. There were no obvious focal neurologic abnormalities. EXTREMITIES: No clubbing, cyanosis, or edema. No joint tenderness, effusion, or edema noted. BACK: Nontender without deformity or crepitance. No flank tenderness. Course Course Level of Care: Express Care Visit Vital Signs Vital signs: Vital Signs Temperature 100 F H 10/02/24 10:05 Pulse Rate 89 10/02/24 10:05 Respiratory Rate 16 10/02/24 10:05 Blood Pressure 133/72 10/02/24 10:05 Pulse Oximetry 98 10/02/24 10:05 Temperature 100 F H 10/02/24 10:05 Pulse Rate 89 10/02/24 10:05 Respiratory Rate 16 10/02/24 10:05 Blood Pressure 133/72 10/02/24 10:05 Pulse Oximetry 98 10/02/24 10:05 Reviewed MDM - URI/Sore Throat MDM Narrative Medical decision making narrative: COVID-19 DISCHARGE The following recommendations have been made by the CDC and local Health Departments, regarding COVID-19: If You Test Positive for COVID-19 (Isolate) Everyone, regardless of vaccination status. Stay home for 5 days. If you have no symptoms or your symptoms are resolving after 5 days, you can leave your house. Continue to wear a mask around others for 5 additional days. If you have a fever, continue to stay home until your fever resolves. Those individuals with mild cases of COVID-19 can generally be discontinued from isolation, 10 days AFTER the onset of symptoms AND the resolution of fever for 24hrs (without the use of fever-reducing medications) Those individuals who were asymptomatic, and tested positive, are discontinued from isolation 10 days AFTER their first positive COVID-19 test Those individuals with SEVERE to CRITICAL illness or immunocompromised diseases may require up to 20 days of home isolation or hospitalization Majority of mild to moderate cases can be treated at home, without hospitalization or prescription medications You do not need a negative test result to return to work/school, assuming the above recommendations have been met and you are not symptomatic. At this time, return to work/school notes will not be provided. Guidelines from the local Health Department, CDC, and workplace are expected to be followed. All individuals in the household need to remained quarantined for up to 14 days if asymptomatic OR 10 days after the start of symptoms. Everyone in the home DOES NOT require testing, they are presumed positive and should quarantine as directed. Treating symptoms for mild to moderate cases may include: Tylenol, Flonase/nasal spray, OTC cold/flu medications recommended from your provider or any necessary prescription medications provided at your visit or from your PCP You may be sent for PCR testing as an outpatient to the [place] testing site Common Adult Symptoms: Fever/chills Cough Shortness of breath Fatigue, muscle aches Headache Loss of taste/smell Sore throat, congestion, runny nose GI symptoms (nausea, vomiting, diarrhea) Common Pediatric Symptoms Cough Fever GI symptoms (diarrhea, upset stomach, nausea, vomiting) Symptoms may differ in severity however, most cases do not require hospitalization. WHEN TO SEEK ER EVALUATION/TREATMENT Severe/persistent shortness of breath or difficulty breathing Elevated, persistent fevers without resolution with fever-reducing medications Chest pain Extreme fatigue/lethargy Complications of pre-existing disease Differential Diagnosis Differential diagnosis: Likely upper respiratory infection, viral infection, influenza and other (covid, pneumonia) Lab Data Attestation: I reviewed the patient's lab results. Labs: Lab Results 10/02/24 Range/Units 10:12 POC Influenza A Ag Negative (Negative) POC Influenza B Ag Negative (Negative) POC SARS CoV-2 Ag Positive (Negative) Imaging Data Attestation: I personally reviewed and interpreted this imaging study as follows: Radiologist's impression: Close Chest X-Ray (Signed) [email or web address] - 10/02/24 Launch?[facility] [address] [address] XRay Report Signed Patient: Kaylah Villalpando : 1960 MR#: [id number] Age: 64 Acct:[id number] Loc: [facility] ADM Date: 10/02/24Attending Dr: Ordering Physician: Darleen Gonzales APRN Date of Service: 10/02/24 Procedure(s): XR chest 2V Accession Number(s): [id number] cc: Darleen Gonzales APRN; Salome Abarca MD~ EXAMINATION: XR chest 2V DATE: 10/02/2024 10:16 INDICATION: Cough and fever. TECHNIQUE: Frontal and lateral views of the chest were obtained. COMPARISON: CT abdomen and pelvis 05/10/2023 FINDINGS: There is no pneumonia, pleural effusion, or pneumothorax. The heart size is normal. IMPRESSION: 1. No acute cardiopulmonary disease. Reviewed, dictated and finalized at location A. [employer] Please be advised this is a medical document. It is intended for [id number] communication. It is written in medical language and may contain unfamiliar abbreviations or verbiage. Medical documents are intended to carry relevant information, facts as evident, and the clinical opinion of the practitioner at the time of the encounter. This report may have been done utilizing a voice recognition system. Attempts have been made to correct errors. However, there may be uncorrected grammatical, spelling, and recognition errors present. The file time of this note does not necessarily represent the time of service. Dictated By: Jeronimo Campos MD 10/02/24 1016 Signed By: <Electronically signed by Jeronimo Campos MD in OV> 10/02/24 1016 Critical Care Time Critical Care Time Critical Care Time: No Discharge Plan Discharge Clinical Impression: COVID Patient Disposition: Home, Self-Care Condition: Stable Instructions: COVID-19 (Coronavirus Disease 2019) (ED) Additional Instructions: COVID-19 DISCHARGE The following recommendations have been made by the CDC and local Health Departments, regarding COVID-19: If You Test Positive for COVID-19 (Isolate) Everyone, regardless of vaccination status. Stay home for 5 days. If you have no symptoms or your symptoms are resolving after 5 days, you can leave your house. Continue to wear a mask around others for 5 additional days. If you have a fever, continue to stay home until your fever resolves. Those individuals with mild cases of COVID-19 can generally be discontinued from isolation, 10 days AFTER the onset of symptoms AND the resolution of fever for 24hrs (without the use of fever-reducing medications) Those individuals who were asymptomatic, and tested positive, are discontinued from isolation 10 days AFTER their first positive COVID-19 test Those individuals with SEVERE to CRITICAL illness or immunocompromised diseases may require up to 20 days of home isolation or hospitalization Majority of mild to moderate cases can be treated at home, without hospitalization or prescription medications You do not need a negative test result to return to work/school, assuming the above recommendations have been met and you are not symptomatic. At this time, return to work/school notes will not be provided. Guidelines from the local Health Department, CDC, and workplace are expected to be followed. All individuals in the household need to remained quarantined for up to 14 days if asymptomatic OR 10 days after the start of symptoms. Everyone in the home DOES NOT require testing, they are presumed positive and should quarantine as directed. Treating symptoms for mild to moderate cases may include: Tylenol, Flonase/nasal spray, OTC cold/flu medications recommended from your provider or any necessary prescription medications provided at your visit or from your PCP You may be sent for PCR testing as an outpatient to the [facility] site Common Adult Symptoms: Fever/chills Cough Shortness of breath Fatigue, muscle aches Headache Loss of taste/smell Sore throat, congestion, runny nose GI symptoms (nausea, vomiting, diarrhea) Common Pediatric Symptoms Cough Fever GI symptoms (diarrhea, upset stomach, nausea, vomiting) Symptoms may differ in severity however, most cases do not require hospitalization. WHEN TO SEEK ER EVALUATION/TREATMENT Severe/persistent shortness of breath or difficulty breathing Elevated, persistent fevers without resolution with fever-reducing medications Chest pain Extreme fatigue/lethargy Complications of pre-existing disease Patient Language: Lithuanian Prescriptions: No Action citalopram 20 mg tablet 20 mg PO DAILY rosuvastatin 20 mg tablet 20 mg PO DAILY Qty: 90 2RF levothyroxine 25 mcg tablet 37.5 mcg PO DAILY Qty: 45 3RF Follow-up/Referrals: Salome Abarca MD [Primary Care Provider] - Time of Disposition: 10:26
[2024-10-02 10:05] VITALS: BP 133/72; PULSE 89; RESP 16; TEMP 37.7; O2SAT 98
[2024-10-02 10:14] LABS: EDCOVIDSCREEN Positive (Negative); EDINFLUASCREEN Negative (Negative); EDINFLUBSCREEN Negative (Negative)
== END 2024-10-02 10:29 | disposition home or self-care (01) ==
PROVIDERS: Emergency Provider Nurse Practitioner; PCP Family Medicine
DX: U07.1 COVID-19 (principal); F17.290 Nicotine dependence, other tobacco product, uncomplicated; E78.5 Hyperlipidemia, unspecified; Z90.711 Acquired absence of uterus with remaining cervical stump
CPT/HCPCS: 71046; 87426; 87804; 99213; G0463

== ENCOUNTER 2024-12-25 11:54 | Emergency (ER) | payer MEDICARE, SELFPAY ==
[2024-12-25 12:32] VITALS: BP 131/65; PULSE 67; RESP 16; TEMP 36.7; O2SAT 100
--- NOTE | 2024-12-25 13:16 | ED.SKABFB ---
HPI - Skin/Abscess/Foreign Bdy General Chief complaint: Skin/Abscess/Foreign Body Stated complaint: Rash Time Seen by Provider: 12/25/24 13:16 Source: patient Mode of arrival: ambulatory Limitations: no limitations History of Present Illness HPI narrative: 64 year old female who presents to [facility] care with complaints of itchiness to skin with red patches on skin and some red raised areas noted also for the past 4 weeks. Patient reports that she and her also did scabies treatment and have sprayed house and have washed all bedding and towel etc. No vesicles or any pustules noted on skin. small scattered red areas not linear in nature and patient reports no increased itching during night.Patient reports that she has tried hydrocortisone ointments and taken some Benadryl also complaint: rash Onset (ago): week(s) (4 weeks) Location: generalized Severity: moderate Treatments prior to arrival: other (did permethrin treatment) Related Data Home Medications ?Medication ?Instructions ?Recorded ?Confirmed ?Last Taken ?Type citalopram 20 mg tablet 20 mg PO DAILY 10/02/24 10/02/24 Unknown History tizanidine 2 mg tablet mg 12/25/24 Unknown History Allergies Allergy/AdvReac Type Severity Reaction Status Date / Time iohexol (From contrast - CT, AdvReac Mild Rash Verified 12/25/24 12:48 X-RAY) Review of Systems Review of Systems: CONSTITUTIONAL: Denies fever, chills, or sweats. CARDIOVASCULAR: Denies chest pain, palpitations, or edema. RESPIRATORY: Denies cough or dyspnea. SKIN: Reports scattered red itchy areas on skin for the past 4 weeks, no vesicles or any pustular formation reports that has similar rash MUSCULOSKELETAL: Denies joint pain or myalgia. NEUROLOGIC: Denies headache, numbness, or weakness. All systems reviewed & are unremarkable except as noted in HPI and below PMFSH Past Medical History Medical History Back pain Hypothyroidism Insomnia Hyperlipidemia Anxiety Surgical History Surgical History Status post cervical disc replacement History of partial hysterectomy 1993 History of 1985 History of 1987 Family History Family History Sibling Alcohol abuse Other Anxiety Asthma Depression Hypertension Social History Social History Smoking status: Current some day smoker Tobacco type: e-cigarettes/vaping Second hand tobacco smoke exposure: No Smoking end date: 01/20/98 Additional smoking assessment comments: uses a vape pen with marijuana for sleep, stopped smoking cigarettes in 96' Alcohol intake: never Substance use: current Substance use type: marijuana Last use: 05/26/23 Lack of Transportation: No Lack of Food: Never True Current Housing: I Have Housing Concerned About Future Housing: No Difficulty Paying Gas/Electric Bills: No Difficulty Paying for Meds: No Currently Unemployed: No Education: Associate Degree Difficulty w/ Childcare or Family Care: No Living arrangements: with family Additional living arrangements comments: with sp Gender identity (if verbalized by the patient): Female Sexual Orientation (if Verbalized by the Patient): Straight or Heterosexual Spiritual care concerns: No Agree to blood products: Yes Comments At time of signature, agree with nursing past medical, surgical, social and family history. There is no relevant family history pertinent to the presenting complaint Exam Narrative: GENERAL: Well-appearing, well-nourished, and in no acute distress. HEAD: Normocephalic, atraumatic. EYES: PERRLA, conjunctivae clear, and EOMI. ENT: Mucous membranes moist. Oropharynx without edema, erythema or lesions. NECK: Supple. No lymphadenopathy CHEST: Clear to auscultation. No respiratory distress.SAO2 100% on room air HEART: Regular rate and rhythm. SKIN: Warm, dry.? Patches of erythema and small red raised areas that are itchy no linear formation no vesicles or pustules noted NEURO:? Alert and oriented x3. PSYCH: Normal mood and affect, anxious Course Course Emergency Course: Patient is aware of diagnosis, understands and agrees to treatment plan.? Anticipatory guidance given.? Patient agrees to follow-up as directed and is aware of reasons to seek care at the emergency department. Portions of this record may have been created with voice recognition software Level of Care: Express Care Visit Vital Signs Vital signs: Vital Signs Temperature 36.7 C 12/25/24 12:32 Pulse Rate 67 12/25/24 12:32 Respiratory Rate 16 12/25/24 12:32 Blood Pressure 131/65 12/25/24 12:32 Pulse Oximetry 100 12/25/24 12:32 Temperature 36.7 C 12/25/24 12:32 Pulse Rate 67 12/25/24 12:32 Respiratory Rate 16 12/25/24 12:32 Blood Pressure 131/65 12/25/24 12:32 Pulse Oximetry 100 12/25/24 12:32 Reviewed MDM - Skin/Abscess/Foreign Bdy MDM Narrative Medical decision making narrative: Does not appear at this time to be erythema multiforme, bullous, SJS, TEN; no evidence at this time to suggest RMSF, endocarditis or Lyme disease; patient looks well, nontoxic and is tolerating oral intake; no neurologic signs or symptoms; no headache, photophobia or neck pain; afebrile; appropriate for initial outpatient treatment; discussed the importance of follow-up, patient agrees; question, viral exanthema, contact dermatitis, allergic dermatitis, eczema, urticaria, [ xx ]. No soft palate or uvula edema, no tongue, lip edema or other mucosal involvement, no respiratory compromise, no stridor, no wheezing, no wheezing, no history of syncope, no hypotension, no nausea, vomiting, or diarrhea.? Instructed patient to go to nearest ER immediately for any worsening symptoms including but not limited to: fever, spreading rash, pain, sore throat, headache, dizziness, chest pain, trouble breathing, or any symptoms concerning to the patient. Differential Diagnosis Differential diagnosis: Likely dermatophytosis, eczema, contact dermatitis and other (pruritic rash) Medical Records Attestation: I reviewed the patient's medical records. Critical Care Time Critical Care Time Critical Care Time: No Discharge Plan Discharge Clinical Impression: Contact dermatitis Qualifiers: Contact dermatitis type: unspecified Contact dermatitis trigger: unspecified trigger Qualified Code(s): L25.9 - Unspecified contact dermatitis, unspecified cause Patient Disposition: Home Condition: Stable Instructions: Contact Dermatitis (ED) Additional Instructions: may apply triamcinolone to rash twice daily never apply to face watch for any infection--redness, swelling, drainage Zyrtec daily for 10 days Pepcid daily for 10 days follow up with PCP in 7-10 days for a wound check recheck if develop fever, chills, increasing symptom Go to the ER if your symptoms become worse of if ANY new symptoms develop prednisone taper take as prescribed take with food If your symptoms persist, change or worsen significantly before you can contact your personal physician then please, without delay, go to the emergency department for further evaluation. Follow-up with PCP in 7-10 days or sooner if needed Follow up with PCP soon in regards to your blood pressure which is elevated above threshold for referral. Blood pressure above 120/80 may indicate pre-hypertension. 131/65 Patient Language: Bulgarian Prescriptions: New prednisone 10 mg tablet 10 mg PO DIRECTED Qty: 42 0RF Rx Instructions: see taper instructions 6 tabs daily for 2 days, 5 tabs daily 2 days, 4 tabs daily for 2 days, 3 tabs daily 2 days, 2 tabs daily for 2 days, 1 tab daily for 2 days triamcinolone acetonide 0.1 % ointment 1 applic topical BID Qty: 80 0RF Rx Instructions: to rash up to 14 days MEVER APPLY TO FACE famotidine [Pepcid] 20 mg tablet 20 mg PO DAILY Qty: 10 0RF No Action citalopram 20 mg tablet 20 mg PO DAILY tizanidine 2 mg tablet rosuvastatin 20 mg tablet 20 mg PO DAILY Qty: 90 2RF levothyroxine 25 mcg tablet 37.5 mcg PO DAILY Qty: 45 3RF permethrin 5 % cream 1 applic topical Q14D Qty: 60 1RF Rx Instructions: apply second treatment 14 days after first treatment if live lice remain Follow-up/Referrals: PHYSICIAN,[employer] [Primary Care Provider] - Time of Disposition: 13:34 Quality Lupe Coma Scale Eyes: Open Verbal: Oriented and Alert Motor: Follows Commands Lupe Coma Total Score: 15
== END 2024-12-25 13:36 | disposition home or self-care (01) ==
PROVIDERS: Emergency Provider Registered Nurse
DX: L25.9 Unspecified contact dermatitis, unspecified cause (principal); E03.9 Hypothyroidism, unspecified; E78.5 Hyperlipidemia, unspecified; F41.9 Anxiety disorder, unspecified; Z90.711 Acquired absence of uterus with remaining cervical stump
CPT/HCPCS: 99213; G0463